=== PATIENT | female | born 1985 ===

== ENCOUNTER 2019-12-24 12:44 | Outpatient (REF) | payer OTHER, SELFPAY ==
--- NOTE | 2019-12-24 | US_ITS ---
EXAMINATION: ULTRASOUND PELVIS COMPLETE. CLINICAL INFORMATION: Complex ovarian cyst. COMPARISON: Pelvic pain. TECHNIQUE: Transabdominal and transvaginal ultrasound of the pelvis is performed. FINDINGS: The uterus is retroverted and retroflexed measuring 7.1 cm in length, 3.9 cm in AP and 4.8 cm in transverse dimension. The endometrial thickness is 0.7 cm. Uterus is homogeneous in echotexture. Right ovary measures 3.6 x 2 2.7 x 2.5 cm and volume 12.7 mL. Previously it measured 3.5 x 2.8 x 2.4 cm. There are multiple small follicular cysts seen. Left ovary measures 3.4 x 3.2 x 2.1 cm and volume 12 mL. Previously right ovary measured 3.8 x 3.3 x 3.0 cm. There are multiple small anechoic cyst. There is no free fluid in cul-de-sac. 2 US/US pelvic complete IMPRESSION: Suspect bilateral polycystic ovaries. The uterus is unremarkable. There is no free fluid in cul-de-sac.
--- NOTE | 2019-12-24 | US_ITS ---
EXAMINATION: ULTRASOUND PELVIS COMPLETE. CLINICAL INFORMATION: Complex ovarian cyst. COMPARISON: Pelvic pain. TECHNIQUE: Transabdominal and transvaginal ultrasound of the pelvis is performed. FINDINGS: The uterus is retroverted and retroflexed measuring 7.1 cm in length, 3.9 cm in AP and 4.8 cm in transverse dimension. The endometrial thickness is 0.7 cm. Uterus is homogeneous in echotexture. Right ovary measures 3.6 x 2 2.7 x 2.5 cm and volume 12.7 mL. Previously it measured 3.5 x 2.8 x 2.4 cm. There are multiple small follicular cysts seen. Left ovary measures 3.4 x 3.2 x 2.1 cm and volume 12 mL. Previously right ovary measured 3.8 x 3.3 x 3.0 cm. There are multiple small anechoic cyst. There is no free fluid in cul-de-sac. 2 US/US transvaginal IMPRESSION: Suspect bilateral polycystic ovaries. The uterus is unremarkable. There is no free fluid in cul-de-sac.
== END 2019-12-24 12:45 | disposition home or self-care (01) ==
LOC: HO.US 12:44
PROVIDERS: PCP Family Medicine; Visit Provider Obstetrics & Gynecology
DX: N83.299 Other ovarian cyst, unspecified side (principal)
CPT/HCPCS: 76830; 76856

== ENCOUNTER → 2020-01-07 11:36 | Outpatient (BNVA) | payer OTHER, SELFPAY | PROVIDERS: PCP Family Medicine; Referring Provider Family Medicine; Visit Provider Obstetrics & Gynecology | DX: Z76.89 Persons encountering health services in other specified circumstances (principal) ==

== ENCOUNTER → 2020-01-22 12:19 | Outpatient (BNVA) | payer OTHER, SELFPAY | PROVIDERS: Visit Provider Obstetrics & Gynecology | DX: Z76.89 Persons encountering health services in other specified circumstances (principal) ==

== ENCOUNTER 2020-01-23 13:18 | Outpatient (REF) | payer OTHER, SELFPAY ==
[2020-01-28 22:38] LABS: HPV 16 RNA NOT DETECTED (NOT DETECTED); HPV mRNA E6/E7 rflx Detected (Not Detected)
[2020-01-29 11:34] LABS: CT PCR NOT DETECTED (Not Detect.); NG PCR NOT DETECTED (Not Detect.)
== END 2020-01-23 13:19 | disposition home or self-care (01) ==
LOC: HO.LAB 13:18
PROVIDERS: Visit Provider Obstetrics & Gynecology
DX: Z01.419 Encounter for gynecological examination (general) (routine) without abnormal findings (principal); B37.3 Candidiasis of vulva and vagina; N92.1 Excessive and frequent menstruation with irregular cycle; L68.0 Hirsutism; Z79.899 Other long term (current) drug therapy
CPT/HCPCS: 87491; 87591; 87624; 87625; 88141; 88142; 88305

== ENCOUNTER 2020-01-23 14:23 | Outpatient (REF) | payer OTHER, SELFPAY ==
[2020-01-23 16:08] LABS: Thyroid Stimulating Hormone 1.35 uIU/mL (0.32-4.0)
[2020-01-24 19:23] LABS: Follicle Stimulating Hormone 5.9 mIU/mL; Lutenizing Hormone 8.8 mIU/mL; Prolactin 6.6 ng/mL
[2020-01-24 21:37] LABS: DHEA Sulfate 185 mcg/dL (23-266)
[2020-01-29 09:43] LABS: Testosterone, Free 13.2 pg/mL (0.1-6.4); Testosterone, Total 77 ng/dL (2-45)
== END 2020-01-23 14:24 | disposition home or self-care (01) ==
LOC: HO.LAB 14:23
PROVIDERS: PCP Family Medicine; Visit Provider Obstetrics & Gynecology
DX: Z01.419 Encounter for gynecological examination (general) (routine) without abnormal findings (principal); L68.0 Hirsutism; N92.1 Excessive and frequent menstruation with irregular cycle; B37.3 Candidiasis of vulva and vagina
CPT/HCPCS: 82627; 83001; 83002; 83498; 84146; 84402; 84403; 84443

== ENCOUNTER → 2020-02-07 10:41 | Outpatient (BNVA) | payer OTHER, SELFPAY | PROVIDERS: Visit Provider Obstetrics & Gynecology | DX: Z76.89 Persons encountering health services in other specified circumstances (principal) ==

== ENCOUNTER → 2020-02-27 11:40 | Outpatient (BNVA) | payer OTHER, SELFPAY | PROVIDERS: PCP Family Medicine; Visit Provider Obstetrics & Gynecology | DX: Z76.89 Persons encountering health services in other specified circumstances (principal) ==

== ENCOUNTER 2020-02-27 15:01 | Outpatient (REF) | payer OTHER, SELFPAY ==
--- NOTE | 2020-02-27 15:04 | US_ITS ---
EXAMINATION: US PELVIS COMPLETE CLINICAL INFORMATION: Pelvic and perineal pain. COMPARISON: Ultrasound pelvis complete 12/24/2019. TECHNIQUE: Transabdominal and transvaginal imaging of the pelvis is performed. FINDINGS: The uterus is retroverted and retroflexed measuring 6.8 x 3.7 x 5.0 cm. Endometrial thickness is 0.7 cm. No focal lesion seen. Right ovary measures 3.1 x 2.8 x 2.5 cm and volume 11.4 mL. Multiple small cyst seen at the periphery question polycystic appearance. No solid lesions seen. Previously right ovary measured 3.6 x 2.7 x 2.5 cm and 12.7 mL volume. Left ovary measures 3.6 x 2.2 x 2.9 cm and volume 12.0 cm. It has multiple follicles at the periphery again suspicious for polycystic kidney disease. No solid lesions seen. Previously left ovary measured 3.4 x 3.2 x 2.1 cm and volume 12 mL There is no free fluid in the cul-de-sac. US/US pelvic complete IMPRESSION: Suspect bilateral polycystic ovaries. Similar findings were seen on the previous study. The uterus and cervix is unremarkable. There is no free fluid in the cul-de-sac.
--- NOTE | 2020-02-27 15:04 | US_ITS ---
EXAMINATION: US PELVIS COMPLETE CLINICAL INFORMATION: Pelvic and perineal pain. COMPARISON: Ultrasound pelvis complete 12/24/2019. TECHNIQUE: Transabdominal and transvaginal imaging of the pelvis is performed. FINDINGS: The uterus is retroverted and retroflexed measuring 6.8 x 3.7 x 5.0 cm. Endometrial thickness is 0.7 cm. No focal lesion seen. Right ovary measures 3.1 x 2.8 x 2.5 cm and volume 11.4 mL. Multiple small cyst seen at the periphery question polycystic appearance. No solid lesions seen. Previously right ovary measured 3.6 x 2.7 x 2.5 cm and 12.7 mL volume. Left ovary measures 3.6 x 2.2 x 2.9 cm and volume 12.0 cm. It has multiple follicles at the periphery again suspicious for polycystic kidney disease. No solid lesions seen. Previously left ovary measured 3.4 x 3.2 x 2.1 cm and volume 12 mL There is no free fluid in the cul-de-sac. US/US transvaginal IMPRESSION: Suspect bilateral polycystic ovaries. Similar findings were seen on the previous study. The uterus and cervix is unremarkable. There is no free fluid in the cul-de-sac.
== END 2020-02-27 15:02 | disposition home or self-care (01) ==
LOC: HO.US 15:01
PROVIDERS: Visit Provider Obstetrics & Gynecology
DX: R10.2 Pelvic and perineal pain (principal)
CPT/HCPCS: 76830; 76856

== ENCOUNTER 2020-02-28 09:21 | Outpatient (REF) | payer OTHER, SELFPAY ==
[2020-02-29 12:53] LABS: C. trachomatis RNA TMA NOT DETECTED (NOT DETECTED); N. gonorrhoeae RNA TMA NOT DETECTED (NOT DETECTED)
[2020-02-29 13:15] LABS: BV Int Neg Control Negative (Negative); BV Int Pos Control Positive (Positive)
== END 2020-02-28 09:22 | disposition home or self-care (01) ==
LOC: HO.LAB 09:21
PROVIDERS: PCP Family Medicine; Visit Provider Obstetrics & Gynecology
DX: R10.2 Pelvic and perineal pain (principal); N88.9 Noninflammatory disorder of cervix uteri, unspecified
CPT/HCPCS: 81003; 81025; 87086; 87480; 87491; 87510; 87591; 87660; 99212

== ENCOUNTER 2020-03-01 15:09 | Emergency (ER) | payer OTHER, SELFPAY ==
[2020-03-01 15:22] VITALS: BP 138/88; PULSE 102; RESP 16; TEMP 37; O2SAT 99; BMI 28.3
[2020-03-01 16:09] LABS: MANUAL DIFF FLAG NO
[2020-03-01 16:12] LABS: Basophils Absolute Auto 0.1 X10*3/uL (0.0-0.2); Basophils Percent Auto 0.7 % (0-2); Eosinophils Absolute Auto 0.1 X10*3/uL (0.0-0.4); Hematocrit 41.5 % (37-47); Hemoglobin 13.1 g/dl (12.0-16.0); Imm Gran Abs Auto 0.05 X10*3/uL (0.00-0.03); Imm Gran Pct Auto 0.5 % (0.0-0.4); Lymphocytes Absolute Auto 2.4 X10*3/uL (1.2-4.9); Lymphocytes Percent Auto 25.1 % (20-40); Mean Corpuscular HGB Conc 31.6 g/dl (31.0-35.0); Mean Corpuscular Volume 85.6 fL (80-98); Mean Platelet Volume 9.7 fL (9.4-12.3); Monocytes Absolute Auto 0.7 X10*3/uL (0.1-1.2); Monocytes Percent Auto 6.9 % (2-11); Neutrophils Absolute Auto 6.3 X10*3/uL (2.0-8.3); Neutrophils Percent Auto 65.8 % (45-73); Platelet Count 444 X10*3/uL (160-400); Red Blood Count 4.85 X10*6/uL (4.20-5.50); White Blood Count 9.6 X10*3/uL (4.8-10.8)
[2020-03-01 16:34] LABS: Alanine Aminotransferase 42 U/L (0-31); Albumin Level 4.6 g/dL (3.5-5.0); Alkaline Phosphatase 122 U/L (39-117); Anion Gap 14 (12-20); Aspartate Amino Transferase 39 U/L (5-31); Bilirubin Total 0.2 mg/dL (0.0-1.0); Blood Urea Nitrogen 10 mg/dL (9-16); Calcium 10.2 mg/dL (8.4-10.2); Carbon Dioxide 27 mmol/L (22-29); Chloride 102 mmol/L (96-108); Creatinine Clr Calc Pharmacy 101.7; Estimated Glomerular Filt Rate > 60; Glucose Random 109 mg/dL (60-115); Potassium 4.7 mmol/l (3.3-5.1); Sodium 138 mmol/L (135-145); Total Protein 7.9 g/dL (6.5-8.0)
--- NOTE | 2020-03-01 20:49 | CT_ITS ---
EXAMINATION: CT ABDOMEN AND PELVIS WITHOUT CONTRAST CLINICAL INFORMATION: Diffuse abdominal pain COMPARISON: Prior CT September 2019 TECHNIQUE: Multidetector volumetric imaging was performed from the superior aspect of the liver through the pubic symphysis. Sagittal and coronal reformatted images were obtained on the technologist's workstation. This CT examination was performed using dose optimization techniques as appropriate, variously including the following: *Automated exposure control *Adjustment of mA and/or kV according to patient size (this includes techniques or standardized protocols for targeted exams where dose is matched to indication/reason for exam; i.e. extremities or head) *Use of iterative reconstruction technique DLP: 529 mGy-cm FINDINGS: LUNG BASES: The visualized lung bases are unremarkable. LIVER, GALLBLADDER, AND BILIARY TREE: Diffuse hepatic steatosis unchanged. No focal abnormality. Status post cholecystectomy. No intrahepatic or extrahepatic biliary dilatation. PANCREAS: Unremarkable. SPLEEN: Unremarkable. ADRENAL GLANDS: Unremarkable. KIDNEYS AND URETERS: The kidneys are normal in size, shape, and attenuation. No hydronephrosis, hydroureter, or calculi seen. No perinephric stranding. BLADDER: Unremarkable. GASTROINTESTINAL TRACT: The small and large bowel are unremarkable. The appendix is unremarkable. ABDOMINAL WALL: No significant hernia is appreciated. LYMPH NODES: Normal. VASCULAR: Unremarkable. PELVIC VISCERA: Cystic changes in the left ovary had resolved or near completely resolved OSSEOUS STRUCTURES: Unremarkable. CT/CT abdomen pelvis wo con IMPRESSION: No acute abnormality. Stable hepatic steatosis. Status post cholecystectomy. Resolution or near-complete resolution of previously noted cystic left ovarian mass. This likely reflects a resolving cyst
--- NOTE | 2020-03-01 20:56 | ED_ITS ---
HPI - Abdominal Pain General Chief Complaint: Abdominal Pain Stated Complaint: VOMITING,ABDOMINAL PAIN Time Seen by Provider: 03/01/20 17:02 Source: patient Mode of arrival: ambulatory Limitations: no limitations History of Present Illness HPI narrative: 35-year-old female presented with lower abdominal pain, patient stated that she has been having chronic abdominal pain due to polycystic ovarian disease and patient has been following with Dr. Wild from OBGYN service, pain is diffuse but more to the suprapubic area, pain is constant for the past few hours associated with vomiting, pain is worsening with movement and is improved when she stays still, no vaginal discharge or bleed. No fever or chills. Related Data Home Medications Medication Instructions Recorded Confirmed bupropion HCl 300 mg 24 hr tablet, 300 mg PO DAILY 12/27/19 02/27/20 extended release citalopram 40 mg tablet 40 mg PO DAILY 12/27/19 02/27/20 hydroxyzine HCl 25 mg tablet mg PO 12/27/19 02/27/20 lorazepam 1 mg tablet mg PO 12/27/19 02/27/20 Previous Rx's Medication Instructions Recorded desogestrel 0.15 mg-ethinyl 1 tab PO DAILY 28 Days #28 tab 02/07/20 estradiol 0.03 mg tablet levonorgestrel 0.15 mg-ethinyl 1 tab PO DAILY #28 ea 02/27/20 estradiol 30 mcg tablets,3 mos pack(91) levofloxacin 500 mg tablet 500 mg PO DAILY 7 Days #7 tab 02/28/20 metronidazole 500 mg tablet 500 mg PO BID 7 Days #14 tab 02/28/20 oxycodone 5 mg PO Q6H PRN #10 cap 03/01/20 Allergies Allergy/AdvReac Type Severity Reaction Status Date / Time No Known Allergies Allergy Verified 02/28/20 09:26 [No Known Allergies*] oxycodone AdvReac Unknown ineffective Uncoded 02/28/20 09:26 Review of Systems Review of Systems All other systems are reviewed and are negative Constitutional: Reports as per HPI and Reports no additional constitutional complaints Eyes: Reports as per HPI and Reports no additional eye complaints Reports system reviewed and no additional complaints, except as documented Cardiovascular: Reports as per HPI and Reports no additional cardiovascular complaints Respiratory: Reports as per HPI and Reports no additional respiratory complaints Gastrointestinal: Reports as per HPI and Reports no additional gastrointestinal complaints Genitourinary: Reports no additional female genitourinary complaints Musculoskeletal: Reports no additional musculoskeletal complaints Skin/Breast: Reports system reviewed and no additional complaints, except as docu Psychiatric: Reports no additional psychiatric complaints Endocrine: Reports no additional endocrine complaints Hematologic/Lymphatic: Reports no additional hematologic/lymphatic complaints Allergic/Immunologic: Reports no additional allergic/immunologic complaints Reports system reviewed and no additional complaints, except as documented and Reports Abnormal speech present Physical Exam Vital Signs: Vital Signs: Last Vital Signs Temp 98.6 F 03/01/20 15:22 Pulse 102 H 03/01/20 15:22 Resp 16 03/01/20 15:22 BP 138/88 03/01/20 15:22 Pulse Ox 99 03/01/20 15:22 Body Mass Index 28.3 Vital signs have been reviewed as normal and appeared to be correct. Blood pressure is elevated. Heart rate on the high side. Respiration rate normal. Temperature normal. Oxygen saturation normal. Appearance: Alert. Oriented X3. No acute distress. Head: Normal external exam. Normocephalic. Atraumatic. No Chaidez signs noted. No raccoon eyes noted Eyes: PERRLA. EOMI. Conjunctiva and sclera normal. Eyelids normal. ENT: EAC normal. TM's Normal. Pharynx normal. Uvula midline. Moist mucous membranes. No trismus noted. No drooling noted. No muffled voice noted. Neck: Normal inspection. Neck supple. FROM. No adenopathy. Thyroid Normal. No meningeal signs. No neck mass noted. CVS: Normal heart rate and rhythm. Heart sound normal. No murmurs noted. Pulses normal throughout. Respiratory: No respiratory distress. Painless inspiration. Breath sounds no rmal. No wheezes/rales/rhonchi noted. Chest nontender. No accessory muscle usage noted or decreased air movement noted. Abdomen: Soft, suprapubic tenderness with no rebound tenderness or guarding, B owel sounds normal in all 4 quadrants. No distention noted. No organomegaly noted. No visible injury noted. Back: No CVA tenderness. Full range of motion noted. Skin: Skin warm and dry. Normal skin color. Normal skin turgor. No rashes/lesions/lacerations noted. Extremities: No lower extremity edema. Extremities exhibit normal range of motion. Extremities nontender. Neuro: Oriented X 3. No motor deficit. No sensory deficit. Reflexes normal. Course Course Course Narrative: Assessment and plan. 35-year-old female with history of polycystic ovarian syndrome presented with lower abdominal pain, patient is known to have chronic history of abdominal pain patient follow-up with Dr. Wild from [facility], patient had CT of the abdomen and pelvis today which showed resolution of left ovarian cyst which may explain patient's symptoms today secondary to a ruptured ovarian cyst. As discussed with the patient to follow up with Dr. Wild, prescribed pain medication and antinausea medication. Elevation of LFTs likely secondary to fatty liver patient was advised to follow- up with PCP. MDM - Abdominal Pain Lab Data Result diagrams: 03/01/20 15:57 03/01/20 15:57 Labs: Lab Results 03/01/20 03/01/20 03/01/20 Range/Units 15:57 15:57 15:57 WBC 9.6 (4.8-10.8) X10*3/uL RBC 4.85 (4.20-5.50) X10*6/uL Hgb 13.1 (12.0-16.0) g/dl Hct 41.5 (37-47) % MCV 85.6 (80-98) fL MCH 27.0 (27.0-33.0) pg MCHC 31.6 (31.0-35.0) g/dl RDW 13.0 (11.0-16.0) % Plt Count 444 H (160-400) X10*3/uL MPV 9.7 (9.4-12.3) fL Immature Gran % (Auto) 0.5 H (0.0-0.4) % Neut % (Auto) 65.8 (45-73) % Lymph % (Auto) 25.1 (20-40) % [place] % (Auto) 6.9 (2-11) % Eos % (Auto) 1.0 (0-4) % Baso % (Auto) 0.7 (0-2) % Lymph # (Auto) 2.4 (1.2-4.9) X10*3/uL [place] # (Auto) 0.7 (0.1-1.2) X10*3/uL Eos # (Auto) 0.1 (0.0-0.4) X10*3/uL Baso # (Auto) 0.1 (0.0-0.2) X10*3/uL Abs Immat Gran (auto) 0.05 H (0.00-0.03) X10*3/uL Absolute Neuts (auto) 6.3 (2.0-8.3) X10*3/uL Absolute Nucleated RBC 0.000 (0.0-0.012) X10*3/uL Nucleated RBC % (auto) 0.0 (0.0-0.2) /100WBC Hold Blue Top SEE NOTE Sodium 138 (135-145) mmol/L Potassium 4.7 (3.3-5.1) mmol/l Chloride 102 (96-108) mmol/L Carbon Dioxide 27 (22-29) mmol/L Anion Gap 14 (12-20) BUN 10 (9-16) mg/dL Creatinine 0.80 (0.5-1.4) mg/dL Estim Creat Clear Calc 101.7 Estimated GFR > 60 Random Glucose 109 (60-115) mg/dL Calcium 10.2 (8.4-10.2) mg/dL Total Bilirubin 0.2 (0.0-1.0) mg/dL AST 39 H (5-31) U/L ALT 42 H (0-31) U/L Alkaline Phosphatase 122 H (39-117) U/L Total Protein 7.9 (6.5-8.0) g/dL Albumin 4.6 (3.5-5.0) g/dL Beta HCG, Quant < 2 mIU/mL Urine Color Urine Appearance Urine pH (5.0-8.0) Ur Specific [place] (1.005-1.025) Urine Protein (NEG-TRACE) MG/DL Urine Glucose (UA) (NEG) MG/DL Urine Ketones (NEG) MG/DL Urine Blood (NEG) Urine Nitrite (NEG) Ur Leukocyte Esterase (NEG) Urine RBC (0) /HPF Urine WBC (0-4) /HPF Ur Squamous Epith Cells /LPF Urine Bacteria /LPF Urine Test (NEGATIVE) 03/01/20 Range/Units 21:42 WBC (4.8-10.8) X10*3/uL RBC (4.20-5.50) X10*6/uL Hgb (12.0-16.0) g/dl Hct (37-47) % MCV (80-98) fL MCH (27.0-33.0) pg MCHC (31.0-35.0) g/dl RDW (11.0-16.0) % Plt Count (160-400) X10*3/uL MPV (9.4-12.3) fL Immature Gran % (Auto) (0.0-0.4) % Neut % (Auto) (45-73) % Lymph % (Auto) (20-40) % [place] % (Auto) (2-11) % Eos % (Auto) (0-4) % Baso % (Auto) (0-2) % Lymph # (Auto) (1.2-4.9) X10*3/uL [place] # (Auto) (0.1-1.2) X10*3/uL Eos # (Auto) (0.0-0.4) X10*3/uL Baso # (Auto) (0.0-0.2) X10*3/uL Abs Immat Gran (auto) (0.00-0.03) X10*3/uL Absolute Neuts (auto) (2.0-8.3) X10*3/uL Absolute Nucleated RBC (0.0-0.012) X10*3/uL Nucleated RBC % (auto) (0.0-0.2) /100WBC Hold Blue Top Sodium (135-145) mmol/L Potassium (3.3-5.1) mmol/l Chloride (96-108) mmol/L Carbon Dioxide (22-29) mmol/L Anion Gap (12-20) BUN (9-16) mg/dL Creatinine (0.5-1.4) mg/dL Estim Creat Clear Calc Estimated GFR Random Glucose (60-115) mg/dL Calcium (8.4-10.2) mg/dL Total Bilirubin (0.0-1.0) mg/dL AST (5-31) U/L ALT (0-31) U/L Alkaline Phosphatase (39-117) U/L Total Protein (6.5-8.0) g/dL Albumin (3.5-5.0) g/dL Beta HCG, Quant mIU/mL Urine Color YELLOW Urine Appearance HAZY Urine pH 6.0 (5.0-8.0) Ur Specific [place] >= 1.030 H (1.005-1.025) Urine Protein NEG (NEG-TRACE) MG/DL Urine Glucose (UA) NEG (NEG) MG/DL Urine Ketones NEG (NEG) MG/DL Urine Blood 1+ H (NEG) Urine Nitrite NEG (NEG) Ur Leukocyte Esterase TRACE H (NEG) Urine RBC 1-4 (0) /HPF Urine WBC 0-2 (0-4) /HPF Ur Squamous Epith Cells 3+ /LPF Urine Bacteria 2+ /LPF Urine Test NEGATIVE (NEGATIVE) Imaging Data CT scan - abdomen: Radiologist's impression: No acute abnormality. Stable hepatic steatosis. Status post cholecystectomy. Resolution or near-complete resolution of previously noted cystic left ovarian mass. This likely reflects a resolving cyst Discharge Plan Discharge Clinical Impression: PCOS (polycystic ovarian syndrome), Elevated liver function tests Ovarian cyst Qualifiers: Laterality: left Qualified Code(s): N83.202 - Unspecified ovarian cyst, left side Patient Disposition: Home, Self-Care Instructions: Ruptured Ovarian Cyst (ED) Prescriptions: New oxycodone 5 mg capsule 5 mg PO Q6H PRN (Reason: pain) Qty: 10 RF: 0 No Action lorazepam 1 mg tablet PO RF: 0 bupropion HCl 300 mg tablet extended release 24 hr 300 mg PO DAILY RF: 0 citalopram 40 mg tablet 40 mg PO DAILY RF: 0 hydroxyzine HCl 25 mg tablet PO RF: 0 desogestrel-ethinyl estradiol [Apri] 0.15-0.03 mg tablet 1 tab PO DAILY 28 Days Qty: 28 RF: 2 levonorgestrel-ethinyl estrad 0.15 mg-30 mcg (91) tablets,dose pack,3 month 1 tab PO DAILY Qty: 28 RF: 3 levofloxacin 500 mg tablet 500 mg PO DAILY 7 Days Qty: 7 RF: 0 metronidazole 500 mg tablet 500 mg PO BID 7 Days Qty: 14 RF: 0 Referrals: Carson Wild MD [Physician] - 2 days [facility] Past Medical History Medical History Anxiety ASCUS with positive high risk HPV Depression Surgical History History of History of cholecystectomy Family History Family History Maternal Grandmother Pacemaker CVD (cardiovascular disease) Father Diabetes HTN (hypertension) Mother Asthma Paternal Grandmother Cancer Social History Social History Alcohol intake: never Smoking Status: Never smoker Advance Directives: No Sexual orientation: Straight/Heterosexual Gender identity: female
[2020-03-01 21:15] LABS: HCG Quantitative < 2 mIU/mL
[2020-03-01] MEDS: Morphine Sulfate 2 MG/ML CARTRIDGE IVPUSH (21:33)
[2020-03-01] MEDS: Magnesium Hydrox/Alum Hydrox 30 ML ORAL.SUSP PO (21:34)
[2020-03-01] MEDS: 0.9 % Sodium Chloride 1,000 ML 999 ML IVCONT (21:34)
[2020-03-01] MEDS: Ketorolac Tromethamine 15 MG/ML VIAL IV (21:34)
[2020-03-01] MEDS: Famotidine/PF 20 MG/2 ML VIAL IVPUSH (21:34)
[2020-03-01] MEDS: ondansetron HCL 4 MG/2 ML VIAL IVPUSH (21:34)
[2020-03-01 21:49] LABS: Appearance Urine HAZY; Color Urine YELLOW; Glucose Urine UA NEG (NEG); Leukocyte Esterase Urine TRACE (NEG); Nitrite Urine NEG (NEG); Specific Gravity - Urine >= 1.030 (1.005-1.025); Urine Blood 1+ (NEG); Urine Ketones NEG (NEG); Urine Protein NEG (NEG-TRACE)
[2020-03-01 21:51] LABS: UPreg QC Valid YES; Urine Pregnancy NEGATIVE (NEGATIVE)
[2020-03-01 21:55] LABS: Bacteria Urine 2+ /LPF; Squamous Epithelial Cell Urine 3+ /LPF; WBC Urine 0-2 /HPF (0-4)
[2020-03-01 22:00] VITALS: BP 132/78; PULSE 86; RESP 18; TEMP 36.6; O2SAT 99
== END 2020-03-02 00:50 | disposition home or self-care (01) ==
PROVIDERS: Emergency Provider Emergency Medicine
DX: E28.2 Polycystic ovarian syndrome (principal); R79.89 Other specified abnormal findings of blood chemistry
CPT/HCPCS: 36415; 74176; 80053; 81001; 81025; 84702; 85025; 87086; 96361; 96374; 96375; 99284; J1885; J2270; J2405

== ENCOUNTER → 2020-03-06 15:04 | Outpatient (BNVA) | payer OTHER, SELFPAY | PROVIDERS: PCP Family Medicine; Visit Provider Obstetrics & Gynecology | DX: Z76.89 Persons encountering health services in other specified circumstances (principal) | CPT/HCPCS: 99212 ==

== ENCOUNTER 2020-03-06 16:11 | Emergency (ER) | payer OTHER, SELFPAY ==
[2020-03-06] VITALS (7 sets, daily range): BP systolic 109–129; BP diastolic 72–82; PULSE 76–97; RESP 18–20; TEMP 36.4–36.6; O2SAT 99–100; BMI 28.9
--- NOTE | 2020-03-06 17:32 | ECG_ITS ---
Test Reason : ABDOMINAL PAIN Blood Pressure : / mmHG Vent. Rate : 082 BPM Atrial Rate : 082 BPM P-R Int : 164 ms QRS Dur : 076 ms QT Int : 368 ms P-R-T Axes : 047 005 -03 degrees QTc Int : 429 ms Normal sinus rhythm Normal ECG When compared with ECG of 14-MAR-2019 16:01, Nonspecific T wave abnormality has replaced inverted T waves in Anterior leads Referred By: Katy Delacruz Electronically Signed By:GAUTAM NIX MD
--- NOTE | 2020-03-06 17:34 | CT_ITS ---
EXAMINATION: CT ABDOMEN AND PELVIS WITHOUT CONTRAST CLINICAL INFORMATION: 35-year-old female with left-sided flank pain COMPARISON: CT abdomen pelvis 03/01/2020 TECHNIQUE: Multidetector volumetric imaging was performed from the superior aspect of the liver through the pubic symphysis. Sagittal and coronal reformatted images were obtained on the technologist's workstation. This CT examination was performed using dose optimization techniques as appropriate, variously including the following: *Automated exposure control *Adjustment of mA and/or kV according to patient size (this includes techniques or standardized protocols for targeted exams where dose is matched to indication/reason for exam; i.e. extremities or head) *Use of iterative reconstruction technique DLP: 567 mGy-cm FINDINGS: Visualized lung bases demonstrate mild dependent atelectasis. The liver is normal in size but demonstrates diffusely decreased attenuation. The gallbladder is surgically absent. The pancreas, spleen and adrenal glands are unremarkable. Symmetrically sized kidneys. No renal calculi or hydronephrosis bilaterally. Normal caliber loops of small and large bowel. Normal appendix. The bladder is decompressed and therefore not accurately evaluated. No gross bladder abnormality identified. Unremarkable CT appearance of the uterus. Small bilateral adnexal cysts noted. No gross free pelvic fluid. No inguinal lymphadenopathy. No acute osseous abnormality. CT/CT abdomen pelvis wo con IMPRESSION: 1. No CT evidence for acute abnormality within the abdomen or pelvis. 2. Diffusely decreased liver attenuation suggesting hepatic steatosis. 3. Small bilateral adnexal cysts.
--- NOTE | 2020-03-06 17:38 | ED.ABDPAIN ---
HPI - Abdominal Pain General Chief Complaint: Abdominal Pain Stated Complaint: Flank pain Time Seen by Provider: 03/06/20 17:31 Source: patient Mode of arrival: ambulatory Limitations: no limitations History of Present Illness HPI narrative: 35-year-old female with past medical history of menorrhagia, hirsutism, PCOS presents from the office of Dr. Wild for 1 week of left flank pain, accompanied with nausea and vomiting. Patient states that she is unable to eat, drink, or do anything because of the pain. She presents from Dr Wild's office for further evaluation. MD elicited complaint: flank pain Pertinent past history: past UTI Onset (ago): week(s) (1) Pain Consistency: constant Related Data Home Medications Medication Instructions Recorded Confirmed bupropion HCl 300 mg 24 hr tablet, 300 mg PO DAILY 12/27/19 03/06/20 extended release citalopram 40 mg tablet 40 mg PO DAILY 12/27/19 03/06/20 hydroxyzine HCl 25 mg tablet mg PO 12/27/19 03/06/20 lorazepam 1 mg tablet mg PO 12/27/19 03/06/20 Previous Rx's Medication Instructions Recorded desogestrel 0.15 mg-ethinyl 1 tab PO DAILY 28 Days #28 tab 02/07/20 estradiol 0.03 mg tablet levonorgestrel 0.15 mg-ethinyl 1 tab PO DAILY #28 ea 02/27/20 estradiol 30 mcg tablets,3 mos pack(91) levofloxacin 500 mg tablet 500 mg PO DAILY 7 Days #7 tab 02/28/20 metronidazole 500 mg tablet 500 mg PO BID 7 Days #14 tab 02/28/20 oxycodone 5 mg PO Q6H PRN #10 cap 03/01/20 cephalexin [Keflex] 500 mg PO Q12H 7 Days #14 cap 03/06/20 ondansetron HCl [Zofran] 4 mg PO Q8H PRN #20 tab 03/06/20 phenazopyridine [Pyridium] 200 mg PO TID PRN #6 tab 03/06/20 tramadol 50 mg PO Q8H PRN #5 tab 03/06/20 Allergies Allergy/AdvReac Type Severity Reaction Status Date / Time No Known Allergies Allergy Verified 03/06/20 15:45 [No Known Allergies*] oxycodone AdvReac Unknown ineffective Uncoded 03/06/20 15:45 Review of Systems Review of Systems Constitutional: No Fever, No Chills ENT/Mouth: No sore throat Eyes: No Eye Pain, No Swelling, No Redness Cardiovascular: No Chest Pain, No SOB Respiratory: No Cough, No Sputum, No Wheezing Gastrointestinal: positive Nausea, positive Vomiting, No Diarrhea, positive abdominal pain Genitourinary: positive Dysuria, positive urinary frequency, positive Hematuria, positive left Flank Pain, positive hesitancy Musculoskeletal: No joint pain, No Myalgias Skin: No Skin Lesions, No rash Neuro: No Weakness, No Numbness, No Headache Psych: No Anxiety/Panic, No Depression Heme/Lymph: No Bruising, No Lymphadenopathy Endocrine: No Polyuria, No Polydipsia Yes all other systems are reviewed and are negative Physical Exam Vital Signs: Vital Signs: Last Vital Signs Temp 97.5 F 03/06/20 17:41 Pulse 84 03/06/20 20:00 Resp 20 03/06/20 20:00 BP 121/75 03/06/20 20:00 Pulse Ox 99 03/06/20 20:00 Body Mass Index 28.9 Appearance: Alert. Oriented X3. Moderate distress. Eyes: Pupils equal, round and reactive to light. ENT: Pharynx normal. Neck: Normal inspection. Neck supple. CVS: Normal heart rate and rhythm. Pulses normal. Respiratory: No respiratory distress. Breath sounds normal. Abdomen: Soft and nontender. Positive CVA tenderness. Skin: Skin warm and dry. Normal skin color. Normal skin turgor. Extremities: No lower extremity edema. Neuro: No motor deficit. No sensory deficit. Course Course Course Narrative: 35-year-old female presents with 10/10 flank pain. Presents from Dr. Wild's office for further evaluation. 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 Patient has had nausea vomiting for over a week, and 10/10 left flank pain. Will order CT scan of the abdomen and pelvis to rule out kidney stone, pyelonephritis, acute abdomen, urinalysis, CBC Chem 7, lactic acid and cultures. We will give pain management, antiemetics and 2 L of normal saline. Lab values are otherwise unremarkable, urinalysis indicates UTI. CT scan is negative for acute findings in the abdomen and pelvis. No findings that could explain patients left flank pain. Will give IV ceftriaxone at this time. Lactic acid is negative, no indication for sepsis at this time. Multiple discussions with patient regarding plan of care, patient states that she has unresolved pain and would like to be admitted. Multiple discussions regarding plan, patient does not fit admission criteria. We will have hospitalist come speak to her. Patient does not meet hospital level care, we will give p.o. antibiotics, pain management, and antiemetics for home. Consultations Consultation #1: Junito Time: 17:30 Consultation #2: Robert Time: 23:00 MDM - Abdominal Pain Differential Diagnosis Differential diagnosis: Likely abdominal pain, acute appendicitis, bowel perforation, calculus of kidney, diverticulitis, endometriosis, gastroenteritis, mesenteric ischemia, ovarian cyst and small bowel obstruction Medical Records Attestation: I reviewed the patient's medical records. Lab Data Attestation: I reviewed the patient's lab results. Result diagrams: 03/06/20 17:58 03/06/20 17:59 Labs: Lab Results 03/06/20 03/06/20 03/06/20 Range/Units 17:58 17:58 17:58 WBC 10.8 (4.8-10.8) X10*3/uL RBC 4.53 (4.20-5.50) X10*6/uL Hgb 12.4 (12.0-16.0) g/dl Hct 38.4 (37-47) % MCV 84.8 (80-98) fL MCH 27.4 (27.0-33.0) pg MCHC 32.3 (31.0-35.0) g/dl RDW 13.0 (11.0-16.0) % Plt Count 383 (160-400) X10*3/uL MPV 9.7 (9.4-12.3) fL Immature Gran % (Auto) 0.7 H (0.0-0.4) % Neut % (Auto) 63.0 (45-73) % Lymph % (Auto) 28.3 (20-40) % [place] % (Auto) 6.6 (2-11) % Eos % (Auto) 0.9 (0-4) % Baso % (Auto) 0.5 (0-2) % Lymph # (Auto) 3.1 (1.2-4.9) X10*3/uL [place] # (Auto) 0.7 (0.1-1.2) X10*3/uL Eos # (Auto) 0.1 (0.0-0.4) X10*3/uL Baso # (Auto) 0.1 (0.0-0.2) X10*3/uL Abs Immat Gran (auto) 0.08 H (0.00-0.03) X10*3/uL Absolute Neuts (auto) 6.8 (2.0-8.3) X10*3/uL Absolute Nucleated RBC 0.000 (0.0-0.012) X10*3/uL Nucleated RBC % (auto) 0.0 (0.0-0.2) /100WBC PT 13.9 H (10.8-13.0) SEC INR 1.2 H (0.9-1.1) APTT 37.1 (24.1-38.0) SEC Sodium (135-145) mmol/L Potassium (3.3-5.1) mmol/l Chloride (96-108) mmol/L Carbon Dioxide (22-29) mmol/L Anion Gap (12-20) BUN (9-16) mg/dL Creatinine (0.5-1.4) mg/dL Estim Creat Clear Calc Estimated GFR Random Glucose (60-115) mg/dL Lactic Acid 1.6 (0.5-2.0) mmol/L Calcium (8.4-10.2) mg/dL Magnesium (1.6-2.6) mg/dL Total Bilirubin (0.0-1.0) mg/dL Direct Bilirubin (0.0-0.5) mg/dL AST (5-31) U/L ALT (0-31) U/L Alkaline Phosphatase (39-117) U/L Troponin I High Sens (<3.5-17.0) ng/L Total Protein (6.5-8.0) g/dL Albumin (3.5-5.0) g/dL Lipase (8-78) U/L Urine Color Urine Appearance Urine pH (5.0-8.0) Ur Specific [place] (1.005-1.025) Urine Protein (NEG-TRACE) MG/DL Urine Glucose (UA) (NEG) MG/DL Urine Ketones (NEG) MG/DL Urine Blood (NEG) Urine Nitrite (NEG) Ur Leukocyte Esterase (NEG) Urine RBC (0) /HPF Urine WBC (0-4) /HPF Ur Squamous Epith Cells /LPF Urine Bacteria /LPF Urine Test (NEGATIVE) Coronavirus (PCR) (Negative) Influenza Type A (PCR) (Negative) Influenza Type B (PCR) (Negative) RSV RNA Qual (PCR) (Negative) 03/06/20 03/06/20 03/06/20 Range/Units 17:59 17:59 20:09 WBC (4.8-10.8) X10*3/uL RBC (4.20-5.50) X10*6/uL Hgb (12.0-16.0) g/dl Hct (37-47) % MCV (80-98) fL MCH (27.0-33.0) pg MCHC (31.0-35.0) g/dl RDW (11.0-16.0) % Plt Count (160-400) X10*3/uL MPV (9.4-12.3) fL Immature Gran % (Auto) (0.0-0.4) % Neut % (Auto) (45-73) % Lymph % (Auto) (20-40) % [place] % (Auto) (2-11) % Eos % (Auto) (0-4) % Baso % (Auto) (0-2) % Lymph # (Auto) (1.2-4.9) X10*3/uL [place] # (Auto) (0.1-1.2) X10*3/uL Eos # (Auto) (0.0-0.4) X10*3/uL Baso # (Auto) (0.0-0.2) X10*3/uL Abs Immat Gran (auto) (0.00-0.03) X10*3/uL Absolute Neuts (auto) (2.0-8.3) X10*3/uL Absolute Nucleated RBC (0.0-0.012) X10*3/uL Nucleated RBC % (auto) (0.0-0.2) /100WBC PT (10.8-13.0) SEC INR (0.9-1.1) APTT (24.1-38.0) SEC Sodium 137 (135-145) mmol/L Potassium 3.9 (3.3-5.1) mmol/l Chloride 103 (96-108) mmol/L Carbon Dioxide 22 (22-29) mmol/L Anion Gap 16 (12-20) BUN 12 (9-16) mg/dL Creatinine 0.79 (0.5-1.4) mg/dL Estim Creat Clear Calc 104.1 Estimated GFR > 60 Random Glucose 90 (60-115) mg/dL Lactic Acid (0.5-2.0) mmol/L Calcium 9.4 D (8.4-10.2) mg/dL Magnesium 1.8 (1.6-2.6) mg/dL Total Bilirubin 0.4 (0.0-1.0) mg/dL Direct Bilirubin 0.2 (0.0-0.5) mg/dL AST 48 H (5-31) U/L ALT 54 H (0-31) U/L Alkaline Phosphatase 104 (39-117) U/L Troponin I High Sens < 3.5 (<3.5-17.0) ng/L Total Protein 7.4 (6.5-8.0) g/dL Albumin 4.4 (3.5-5.0) g/dL Lipase 5 L (8-78) U/L Urine Color YELLOW Urine Appearance CLEAR Urine pH 6.0 (5.0-8.0) Ur Specific [place] 1.020 (1.005-1.025) Urine Protein NEG (NEG-TRACE) MG/DL Urine Glucose (UA) NEG (NEG) MG/DL Urine Ketones NEG (NEG) MG/DL Urine Blood 1+ H (NEG) Urine Nitrite NEG (NEG) Ur Leukocyte Esterase 1+ H (NEG) Urine RBC 1-4 (0) /HPF Urine WBC 10-14 H (0-4) /HPF Ur Squamous Epith Cells 1+ /LPF Urine Bacteria 3+ /LPF Urine Test (NEGATIVE) Coronavirus (PCR) (Negative) Influenza Type A (PCR) (Negative) Influenza Type B (PCR) (Negative) RSV RNA Qual (PCR) (Negative) 03/06/20 03/06/20 Range/Units 20:09 23:21 WBC (4.8-10.8) X10*3/uL RBC (4.20-5.50) X10*6/uL Hgb (12.0-16.0) g/dl Hct (37-47) % MCV (80-98) fL MCH (27.0-33.0) pg MCHC (31.0-35.0) g/dl RDW (11.0-16.0) % Plt Count (160-400) X10*3/uL MPV (9.4-12.3) fL Immature Gran % (Auto) (0.0-0.4) % Neut % (Auto) (45-73) % Lymph % (Auto) (20-40) % [place] % (Auto) (2-11) % Eos % (Auto) (0-4) % Baso % (Auto) (0-2) % Lymph # (Auto) (1.2-4.9) X10*3/uL [place] # (Auto) (0.1-1.2) X10*3/uL Eos # (Auto) (0.0-0.4) X10*3/uL Baso # (Auto) (0.0-0.2) X10*3/uL Abs Immat Gran (auto) (0.00-0.03) X10*3/uL Absolute Neuts (auto) (2.0-8.3) X10*3/uL Absolute Nucleated RBC (0.0-0.012) X10*3/uL Nucleated RBC % (auto) (0.0-0.2) /100WBC PT (10.8-13.0) SEC INR (0.9-1.1) APTT (24.1-38.0) SEC Sodium (135-145) mmol/L Potassium (3.3-5.1) mmol/l Chloride (96-108) mmol/L Carbon Dioxide (22-29) mmol/L Anion Gap (12-20) BUN (9-16) mg/dL Creatinine (0.5-1.4) mg/dL Estim Creat Clear Calc Estimated GFR Random Glucose (60-115) mg/dL Lactic Acid (0.5-2.0) mmol/L Calcium (8.4-10.2) mg/dL Magnesium (1.6-2.6) mg/dL Total Bilirubin (0.0-1.0) mg/dL Direct Bilirubin (0.0-0.5) mg/dL AST (5-31) U/L ALT (0-31) U/L Alkaline Phosphatase (39-117) U/L Troponin I High Sens (<3.5-17.0) ng/L Total Protein (6.5-8.0) g/dL Albumin (3.5-5.0) g/dL Lipase (8-78) U/L Urine Color Urine Appearance Urine pH (5.0-8.0) Ur Specific [place] (1.005-1.025) Urine Protein (NEG-TRACE) MG/DL Urine Glucose (UA) (NEG) MG/DL Urine Ketones (NEG) MG/DL Urine Blood (NEG) Urine Nitrite (NEG) Ur Leukocyte Esterase (NEG) Urine RBC (0) /HPF Urine WBC (0-4) /HPF Ur Squamous Epith Cells /LPF Urine Bacteria /LPF Urine Test NEGATIVE (NEGATIVE) Coronavirus (PCR) NEGATIVE (Negative) Influenza Type A (PCR) NEGATIVE (Negative) Influenza Type B (PCR) NEGATIVE (Negative) RSV RNA Qual (PCR) NEGATIVE (Negative) Imaging Data CT scan - abdomen: Attestation: I personally reviewed and interpreted this imaging study as follows: Radiologist's impression: EXAMINATION: CT ABDOMEN AND PELVIS WITHOUT CONTRAST CLINICAL INFORMATION: 35-year-old female with left-sided flank pain COMPARISON: CT abdomen pelvis 03/01/2020 TECHNIQUE: Multidetector volumetric imaging was performed from the superior aspect of the liver through the pubic symphysis. Sagittal and coronal reformatted images were obtained on the technologist's workstation. This CT examination was performed using dose optimization techniques as appropriate, variously including the following: *Automated exposure control *Adjustment of mA and/or kV according to patient size (this includes techniques or standardized protocols for targeted exams where dose is matched to indication/reason for exam; i.e. extremities or head) *Use of iterative reconstruction technique DLP: 567 mGy-cm FINDINGS: Visualized lung bases demonstrate mild dependent atelectasis. The liver is normal in size but demonstrates diffusely decreased attenuation. The gallbladder is surgically absent. The pancreas, spleen and adrenal glands are unremarkable. Symmetrically sized kidneys. No renal calculi or hydronephrosis bilaterally. Normal caliber loops of small and large bowel. Normal appendix. The bladder is decompressed and therefore not accurately evaluated. No gross bladder abnormality identified. Unremarkable CT appearance of the uterus. Small bilateral adnexal cysts noted. No gross free pelvic fluid. No inguinal lymphadenopathy. No acute osseous abnormality. CT/CT abdomen pelvis wo con IMPRESSION: 1. No CT evidence for acute abnormality within the abdomen or pelvis. 2. Diffusely decreased liver attenuation suggesting hepatic steatosis. 3. Small bilateral adnexal cysts. ECG Data Attestation: I personally reviewed and interpreted this ECG as follows: ECG interpretation date: 03/06/20 ECG interpretation time: 17:45 Prior ECG tracings: available for review Interpretation: Vent. Rate : 082 BPM Atrial Rate : 082 BPM P-R Int : 164 ms QRS Dur : 076 ms QT Int : 368 ms P-R-T Axes : 047 005 -03 degrees QTc Int : 429 ms Normal sinus rhythm Normal ECG When compared with ECG of 14-MAR-2019 16:01, Nonspecific T wave abnormality has replaced inverted T waves in Anterior leads Discharge Plan Discharge Clinical Impression: Pelvic pain, Acute viral syndrome, COVID-19 UTI (urinary tract infection) Qualifiers: Urinary tract infection type: acute cystitis Hematuria presence: with hematuria Qualified Code(s): N30.01 - Acute cystitis with hematuria Patient Disposition: Home, Self-Care Instructions: Urinary Tract Infection in Women (ED), Acute Nausea and Vomiting (ED), Pelvic Pain in Women (ED), COVID-19 (Coronavirus Disease 2019) (ED) Additional Instructions: You were evaluated for flank pain, nausea and vomiting. CT scan of the abdomen is negative for acute findings. Lab values are within normal limits. Urinalysis indicates UTI. We are treating you with Keflex, Pyridium, and pain management with tramadol. You were also evaluated by Dr Wild today for pelvic pain. He does not have any concerns regarding his examination today. We are giving you a prescription for Zofran for nausea and vomiting. Please take this medication as directed. Do not take more medication than what is prescribed as this can change the way that her heart beats. We tested you for COVID-19. You were evaluated for symptoms consistent with COVID-19 and or COVID-19 positive exposure. Please maintain social isolation per State and Federal guidelines. Is your responsibility to maintain these guidelines. Your test results are pending. We will call you with the results. You must treat yourself as if you are positive until your test results come back. Thank you for choosing this emergency department for evaluation. Please follow-up with primary care physician as needed. Return to the emergency department for any new, concerning, or worsening symptoms. Prescriptions: New cephalexin [Keflex] 500 mg capsule 500 mg PO Q12H 7 Days Qty: 14 RF: 0 phenazopyridine [Pyridium] 200 mg tablet 200 mg PO TID PRN (Reason: pain) Qty: 6 RF: 0 tramadol 50 mg tablet 50 mg PO Q8H PRN (Reason: pain) Qty: 5 RF: 0 ondansetron HCl [Zofran] 4 mg tablet 4 mg PO Q8H PRN (Reason: nausea and vomiting) Qty: 20 RF: 0 No Action oxycodone 5 mg capsule 5 mg PO Q6H PRN (Reason: pain) Qty: 10 RF: 0 lorazepam 1 mg tablet PO RF: 0 bupropion HCl 300 mg tablet extended release 24 hr 300 mg PO DAILY RF: 0 citalopram 40 mg tablet 40 mg PO DAILY RF: 0 hydroxyzine HCl 25 mg tablet PO RF: 0 desogestrel-ethinyl estradiol [Apri] 0.15-0.03 mg tablet 1 tab PO DAILY 28 Days Qty: 28 RF: 2 levonorgestrel-ethinyl estrad 0.15 mg-30 mcg (91) tablets,dose pack,3 month 1 tab PO DAILY Qty: 28 RF: 3 levofloxacin 500 mg tablet 500 mg PO DAILY 7 Days Qty: 7 RF: 0 metronidazole 500 mg tablet 500 mg PO BID 7 Days Qty: 14 RF: 0 PMFSH Past Medical History Attestation statement: The following information was validated with the patient. Medical History Anxiety ASCUS with positive high risk HPV Depression Surgical History History of History of cholecystectomy Family History Family History Maternal Grandmother Pacemaker CVD (cardiovascular disease) Father Diabetes HTN (hypertension) Mother Asthma Paternal Grandmother Cancer Social History Social History Alcohol intake: never Smoking Status: Never smoker Advance Directives: No Advance Directives Information Provided: Yes Sexual orientation: Straight/Heterosexual Gender identity: female
[2020-03-06 18:08] LABS: MANUAL DIFF FLAG NO
[2020-03-06 18:10] LABS: Basophils Absolute Auto 0.1 X10*3/uL (0.0-0.2); Basophils Percent Auto 0.5 % (0-2); Eosinophils Absolute Auto 0.1 X10*3/uL (0.0-0.4); Eosinophils Percent Auto 0.9 % (0-4); Hematocrit 38.4 % (37-47); Hemoglobin 12.4 g/dl (12.0-16.0); Imm Gran Abs Auto 0.08 X10*3/uL (0.00-0.03); Imm Gran Pct Auto 0.7 % (0.0-0.4); Lymphocytes Absolute Auto 3.1 X10*3/uL (1.2-4.9); Lymphocytes Percent Auto 28.3 % (20-40); Mean Corpuscular HGB Conc 32.3 g/dl (31.0-35.0); Mean Corpuscular Hemoglobin 27.4 pg (27.0-33.0); Mean Corpuscular Volume 84.8 fL (80-98); Mean Platelet Volume 9.7 fL (9.4-12.3); Monocytes Absolute Auto 0.7 X10*3/uL (0.1-1.2); Monocytes Percent Auto 6.6 % (2-11); Neutrophils Absolute Auto 6.8 X10*3/uL (2.0-8.3); Platelet Count 383 X10*3/uL (160-400); Red Blood Count 4.53 X10*6/uL (4.20-5.50); White Blood Count 10.8 X10*3/uL (4.8-10.8)
[2020-03-06 18:16] LABS: INTERNATIONAL NORM RATIO 1.2 (0.9-1.1); Prothrombin Time 13.9 SEC (10.8-13.0)
[2020-03-06 18:18] LABS: Partial Thromboplastin Time 37.1 SEC (24.1-38.0)
[2020-03-06 18:32] LABS: Lactic Acid 1.6 mmol/L (0.5-2.0)
[2020-03-06 18:38] LABS: Alanine Aminotransferase 54 U/L (0-31); Albumin Level 4.4 g/dL (3.5-5.0); Alkaline Phosphatase 104 U/L (39-117); Anion Gap 16 (12-20); Aspartate Amino Transferase 48 U/L (5-31); Bilirubin Direct 0.2 mg/dL (0.0-0.5); Bilirubin Total 0.4 mg/dL (0.0-1.0); Blood Urea Nitrogen 12 mg/dL (9-16); Calcium 9.4 mg/dL (8.4-10.2); Carbon Dioxide 22 mmol/L (22-29); Chloride 103 mmol/L (96-108); Creatinine Clr Calc Pharmacy 104.1; Estimated Glomerular Filt Rate > 60; Glucose Random 90 mg/dL (60-115); Lipase 5 U/L (8-78); Magnesium 1.8 mg/dL (1.6-2.6); Potassium 3.9 mmol/l (3.3-5.1); Sodium 137 mmol/L (135-145); Total Protein 7.4 g/dL (6.5-8.0)
[2020-03-06 18:44] LABS: Troponin-I High Sensitivity < 3.5 ng/L (<3.5-17.0)
[2020-03-06] MEDS: 0.9 % Sodium Chloride 1,000 ML 999 ML IVCONT ×2 (19:09→19:16)
--- NOTE | 2020-03-06 19:11 | PC.NURSE ---
20 g right ac pt maalika well no complications LLQ abd pain rad down her leg 10/10
[2020-03-06] MEDS: ondansetron HCL 4 MG/2 ML VIAL IVPUSH (19:14)
[2020-03-06] MEDS: Morphine Sulfate 4 MG/ML CARTRIDGE IVPUSH (19:14)
[2020-03-06 20:18] LABS: Glucose Urine UA NEG (NEG); Leukocyte Esterase Urine 1+ (NEG); Nitrite Urine NEG (NEG); Urine Blood 1+ (NEG); Urine Ketones NEG (NEG); Urine Protein NEG (NEG-TRACE)
[2020-03-06 20:20] LABS: Appearance Urine CLEAR; Color Urine YELLOW
[2020-03-06 20:21] LABS: Urine Pregnancy NEGATIVE (NEGATIVE)
[2020-03-06 20:22] LABS: UPreg QC Valid YES
[2020-03-06 20:45] LABS: Bacteria Urine 3+ /LPF; Squamous Epithelial Cell Urine 1+ /LPF
[2020-03-06] MEDS: Ketorolac Tromethamine 30 MG/ML VIAL IVPUSH (21:39)
[2020-03-06] MEDS: cefTRIAXone sodium 1 GM in 0.9 % Sodium Chloride 50 ML IV (21:40)
[2020-03-07] VITALS: PULSE 77; RESP 18; O2SAT 100
[2020-03-07 00:09] LABS: Influenza A PCR NEGATIVE (Negative); Influenza B PCR NEGATIVE (Negative); Resp Syncy Virus RNA Qual PCR NEGATIVE (Negative); SARS COV2 PCR INHOUSE NEGATIVE (Negative)
[2020-03-07 00:43] VITALS: BP 135/78
== END 2020-03-07 00:48 | disposition home or self-care (01) ==
PROVIDERS: Nurse Practitioner Family; Emergency Provider Student in an Organized Health Care Education/Training Program; PCP Family Medicine
DX: N30.01 Acute cystitis with hematuria (principal); U07.1 COVID-19; R10.2 Pelvic and perineal pain; B34.9 Viral infection, unspecified
CPT/HCPCS: 0241U; 36415; 74176; 80048; 80076; 81001; 81025; 83605; 83690; 83735; 84484; 85025; 85610; 85730; 87040; 87086; 93005; 96361; 96365; 96375; 99212; 99284; J0696; J1885; J2270; J2405

== ENCOUNTER 2020-03-07 10:26 | Outpatient (REF) | payer OTHER, SELFPAY ==
[2020-03-07 14:54] LABS: Glucose Urine UA NEG (NEG); Leukocyte Esterase Urine 2+ (NEG); Nitrite Urine NEG (NEG); Specific Gravity - Urine 1.025 (1.005-1.025); Urine Blood 1+ (NEG); Urine Ketones NEG (NEG); Urine Protein NEG (NEG-TRACE)
[2020-03-07 14:57] LABS: Appearance Urine CLOUDY; Color Urine YELLOW
[2020-03-07 15:39] LABS: Bacteria Urine 2+ /LPF; Squamous Epithelial Cell Urine 2+ /LPF
== END 2020-03-07 10:27 | disposition home or self-care (01) ==
LOC: HO.LAB 10:26
PROVIDERS: Visit Provider Hospitalist
DX: N30.01 Acute cystitis with hematuria (principal)
CPT/HCPCS: 81001

== ENCOUNTER 2020-03-20 10:04 | Outpatient (REF) | payer OTHER, SELFPAY | END 2020-03-20 10:05 | disposition home or self-care (01) | LOC: HO.LAB 10:04 | PROVIDERS: PCP Family Medicine; Visit Provider Obstetrics & Gynecology | DX: R87.610 Atypical squamous cells of undetermined significance on cytologic smear of cervix (ASC-US) (principal); R87.810 Cervical high risk human papillomavirus (HPV) DNA test positive; R10.2 Pelvic and perineal pain; Z90.49 Acquired absence of other specified parts of digestive tract | CPT/HCPCS: 57454; 81025; 88305 ==

== ENCOUNTER → 2020-03-26 11:29 | Outpatient (BNVA) | payer OTHER, SELFPAY | PROVIDERS: PCP Family Medicine; Visit Provider Obstetrics & Gynecology ==

== ENCOUNTER → 2020-05-15 14:26 | Outpatient (BNVA) | payer OTHER, SELFPAY | PROVIDERS: PCP Family Medicine; Visit Provider Obstetrics & Gynecology | DX: N83.299 Other ovarian cyst, unspecified side (principal); N91.2 Amenorrhea, unspecified | CPT/HCPCS: 99212 ==

== ENCOUNTER → 2020-05-29 12:43 | Outpatient (BNVA) | payer OTHER, SELFPAY | PROVIDERS: PCP Family Medicine; Visit Provider Obstetrics & Gynecology | CPT/HCPCS: 99212 ==

== ENCOUNTER 2020-06-09 18:30 | Outpatient (REF) | payer OTHER, SELFPAY | END 2020-06-09 18:31 | disposition home or self-care (01) | LOC: HO.LNP 18:30 | PROVIDERS: Visit Provider Family Medicine | DX: Z20.822 Contact with and (suspected) exposure to COVID-19 (principal); B34.9 Viral infection, unspecified | CPT/HCPCS: U0003; U0005 ==

== ENCOUNTER → 2020-06-11 13:27 | Outpatient (BNVA) | payer OTHER, SELFPAY | PROVIDERS: PCP Family Medicine; Visit Provider Obstetrics & Gynecology ==

== ENCOUNTER 2020-08-01 11:27 | Outpatient (REF) | payer OTHER, SELFPAY ==
[2020-08-01 13:08] LABS: HCG Quantitative < 2 mIU/mL; Thyroid Stimulating Hormone 1.87 uIU/mL (0.32-4.0)
[2020-08-01 14:19] LABS: Glucose Urine UA NEG (NEG); Leukocyte Esterase Urine 2+ (NEG); Nitrite Urine NEG (NEG); Specific Gravity - Urine 1.025 (1.005-1.025); Urine Blood 1+ (NEG); Urine Ketones NEG (NEG); Urine Protein NEG (NEG-TRACE)
[2020-08-01 14:20] LABS: Appearance Urine CLOUDY; Color Urine YELLOW
[2020-08-01 14:43] LABS: Bacteria Urine 2+ /LPF; Squamous Epithelial Cell Urine 2+ /LPF
== END 2020-08-01 11:28 | disposition home or self-care (01) ==
LOC: HO.LAB 11:27
PROVIDERS: Hospitalist; PCP Family Medicine; Visit Provider Obstetrics & Gynecology
DX: N91.2 Amenorrhea, unspecified (principal); N39.0 Urinary tract infection, site not specified
CPT/HCPCS: 36415; 81001; 81003; 84146; 84443; 84702

== ENCOUNTER 2020-08-04 16:01 | Outpatient (REF) | payer OTHER, SELFPAY | END 2020-08-04 16:02 | disposition home or self-care (01) | LOC: HO.LAB 16:01 | PROVIDERS: PCP Family Medicine; Visit Provider Obstetrics & Gynecology | DX: R31.29 Other microscopic hematuria (principal); N91.2 Amenorrhea, unspecified | CPT/HCPCS: 87086 ==

== ENCOUNTER → 2020-08-28 10:17 | Outpatient (BNVA) | payer OTHER, SELFPAY | PROVIDERS: Visit Provider Obstetrics & Gynecology | DX: R31.29 Other microscopic hematuria (principal) | CPT/HCPCS: 99212 ==

== ENCOUNTER 2020-09-11 08:23 | Outpatient (REF) | payer OTHER, SELFPAY ==
--- NOTE | ~2020-09-11 | CT_ITS ---
EXAMINATION: CT ABDOMEN AND PELVIS WITHOUT AND WITH CONTRAST CLINICAL INFORMATION: Microscopic hematuria COMPARISON: March 06, 2020 TECHNIQUE: Multidetector volumetric imaging was performed of the abdomen and pelvis before and after the IV administration of 85 mL of Omnipaque 350 intravenous contrast. Sagittal and coronal reformatted images were obtained on the technologist's workstation. This CT examination was performed using dose optimization techniques as appropriate, variously including the following: *Automated exposure control *Adjustment of mA and/or kV according to patient size (this includes techniques or standardized protocols for targeted exams where dose is matched to indication/reason for exam; i.e. extremities or head) *Use of iterative reconstruction technique DLP: 613 mGy-cm FINDINGS: LUNG BASES: The visualized lung bases are unremarkable. No pleural or pericardial effusion. LIVER, GALLBLADDER, AND BILIARY TREE: There is diffuse fatty infiltration of the liver present. No focal mass or intrahepatic bile duct dilatation is seen. Status post cholecystectomy. PANCREAS: Unremarkable SPLEEN: Unremarkable ADRENAL GLANDS: Unremarkable KIDNEYS AND URETERS: The kidneys are normal in size, shape, and attenuation. No hydronephrosis, hydroureter, or calculi seen. No perinephric stranding. BLADDER: Unremarkable GASTROINTESTINAL TRACT: No dilated loops of large or small bowel are evident. No free air or free fluid is seen. No pericolonic inflammatory change. The appendix appears unremarkable. ABDOMINAL WALL: No significant hernia is appreciated. LYMPH NODES: No lymphadenopathy appreciated. VASCULAR: Unremarkable PELVIC VISCERA: Unremarkable. A few phleboliths are present with similar appearance to September 25, 2019 and are external to the ureters. OSSEOUS STRUCTURES: No suspicious bony lesions identified. CT/CT abdomen pelvis wo/w con IMPRESSION: No abnormal renal masses or evidence of obstructive uropathy. Fatty infiltration of the liver.
[2020-09-11] MEDS: iohexoL 350 MG/ML 100 ML INFUS..BTL IV (09:13)
== END 2020-09-11 08:24 | disposition home or self-care (01) ==
LOC: HO.CT 08:23
PROVIDERS: PCP Family Medicine; Visit Provider Obstetrics & Gynecology
DX: R31.29 Other microscopic hematuria (principal)
CPT/HCPCS: 74178; Q9967

== ENCOUNTER 2020-11-03 09:39 | Outpatient (REF) | payer OTHER, SELFPAY ==
[2020-11-03 18:08] LABS: Appearance Urine HAZY; Color Urine YELLOW; Glucose Urine UA NEG (NEG); Leukocyte Esterase Urine 3+ (NEG); Nitrite Urine NEG (NEG); Specific Gravity - Urine 1.025 (1.005-1.025); Urine Blood 2+ (NEG); Urine Ketones NEG (NEG); Urine Protein NEG (NEG-TRACE)
[2020-11-03 18:19] LABS: Bacteria Urine 3+ /LPF; Calcium Oxalate Crystals Urine 2+ /LPF; Squamous Epithelial Cell Urine 4+ /LPF
== END 2020-11-03 09:40 | disposition home or self-care (01) ==
LOC: HO.LNP 09:39
PROVIDERS: Hospitalist; PCP Family Medicine
DX: R31.29 Other microscopic hematuria (principal)
CPT/HCPCS: 81001; 99202

== ENCOUNTER 2020-12-25 10:39 | Outpatient (REF) | payer OTHER, SELFPAY ==
--- NOTE | ~2020-12-25 | US_ITS ---
EXAMINATION: US RETROPERITONEAL LIMITED (RENAL ONLY) CLINICAL INFORMATION: Microscopic hematuria. COMPARISON: CT abdomen and pelvis 09/11/2020 TECHNIQUE: Real-time imaging of the kidneys. FINDINGS: RIGHT KIDNEY: 10.0 x 4.9 x 5.5 cm (SAG x AP x TRV). The kidney is normal in size, contour, and echogenicity. Renal cortical thickness is normal. No focal parenchymal lesions or hydronephrosis. There are 2 calculi visualized. The largest is at the lower pole measuring 0.4 cm LEFT KIDNEY: 10.9 x 5.3 x 5.1 cm (SAG x AP x TRV). The kidney is normal in size, contour, and echogenicity. Renal cortical thickness is normal. No calculi or focal parenchymal lesions. No hydronephrosis. US/US renal BI IMPRESSION: Nonobstructing right renal calculi noted. No hydronephrosis..
== END 2020-12-25 10:40 | disposition home or self-care (01) ==
LOC: HO.US 10:39
PROVIDERS: PCP Family Medicine
DX: R31.29 Other microscopic hematuria (principal)
CPT/HCPCS: 76775

== ENCOUNTER 2021-01-06 09:28 | Emergency (ER) | payer OTHER, SELFPAY ==
--- NOTE | ~2021-01-06 | CT_ITS ---
EXAMINATION: CT ABDOMEN AND PELVIS WITHOUT CONTRAST CLINICAL INFORMATION: Flank pain with hematuria and dysuria. COMPARISON: None TECHNIQUE: Multidetector volumetric imaging was performed from the superior aspect of the liver through the pubic symphysis. Sagittal and coronal reformatted images were obtained on the technologist's workstation. This CT examination was performed using dose optimization techniques as appropriate, variously including the following: *Automated exposure control *Adjustment of mA and/or kV according to patient size (this includes techniques or standardized protocols for targeted exams where dose is matched to indication/reason for exam; i.e. extremities or head) *Use of iterative reconstruction technique DLP: 526 mGy-cm FINDINGS: LUNG BASES: The lung bases are clear. The heart size is normal. LIVER, GALLBLADDER, AND BILIARY TREE: The liver is normal in size, shape, and attenuation. No focal hepatic lesion or biliary ductal dilatation is present. The gallbladder has been surgically removed. PANCREAS: Unremarkable. SPLEEN: Unremarkable. ADRENAL GLANDS: Unremarkable. KIDNEYS AND URETERS: The kidneys are normal in size, shape, and attenuation. No hydronephrosis, hydroureter, or calculi seen. No perinephric stranding. BLADDER: Unremarkable. GASTROINTESTINAL TRACT: There is scattered stool and gas seen throughout the colon without distention. The small bowel loops are normal caliber. Appendix is normal caliber. ABDOMINAL WALL: No significant hernia is appreciated. LYMPH NODES: Normal. VASCULAR: Unremarkable. PELVIC VISCERA: The uterus is midline. There is no adnexal mass or free fluid. OSSEOUS STRUCTURES: Unremarkable. CT/CT abdomen pelvis wo con IMPRESSION: No acute intra-abdominal process seen. No radiopaque urolith or hydroureteronephrosis. The gallbladder has been surgically removed.
[2021-01-06 10:59] VITALS: BP 123/83; PULSE 87; RESP 18; TEMP 36.7; O2SAT 100; BMI 27.9
[2021-01-06 11:20] LABS: Appearance Urine HAZY; Color Urine YELLOW; Glucose Urine UA NEG (NEG); Leukocyte Esterase Urine 1+ (NEG); Nitrite Urine NEG (NEG); PH 6.5 (5.0-8.0); UACC Culture Trigger YES; Urine Blood 1+ (NEG); Urine Ketones NEG (NEG); Urine Protein NEG (NEG-TRACE)
[2021-01-06 11:32] LABS: RBC Urine 0-2 /HPF (0); Squamous Epithelial Cell Urine 2+ /LPF
[2021-01-06 11:33] LABS: Bacteria Urine 2+ /LPF
[2021-01-06 13:26] LABS: UPreg QC Valid YES; Urine Pregnancy NEGATIVE (NEGATIVE)
--- NOTE | 2021-01-06 13:29 | ED_ITS ---
HPI - Female Genitourinary General Chief complaint: Urogenital-Female Stated complaint: pain when urinating, blood in urine Time Seen by Provider: 01/06/21 13:05 Source: patient Mode of arrival: ambulatory Limitations: no limitations History of Present Illness HPI Narrative: Patient presents to the ED for dysuria, mild hematuria, of left- sided back pain for least 3 days. Patient states history of kidney stones years ago. 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 Patient denies any nausea, vomiting, diarrhea, chest pain, vaginal lesions, vaginal discharge, or shortness of breath. Related Data Home Medications Medication Instructions Recorded Confirmed bupropion HCl 300 mg 24 hr tablet, 300 mg PO DAILY 12/27/19 08/04/20 extended release citalopram 40 mg tablet 40 mg PO DAILY 12/27/19 08/04/20 hydroxyzine HCl 25 mg tablet mg PO 12/27/19 08/04/20 lorazepam 1 mg tablet mg PO 12/27/19 08/04/20 acetaminophen 500 mg tablet 500 mg PO Q6H PRN 06/11/20 08/04/20 (Tylenol Extra Strength) bupropion HCl 150 mg 24 hr tablet, 150 mg PO DAILY 11/03/20 extended release buspirone 10 mg tablet 10 mg PO TID 11/03/20 Previous Rx's Medication Instructions Recorded desogestrel 0.15 mg-ethinyl 1 tab PO DAILY 28 Days #28 tab 02/07/20 estradiol 0.03 mg tablet (Apri) levonorgestrel 0.15 mg-ethinyl 1 tab PO DAILY #28 ea 02/27/20 estradiol 30 mcg tablets,3 mos pack(91) metronidazole 500 mg tablet 500 mg PO BID 7 Days #14 tab 02/28/20 oxycodone 5 mg capsule 5 mg PO Q6H PRN #10 cap 03/01/20 cephalexin 500 mg capsule (Keflex) 500 mg PO Q12H 7 Days #14 cap 03/06/20 tramadol 50 mg tablet 50 mg PO Q8H PRN #5 tab 03/06/20 medroxyprogesterone 10 mg tablet 10 mg PO daily 5 Days #5 tab 05/15/20 (Provera) ondansetron HCl 4 mg tablet 4 mg PO Q8H PRN #20 tab 06/09/20 (Zofran) desogestrel 0.15 mg-ethinyl 1 tab PO DAILY 28 Days #28 tab 08/04/20 estradiol 0.03 mg tablet (Apri) sulfamethoxazole 800 1 tab PO BID 5 Days #10 tab 11/03/20 mg-trimethoprim 160 mg tablet (Bactrim DS) cefpodoxime 200 mg tablet 200 mg PO Q12H 10 Days #20 tab 01/06/21 ketorolac 10 mg tablet 10 mg PO QID PRN 5 Days #20 tab 01/06/21 Allergies Allergy/AdvReac Type Severity Reaction Status Date / Time No Known Allergies Allergy Verified 11/03/20 09:48 [No Known Allergies*] oxycodone AdvReac Mild ineffective Uncoded 08/04/20 16:02 Review of Systems Review of Systems: Yes all other systems are reviewed and are negative Constitutional: Constitutional: Reports as per HPI and Reports no additional constitutional complaints Eyes: Eyes: Reports as per HPI and Reports no additional eye complaints ENT: Reports system reviewed and no additional complaints, except as documented and Reports as per HPI Cardiovascular: Cardiovascular: Reports as per HPI and Reports no additional cardiovascular complaints Respiratory: Respiratory: Reports as per HPI and Reports no additional respiratory complaints Gastrointestinal: Gastrointestinal: Reports as per HPI, Reports no additional gastrointestinal complaints and Reports abdominal pain Genitourinary: Genitourinary: Reports no additional female genitourinary complaints, Reports hematuria and Reports dysuria Musculoskeletal: Musculoskeletal: Reports no additional musculoskeletal complaints, Reports as per HPI and Reports back pain (Left-sided) Integumentary/Breasts: Skin/Breast: Reports system reviewed and no additional complaints, except as docu and Reports as per HPI Neurologic: Reports system reviewed and no additional complaints, except as documented and Reports as per HPI Psychiatric: Psychiatric: Reports no additional psychiatric complaints and Re ports as per HPI [facility] Past Medical History Medical History Anxiety ASCUS with positive high risk HPV Depression Surgical History History of History of cholecystectomy History of hernia repair Family History Family History Maternal Grandmother Pacemaker CVD (cardiovascular disease) Father Diabetes HTN (hypertension) Mother Asthma Paternal Grandmother Cancer Brother No problems noted. Family/Other Substance abuse Chronic mental illness Social History Social History Alcohol intake: never Advance Directives: No Sexual orientation: Straight/Heterosexual Gender identity: Female Physical Exam Vital Signs: Vital Signs: Last Vital Signs Temp 98.1 F 01/06/21 10:59 Pulse 87 01/06/21 10:59 Resp 18 01/06/21 10:59 BP 123/83 01/06/21 10:59 Pulse Ox 100 01/06/21 10:59 Body Mass Index 27.9 Const: General: cooperative, healthy appearing, comfortable, no acute distress, well developed, alert, awake and Physically active Orientation/consciousness: patient oriented x3 HENMT: Head: Yes normal to inspection, Yes No palpable skull fracture present, Yes normocephalic and Yes atraumatic Eyes: General: appearance normal, both eyes and all related structures Neck: Neck: Yes normal visual inspection, Yes full ROM, Yes no lymphadenopathy, Yes no meningeal signs, Yes trachea midline, Yes supple and No tender Chest: Chest palpation & inspection: normal inspection of the chest and normal palpation of entire chest wall Resp: Effort & Inspection: normal respiratory effort and able to speak in complete sentences Auscultation: clear to auscultation bilaterally Cardio: Jugular venous distension: no JVD Heart sounds: S1 normal heart sound present and S2 normal heart sound present GI: Inspection: Yes normal to inspection and No abdominal wall ecchymosis Palpation (GI): Soft to palpation, not firm, Tenderness to palpation present (GI) in the LLQ, no guarding and not rigid : General: Yes CVA tenderness (left) and Yes no CVA tenderness Back/Spine/Pelvis: Back: no CVA tenderness and CVA tenderness (left) Skin: General skin exam: no rashes or lesions noted and elasticity normal Neuro: General: patient oriented x3, gait normal, no meningeal signs and CN's II-XI intact bilaterally Cranial nerves: Yes CN's II-XII intact bilaterally Extrem: General: Yes normal to inspection and Yes full ROM Psych: Appearance: grossly normal, well kempt and not disheveled Course Course Course Narrative: Urine shows blood negative workup as kidney stones. Was sent for CT scan and give pain medication. Reevaluation(s) Reevaluation #1: CT scan negative for Kidney stones. For kidney function normal. Negative for any white blood cell count elevation. Patient is safe for discharge. Patient will be discharged with pain medication and antibiotics. Patient denies any vaginal bleeding, vaginal discharge, vaginal itching. Richard fernando denies any vaginal lesions. Time: 15:49 MDM - Female Genitourinary MDM Narrative Medical decision making narrative: UTI. Pyelonephritis Lab Data Result diagrams: 01/06/21 13:45 01/06/21 13:45 Labs: Lab Results 01/06/21 01/06/21 01/06/21 Range/Units 11:09 11:15 13:45 WBC 9.5 (4.8-10.8) X10*3/uL RBC 4.85 (4.20-5.50) X10*6/uL Hgb 13.2 (12.0-16.0) g/dl Hct 42.0 (37.0-47.0) % MCV 86.6 (80.0-98.0) fL MCH 27.2 (27.0-33.0) pg MCHC 31.4 (31.0-35.0) g/dl RDW 13.5 (11.0-16.0) % Plt Count 379 (160-400) X10*3/uL MPV 9.8 (9.4-12.3) fL Immature Gran % (Auto) 0.5 H (0.0-0.4) % Neut % (Auto) 64.2 (45-73) % Lymph % (Auto) 27.7 (20-40) % Hood % (Auto) 6.3 (2-11) % Eos % (Auto) 0.8 (0-4) % Baso % (Auto) 0.5 (0-2) % Lymph # (Auto) 2.6 (1.2-4.9) X10*3/uL Hood # (Auto) 0.6 (0.1-1.2) X10*3/uL Eos # (Auto) 0.1 (0.0-0.4) X10*3/uL Baso # (Auto) 0.1 (0.0-0.2) X10*3/uL Abs Immat Gran (auto) 0.05 H (0.00-0.03) X10*3/uL Absolute Neuts (auto) 6.1 (2.0-8.3) x10*3/uL Absolute Nucleated RBC 0.000 (0.0-0.012) X10*3/uL Nucleated RBC % (auto) 0.0 (0.0-0.2) /100WBC Sodium (135-145) mmol/L Potassium (3.3-5.1) mmol/L Chloride (96-108) mmol/L Carbon Dioxide (22-29) mmol/L Anion Gap (12-20) BUN (9-16) mg/dL Creatinine (0.5-1.4) mg/dL Estim Creat Clear Calc Estimated GFR Random Glucose (60-115) mg/dL Calcium (8.4-10.2) mg/dL Total Bilirubin (0.0-1.0) mg/dL Direct Bilirubin (0.0-0.5) mg/dL AST (5-31) U/L ALT (0-31) U/L Alkaline Phosphatase (39-117) U/L Total Protein (6.5-8.0) g/dL Albumin (3.5-5.0) g/dL Lipase (8-78) U/L Beta HCG, Quant mIU/mL Urine Color YELLOW Urine Appearance HAZY Urine pH 6.5 (5.0-8.0) Ur Specific [place] 1.020 (1.005-1.025) Urine Protein NEG (NEG-TRACE) MG/DL Urine Glucose (UA) NEG (NEG) MG/DL Urine Ketones NEG (NEG) MG/DL Urine Blood 1+ H (NEG) Urine Nitrite NEG (NEG) Ur Leukocyte Esterase 1+ H (NEG) Urine RBC 0-2 (0) /HPF Urine WBC 5-9 H (0-4) /HPF Ur Squamous Epith Cells 2+ /LPF Urine Bacteria 2+ /LPF Urine Test NEGATIVE (NEGATIVE) 01/06/21 Range/Units 13:45 WBC (4.8-10.8) X10*3/uL RBC (4.20-5.50) X10*6/uL Hgb (12.0-16.0) g/dl Hct (37.0-47.0) % MCV (80.0-98.0) fL MCH (27.0-33.0) pg MCHC (31.0-35.0) g/dl RDW (11.0-16.0) % Plt Count (160-400) X10*3/uL MPV (9.4-12.3) fL Immature Gran % (Auto) (0.0-0.4) % Neut % (Auto) (45-73) % Lymph % (Auto) (20-40) % Hood % (Auto) (2-11) % Eos % (Auto) (0-4) % Baso % (Auto) (0-2) % Lymph # (Auto) (1.2-4.9) X10*3/uL [place] # (Auto) (0.1-1.2) X10*3/uL Eos # (Auto) (0.0-0.4) X10*3/uL Baso # (Auto) (0.0-0.2) X10*3/uL Abs Immat Gran (auto) (0.00-0.03) X10*3/uL Absolute Neuts (auto) (2.0-8.3) x10*3/uL Absolute Nucleated RBC (0.0-0.012) X10*3/uL Nucleated RBC % (auto) (0.0-0.2) /100WBC Sodium 138 (135-145) mmol/L Potassium 4.1 (3.3-5.1) mmol/L Chloride 101 (96-108) mmol/L Carbon Dioxide 28 (22-29) mmol/L Anion Gap 13 (12-20) BUN 15 (9-16) mg/dL Creatinine 0.79 (0.5-1.4) mg/dL Estim Creat Clear Calc 102.4 Estimated GFR > 60 Random Glucose 103 (60-115) mg/dL Calcium 9.7 (8.4-10.2) mg/dL Total Bilirubin 0.3 (0.0-1.0) mg/dL Direct Bilirubin < 0.2 (0.0-0.5) mg/dL AST 18 D (5-31) U/L ALT 20 (0-31) U/L Alkaline Phosphatase 99 (39-117) U/L Total Protein 7.7 (6.5-8.0) g/dL Albumin 4.3 (3.5-5.0) g/dL Lipase 10 (8-78) U/L Beta HCG, Quant < 2 mIU/mL Urine Color Urine Appearance Urine pH (5.0-8.0) Ur Specific [place] (1.005-1.025) Urine Protein (NEG-TRACE) MG/DL Urine Glucose (UA) (NEG) MG/DL Urine Ketones (NEG) MG/DL Urine Blood (NEG) Urine Nitrite (NEG) Ur Leukocyte Esterase (NEG) Urine RBC (0) /HPF Urine WBC (0-4) /HPF Ur Squamous Epith Cells /LPF Urine Bacteria /LPF Urine Test (NEGATIVE) Discharge Plan Discharge Clinical Impression: UTI (urinary tract infection), Pyelonephritis Instructions: Urinary Tract Infection in Women (ED), Kidney Infection (ED) Additional Instructions: Your blood work, kidney function, in CT scan came back normal. Urine shows UTI. You will be treated as urinary tract infection. He will be discharged with antibiotics and pain medication. Return to the ED for any fever, nausea, vomiting, severe flank pain, vaginal discharge, vaginal lesions, gross hematuria, or any other concerning symptoms. Please follow-up with primary care provider Prescriptions: New cefpodoxime 200 mg tablet 200 mg PO Q12H 10 Days Qty: 20 RF: 0 ketorolac 10 mg tablet 10 mg PO QID PRN (Reason: pain) 5 Days Qty: 20 RF: 0 No Action cephalexin [Keflex] 500 mg capsule 500 mg PO Q12H 7 Days Qty: 14 RF: 0 tramadol 50 mg tablet 50 mg PO Q8H PRN (Reason: pain) Qty: 5 RF: 0 oxycodone 5 mg capsule 5 mg PO Q6H PRN (Reason: pain) Qty: 10 RF: 0 ondansetron HCl [Zofran] 4 mg tablet 4 mg PO Q8H PRN (Reason: nausea and vomiting) Qty: 20 RF: 0 lorazepam 1 mg tablet PO RF: 0 bupropion HCl 300 mg tablet extended release 24 hr 300 mg PO DAILY RF: 0 citalopram 40 mg tablet 40 mg PO DAILY RF: 0 hydroxyzine HCl 25 mg tablet PO RF: 0 desogestrel-ethinyl estradiol [Apri] 0.15-0.03 mg tablet 1 tab PO DAILY 28 Days Qty: 28 RF: 2 medroxyprogesterone [Provera] 10 mg tablet 10 mg PO daily 5 Days Qty: 5 RF: 0 acetaminophen [Tylenol Extra Strength] 500 mg tablet 500 mg PO Q6H PRNRF: 0 sulfamethoxazole-trimethoprim [Bactrim DS] 800-160 mg tablet 1 tab PO BID 5 Days Qty: 10 RF: 0 levonorgestrel-ethinyl estrad 0.15 mg-30 mcg (91) tablets,dose pack,3 month 1 tab PO DAILY Qty: 28 RF: 3 metronidazole 500 mg tablet 500 mg PO BID 7 Days Qty: 14 RF: 0 desogestrel-ethinyl estradiol [Apri] 0.15-0.03 mg tablet 1 tab PO DAILY 28 Days Qty: 28 RF: 3 Stand Alone Forms: Work/School Release Print Language: Thai
[2021-01-06] MEDS: Ketorolac Tromethamine 15 MG/ML VIAL 30 MG IVPUSH (13:49)
[2021-01-06] MEDS: 0.9 % Sodium Chloride 1,000 ML 999 ML IV (13:49)
--- NOTE | 2021-01-06 13:49 | PC.NURSE ---
medicated for abd and back pain, skin wpd
[2021-01-06 13:53] LABS: MANUAL DIFF FLAG NO
[2021-01-06 13:56] LABS: Basophils Absolute Auto 0.1 X10*3/uL (0.0-0.2); Basophils Percent Auto 0.5 % (0-2); Eosinophils Absolute Auto 0.1 X10*3/uL (0.0-0.4); Eosinophils Percent Auto 0.8 % (0-4); Hemoglobin 13.2 g/dl (12.0-16.0); Imm Gran Abs Auto 0.05 X10*3/uL (0.00-0.03); Imm Gran Pct Auto 0.5 % (0.0-0.4); Lymphocytes Absolute Auto 2.6 X10*3/uL (1.2-4.9); Lymphocytes Percent Auto 27.7 % (20-40); Mean Corpuscular HGB Conc 31.4 g/dl (31.0-35.0); Mean Corpuscular Hemoglobin 27.2 pg (27.0-33.0); Mean Corpuscular Volume 86.6 fL (80.0-98.0); Mean Platelet Volume 9.8 fL (9.4-12.3); Monocytes Absolute Auto 0.6 X10*3/uL (0.1-1.2); Monocytes Percent Auto 6.3 % (2-11); Neutrophils Absolute Auto 6.1 x10*3/uL (2.0-8.3); Neutrophils Percent Auto 64.2 % (45-73); Platelet Count 379 X10*3/uL (160-400); Red Blood Count 4.85 X10*6/uL (4.20-5.50); Red Cell Distribution Width 13.5 % (11.0-16.0); White Blood Count 9.5 X10*3/uL (4.8-10.8)
[2021-01-06 14:09] LABS: Alanine Aminotransferase 20 U/L (0-31); Albumin Level 4.3 g/dL (3.5-5.0); Alkaline Phosphatase 99 U/L (39-117); Anion Gap 13 (12-20); Aspartate Amino Transferase 18 U/L (5-31); Bilirubin Direct < 0.2 mg/dL (0.0-0.5); Bilirubin Total 0.3 mg/dL (0.0-1.0); Blood Urea Nitrogen 15 mg/dL (9-16); Calcium 9.7 mg/dL (8.4-10.2); Carbon Dioxide 28 mmol/L (22-29); Chloride 101 mmol/L (96-108); Creatinine Clr Calc Pharmacy 102.4; Estimated Glomerular Filt Rate > 60; Glucose Random 103 mg/dL (60-115); Lipase 10 U/L (8-78); Potassium 4.1 mmol/L (3.3-5.1); Sodium 138 mmol/L (135-145); Total Protein 7.7 g/dL (6.5-8.0)
[2021-01-06 14:14] LABS: HCG Quantitative < 2 mIU/mL
[2021-01-06 16:17] VITALS: BP 113/64; PULSE 77; O2SAT 98
== END 2021-01-06 18:09 | disposition home or self-care (01) ==
PROVIDERS: Physician Assistant; Emergency Provider Emergency Medicine Emergency Medical Services; PCP Family Medicine
DX: N12 Tubulo-interstitial nephritis, not specified as acute or chronic (principal); R30.0 Dysuria; M54.50 Low back pain, unspecified; Z79.899 Other long term (current) drug therapy
CPT/HCPCS: 36415; 74176; 80053; 81001; 81025; 82248; 83690; 84702; 85025; 87086; 87088; 87186; 96361; 96374; 99284; J1885

== ENCOUNTER 2021-02-05 13:11 | Outpatient (REF) | payer OTHER, SELFPAY ==
[2021-02-05 14:44] LABS: Appearance Urine HAZY; Color Urine YELLOW; Glucose Urine UA NEG (NEG); Leukocyte Esterase Urine NEG (NEG); Nitrite Urine NEG (NEG); Specific Gravity - Urine >= 1.030 (1.005-1.025); Urine Blood 1+ (NEG); Urine Ketones NEG (NEG); Urine Protein NEG (NEG-TRACE)
[2021-02-05 14:59] LABS: Bacteria Urine 2+ /LPF; Mucus Urine 1+ /LPF; Squamous Epithelial Cell Urine 2+ /LPF
== END 2021-02-05 13:12 | disposition home or self-care (01) ==
LOC: HO.LAB 13:11
PROVIDERS: PCP Family Medicine; Visit Provider Hospitalist
DX: N39.0 Urinary tract infection, site not specified (principal)
CPT/HCPCS: 81001

== ENCOUNTER → 2021-04-20 15:29 | Outpatient (BNVA) | payer OTHER, SELFPAY | PROVIDERS: PCP Family Medicine; Visit Provider Advanced Practice Midwife ==

== ENCOUNTER 2021-04-28 09:22 | Outpatient (REF) | payer OTHER, SELFPAY ==
[2021-05-03 06:21] LABS: HPV 16 RNA NOT DETECTED (NOT DETECTED); HPV mRNA E6/E7 rflx Detected (Not Detected)
== END 2021-04-28 09:23 | disposition home or self-care (01) ==
LOC: HO.LAB 09:22
PROVIDERS: Visit Provider Obstetrics & Gynecology
DX: Z01.419 Encounter for gynecological examination (general) (routine) without abnormal findings (principal); Z11.51 Encounter for screening for human papillomavirus (HPV); N91.2 Amenorrhea, unspecified
CPT/HCPCS: 81025; 87624; 87625; 88142

== ENCOUNTER 2021-05-30 23:14 | Emergency (ER) | payer OTHER, SELFPAY ==
--- NOTE | ~2021-05-30 | XR_ITS ---
EXAMINATION: XR CHEST CLINICAL INFORMATION: Chest pain COMPARISON: 03/14/2019 TECHNIQUE: Frontal view of the chest was obtained. FINDINGS: The lungs are clear with no focal consolidation. No evidence of pneumothorax, pulmonary edema, or pleural effusions. The cardiomediastinal silhouette is unremarkable. No acute osseous findings. XR/XR chest 1V IMPRESSION: No acute cardiopulmonary findings.
--- NOTE | 2021-05-30 23:19 | ECG_ITS ---
Test Reason : CP Blood Pressure : / mmHG Vent. Rate : 088 BPM Atrial Rate : 088 BPM P-R Int : 164 ms QRS Dur : 076 ms QT Int : 350 ms P-R-T Axes : 054 -05 000 degrees QTc Int : 423 ms Normal sinus rhythm with sinus arrhythmia Normal ECG When compared with ECG of 06-MAR-2020 17:45, Inverted T waves have replaced nonspecific T wave abnormality in Anterior leads Referred By: Generic ED Physician Electronically Signed By:GAUTAM NIX MD
[2021-05-30 23:44] LABS: Basophils Absolute Auto 0.1 X10*3/uL (0.0-0.2); Basophils Percent Auto 0.5 % (0-2); Eosinophils Absolute Auto 0.1 X10*3/uL (0.0-0.4); Eosinophils Percent Auto 0.9 % (0-4); Hematocrit 41.4 % (37.0-47.0); Hemoglobin 13.1 g/dl (12.0-16.0); Imm Gran Abs Auto 0.07 X10*3/uL (0.00-0.03); Imm Gran Pct Auto 0.6 % (0.0-0.4); Lymphocytes Absolute Auto 2.6 X10*3/uL (1.2-4.9); Lymphocytes Percent Auto 21.3 % (20-40); MANUAL DIFF FLAG NO; Mean Corpuscular HGB Conc 31.6 g/dl (31.0-35.0); Mean Corpuscular Hemoglobin 27.2 pg (27.0-33.0); Mean Corpuscular Volume 86.1 fL (80.0-98.0); Mean Platelet Volume 9.6 fL (9.4-12.3); Monocytes Absolute Auto 0.7 X10*3/uL (0.1-1.2); Monocytes Percent Auto 5.5 % (2-11); Neutrophils Absolute Auto 8.6 x10*3/uL (2.0-8.3); Neutrophils Percent Auto 71.2 % (45-73); Platelet Count 436 X10*3/uL (160-400); Red Blood Count 4.81 X10*6/uL (4.20-5.50); Red Cell Distribution Width 12.9 % (11.0-16.0); White Blood Count 12.1 X10*3/uL (4.8-10.8)
[2021-05-30 23:58] LABS: Anion Gap 13 (12-20); Blood Urea Nitrogen 12 mg/dL (9-16); Calcium 9.6 mg/dL (8.4-10.2); Carbon Dioxide 25 mmol/L (22-29); Chloride 101 mmol/L (96-108); Estimated Glomerular Filt Rate > 60; Glucose Random 121 mg/dL (60-115); Sodium 135 mmol/L (135-145)
[2021-05-31 00:05] LABS: Troponin-I High Sensitivity < 3.5 ng/L (<3.5-17.0)
[2021-05-31 00:13] VITALS: BP 127/89; PULSE 97; RESP 18; TEMP 37; O2SAT 97; BMI 27.8
--- NOTE | 2021-05-31 00:27 | ED_ITS ---
HPI - Chest Pain General Chief Complaint: Chest Pain Stated Complaint: chest pain, lower back pain Time Seen by Provider: 05/31/21 00:26 Source: patient Mode of arrival: ambulatory Limitations: no limitations History of Present Illness HPI narrative: 36-year-old female came in for evaluation of chest pain. Patient been having history of chest pain but for the past 2 days the pain is been worsening, pain is localized to the mid chest, described as severe 10/10, increased with movement or taking a deep breath, no relieving factor, with this patient feels some difficulty breathing, chills and fever, but no coughing. Patient had similar pain in the past (had study done at [place] showed something in her chest). Patient been having also lower abdominal pain and back pain. Patient declined any recent travel or prolonged immobilization, no lower extremity swelling or tenderness. Related Data Home Medications Medication Instructions Recorded Confirmed citalopram 40 mg tablet 40 mg PO DAILY 12/27/19 08/04/20 hydroxyzine HCl 25 mg tablet mg PO 12/27/19 08/04/20 lorazepam 1 mg tablet mg PO 12/27/19 08/04/20 bupropion HCl 150 mg 24 hr tablet, 150 mg PO DAILY 11/03/20 extended release buspirone 10 mg tablet 10 mg PO TID 11/03/20 Previous Rx's Medication Instructions Recorded ketorolac 10 mg tablet 10 mg PO QID PRN 5 Days #20 tab 01/06/21 cyclobenzaprine 10 mg tablet 10 mg PO BID PRN 10 Days #20 tab 01/14/21 medroxyprogesterone 150 mg/mL 150 mg IM [id number] #1 ml 04/20/21 intramuscular suspension (Depo-Provera) Allergies Allergy/AdvReac Type Severity Reaction Status Date / Time No Known Allergies Allergy Verified 04/20/21 15:29 [No Known Allergies*] oxycodone AdvReac Mild ineffective Uncoded 05/31/21 00:21 Review of Systems Review of Systems: All other systems are reviewed and are negative Constitutional: Reports as per HPI and Reports no additional constitutional complaints Eyes: Reports as per HPI and Reports no additional eye complaints Reports system reviewed and no additional complaints, except as documented Cardiovascular: Reports as per HPI and Reports no additional cardiovascular complaints Respiratory: Reports as per HPI and Reports no additional respiratory complaints Gastrointestinal: Reports as per HPI and Reports no additional gastrointestinal complaints Genitourinary: Reports no additional female genitourinary complaints Musculoskeletal: Reports no additional musculoskeletal complaints Skin/Breast: Reports system reviewed and no additional complaints, except as docu Psychiatric: Reports no additional psychiatric complaints Endocrine: Reports no additional endocrine complaints Hematologic/Lymphatic: Reports no additional hematologic/lymphatic complaints Allergic/Immunologic: Reports no additional allergic/immunologic complaints Reports system reviewed and no additional complaints, except as documented and Reports Abnormal speech present [facility] Past Medical History Medical History Anxiety ASCUS with positive high risk HPV Depression Surgical History History of History of cholecystectomy History of hernia repair Family History Family History Maternal Grandmother Pacemaker CVD (cardiovascular disease) Father Diabetes HTN (hypertension) Mother Asthma Paternal Grandmother Cancer Brother No problems noted. Family/Other Substance abuse Chronic mental illness Social History Social History Alcohol intake: never Advance Directives: No Advance Directives Information Provided: Yes Patient : No Sexual orientation: Straight/Heterosexual Gender identity: Female Physical Exam Vital Signs: Vital Signs: Last Vital Signs Temp 98.6 F 05/31/21 00:13 Pulse 74 05/31/21 01:28 Resp 20 05/31/21 01:28 BP 126/87 05/31/21 01:28 Pulse Ox 97 05/31/21 01:28 BMI result Body Mass Index 27.8 Vital signs have been reviewed as appeared to be correct. Blood pressure normal. Heart rate normal. Respiration rate normal. Temperature normal. Oxygen saturation normal. Appearance: Alert. Oriented X3. No acute distress. Head: Normal external exam. Normocephalic. Atraumatic. No Chaidez signs noted. No raccoon eyes noted Eyes: PERRLA. EOMI. Conjunctiva and sclera normal. Eyelids normal. ENT: TM's Normal. Pharynx normal. Uvula midline. Moist mucous membranes. No trismus noted. No drooling noted. No muffled voice noted. Neck: Normal inspection. Neck supple. FROM. No adenopathy. Thyroid Normal. No meningeal signs. No neck mass noted. CVS: Normal heart rate and rhythm. Heart sound normal. No murmurs noted. Pulses normal throughout. Respiratory: No respiratory distress. Painless inspiration. Breath sounds normal. No wheezes/rales/rhonchi noted. Reproducible tenderness over the sternum, increase pain with taking a deep breath and movement. No accessory muscle usage noted or decreased air movement noted. Abdomen: Soft and nontender. Bowel sounds normal in all 4 quadrants. No distenti on noted. No organomegaly noted. No visible injury noted. Back: No CVA tenderness. Full range of motion noted. Skin: Skin warm and dry. Normal skin color. Normal skin turgor. No rashes/lesions/lacerations noted. Extremities: No lower extremity edema. Extremities exhibit normal range of motion. Extremities nontender. Neuro: Oriented X 3. Cranial nerve exam: II-XII are grossly intact No motor deficit. No sensory deficit. Reflexes normal. Course Course Course Narrative: Assessment and plan. 36-year-old female came in with chest pain for 2 days, pain is reproducible to chest, patient has unremarkable EKG/troponin/D-dimer, HEART score of 0, low risk for PE or DVT physical exam is more consistent with costochondritis will discharge home on NSAIDs. Patient has no dysuria, no urinary frequency, no fever, no chills, no flank pain. UA showing trace of leuko Estrace and few WBCs will not treat encouraged to drink plenty of fluids. MDM - Chest Pain Lab Data Attestation: I reviewed the patient's lab results. Result diagrams: 05/30/21 23:36 05/30/21 23:36 Labs: Lab Results 05/30/21 05/30/21 05/30/21 Range/Units 23:36 23:36 23:36 WBC 12.1 H (4.8-10.8) X10*3/uL RBC 4.81 (4.20-5.50) X10*6/uL Hgb 13.1 (12.0-16.0) g/dl Hct 41.4 (37.0-47.0) % MCV 86.1 (80.0-98.0) fL MCH 27.2 (27.0-33.0) pg MCHC 31.6 (31.0-35.0) g/dl RDW 12.9 (11.0-16.0) % Plt Count 436 H (160-400) X10*3/uL MPV 9.6 (9.4-12.3) fL Immature Gran % (Auto) 0.6 H (0.0-0.4) % Neut % (Auto) 71.2 (45-73) % Lymph % (Auto) 21.3 (20-40) % [place] % (Auto) 5.5 (2-11) % Eos % (Auto) 0.9 (0-4) % Baso % (Auto) 0.5 (0-2) % Lymph # (Auto) 2.6 (1.2-4.9) X10*3/uL [place] # (Auto) 0.7 (0.1-1.2) X10*3/uL Eos # (Auto) 0.1 (0.0-0.4) X10*3/uL Baso # (Auto) 0.1 (0.0-0.2) X10*3/uL Abs Immat Gran (auto) 0.07 H (0.00-0.03) X10*3/uL Absolute Neuts (auto) 8.6 H (2.0-8.3) x10*3/uL Absolute Nucleated RBC 0.000 (0.0-0.012) X10*3/uL Nucleated RBC % (auto) 0.0 (0.0-0.2) /100WBC D-Dimer High Sensitivty NG/ML Sodium 135 (135-145) mmol/L Potassium 4.0 (3.3-5.1) mmol/L Chloride 101 (96-108) mmol/L Carbon Dioxide 25 (22-29) mmol/L Anion Gap 13 (12-20) BUN 12 (9-16) mg/dL Creatinine 0.78 (0.5-1.4) mg/dL Estim Creat Clear Calc TNP Estimated GFR > 60 Random Glucose 121 H (60-115) mg/dL Calcium 9.6 (8.4-10.2) mg/dL Troponin I High Sens < 3.5 (<3.5-17.0) ng/L Urine Color Urine Appearance Urine pH (5.0-8.0) Ur Specific [place] (1.005-1.025) Urine Protein (NEG-TRACE) MG/DL Urine Glucose (UA) (NEG) MG/DL Urine Ketones (NEG) MG/DL Urine Blood (NEG) Urine Nitrite (NEG) Ur Leukocyte Esterase (NEG) Urine RBC (0) /HPF Urine WBC (0-4) /HPF Ur Squamous Epith Cells /LPF Urine Bacteria /LPF Urine Mucus /LPF Urine Test (NEGATIVE) 05/31/21 05/31/21 05/31/21 Range/Units 01:48 01:48 02:05 WBC (4.8-10.8) X10*3/uL RBC (4.20-5.50) X10*6/uL Hgb (12.0-16.0) g/dl Hct (37.0-47.0) % MCV (80.0-98.0) fL MCH (27.0-33.0) pg MCHC (31.0-35.0) g/dl RDW (11.0-16.0) % Plt Count (160-400) X10*3/uL MPV (9.4-12.3) fL Immature Gran % (Auto) (0.0-0.4) % Neut % (Auto) (45-73) % Lymph % (Auto) (20-40) % [place] % (Auto) (2-11) % Eos % (Auto) (0-4) % Baso % (Auto) (0-2) % Lymph # (Auto) (1.2-4.9) X10*3/uL [place] # (Auto) (0.1-1.2) X10*3/uL Eos # (Auto) (0.0-0.4) X10*3/uL Baso # (Auto) (0.0-0.2) X10*3/uL Abs Immat Gran (auto) (0.00-0.03) X10*3/uL Absolute Neuts (auto) (2.0-8.3) x10*3/uL Absolute Nucleated RBC (0.0-0.012) X10*3/uL Nucleated RBC % (auto) (0.0-0.2) /100WBC D-Dimer High Sensitivty < 150 NG/ML Sodium (135-145) mmol/L Potassium (3.3-5.1) mmol/L Chloride (96-108) mmol/L Carbon Dioxide (22-29) mmol/L Anion Gap (12-20) BUN (9-16) mg/dL Creatinine (0.5-1.4) mg/dL Estim Creat Clear Calc Estimated GFR Random Glucose (60-115) mg/dL Calcium (8.4-10.2) mg/dL Troponin I High Sens (<3.5-17.0) ng/L Urine Color YELLOW Urine Appearance CLEAR Urine pH 7.0 (5.0-8.0) Ur Specific [place] 1.010 (1.005-1.025) Urine Protein NEG (NEG-TRACE) MG/DL Urine Glucose (UA) NEG (NEG) MG/DL Urine Ketones NEG (NEG) MG/DL Urine Blood 2+ H (NEG) Urine Nitrite NEG (NEG) Ur Leukocyte Esterase 2+ H (NEG) Urine RBC 1-4 (0) /HPF Urine WBC 5-9 H (0-4) /HPF Ur Squamous Epith Cells 1+ /LPF Urine Bacteria 2+ /LPF Urine Mucus 1+ /LPF Urine Test NEGATIVE (NEGATIVE) Imaging Data Chest x-ray: Attestation: I personally reviewed and interpreted this imaging study as follows: Radiologist's impression: Unremarkable chest exam. ECG Data ECG #1: Attestation: I personally reviewed and interpreted this ECG as follows: Interpretation: Normal sinus rhythm with sinus arrhythmia at 88 beats per minute, left axis dev iation, normal intervals. Discharge Plan Discharge Clinical Impression: Acute costochondritis Patient Disposition: Home, Self-Care Instructions: Costochondritis (ED) Prescriptions: No Action ketorolac 10 mg tablet 10 mg PO QID PRN (Reason: pain) 5 Days Qty: 20 0RF Rx Instructions: patient received IV toradold 30mg in the ED lorazepam 1 mg tablet PO 0RF citalopram 40 mg tablet 40 mg PO DAILY 0RF hydroxyzine HCl 25 mg tablet PO 0RF cyclobenzaprine 10 mg tablet 10 mg PO BID PRN (Reason: muscle spasm) 10 Days Qty: 20 0RF bupropion HCl 150 mg tablet extended release 24 hr 150 mg PO DAILY 0RF buspirone 10 mg tablet 10 mg PO TID 0RF medroxyprogesterone [Depo-Provera] 150 mg/mL suspension 150 mg IM [id number] Qty: 1 3RF Referrals: Physician,Unknown J [Primary Care Provider] -
[2021-05-31] MEDS: Ibuprofen 600 MG TABLET PO (00:51)
[2021-05-31 01:28] VITALS: BP 126/87; PULSE 74; RESP 20; O2SAT 97
[2021-05-31 01:54] LABS: Appearance Urine CLEAR; Color Urine YELLOW; Glucose Urine UA NEG (NEG); Leukocyte Esterase Urine 2+ (NEG); Nitrite Urine NEG (NEG); UACC Culture Trigger YES; Urine Blood 2+ (NEG); Urine Ketones NEG (NEG); Urine Protein NEG (NEG-TRACE)
[2021-05-31 01:56] LABS: UPreg QC Valid YES; Urine Pregnancy NEGATIVE (NEGATIVE)
[2021-05-31 02:04] LABS: Bacteria Urine 2+ /LPF; Mucus Urine 1+ /LPF; Squamous Epithelial Cell Urine 1+ /LPF
[2021-05-31 02:33] LABS: D Dimer High Sensitivity < 150 NG/ML
== END 2021-05-31 05:22 | disposition home or self-care (01) ==
PROVIDERS: Emergency Provider Emergency Medicine
DX: M94.0 Chondrocostal junction syndrome [Tietze] (principal); R07.89 Other chest pain; M54.50 Low back pain, unspecified; Z79.899 Other long term (current) drug therapy
CPT/HCPCS: 36415; 71045; 80048; 81001; 81025; 84484; 85025; 85379; 87086; 87088; 93005; 99283; 99284

== ENCOUNTER 2021-10-06 08:19 | Outpatient (REF) | payer OTHER, SELFPAY | END 2021-10-06 08:20 | disposition home or self-care (01) | LOC: HO.LAB 08:19 | PROVIDERS: Visit Provider Obstetrics & Gynecology | DX: Z32.02 Encounter for pregnancy test, result negative (principal); R87.610 Atypical squamous cells of undetermined significance on cytologic smear of cervix (ASC-US); A63.0 Anogenital (venereal) warts | CPT/HCPCS: 57454; 81025; 88305 ==

== ENCOUNTER 2021-10-14 16:11 | Outpatient (REF) | payer OTHER, SELFPAY ==
[2021-10-14 17:39] LABS: Hematocrit 39.9 % (37.0-47.0); Hemoglobin 12.8 g/dl (12.0-16.0); Mean Corpuscular HGB Conc 32.1 g/dl (31.0-35.0); Mean Corpuscular Hemoglobin 27.2 pg (27.0-33.0); Mean Corpuscular Volume 84.9 fL (80.0-98.0); Mean Platelet Volume 9.7 fL (9.4-12.3); Platelet Count 385 X10*3/uL (160-400); Red Cell Distribution Width 13.2 % (11.0-16.0); White Blood Count 10.2 X10*3/uL (4.8-10.8)
[2021-10-14 18:14] LABS: HCG Quantitative < 2 mIU/mL; TSH reflex Free T4 1.75 uIU/mL (0.32-4.0)
[2021-10-15 04:39] LABS: CT PCR NOT DETECTED (Not Detect.); NG PCR NOT DETECTED (Not Detect.)
== END 2021-10-14 16:12 | disposition home or self-care (01) ==
LOC: HO.LAB 16:11
PROVIDERS: PCP Family Medicine; Visit Provider Obstetrics & Gynecology
DX: Z32.02 Encounter for pregnancy test, result negative (principal); N93.9 Abnormal uterine and vaginal bleeding, unspecified; N71.9 Inflammatory disease of uterus, unspecified
CPT/HCPCS: 36415; 81025; 84443; 84702; 85027; 87491; 87591; 96372; 99212; J0696

== ENCOUNTER 2022-01-20 13:40 | Outpatient (REF) | payer OTHER, SELFPAY ==
--- NOTE | ~2022-01-20 | US_ITS ---
EXAMINATION: US PELVIS CLINICAL INFORMATION: Abnormal uterine and vaginal bleeding. COMPARISON: Ultrasound pelvis 02/27/2020. TECHNIQUE: Ultrasound of the pelvis is performed using both transabdominal and transvaginal transducers along with Doppler. Transvaginal imaging is performed due to inadequate visualization transabdominally. FINDINGS: UTERUS: The uterus is retroverted, retroflexed and measures 6.7 cm in length, 4.3 mL in AP and 5.1 cm in transverse dimension. The double wall endometrial thickness is 0.7 cm. The uterus is smooth in contour and has normal myometrial echogenicity. No visible fibroid. There are several small anechoic nabothian cysts seen in the cervix. The cervix is slightly bulky and vascular. ADNEXA: Both ovaries are visualized. There is normal color flow to the adnexa. There is no ovarian torsion. There is no pelvic ascites or fluid collection. Right ovary measures 3.4 x 2.5 x 2.9 cm and volume 13.1 mL. Small anechoic cysts are seen in a string of pearls fashion. Previously right ovary measured 3.1 x 2.8 x 2.5 cm. Left ovary measures 3.4 x 2.1 x 3.4 cm and volume 12.6 mL. There are small anechoic cysts seen in a string of pearls fashion. Previously left ovary measured 3.6 x 2.2 x 2.9 cm. There is small amount of free fluid in cul-de-sac. US/US pelvic and transvaginal IMPRESSION: 1. Unremarkable uterus. 2. Small nabothian cysts in cervix. 3. Small bilateral ovarian cysts.
== END 2022-01-20 13:41 | disposition home or self-care (01) ==
LOC: HO.US 13:40
PROVIDERS: Visit Provider Obstetrics & Gynecology
DX: N93.9 Abnormal uterine and vaginal bleeding, unspecified (principal)
CPT/HCPCS: 76830; 76856

== ENCOUNTER 2022-06-10 12:53 | Outpatient (REF) | payer OTHER, SELFPAY ==
[2022-06-18 03:53] LABS: HPV 16 RNA NOT DETECTED (NOT DETECTED); HPV mRNA E6/E7 rflx Detected (Not Detected)
== END 2022-06-10 12:54 | disposition home or self-care (01) ==
LOC: HO.LNP 12:53
PROVIDERS: PCP Family Medicine; Visit Provider Obstetrics & Gynecology
DX: Z01.419 Encounter for gynecological examination (general) (routine) without abnormal findings (principal); Z11.51 Encounter for screening for human papillomavirus (HPV); N93.9 Abnormal uterine and vaginal bleeding, unspecified; N76.0 Acute vaginitis; B96.89 Other specified bacterial agents as the cause of diseases classified elsewhere
CPT/HCPCS: 81025; 87624; 87625; 88142

== ENCOUNTER 2022-06-10 13:32 | Outpatient (REF) | payer OTHER, SELFPAY ==
[2022-06-10 17:53] LABS: CT PCR NOT DETECTED (Not Detect.); NG PCR NOT DETECTED (Not Detect.)
[2022-06-11 04:08] LABS: Syphilis Screen Nonreactive (Nonreactive)
[2022-06-11 04:41] LABS: HBsAGNum1 0.33 S/CO (0.00-0.99); HIV Num 1 4.93 S/CO (0.00-0.99); Hepatitis B Surface Antigen Negative (Negative); ~HepC Num1 0.12 S/CO (0.00-0.79); ~Hepatitis C Antibody Nonreactive (Nonreactive)
[2022-06-11 05:47] LABS: HIV AB/AG Reactive (Nonreactive); HIV Num 2 4.95 S/CO; HIV Num 3 5.13 S/CO
[2022-06-11 08:58] LABS: BV Int Neg Control Negative (Negative); BV Int Pos Control Positive (Positive)
== END 2022-06-10 13:33 | disposition home or self-care (01) ==
LOC: HO.LAB 13:32
PROVIDERS: PCP Family Medicine; Visit Provider Obstetrics & Gynecology
DX: Z01.419 Encounter for gynecological examination (general) (routine) without abnormal findings (principal); Z11.4 Encounter for screening for human immunodeficiency virus [HIV]; B96.89 Other specified bacterial agents as the cause of diseases classified elsewhere; N76.0 Acute vaginitis
CPT/HCPCS: 0353U; 86701; 86702; 86780; 86803; 87340; 87389; 87480; 87510; 87660

== ENCOUNTER 2022-07-14 15:15 | Emergency (ER) | payer OTHER, SELFPAY ==
--- NOTE | 2022-07-14 15:33 | ED.SKABFB ---
HPI - Skin/Abscess/Foreign Bdy General Chief complaint: General Medical Stated complaint: L arm/ abdominal rash, pain in abdomen Time Seen by Provider: 07/14/22 16:00 History of Present Illness HPI narrative: patient with 2 complaints 1st complaint on the left shoulder she has developed a painful burning itching rash that began about 3 days ago no other rash Second complaint is vaginal discharge and some vaginal discomfort with some burning when she urinates She denies fever or chills, no headache no stiff neck no neck pain no chest pain no shortness of breath no abdominal pain no pelvic pain no abnormal bleeding no nausea vomiting Related Data Home Medications Medication Instructions Recorded Confirmed citalopram 40 mg tablet 40 mg PO DAILY 12/27/19 08/04/20 hydroxyzine HCl 25 mg tablet mg PO 12/27/19 08/04/20 lorazepam 1 mg tablet mg PO 12/27/19 08/04/20 bupropion HCl 150 mg 24 hr tablet, 150 mg PO DAILY 11/03/20 extended release buspirone 10 mg tablet 10 mg PO TID 11/03/20 Previous Rx's Medication Instructions Recorded ketorolac 10 mg tablet 10 mg PO QID PRN pain 5 days #20 01/06/21 tabs cyclobenzaprine 10 mg tablet 10 mg PO BID PRN muscle spasm 10 01/14/21 days #20 tabs doxycycline hyclate 100 mg capsule 100 mg PO BID 14 days #28 caps 10/14/21 metronidazole 500 mg tablet 500 mg PO BID 7 days #14 tabs 06/10/22 metronidazole 500 mg tablet 500 mg PO BID 7 days #14 tabs 07/14/22 nitrofurantoin 100 mg PO Q12H 5 days #10 caps 07/14/22 monohydrate/macrocrystals 100 mg capsule (Macrobid) valacyclovir 1 gram tablet 1,000 mg PO TID 7 days #21 tabs 07/14/22 (Valtrex) Allergies Allergy/AdvReac Type Severity Reaction Status Date / Time No Known Allergies Allergy Verified 07/14/22 15:33 [No Known Allergies*] oxycodone AdvReac Mild ineffective Uncoded 06/10/22 13:00 PMFSH Past Medical History Source: nursing notes reviewed Medical History Anxiety ASCUS with positive high risk HPV Depression Surgical History History of History of cholecystectomy History of hernia repair Family History Family History Maternal Grandmother Pacemaker CVD (cardiovascular disease) Father Diabetes HTN (hypertension) Mother Asthma Paternal Grandmother Cancer Brother No problems noted. Family/Other Substance abuse Chronic mental illness Social History Social History Alcohol intake: never Sexual orientation: Straight/Heterosexual Gender identity: Female Physical Exam Vital Signs: Vital Signs: Last Vital Signs Temp 97.8 F 07/14/22 15:34 Pulse 105 H 07/14/22 15:34 Resp 18 07/14/22 15:34 BP 136/89 07/14/22 15:34 Pulse Ox 100 07/14/22 15:34 O2 Del Method Room Air 07/14/22 15:34 BMI result Body Mass Index 26.6 general appearance is no acute distress Neck is supple Respiratory no distress Abdomen soft nontender no rebound no guarding no low abdominal tenderness Pelvic exam there is copious white discharge, thin, there were no lesions or ulcerations visible, no cervical motion tenderness, no mass palpated Skin exam in the left shoulder and left trapezius area there is unilateral vesicular rash in C5/C6 distribution Extremities range of motion x4 Neuro no focal deficits Course Course Course Narrative: RME: 37yo F w/PMHx PCOS, HPV, c/o painful rash to L shoulder/arm x 3 days. Also reports red bumps to genital area. Was seen at OBGYN office (Dr. Wild) on 07/10 and tested positive for BV and HIV however states has not been contacted yet w/results + erythematous vesicular rash noted to L shoulder/upper arm c/w shingles HIV antibody and antigen positive Full HPI, ROS and PE to be performed by primary ED provider. Patient is treated for shingles for the vesicular rash on her left shoulder The copious white discharge is treated with Flagyl for possible bacterial vaginosis Well-appearing patient with no sinifican abdominal tenderness or pelvic tenderness, no cervical motion tenderness is discharged, she does have an appointment with her [facility] tomorrow so she will follow-up tomorrow Medications Administered Discontinued Medications Generic Name Dose Route Start Last Admin Trade Name Petar PRN Reason Stop Dose Admin Metronidazole 500 mg 07/14/22 19:00 07/14/22 19:12 Metronidazole 500 Mg Tablet PO 07/14/22 19:01 500 mg ONCE ONE Administration Valacyclovir HCl 1,000 mg 07/14/22 19:00 07/14/22 19:12 Valacyclovir Hcl 1,000 Mg Tablet PO 07/14/22 19:01 1,000 mg ONCE ONE Administration Medical Decision Making Lab Data Labs: Lab Results 07/14/22 07/14/22 07/14/22 Range/Units 18:01 18:01 18:01 Urine Color Yellow Urine Appearance Clear Urine pH 6.0 (5.0-9.0) Ur Specific [place] 1.015 (1.005-1.025) Urine Protein Negative (Neg-Trace) mg/dL Urine Glucose (UA) Negative (Negative) mg/dL Urine Ketones Negative (Negative) mg/dL Urine Blood Trace H (Negative) Urine Nitrite Negative (Negative) Ur Leukocyte Esterase Small (1+) H (Negative) Urine RBC 3-5 H (0-2) /HPF Urine WBC 6-10 H (0-5) /HPF Ur Squamous Epith Cells 3-5 (0-2) /HPF Urine Bacteria Trace (None Seen) Hyaline Casts 0-2 (0-2) /LPF Urine Test NEGATIVE (NEGATIVE) Christina species DNA (Negative) Chlam trachomat DNA PCR NOT DETECTED (Not Detect.) Gardnerella DNA Probe (Negative) N.gonorrhoeae DNA (PCR) NOT DETECTED (Not Detect.) Trichomonas DNA Probe (Negative) 07/14/22 Range/Units 18:02 Urine Color Urine Appearance Urine pH (5.0-9.0) Ur Specific [place] (1.005-1.025) Urine Protein (Neg-Trace) mg/dL Urine Glucose (UA) (Negative) mg/dL Urine Ketones (Negative) mg/dL Urine Blood (Negative) Urine Nitrite (Negative) Ur Leukocyte Esterase (Negative) Urine RBC (0-2) /HPF Urine WBC (0-5) /HPF Ur Squamous Epith Cells (0-2) /HPF Urine Bacteria (None Seen) Hyaline Casts (0-2) /LPF Urine Test (NEGATIVE) Christina species DNA Negative (Negative) Chlam trachomat DNA PCR (Not Detect.) Gardnerella DNA Probe Negative (Negative) N.gonorrhoeae DNA (PCR) (Not Detect.) Trichomonas DNA Probe Negative (Negative) Discharge Plan Discharge Clinical Impression: Vaginal discharge, UTI (urinary tract infection), Shingles Patient Disposition: Home, Self-Care Additional Instructions: we are treating for a shingles infection, viral infection of the left shoulder with Valtrex We are treating vaginal discharge with Flagyl for possible bacterial vaginosis Culture results will be back in several days and we will call if any positives As you are having burning with urination we are treating for possible urinary tract infection with Macrobid Follow with [facility] as scheduled Follow with primary doctor if the shingles do not resolve Return any time any worse condition or any concerns It is a very good idea to confirm with Dr. Junito Novoa that the confirmatory test to rule out HIV were negative so asked him when you visit If he does not have the results asked the name and phone number of the doctor's office who did the confirming tests and then you can be sure it is all negative Prescriptions: New metronidazole 500 mg tablet 500 mg PO BID 7 Days Qty: 14 0RF nitrofurantoin monohyd/m-cryst [Macrobid] 100 mg capsule 100 mg PO Q12H 5 Days Qty: 10 0RF Rx Instructions: must administer with a meal/food valacyclovir [Valtrex] 1 gram tablet 1,000 mg PO TID 7 Days Qty: 21 0RF No Action ketorolac 10 mg tablet 10 mg PO QID PRN (Reason: pain) 5 Days Qty: 20 0RF Rx Instructions: patient received IV toradold 30mg in the ED lorazepam 1 mg tablet PO citalopram 40 mg tablet 40 mg PO DAILY hydroxyzine HCl 25 mg tablet PO cyclobenzaprine 10 mg tablet 10 mg PO BID PRN (Reason: muscle spasm) 10 Days Qty: 20 0RF bupropion HCl 150 mg tablet extended release 24 hr 150 mg PO DAILY buspirone 10 mg tablet 10 mg PO TID doxycycline hyclate 100 mg capsule 100 mg PO BID 14 Days Qty: 28 0RF metronidazole 500 mg tablet 500 mg PO BID 7 Days Qty: 14 0RF Interventions: ED Discharge Assessment Last Done: 07/14/22 19:20 Discharge Date/Time: 07/14/22 19:21
[2022-07-14 15:34] VITALS: BP 136/89; PULSE 105; RESP 18; TEMP 36.6; O2SAT 100; BMI 26.6
[2022-07-14 18:32] LABS: UPreg QC Valid YES; Urine Pregnancy NEGATIVE (NEGATIVE)
[2022-07-14 18:33] LABS: Appearance Urine Clear; Color Urine Yellow; Glucose Urine UA Negative (Negative); Leukocyte Esterase Urine Small (1+) (Negative); Nitrite Urine Negative (Negative); Specific Gravity - Urine 1.015 (1.005-1.025); UMIC TRIGGER UACC YES; Urine Blood Trace (Negative); Urine Ketones Negative (Negative); Urine Protein Negative (Neg-Trace)
[2022-07-14 18:36] LABS: Bacteria Urine Trace (None Seen); Hyaline Casts Urine 0-2 /LPF (0-2); UACC Culture Trigger YES
[2022-07-14] MEDS: metroNIDAZOLE 500 MG TABLET PO (19:12)
[2022-07-14] MEDS: valACYclovir HCL 1,000 MG TABLET 1000 MG PO (19:12)
[2022-07-15 05:48] LABS: CT PCR NOT DETECTED (Not Detect.); NG PCR NOT DETECTED (Not Detect.)
[2022-07-15 09:02] LABS: BV Int Neg Control Negative (Negative); BV Int Pos Control Positive (Positive)
== END 2022-07-14 19:21 | disposition home or self-care (01) ==
PROVIDERS: Physician Assistant Medical; Emergency Provider Emergency Medicine; PCP Family Medicine
DX: N89.8 Other specified noninflammatory disorders of vagina (principal); N39.0 Urinary tract infection, site not specified; B02.9 Zoster without complications; Z79.899 Other long term (current) drug therapy
CPT/HCPCS: 0353U; 81001; 81025; 87086; 87480; 87510; 87660; 99283

== ENCOUNTER 2022-07-15 11:55 | Outpatient (REF) | payer OTHER, SELFPAY | END 2022-07-15 11:56 | disposition home or self-care (01) | LOC: HO.LNP 11:55 | PROVIDERS: PCP Family Medicine; Visit Provider Obstetrics & Gynecology | DX: R87.810 Cervical high risk human papillomavirus (HPV) DNA test positive (principal); R87.610 Atypical squamous cells of undetermined significance on cytologic smear of cervix (ASC-US) | CPT/HCPCS: 57454; 81025; 88300; 88305 ==

== ENCOUNTER 2022-08-10 11:12 | Outpatient (REF) | payer OTHER, SELFPAY ==
[2022-08-11 05:23] LABS: CT PCR NOT DETECTED (Not Detect.); NG PCR NOT DETECTED (Not Detect.)
== END 2022-08-10 11:13 | disposition home or self-care (01) ==
LOC: HO.LNP 11:12
PROVIDERS: PCP Family Medicine; Visit Provider Obstetrics & Gynecology
DX: Z30.430 Encounter for insertion of intrauterine contraceptive device (principal); N87.0 Mild cervical dysplasia; N93.9 Abnormal uterine and vaginal bleeding, unspecified
CPT/HCPCS: 0353U; 58100; 58300; 81025; 88305; 99212; J7298

== ENCOUNTER 2022-08-10 12:36 | Outpatient (REF) | payer OTHER, SELFPAY ==
[2022-08-10 14:33] LABS: Hematocrit 37.5 % (37.0-47.0); Hemoglobin 12.1 g/dl (12.0-16.0); Mean Corpuscular HGB Conc 32.3 g/dl (31.0-35.0); Mean Corpuscular Hemoglobin 28.1 pg (27.0-33.0); Mean Corpuscular Volume 87.2 fL (80.0-98.0); Mean Platelet Volume 10.4 fL (9.4-12.3); Platelet Count 402 X10*3/uL (160-400); Red Cell Distribution Width 13.3 % (11.0-16.0); White Blood Count 8.6 X10*3/uL (4.8-10.8)
[2022-08-10 15:50] LABS: TSH reflex Free T4 5.87 uIU/mL (0.32-4.0)
[2022-08-10 15:55] LABS: HCG Quantitative < 2 mIU/mL
[2022-08-10 17:28] LABS: Free T4 (Free Thyroxine) 0.94 ng/dL (0.71-1.85)
[2022-08-12 09:03] LABS: Prolactin 10.5 ng/mL
== END 2022-08-10 12:37 | disposition home or self-care (01) ==
LOC: HO.LAB 12:36
PROVIDERS: PCP Family Medicine; Visit Provider Obstetrics & Gynecology
DX: N93.9 Abnormal uterine and vaginal bleeding, unspecified (principal)
CPT/HCPCS: 36415; 84146; 84439; 84443; 84702; 85027

== ENCOUNTER 2022-08-20 12:02 | Outpatient (REF) | payer OTHER, SELFPAY ==
--- NOTE | ~2022-08-20 | US_ITS ---
EXAMINATION: US PELVIS CLINICAL INFORMATION: Abnormal uterine bleeding, vaginal bleeding. IUD 10 days ago. COMPARISON: 01/20/2022 TECHNIQUE: Ultrasound of the pelvis is performed using both transabdominal and transvaginal transducers along with Doppler. Transvaginal imaging is performed due to inadequate visualization transabdominally. FINDINGS: Uterus: The uterus is anteverted, heterogeneous and measures 7.7 x 3.9 x 4.9 cm. 77.05 mL. The double wall endometrial thickness is [address] within the endometrial cavity. No discrete fibroids. Adnexa: Right ovary measures 3.6 x 3.1 x 2.6 cm, volume 14.0 mL and demonstrates multiple follicles. Left ovary measures 3.2 x 2.7 x 2.2 cm, volume 10.0 mL and demonstrates multiple follicles. Bilateral ovaries demonstrate color flow. No free fluid in the pelvis. US/US pelvic and transvaginal IMPRESSION: 1. IUD in place within the endometrial cavity. Endometrial thickness is 9 mm. 2. Unremarkable bilateral ovaries. 3. No discrete fibroids.
== END 2022-08-20 12:03 | disposition home or self-care (01) ==
LOC: HO.US 12:02
PROVIDERS: PCP Family Medicine; Visit Provider Obstetrics & Gynecology
DX: N93.9 Abnormal uterine and vaginal bleeding, unspecified (principal)
CPT/HCPCS: 76830; 76856

== ENCOUNTER 2022-09-14 15:07 | Outpatient (AMB) | payer OTHER, SELFPAY ==
--- NOTE | 2022-09-14 15:23 | A.OFFVIS_ITS ---
Intake Vital Signs 09/14/22 15:24 Height 5 ft 5 in Weight 163 lb BMI 27.1 BP 122/80 Intake Visit Reasons: IUD Check/US follow up Systems Project Manager Required: No Information Interpreted: non-clinical & clinical Hydraulic Riveter: Hydraulic Riveter Present (Aidyn) Allergies No Known Allergies [No Known Allergies*] Allergy (Verified 09/14/22 15:24) oxycodone Adverse Reaction (Mild, Uncoded 09/14/22 15:24) ineffective Post menopausal: No HPI HPI Comments History of Present Illness Details The patient is presenting for follow-up to discuss the results of her abnormal uterine bleeding workup and options of treatment. The following workup was done.: H&H= 12.1/37.5 hCG, GC and chlamydia were negative. Endometrial biopsy pathology showed no evidence of hyperplasia and/or malignancy. Co testing was done ascus/HPV positive, followed by colpo biopsy which showed CORRINA 1. Patient has CORRINA 1 since 05/12 Pelvic ultrasound unremarkable TSH elevated, free T4 within normal The patient had Mirena IUD inserted the patient is here for IUD check with no complaints PFSH Medical History Anxiety ASCUS with positive high risk HPV Depression Surgical History History of History of cholecystectomy History of hernia repair Family History Maternal Grandmother Pacemaker CVD (cardiovascular disease) Father Diabetes HTN (hypertension) Mother Asthma Paternal Grandmother Cancer Brother No problems noted. Family/Other Substance abuse Chronic mental illness Social History Alcohol intake: never Sexual orientation: Straight/Heterosexual Gender identity: Female Female Reproductive History Menstrual Age of Menarche: 12 control method: progestin IUCD Review of Systems Const All systems reviewed & are unremarkable except as noted in HPI and below Physical Exam Vital Signs: Last Vital Signs BP 122/80 09/14/22 15:24 BMI result Body Mass Index 27.1 General: Yes no CVA tenderness External Female Exam: normal external appearance and normal appearance of the urethra Speculum Exam - Vagina: normal appearance of the vagina, normal palpation, no lesions and no masses Speculum Exam - Cervix: normal appearance of the cervix, normal palpation, no lesions, no masses, nontender and Other cervical findings present Bimanual exam- vagina & uterus: normal bimanual exam, normal palpation, uterine size normal, normal palpation, uterine shape normal, No Cervical tenderness present and non-tender Bimanual Exam- Adnexa, other: normal adnexae Back/Spine/Pelvis Back: no CVA tenderness Results AMB Test Urine AMB Test Urine Negative Last Edit by KYLE Blanco on 09/14/22 15:27 Assessment & Plan Assessment & Plan (1) Dysplasia of cervix, low grade (CORRINA 1): Comment: Since 05/12 Code(s): N87.0 - Mild cervical dysplasia Plan: Discussed with the patient the pathology results of the colposcopy biopsies & endocervical curettage ( mild dysplasia-CORRINA 1). Discussed with the patient the sensitivity specificity, positive and negative predictive value in detecting cervical cancer in addition discussed the regression, persistence and progression rates. Recommended co-testing in 12 months, if cytology and or HPV are abnormal will proceed was colposcopy biopsy and endocervical curettage, if lesions gets worse or stays persistent for 2 years (since 05/12) will proceed with loop electric excision procedure. Instructions given to the patient to schedule a co test appointment in 1 year. All questions answered the patient verbalized understanding. (2) IUD check up: Code(s): Z30.431 - Encounter for routine checking of intrauterine contraceptive device Plan: UPT done in the office was negative. Discussed with the patient the finding on physical exam, IUD string in place, the patient was reassured. Instructions given to patient to call in case of temperature above 100.4, severe cramping/pelvic pain, abnormal discharge or abnormal uterine bleeding or if she misses her. Otherwise follow-up at her annual exam appointment. All questions answered, the patient verbalized understanding. (3) Abnormal uterine bleeding (AUB): Code(s): N93.9 - Abnormal uterine and vaginal bleeding, unspecified Plan: Since the patient has Mirena IUD instructions given the patient to call in case AUB is persistent will treat accordingly. All questions answered, the patient verbalized understanding (4) Elevated TSH: Code(s): R79.89 - Other specified abnormal findings of blood chemistry Plan: Discussed with the patient the results of elevated TSH with normal free T4, recommended for the patient to contact her PCP for further management Orders: Orders AMB HCG Urine Test Today Z32.02 - Encounter for test, result negative Coding Level of Care Code Est Pt Level 3 (44612) Diagnoses Dysplasia of cervix, low grade (CORRINA 1) N87.0 IUD check up Z30.431 Abnormal uterine bleeding (AUB) N93.9 Elevated TSH R79.89
[2022-09-14 15:24] VITALS: BP 122/80; BMI 27.1
== END 2022-09-14 15:42 | disposition home or self-care (01) ==
LOC: HO.HWS 15:07
PROVIDERS: PCP Family Medicine; Visit Provider Obstetrics & Gynecology
DX: N87.0 Mild cervical dysplasia (principal); Z30.431 Encounter for routine checking of intrauterine contraceptive device; N93.9 Abnormal uterine and vaginal bleeding, unspecified; R79.89 Other specified abnormal findings of blood chemistry; Z32.02 Encounter for pregnancy test, result negative
CPT/HCPCS: 99213

== ENCOUNTER → 2022-09-14 15:07 | Outpatient (BNVA) | payer OTHER, SELFPAY | PROVIDERS: PCP Family Medicine; Visit Provider Obstetrics & Gynecology | DX: N93.9 Abnormal uterine and vaginal bleeding, unspecified (principal); N87.0 Mild cervical dysplasia; Z30.431 Encounter for routine checking of intrauterine contraceptive device | CPT/HCPCS: 81025; 99212 ==

== ENCOUNTER 2022-11-11 08:52 | Outpatient (REF) | payer OTHER, SELFPAY ==
[2022-11-11 11:19] LABS: Free T4 (Free Thyroxine) 0.82 ng/dL (0.71-1.85); Thyroid Stimulating Hormone 3.22 uIU/mL (0.32-4.0)
[2022-11-13 04:54] LABS: Triiodothyronine T3 Total 113 ng/dL (76-181)
== END 2022-11-11 08:53 | disposition home or self-care (01) ==
LOC: HO.LAB 08:52
PROVIDERS: PCP Family Medicine; Visit Provider Family Medicine
DX: E03.9 Hypothyroidism, unspecified (principal)
CPT/HCPCS: 36415; 84439; 84443; 84480

== ENCOUNTER 2022-11-24 11:22 | Outpatient (AMB) | payer OTHER, SELFPAY ==
--- NOTE | 2022-11-24 11:25 | MHC.OFFVIS ---
Intake Vital Signs 11/24/22 11:32 Height 5 ft 5 in Weight 160 lb 14.999 oz BMI 26.8 BP 118/74 Intake Visit Reasons: vaginal odor Grainer Machine Required: No Information Interpreted: non-clinical & clinical Test Center Administrator: Test Center Administrator Present (Vane WRIGHT) Accompanied by: Self / Same As Patient Allergies No Known Allergies [No Known Allergies*] Allergy (Verified 11/24/22 11:32) oxycodone Adverse Reaction (Mild, Uncoded 11/24/22 11:32) ineffective HPI HPI Comments History of Present Illness Details The patient is presenting complaining of vaginal discharge associated with foul odor, no other associated symptoms, vaginal itching or any other complaint PFSH Medical History Depression Anxiety ASCUS with positive high risk HPV Surgical History History of hernia repair History of cholecystectomy History of Family History Maternal Grandmother Pacemaker CVD (cardiovascular disease) Father Diabetes HTN (hypertension) Mother Asthma Paternal Grandmother Cancer Brother No problems noted. Family/Other Substance abuse Chronic mental illness Social History Alcohol intake: never Sexual orientation: Straight/Heterosexual Gender identity: Female Female Reproductive History Menstrual Age of Menarche: 12 control method: progestin IUCD Review of Systems Const All systems reviewed & are unremarkable except as noted in HPI and below Physical Exam General: Yes no CVA tenderness External Female Exam: normal external appearance and normal appearance of the urethra Speculum Exam - Vagina: normal appearance of the vagina, normal palpation, no lesions and no masses Speculum Exam - Cervix: normal appearance of the cervix, normal palpation, no lesions, no masses and nontender Bimanual exam- vagina & uterus: normal bimanual exam, normal palpation, uterine size normal, normal palpation, uterine shape normal, No Cervical tenderness present and non-tender Bimanual Exam- Adnexa, other: normal adnexae Back/Spine/Pelvis Back: no CVA tenderness Assessment & Plan Assessment & Plan (1) Bacterial vaginosis: Code(s): N76.0 - Acute vaginitis; B96.89 - Other specified bacterial agents as the cause of diseases classified elsewhere Plan: GC and chlamydia cultures with BV panel taken. Per CDC recommendation, will screen for STI, HepBs Ag, HIV, RPR, Hep C Ab ordered. Will treat with Flagyl 500 mg p.o. b.i.d. x 7 days, Instructions given to the patient to refrain from sexual activity or to use condoms consistently and correctly during the BV treatment regimen, not to douch, it might increase the risk for relapse, and to call if symptoms persist or recur. Medications: New metronidazole 500 mg PO BID 14 tabs 0RF 7 days Coding Level of Care Code Est Pt Level 3 (91293) Diagnoses Bacterial vaginosis N76.0; B96.89
[2022-11-24 11:32] VITALS: BP 118/74; BMI 26.8
== END 2022-11-24 11:40 | disposition home or self-care (01) ==
LOC: HO.HWS 11:23
PROVIDERS: PCP Family Medicine; Visit Provider Obstetrics & Gynecology
DX: N76.0 Acute vaginitis (principal); B96.89 Other specified bacterial agents as the cause of diseases classified elsewhere
CPT/HCPCS: 99213

== ENCOUNTER 2022-11-24 11:22 | Outpatient (REF) | payer OTHER, SELFPAY ==
[2022-11-24 16:36] LABS: CT PCR NOT DETECTED (Not Detect.); NG PCR NOT DETECTED (Not Detect.)
[2022-11-25 12:34] LABS: BV Int Neg Control Negative (Negative); BV Int Pos Control Positive (Positive)
== END 2022-11-24 11:23 | disposition home or self-care (01) ==
LOC: HO.LNP 11:22
PROVIDERS: PCP Family Medicine; Visit Provider Obstetrics & Gynecology
DX: N76.0 Acute vaginitis (principal); B96.89 Other specified bacterial agents as the cause of diseases classified elsewhere
CPT/HCPCS: 0353U; 87480; 87510; 87660; 99212

== ENCOUNTER 2022-12-07 15:07 | Emergency (ER) | payer OTHER, SELFPAY ==
--- NOTE | ~2022-12-07 | US_ITS ---
EXAMINATION: US PELVIS CLINICAL INFORMATION: Abnormal vaginal bleeding LMP: Yesterday COMPARISON: Pelvic ultrasound 08/20/2022 TECHNIQUE: Ultrasound of the pelvis is performed using both transabdominal and transvaginal transducers along with Doppler. Transvaginal imaging is performed due to inadequate visualization transabdominally. FINDINGS: Uterus: The uterus is anteverted and measures 8.7 x 3.4 x 4.4 cm. The endometrium measures 0.5 cm. An IUD appears in proper position. The uterus is smooth in contour and has normal myometrial echogenicity. No visible fibroid. Adnexa: Both ovaries are visualized. There is normal color flow to the adnexa. There is no ovarian torsion. There is no pelvic ascites or fluid collection. Right ovary measures 2.7 x 2.0 x 2.1 cm. Volume 5.9 mL. The right ovary is normal in appearance Left ovary measures 6.7 x 4.3 x 7.6 cm. Volume 115 mL. The left ovary contains a 5.9 x 4.2 x 6.4 cm simple cyst. This is probably a benign cyst. Follow-up pelvic ultrasound in 3-6 months is recommended. US/US pelvic and transvaginal IMPRESSION: 1. Normal uterus and right ovary. 2. IUD appears in proper position. 3. 6.4 cm simple left ovarian cyst. This is probably a benign cyst. Follow-up pelvic ultrasound in 3-6 months is recommended.
--- NOTE | 2022-12-07 15:36 | ED_ITS ---
HPI - General Adult General Chief complaint: Vaginal Bleeding Stated complaint: Blood Clots Sent By Dr Wild Time Seen by Provider: 12/07/22 21:30 Source: patient and RN notes reviewed Mode of arrival: ambulatory Limitations: no limitations History of Present Illness HPI narrative: This is a 37-year-old female, with a hx of anxiety, ASCUS, and depression, presenting to the emergency department with complaints of ongoing vaginal bleeding, worsening yesterday. Patient states that she has had abnormal uterine bleeding for several months, states that she will have vaginal spotting for several days and then it will resolve for several days. She has been seen numerous times by Dr. Wild who decided to place a Mirena IUD. She reports that she continues to have vaginal bleeding. She states that this worsened yesterday and states that she was passing a lot of blood clots. She also endorses some lower abdominal cramping. She states that she has been working closely with Dr. Wild. She was last seen by him on November 24 where she test positive for Gardnerella. She was treated with Flagyl which she completed. She is feeling tired. No chest pain, shortness of breath. No other complaints or concerns at this time. MD complaint: Vaginal bleeding Onset (ago): week(s) Relieving factors: none Exacerbating factors: none Associated symptoms: denies other symptoms Treatments prior to arrival: none Related Data Home Medications Medication Instructions Recorded Confirmed citalopram 40 mg tablet 40 mg PO DAILY 12/27/19 08/04/20 hydroxyzine HCl 25 mg tablet mg PO 12/27/19 08/04/20 lorazepam 1 mg tablet mg PO 12/27/19 08/04/20 bupropion HCl 150 mg 24 hr tablet, 150 mg PO DAILY 11/03/20 extended release buspirone 10 mg tablet 10 mg PO TID 11/03/20 levonorgestrel 21 mcg/24 hours (8 intrauterine 09/14/22 yrs) 52 mg intrauterine device (Mirena) Previous Rx's Medication Instructions Recorded ketorolac 10 mg tablet 10 mg PO QID PRN pain 5 days #20 01/06/21 tabs cyclobenzaprine 10 mg tablet 10 mg PO BID PRN muscle spasm 10 01/14/21 days #20 tabs doxycycline hyclate 100 mg capsule 100 mg PO BID 14 days #28 caps 10/14/21 valacyclovir 1 gram tablet 1,000 mg PO TID 7 days #21 tabs 07/14/22 (Valtrex) metronidazole 500 mg tablet 500 mg PO BID 7 days #14 tabs 11/24/22 Allergies Allergy/AdvReac Type Severity Reaction Status Date / Time No Known Allergies Allergy Verified 11/24/22 11:32 [No Known Allergies*] oxycodone AdvReac Mild ineffective Uncoded 11/24/22 11:32 Review of Systems 2 Review of Systems: Yes all other systems are reviewed and are negative Constitutional: Constitutional: Reports as per HPI [facility] Past Medical History Medical History Depression Anxiety ASCUS with positive high risk HPV Surgical History History of hernia repair History of cholecystectomy History of Family History Family History Maternal Grandmother Pacemaker CVD (cardiovascular disease) Father Diabetes HTN (hypertension) Mother Asthma Paternal Grandmother Cancer Brother No problems noted. Family/Other Substance abuse Chronic mental illness Social History Social History Alcohol intake: never Smoked in Last 30 Days: No Use of substances other than those prescribed or required for medical reasons: No Advance Directives: No Advance Directives Information Provided: Yes Patient : No Sexual orientation: Straight/Heterosexual Gender identity: Female Physical Exam ED Vital Signs: Vital Signs - 24 hr 12/07/22 15:38 12/07/22 20:55 12/07/22 22:50 Temperature 98.0 F 97.7 F 98 F Pulse Rate 84 68 72 Respiratory Rate 18 16 16 Blood Pressure 120/85 100/81 123/86 Pulse Oximetry 97 99 100 Oxygen Delivery Method Room Air Room Air Room Air BMI result Body Mass Index 26.5 Const General: cooperative, comfortable and no acute distress Orientation/consciousness: patient oriented x3 Limitations: no limitations HENMT Head: Yes normal to inspection, Yes normocephalic and Yes atraumatic Ears: hearing grossly normal bilaterally General nose exam: Normal external nose present Face and sinus: Yes normal facial exam Mouth: Normal oral and palatal mucosa present, oropharynx normal and moist mucous membranes Throat: Yes posterior oropharynx normal Eyes General: appearance normal, both eyes and all related structures Eyelids: Yes eyelids normal Conjunctivae: conjunctivae normal Sclerae: sclerae normal Pupils: Equal, round and reactive pupils present EOM: EOMs intact bilaterally Neck Neck: Yes normal visual inspection, Yes full ROM and Yes no lymphadenopathy Lymphatic: no lymphadenopathy noted Chest Chest palpation & inspection: normal inspection of the chest Resp Effort & Inspection: normal respiratory effort and able to speak in complete sentences Auscultation: clear to auscultation bilaterally, no crackles, no rales, no rhonchi and no wheezes Cardio Rate: regular rate Rhythm: regular rhythm Heart sounds: S1 normal heart sound present and S2 normal heart sound present GI Other: mild suprapubic tenderness to palpation. No rebound or guarding. Inspection: Yes normal to inspection Other: Speculum examination with moderate bright red blood noted in the vault. No cervical motion tenderness. Cervical OS is closed. Speculum Exam - Vagina: normal appearance of the vagina, normal palpation, not erythematous and no swelling Speculum Exam - Cervix: normal appearance of the cervix (IUD strings present) Bimanual exam- vagina & uterus: normal palpation Skin General skin exam: no rashes or lesions noted Trauma: no lacerations or abrasions Wounds: no wounds Neuro General: patient oriented x3 and moves all extremities Cranial nerves: Yes Equal, round and reactive pupils present Extrem General: Yes normal to inspection Right upper extremity: normal to inspection Left upper extremity: normal to inspection Right lower extremity: normal to inspection Left lower extremity: normal to inspection Course Course Course Narrative: This is an RME: Additional HPI, ROS, PE not included below will be deferred to primary provider. 37 year old female with a PMH of hyperthyroidism presenting [place] her [place] with 1 day of heavy vaginal bleeding and clots after getting Mirena placed several months ago. She is going through 2-3 pads/hour. Plan - labs, urine, hcg, us Medications Administered Discontinued Medications Generic Name Dose Route Start Last Admin Trade Name Freq PRN Reason Stop Dose Admin Acetaminophen 975 mg 12/07/22 22:11 12/07/22 22:41 Acetaminophen 325 Mg Tablet PO 12/07/22 22:12 975 mg ONCE ONE Administration Ondansetron HCl 4 mg 12/07/22 22:11 12/07/22 22:42 Ondansetron Odt 4 Mg Tab.Amber GAINESINGU 12/07/22 22:12 4 mg ONCE ONE Administration Medical Decision Making Medical Decision Making [facility] Narrative: 37 y/o F presenting to the ER with complaints of abnormal uterine bleeding x months, worsening since yesterday. She is followed by Dr. Wild who placed Mirena IUD in July. She is reporting ongoing vaginal spotting, and alot of vaginal bleeding which started yesterday. On examination, moderate amount of blood seen in speculum exam. No cervical motion tenderness. H&H stable, no leukocytosis, urine does not appear to be infected has it appears contaminated. Chemistry within normal limits, TSH within normal limits. Case discussed with Dr. Wild, who suggests that given patient's H&H is within normal limits, negative hCG, and IUD is seen in the right place on ultrasound, can be discharged with outpatient follow-up. I discussed this with patient who understands and agrees with this plan. Patient stable for discharge. Differential Diagnosis Differential Diagnoses: The differential diagnosis associated with the presentation includes Dysfunctional uterine bleeding, ovarian cyst, ovarian torsion, Admission/Observation Consideration of admission/observation: Escalation of care including admission/observation considered Escalation of care including admission was considered however H&H within normal limits. Consult Healthcare Provider Management of the patient was discussed with: General Contractor Dr. Wild Lab Data [facility] Lab Attestation statement: I reviewed the patient's lab results. 12/07/22 15:51 12/07/22 15:51 Labs: Lab Results 12/07/22 12/07/22 Range/Units 15:51 21:01 WBC 9.4 (4.8-10.8) X10*3/uL RBC 4.56 (4.20-5.50) X10*6/uL Hgb 12.6 (12.0-16.0) g/dl Hct 39.2 (37.0-47.0) % MCV 86.0 (80.0-98.0) fL MCH 27.6 (27.0-33.0) pg MCHC 32.1 (31.0-35.0) g/dl RDW 14.0 (11.0-16.0) % Plt Count 424 H (160-400) X10*3/uL MPV 9.4 (9.4-12.3) fL Immature Gran % (Auto) 0.2 (0.0-0.4) % Neut % (Auto) 64.9 (45-73) % Lymph % (Auto) 27.1 (20-40) % Evans % (Auto) 5.4 (2-11) % Eos % (Auto) 1.8 (0-4) % Baso % (Auto) 0.6 (0-2) % Lymph # (Auto) 2.6 (1.2-4.9) X10*3/uL Evans # (Auto) 0.5 (0.1-1.2) X10*3/uL Eos # (Auto) 0.2 (0.0-0.4) X10*3/uL Baso # (Auto) 0.1 (0.0-0.2) X10*3/uL Abs Immat Gran (auto) 0.02 (0.00-0.03) X10*3/uL Absolute Neuts (auto) 6.1 (2.0-8.3) x10*3/uL Absolute Nucleated RBC 0.000 (0.0-0.012) X10*3/uL Nucleated RBC % (auto) 0.0 (0.0-0.2) /100WBC Sodium 138 (135-145) mmol/L Potassium 3.8 (3.3-5.1) mmol/L Chloride 104 (96-108) mmol/L Carbon Dioxide 25 (22-29) mmol/L Anion Gap 13 (12-20) BUN 10 (9-16) mg/dL Creatinine 0.77 (0.5-1.4) mg/dL Estim Creat Clear Calc 100.6 Estimated GFR > 60 Random Glucose 93 (60-115) mg/dL Calcium 9.5 (8.4-10.2) mg/dL Total Bilirubin 0.3 (0.0-1.0) mg/dL AST 20 (5-31) U/L ALT 17 (0-31) U/L Alkaline Phosphatase 83 (39-117) U/L Total Protein 7.6 (6.5-8.0) g/dL Albumin 4.2 (3.5-5.0) g/dL Beta HCG, Quant < 2 mIU/mL Urine Color [place] A Urine Appearance Cloudy Urine pH 6.0 (5.0-9.0) Ur Specific [place] 1.020 (1.005-1.025) Urine Protein 30 (1+) H (Neg-Trace) mg/dL Urine Glucose (UA) Negative (Negative) mg/dL Urine Ketones Negative (Negative) mg/dL Urine Blood Large (3+) H (Negative) Urine Nitrite Negative (Negative) Ur Leukocyte Esterase Small (1+) H (Negative) Urine RBC >20 H (0-2) /HPF Urine WBC 11-20 H (0-5) /HPF Ur Squamous Epith Cells 3-5 (0-2) /HPF Urine Bacteria Trace (None Seen) Hyaline Casts 0-2 (0-2) /LPF Urine Test NEGATIVE (NEGATIVE) Radiology Impression Discussion of test interpretation with radiology: I have reviewed the radiologist's reading. External Record Review External record reviewed: Inpatient record, Office record, Outpatient record, Prior outpatient labs, Prior outpatient radiology, Primary care record and Outside ED record Discharge Plan Discharge Clinical Impression: Abnormal uterine bleeding (AUB) Patient Disposition: Home, Self-Care Instructions: Dysfunctional Uterine Bleeding (ED) Additional Instructions: Your blood work was reassuring. Your ultrasound showed a cyst on the left. This can cause some intermittent pain. Your urine does not appear to be infected. You are not . You can take ibuprofen and Tylenol as needed for pain and cramping. Drink plenty of fluids and get plenty of rest. Please follow-up with Dr. Wild if your bleeding continues. If any new or worsening symptoms occur including but not limited to worsening vaginal bleeding, lightheadedness, dizziness, please return for re-evaluation. Prescriptions: No Action ketorolac 10 mg tablet 10 mg PO QID PRN (Reason: pain) 5 Days Qty: 20 0RF Rx Instructions: patient received IV toradold 30mg in the ED valacyclovir [Valtrex] 1 gram tablet 1,000 mg PO TID 7 Days Qty: 21 0RF lorazepam 1 mg tablet PO citalopram 40 mg tablet 40 mg PO DAILY hydroxyzine HCl 25 mg tablet PO cyclobenzaprine 10 mg tablet 10 mg PO BID PRN (Reason: muscle spasm) 10 Days Qty: 20 0RF bupropion HCl 150 mg tablet extended release 24 hr 150 mg PO DAILY buspirone 10 mg tablet 10 mg PO TID doxycycline hyclate 100 mg capsule 100 mg PO BID 14 Days Qty: 28 0RF metronidazole 500 mg tablet 500 mg PO BID 7 Days Qty: 14 0RF Mirena 21 mcg/24 hours (8 yrs) 52 mg intrauterine device intrauterine Referrals: Carson Wild MD [Physician] -
[2022-12-07 15:38] VITALS: BP 120/85; PULSE 84; RESP 18; TEMP 36.7; O2SAT 97; BMI 26.5
[2022-12-07 15:54] LABS: MANUAL DIFF FLAG NO
[2022-12-07 15:57] LABS: Basophils Absolute Auto 0.1 X10*3/uL (0.0-0.2); Basophils Percent Auto 0.6 % (0-2); Eosinophils Absolute Auto 0.2 X10*3/uL (0.0-0.4); Eosinophils Percent Auto 1.8 % (0-4); Hematocrit 39.2 % (37.0-47.0); Hemoglobin 12.6 g/dl (12.0-16.0); Imm Gran Abs Auto 0.02 X10*3/uL (0.00-0.03); Imm Gran Pct Auto 0.2 % (0.0-0.4); Lymphocytes Absolute Auto 2.6 X10*3/uL (1.2-4.9); Lymphocytes Percent Auto 27.1 % (20-40); Mean Corpuscular HGB Conc 32.1 g/dl (31.0-35.0); Mean Corpuscular Hemoglobin 27.6 pg (27.0-33.0); Mean Platelet Volume 9.4 fL (9.4-12.3); Monocytes Absolute Auto 0.5 X10*3/uL (0.1-1.2); Monocytes Percent Auto 5.4 % (2-11); Neutrophils Absolute Auto 6.1 x10*3/uL (2.0-8.3); Neutrophils Percent Auto 64.9 % (45-73); Platelet Count 424 X10*3/uL (160-400); Red Blood Count 4.56 X10*6/uL (4.20-5.50); White Blood Count 9.4 X10*3/uL (4.8-10.8)
[2022-12-07 16:30] LABS: Alanine Aminotransferase 17 U/L (0-31); Albumin Level 4.2 g/dL (3.5-5.0); Alkaline Phosphatase 83 U/L (39-117); Anion Gap 13 (12-20); Aspartate Amino Transferase 20 U/L (5-31); Bilirubin Total 0.3 mg/dL (0.0-1.0); Blood Urea Nitrogen 10 mg/dL (9-16); Calcium 9.5 mg/dL (8.4-10.2); Carbon Dioxide 25 mmol/L (22-29); Chloride 104 mmol/L (96-108); Creatinine Clr Calc Pharmacy 100.6; Estimated Glomerular Filt Rate > 60; Glucose Random 93 mg/dL (60-115); Potassium 3.8 mmol/L (3.3-5.1); Sodium 138 mmol/L (135-145); Total Protein 7.6 g/dL (6.5-8.0)
[2022-12-07 16:37] LABS: HCG Quantitative < 2 mIU/mL
[2022-12-07 20:55] VITALS: BP 100/81; PULSE 68; RESP 16; TEMP 36.5; O2SAT 99
[2022-12-07 21:14] LABS: UPreg QC Valid YES; Urine Pregnancy NEGATIVE (NEGATIVE)
[2022-12-07 21:56] LABS: Appearance Urine Cloudy; Color Urine Orange; Glucose Urine UA Negative (Negative); Leukocyte Esterase Urine Small (1+) (Negative); Nitrite Urine Negative (Negative); UMIC TRIGGER UACC YES; Urine Blood Large (3+) (Negative); Urine Ketones Negative (Negative); Urine Protein 30 (1+) mg/dL (Neg-Trace)
[2022-12-07 22:17] LABS: Bacteria Urine Trace (None Seen); Hyaline Casts Urine 0-2 /LPF (0-2); RBC Urine >20 /HPF (0-2); UACC Culture Trigger YES
[2022-12-07] MEDS: Acetaminophen 325 MG TABLET 975 MG PO (22:41)
[2022-12-07] MEDS: Ondansetron ODT 4 MG TAB.RAPDIS TRANSLINGU (22:42)
[2022-12-07 22:50] VITALS: BP 123/86; PULSE 72; RESP 16; TEMP 36.6; O2SAT 100
[2022-12-07 22:59] LABS: TSH reflex Free T4 1.72 uIU/mL (0.32-4.0)
--- NOTE | 2022-12-07 23:19 | PM.GYNCN ---
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 The patient recently had a workup for abnormal uterine bleeding and had Mirena IUD inserted few months ago. The patient was doing well till yesterday when she started having vaginal bleeding. No other associated significant pelvic pain or any other symptoms. In the emergency room hCG was negative, H&H stable. Pelvic ultrasound showed IUD in place with a 6.4 cm simple ovarian cyst cc:: CC: OB [facility] Past Medical History Medical History Depression Anxiety ASCUS with positive high risk HPV Family History Family History Maternal Grandmother Pacemaker CVD (cardiovascular disease) Father Diabetes HTN (hypertension) Mother Asthma Paternal Grandmother Cancer Brother No problems noted. Family/Other Substance abuse Chronic mental illness Surgical History Surgical History History of hernia repair History of cholecystectomy History of Social History Social History Alcohol intake: never Smoked in Last 30 Days: No Use of substances other than those prescribed or required for medical reasons: No Advance Directives: No Advance Directives Information Provided: Yes Patient : No Sexual orientation: Straight/Heterosexual Gender identity: Female Meds Allergies Allergy/AdvReac Type Severity Reaction Status Date / Time No Known Allergies Allergy Verified 11/24/22 11:32 [No Known Allergies*] oxycodone AdvReac Mild ineffective Uncoded 11/24/22 11:32 Home Medications Medication Instructions Recorded Confirmed Last Taken Type citalopram 40 mg tablet 40 mg PO DAILY 12/27/19 08/04/20 Unknown History hydroxyzine HCl 25 mg tablet mg PO 12/27/19 08/04/20 Unknown History lorazepam 1 mg tablet mg PO 12/27/19 08/04/20 Unknown History bupropion HCl 150 mg 24 hr tablet, 150 mg PO DAILY 11/03/20 Unknown History extended release buspirone 10 mg tablet 10 mg PO TID 11/03/20 Unknown History levonorgestrel 21 mcg/24 hours (8 intrauterine 09/14/22 Unknown History yrs) 52 mg intrauterine device (Mirena) 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 Physical Exam Vitals Vital signs: Temp Pulse Resp BP Pulse Ox O2 Del Method 98 F 72 16 123/86 100 Room Air 12/07/22 22:50 12/07/22 22:50 12/07/22 22:50 12/07/22 22:50 12/07/22 22:50 12/07/22 22:50 BMI result Body Mass Index 26.5 Additional Comments: Reported by YEN Roman in the emergency room as following: Abdominal exam soft nontender Pelvic exam: No cervical motion tenderness IUD string in place, no active vaginal bleeding 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 - Results Labs 12/07/22 15:51 12/07/22 15:51 Labs: Short CBC 12/07/22 Range/Units 15:51 WBC 9.4 (4.8-10.8) X10*3/uL Hgb 12.6 (12.0-16.0) g/dl Hct 39.2 (37.0-47.0) % Plt Count 424 H (160-400) X10*3/uL BMP 12/07/22 15:51 Sodium 138 Potassium 3.8 Chloride 104 Carbon Dioxide 25 BUN 10 Creatinine 0.77 Calcium 9.5 Liver Function 12/07/22 Range/Units 15:51 Total Bilirubin 0.3 (0.0-1.0) mg/dL AST 20 (5-31) U/L ALT 17 (0-31) U/L Alkaline Phosphatase 83 (39-117) U/L Albumin 4.2 (3.5-5.0) g/dL Urine 12/07/22 Range/Units 21:01 Urine Color House A Urine Appearance Cloudy Urine pH 6.0 (5.0-9.0) Ur Specific [place] 1.020 (1.005-1.025) Urine Protein 30 (1+) H (Neg-Trace) mg/dL Urine Glucose (UA) Negative (Negative) mg/dL Urine Test NEGATIVE (NEGATIVE) Imaging US - abdomen: Radiologist's impression: ITS Impressions Pelvic/Transvag US 12/07/22 16:44 IMPRESSION: 1. Normal uterus and right ovary. 2. IUD appears in proper position. 3. 6.4 cm simple left ovarian cyst. This is probably a benign cyst. Follow-up pelvic ultrasound in 3-6 months is recommended. Assessment and Plan (1) Abnormal uterine bleeding (AUB): Status: Acute Recommended the following to YEN Roman in the emergency room: Since test is negative, H&H is stable, vital signs are stable and no evidence of active bleeding on pelvic exam, if the patient is stable to be discharged, she is to follow-up in the office within 48 hours, instructions to be given to the patient to come back to the emergency room case of heavy vaginal bleeding, pelvic pain, fever above 100.4, nausea or vomiting. (2) Ovarian cyst: Qualifiers: Laterality: left Qualified Code(s): N83.202 - Unspecified ovarian cyst, left side Status: Inactive Signs and symptoms of ovarian rupture and /or torsion to be discussed with the patient; Instructions to be given the patient to come back to the emergency room in case of pelvic pain and or nausea or vomiting, schedule a close follow-up in the office. I spent a total of 20 minutes reviewing the chart, communicating with the emergency room provider and documenting in the medical record Time Spent With Patient Time: Total time managing care of this patient today ____ minutes.
== END 2022-12-07 23:42 | disposition home or self-care (01) ==
PROVIDERS: Physician Assistant; Physician Assistant Medical; Emergency Provider Emergency Medicine; PCP Family Medicine
DX: N93.9 Abnormal uterine and vaginal bleeding, unspecified (principal); N83.292 Other ovarian cyst, left side; Z79.899 Other long term (current) drug therapy
CPT/HCPCS: 36415; 76830; 76856; 80053; 81001; 81003; 81025; 84443; 84702; 85025; 87086; 99284

== ENCOUNTER → 2022-12-07 15:52 | Outpatient (BNV) | payer OTHER, SELFPAY | PROVIDERS: Emergency Provider Emergency Medicine; PCP Family Medicine; Visit Provider Obstetrics & Gynecology | DX: N93.9 Abnormal uterine and vaginal bleeding, unspecified (principal); N83.202 Unspecified ovarian cyst, left side | CPT/HCPCS: 99283 ==

== ENCOUNTER 2022-12-09 09:18 | Outpatient (AMB) | payer OTHER, SELFPAY ==
--- NOTE | 2022-12-09 09:20 | MHC.OFFVIS ---
Intake Vital Signs 12/09/22 09:25 Height 5 ft 5 in Weight 158 lb BMI 26.3 BP 100/60 Intake Visit Reasons: ER follow up Home Organizer Required: No Information Interpreted: non-clinical & clinical Project Management Analyst: Project Management Analyst Present (Vane) Allergies No Known Allergies [No Known Allergies*] Allergy (Verified 12/09/22 09:28) oxycodone Adverse Reaction (Mild, Uncoded 12/09/22 09:28) ineffective Is last menstrual period known: Yes Last menstrual period: 12/01/22 Post menopausal: No HPI HPI Comments History of Present Illness Details The patient is presenting for follow-up from emergency room visit. The patient was having abnormal uterine bleeding was seen few months ago on the following workup was done: H&H= 12.1/37.5 hCG, GC and chlamydia were negative. Endometrial biopsy pathology showed no evidence of hyperplasia and/or malignancy. Co testing was done ascus/HPV positive, followed by colpo biopsy which showed CORRINA 1. Patient has CORRINA 1 since 05/12 Pelvic ultrasound unremarkable TSH elevated, free T4 within normal The patient had Mirena IUD inserted in 08/13 The patient went to the ER to days ago for heavy vaginal bleeding the following workup was done: H&H= 12.6/39.2, hCG negative. Pelvic ultrasound showed the following: Uterus: The uterus is anteverted and measures 8.7 x 3.4 x 4.4 cm. The endometrium measures 0.5 cm. An IUD appears in proper position. The uterus is smooth in contour and has normal myometrial echogenicity. No visible fibroid. Adnexa: Both ovaries are visualized. There is normal color flow to the adnexa. There is no ovarian torsion. There is no pelvic ascites or fluid collection. Right ovary measures 2.7 x 2.0 x 2.1 cm. Volume 5.9 mL. The right ovary is normal in appearance Left ovary measures 6.7 x 4.3 x 7.6 cm. Volume 115 mL. The left ovary contains a 5.9 x 4.2 x 6.4 cm simple cyst. This is probably a benign cyst. Follow-up pelvic ultrasound in 3-6 months is recommended. Since then the patient's bleeding has slowed down markedly PFSH Medical History Depression Anxiety ASCUS with positive high risk HPV Surgical History History of hernia repair History of cholecystectomy History of Family History Maternal Grandmother Pacemaker CVD (cardiovascular disease) Father Diabetes HTN (hypertension) Mother Asthma Paternal Grandmother Cancer Brother No problems noted. Family/Other Substance abuse Chronic mental illness Social History Alcohol intake: never Sexual orientation: Straight/Heterosexual Gender identity: Female Female Reproductive History Menstrual Age of Menarche: 12 Date of last menstrual period: 12/01/22 control method: progestin IUCD Date of last pap smear: 06/14/22 (ASCUS +HPV) History of abnormal pap smear: Yes Review of Systems Const All systems reviewed & are unremarkable except as noted in HPI and below Physical Exam Vital Signs: Last Vital Signs BP 100/60 12/09/22 09:25 BMI result Body Mass Index 26.3 General: Yes no CVA tenderness External Female Exam: normal external appearance and normal appearance of the urethra Speculum Exam - Vagina: normal appearance of the vagina, normal palpation, no lesions, no masses and other (No evidence of active vaginal bleeding) Speculum Exam - Cervix: normal appearance of the cervix, normal palpation, no lesions, no masses, nontender and Other cervical findings present (IUD thread in place) Bimanual exam- vagina & uterus: normal bimanual exam, normal palpation, uterine size normal, normal palpation, uterine shape normal, No Cervical tenderness present and non-tender Bimanual Exam- Adnexa, other: Other (Left adnexal enlargement, right within normal) Back/Spine/Pelvis Back: no CVA tenderness Assessment & Plan Assessment & Plan (1) Abnormal uterine bleeding (AUB): Code(s): N93.9 - Abnormal uterine and vaginal bleeding, unspecified Plan: Urine test done in the office was negative. Discussed with the patient the results of the work up done and options of treatment including Lysteda, BCP's, Mirena IUD, ( ablation and hysterectomy are not indicated at this point since the patient is interested in future fertility). All pros, cons, risks and benefits if each option was discussed with the patient and the patient decided to go ahead with Lysteda , so a more detailed discussion re: Lysteda including mechanism of action, benefits, risks including but not limited to thrombosis and strokes, Instructions were given to the patient to schedule Mirena IUD is removal within 1-2 weeks after which Lysteda prescription be sent to the patient's pharmacy. The patient verbalized understanding and agreed with the plan. (2) Ovarian cyst: Comment: 6.4 cm simple ovarian cyst Code(s): N83.209 - Unspecified ovarian cyst, unspecified side Qualifiers: Laterality: left Qualified Code(s): N83.202 - Unspecified ovarian cyst, left side Plan: Discussed with the patient the results of the ultrasound. Signs and symptoms of ovarian rupture and/or torsion were discussed with the patient, she is to go to emergency room or call in case of pelvic pain, nausea or vomiting. Will repeat ultrasound in 3 months and treat accordingly. Instructions given the patient to schedule a 3 month ultrasound follow-up appoint Orders: Orders US pelvic and transvaginal 3 Months N83.209 - Unspecified ovarian cyst, unspecified side Coding Level of Care Code Est Pt Level 3 (92951) Diagnoses Abnormal uterine bleeding (AUB) N93.9 Ovarian cyst N83.202 Laterality: left
[2022-12-09 09:25] VITALS: BP 100/60; BMI 26.3
== END 2022-12-09 10:17 | disposition home or self-care (01) ==
LOC: HO.HWS 09:18
PROVIDERS: PCP Family Medicine; Visit Provider Obstetrics & Gynecology
DX: N93.9 Abnormal uterine and vaginal bleeding, unspecified (principal); N83.202 Unspecified ovarian cyst, left side
CPT/HCPCS: 99213

== ENCOUNTER → 2022-12-09 09:18 | Outpatient (BNVA) | payer OTHER, SELFPAY | PROVIDERS: PCP Family Medicine; Visit Provider Obstetrics & Gynecology | DX: N93.9 Abnormal uterine and vaginal bleeding, unspecified (principal); N83.202 Unspecified ovarian cyst, left side | CPT/HCPCS: 99212 ==

== ENCOUNTER 2022-12-15 13:13 | Outpatient (AMB) | payer OTHER, SELFPAY ==
--- NOTE | 2022-12-15 13:57 | MHC.OFFVIS ---
Intake Vital Signs 12/15/22 13:59 Height 5 ft 5 in BP 100/62 Intake Visit Reasons: 2 week iud removal Intake Note: The patient agreed to use of a medical doctor during this encounter. Scribed for AGUSTINA Meier by Karol Briscoe medical doctor, on 12/15/2022 at 2:08 pm, EST. Public Health Program Manager: Public Health Program Manager Present (Donna) Allergies No Known Allergies [No Known Allergies*] Allergy (Verified 12/15/22 13:58) oxycodone Adverse Reaction (Mild, Uncoded 12/15/22 13:58) ineffective HPI HPI Comments History of Present Illness Details She presents for IUD removal due to persistent bleeding. History of left ovarian cyst 6.4cm. Concerns; ovarian pain on the left side. States the pain is severe and makes it to where she is unable to walk. Reports Tuesday (12/05/2022) she was in severe pain. Tuesday (12/16/2022) she reports intense bleeding. She called the hospital and was told to present to the ED. Additionally she confirms external irritation due to wearing Kotex daily. She states she has no help in the area due to being from [place] and this has made it hard for her to get treatment. States she has no transportation or childcare for her 13 year old daughter. She was counseled and consented for procedure. She is aware of risks for bleeding, pain, infection, and injury to bowel or bladder. [facility] Medical History Depression Anxiety ASCUS with positive high risk HPV Surgical History History of hernia repair History of cholecystectomy History of Family History Maternal Grandmother Pacemaker CVD (cardiovascular disease) Father Diabetes HTN (hypertension) Mother Asthma Paternal Grandmother Cancer Brother No problems noted. Family/Other Substance abuse Chronic mental illness Social History Unable to assess alcohol history related to: Unknown Alcohol intake: never Smoked in Last 30 Days: No Use of substances other than those prescribed or required for medical reasons: Unknown Advance Directives: No Sexual orientation: Straight/Heterosexual Gender identity: Female Female Reproductive History Menstrual Age of Menarche: 12 Review of Systems Const All systems reviewed & are unremarkable except as noted in HPI and below Reports abnormal vaginal bleeding and Reports pelvic pain (left side ovarian pain) Physical Exam Vital Signs: Last Vital Signs BP 100/62 12/15/22 13:59 General: Yes bladder normal to palpation External Female Exam: normal appearance of the urethra Speculum Exam - Vagina: normal palpation and vaginal bleeding Speculum Exam - Cervix: normal appearance of the cervix (deeply creviced), normal palpation and Other cervical findings present (IUD strings present) Bimanual exam- vagina & uterus: normal palpation, bladder normal to palpation and normal palpation Bimanual Exam- Adnexa, other: tender (left side) OB/external & speculum: vaginal bleeding Office Procedures IUD Insert/Removal Details Details: The patient was placed in the dorsal lithotomy position. A speculum was inserted vaginally, and the cervix and strings were visualized at the os. A ring forcep was utilized, the strings were grasped and the tip appeared in the os, and with very little tension the IUD device fell out intact. Most likely it was in process of expulsion at this time. Minimal bleeding was observed. All of the equipment was removed. [id number] Removal Additional procedure code (CPT) needed Results Reviewed Results Reviewed: EXAMINATION: US PELVIS obtained on 12/07/2022. CLINICAL INFORMATION: Abnormal vaginal bleeding LMP: Yesterday COMPARISON: Pelvic ultrasound 08/20/2022 TECHNIQUE: Ultrasound of the pelvis is performed using both transabdominal and transvaginal transducers along with Doppler. Transvaginal imaging is performed due to inadequate visualization transabdominally. FINDINGS: Uterus: The uterus is anteverted and measures 8.7 x 3.4 x 4.4 cm. The endometrium measures 0.5 cm. An IUD appears in proper position. The uterus is smooth in contour and has normal myometrial echogenicity. No visible fibroid. Adnexa: Both ovaries are visualized. There is normal color flow to the adnexa. There is no ovarian torsion. There is no pelvic ascites or fluid collection. Right ovary measures 2.7 x 2.0 x 2.1 cm. Volume 5.9 mL. The right ovary is normal in appearance Left ovary measures 6.7 x 4.3 x 7.6 cm. Volume 115 mL. The left ovary contains a 5.9 x 4.2 x 6.4 cm simple cyst. This is probably a benign cyst. Follow-up pelvic ultrasound in 3-6 months is recommended. US/US pelvic and transvaginal IMPRESSION: 1. Normal uterus and right ovary. 2. IUD appears in proper position. 3. 6.4 cm simple left ovarian cyst. This is probably a benign cyst. Follow-up pelvic ultrasound in 3-6 months is recommended. Assessment & Plan Assessment & Plan (1) Encounter for IUD removal: Code(s): Z30.432 - Encounter for removal of intrauterine contraceptive device Plan: IUD successfully removed today. See procedure note. Monitor periods. Follow up planned with Dr. Wild for medical management of AUB. Warnings reviewed with patient. Instructions given to call if temp >100.4, flu like sx, SOB, fatigue, lightheadedness/dizziness, abd pain, bloating or abd distention, bowel changes including rectal bleeding, bladder changes, foul odor or heavy vaginal bleeding. She will call office with any questions or concerns. NSAID?s protocol including ibuprofen 600mg TID with food for 10 days. She was instructed to only use ibuprofen. (2) Left ovarian cyst: Code(s): N83.202 - Unspecified ovarian cyst, left side Plan: I discussed with the patient the possibility of an ovarian torsion. I educated the patient on the emergent need for further evaluation. Due to the severity of pain I recommend for the patient to go to [facility] ED for further evaluation and treatment of the ovarian cyst with possible ovarian torsion. The hospital attempted to set up a Lyft ride for her to go to [facility] (no [employer] coverage for the ED today). Due to this being emergent a Lyft is unable to be obtained. Therefore, the office recommended transportation via ambulance for the patient to [facility]. Due to the timing of the ambulance arrival (they told staff they did not have transportation possibly for several hours) the patient was sent directly to our ED for immediate evaluation via wheelchair accompanied by staff. All of her questions and concerns were addressed to the best of my ability and shared decision making. She is agreeable to the plan of care. The patient agreed to be be seen in the ED now and arrangements were made for her neighbor to care for her daughter. (3) Pelvic pain: Comment: Possible ovarian torsion Code(s): R10.2 - Pelvic and perineal pain (4) Abnormal uterine bleeding (AUB): Code(s): N93.9 - Abnormal uterine and vaginal bleeding, unspecified Coding Level of Care Code Est Pt Level 4 (89926) Diagnoses Encounter for IUD removal Z30.432 Left ovarian cyst N83.202 Pelvic pain R10.2 Abnormal uterine bleeding (AUB) N93.9 CPT Codes Details - CPT: 31520-HYJ Removal ([id number]) Comment additional coding possible ovar. torsion, pelvic pain
[2022-12-15 13:59] VITALS: BP 100/62
== END 2022-12-15 16:04 | disposition home or self-care (01) ==
LOC: HO.HWS 13:13
PROVIDERS: PCP Family Medicine; Visit Provider Advanced Practice Midwife
DX: Z30.432 Encounter for removal of intrauterine contraceptive device (principal)
CPT/HCPCS: 58301

== ENCOUNTER → 2022-12-15 13:13 | Outpatient (BNVA) | payer OTHER, SELFPAY | PROVIDERS: PCP Family Medicine; Visit Provider Advanced Practice Midwife ==

== ENCOUNTER 2022-12-15 15:41 | Emergency (ER) | payer OTHER, SELFPAY ==
--- NOTE | ~2022-12-15 | CT_ITS ---
EXAMINATION: CT ABDOMEN AND PELVIS WITH CONTRAST CLINICAL INFORMATION: Left lower quadrant abdominal pain COMPARISON: CT of 01/06/2021 and 09/11/2020 and pelvic ultrasound of 12/15/2022 TECHNIQUE: Multidetector volumetric images were obtained from the superior aspect of the liver through the pubic symphysis following administration 85 mL of Omnipaque 350 intravenous contrast. Sagittal and coronal reformatted images were obtained on the technologist's workstation. Oral contrast: No This CT examination was performed using dose optimization techniques as appropriate, variously including the following: *Automated exposure control *Adjustment of mA and/or kV according to patient size (this includes techniques or standardized protocols for targeted exams where dose is matched to indication/reason for exam; i.e. extremities or head) *Use of iterative reconstruction technique DLP: 475 mGy-cm FINDINGS: LUNG BASES: The visualized lung bases are unremarkable. LIVER, GALLBLADDER, AND BILIARY TREE: The liver is normal in size, shape, and attenuation. No focal hepatic lesion is evident. Mild intrahepatic and extrahepatic biliary ductal dilatation is presumably related to prior cholecystectomy. PANCREAS: Unremarkable. SPLEEN: Unremarkable. ADRENAL GLANDS: Unremarkable. KIDNEYS AND URETERS: The kidneys are normal in size, shape, and attenuation. No hydronephrosis, hydroureter, or calculi seen. No perinephric stranding. BLADDER: Unremarkable. GASTROINTESTINAL TRACT: The small and large bowel are unremarkable. The appendix is unremarkable. ABDOMINAL WALL: No significant hernia is appreciated. LYMPH NODES: Normal. VASCULAR: Unremarkable. PELVIC VISCERA: Posterolateral to the left side of the uterus, there is a 6.1 x 3.1 cm cystic lesion inseparable from the left adnexa. The right ovary images normally. Endocervical nabothian cysts are present. There is a trace amount of free fluid in the cul-de-sac. OSSEOUS STRUCTURES: Mild thoracolumbar scoliosis is present. CT/CT abdomen pelvis w IV con IMPRESSION: 1. Left adnexal 6.1 cm cyst, characterized by ultrasound as a simple appearing cyst. Best practice guidelines advocate for a follow-up ultrasound in 6-12 months unless symptoms warrant more prominent evaluation. Note that the cyst is stable since ultrasound of 12/07/2022 but new since ultrasound of 08/20/2022. 2. Incidental findings include: surgically absent gallbladder with mild associated biliary ductal dilatation; endocervical nabothian cyst formation; and mild thoracolumbar scoliosis. Fleischner guidelines were followed.
--- NOTE | ~2022-12-15 | US_ITS ---
EXAMINATION: US PELVIS CLINICAL INFORMATION: Severe left lower quadrant pain and vaginal bleeding. COMPARISON: 12/07/2022. TECHNIQUE: Ultrasound of the pelvis is performed using both transabdominal and transvaginal transducers along with Doppler. Transvaginal imaging is performed due to inadequate visualization transabdominally. The transvaginal imaging was slightly limited due to patient experiencing pain during the exam and discontinuing it. FINDINGS: Uterus: The uterus is anteverted, anteflexed and measures 7.5 cm in length, 3.8 cm AP and 4.1 cm in transverse dimension. The double wall endometrial thickness is 0.8 cm. The uterus is smooth in contour and has normal myometrial echogenicity. No visible fibroid. Small nabothian cysts are seen in cervix. Adnexa: Both ovaries are visualized. There is normal color flow to the adnexa. There is no ovarian torsion. There is no pelvic ascites or fluid collection. Right ovary measures 3.6 x 2.1 x 2.4 cm and volume 9.5 mL. There are multiple anechoic cysts along the periphery of right ovary question polycystic ovarian cyst previously the right ovary measured 2.7 x 2.0 x 2.1 cm.. Left ovary measures 5.9 x 3.3 x 4.6 cm and volume 47.0 mL. There is a simple anechoic large cyst measuring 4.9 x 2.9 x 4.6 cm. Previously left ovary measured 6.7 x 4.3 x 7.6 cm. There is no free fluid in the cul-de-sac. US/US pelvic and transvaginal IMPRESSION: Large left ovarian cyst measuring 4.9 cm. String of good appearance of right ovarian cyst question polycystic ovarian appearance. Multiple small nabothian cysts in the cervix. Unremarkable uterus.
--- NOTE | 2022-12-15 15:58 | ED.ABDPAIN ---
HPI - Abdominal Pain General Chief Complaint: Abdominal Pain Stated Complaint: lower abd ,left leg pain sent from office Time Seen by Provider: 12/15/22 15:56 Source: patient Mode of arrival: wheelchair Limitations: no limitations History of Present Illness HPI narrative: Patient comes to the emergency room complaining of right lower quadrant pain. Patient is coming by wheelchair from the OBGYN office. Patient had an appointment today for an IUD removal. Patient's IUD was removed successfully. According to the patient, she has been complaining of chronic vaginal bleeding. Patient states that in February of this year an IUD was inserted to help with the heavy menstrual bleed. However, this did not work. Also, patient started complaining of left lower quadrant pain for about a week. Patient states it is gradually getting worse. Today, after the IUD was removal, patient complained of cramping, worsening pain, patient was sent down to the emergency room to rule out ovarian torsion. Patient is known to have a 6.4 simple left ovarian cyst. Related Data Home Medications Medication Instructions Recorded Confirmed citalopram 40 mg tablet 40 mg PO DAILY 12/27/19 08/04/20 hydroxyzine HCl 25 mg tablet mg PO 12/27/19 08/04/20 lorazepam 1 mg tablet mg PO 12/27/19 08/04/20 bupropion HCl 150 mg 24 hr tablet, 150 mg PO DAILY 11/03/20 extended release buspirone 10 mg tablet 10 mg PO TID 11/03/20 levonorgestrel 21 mcg/24 hours (8 intrauterine 09/14/22 yrs) 52 mg intrauterine device (Mirena) Previous Rx's Medication Instructions Recorded ketorolac 10 mg tablet 10 mg PO QID PRN pain 5 days #20 01/06/21 tabs cyclobenzaprine 10 mg tablet 10 mg PO BID PRN muscle spasm 10 01/14/21 days #20 tabs doxycycline hyclate 100 mg capsule 100 mg PO BID 14 days #28 caps 10/14/21 valacyclovir 1 gram tablet 1,000 mg PO TID 7 days #21 tabs 07/14/22 (Valtrex) Allergies Allergy/AdvReac Type Severity Reaction Status Date / Time No Known Allergies Allergy Verified 12/15/22 13:58 [No Known Allergies*] oxycodone AdvReac Mild ineffective Uncoded 12/15/22 13:58 Review of Systems Review of Systems Constitutional : No Weight loss, No Fever, No Chills, No Night Sweats, No Fatigue, No Malaise ENT/Mouth : No Hearing loss, No Ear Pain, No Nasal Congestion, No Sinus Pain, No Hoarseness, No sore throat, No Rhinorrhea, No Swallowing Difficulty Eyes: No Eye Pain, No Swelling, No Redness, No Foreign Body, No Discharge, No Vision Changes Cardiovascular : No Chest Pain, No SOB, No Dyspnea on Exertion, No Orthopnea, No Edema, No Palpitations Respiratory : No Cough, No Sputum, No Wheezing, No Smoke Exposure, No Dyspnea Gastrointestinal : No Nausea, No Vomiting, No Diarrhea, No Constipation, left lower quadrant pain, present for more than a week Genitourinary : Complaining of chronic heavy vaginal bleeding, left lower quadrant pain No Dysuria, No Urinary Frequency, No Hematuria, No Urinary Incontinence, No Urgency, No Flank Pain, No Urinary Flow Changes, No Hesitancy Musculoskeletal : No joint pain, No Myalgias, No Joint Swelling Skin : No Skin Lesions, No rash Neuro : No Weakness, No Numbness, No Paresthesias, No Loss of Consciousness, No Dizziness, No Headache Psych : No Anxiety/Panic, No Depression, No SI/HI/AH/VH, No Social Issues, Heme/Lymph: No Bruising, No Bleeding,No Lymphadenopathy Endocrine : No Polyuria, No Polydipsia, No Temperature Intolerance PMFSH Past Medical History Medical History Depression Anxiety ASCUS with positive high risk HPV Surgical History History of hernia repair History of cholecystectomy History of Family History Family History Maternal Grandmother Pacemaker CVD (cardiovascular disease) Father Diabetes HTN (hypertension) Mother Asthma Paternal Grandmother Cancer Brother No problems noted. Family/Other Substance abuse Chronic mental illness Social History Social History Unable to assess alcohol history related to: Unknown Alcohol intake: never Smoked in Last 30 Days: No Use of substances other than those prescribed or required for medical reasons: Unknown Advance Directives: No Sexual orientation: Straight/Heterosexual Gender identity: Female Physical Exam ED Vital Signs: Vital Signs - 24 hr 12/15/22 16:48 12/15/22 18:49 12/15/22 19:00 Temperature 98.0 F 98.1 F 98.5 F Pulse Rate 80 84 80 Respiratory Rate 16 16 17 Blood Pressure 129/45 L 111/66 112/75 Pulse Oximetry 99 98 Oxygen Delivery Method Room Air Room Air BMI result Body Mass Index 26.6 Const Other: Appearance: Alert. Oriented X3. No acute distress. Eyes: Pupils equal, round and reactive to light. ENT: Pharynx normal. Neck: Normal inspection. Neck supple. No lymph nodes noted. No crepitus CVS: Normal heart rate and rhythm. Pulses normal. Normal S1 and S2 Respiratory: No respiratory distress. Breath sounds normal. No Wheezing. No rales Abdomen: Soft, nondistended, nontender, patient does not seem to have significant pain in the left lower quadrant with palpation, no rebound, no guarding : There is a small amount of blood in the vaginal vault Skin: Skin warm and dry. Normal skin color. Normal skin turgor. Extremities: No lower extremity edema. No Lacerations. No Rash Neuro: Oriented X 3. No motor deficit. No sensory deficit. Moving all extremities. No slurred speech. CN 2 through 12 grossly intact Psych: calm, extremely anxious Course Course Course Narrative: -all of patient's labs and imaging pending. Medical Decision Making Medical Decision Making MDM Narrative: -patient's hematology and chemistry labs at baseline -my interpretation of ultrasound: There is a large adnexal mass on the left -radiology report: Large left ovarian mass measuring 4.9 cm -my interpretation of CT scan: Large adnexal mass on the left ovary -patient has had multiple doses of morphine and Dilaudid, patient still complaining of severe 10/10 pain -I discussed the patient with Dr. Mae from the medicine team, requesting admission for pain control, however, we do not have OBGYN backup -I spoke with Dr. Solano from [facility] who kindly accepted the patient, patient will be transferred for [facility] at [facility]. I discussed with the patient that she will be evaluated by the obgyn team, but this does not mean that she will be admitted or taken to surgery. Patient agrees to be transferred and understands the above-mentioned Differential Diagnosis Differential Diagnoses: The differential diagnosis associated with the presentation includes (Ovarian cysts) Admission/Observation Consideration of admission/observation: Escalation of care including admission/observation considered Consult Healthcare Provider Management of the patient was discussed with: Band Builder Lab Data MDM Lab Attestation statement: I reviewed the patient's lab results. 12/15/22 16:19 12/15/22 16:19 Labs: Lab Results 12/15/22 12/15/22 Range/Units 16:19 19:14 WBC 8.3 (4.8-10.8) X10*3/uL RBC 4.61 (4.20-5.50) X10*6/uL Hgb 12.6 (12.0-16.0) g/dl Hct 39.3 (37.0-47.0) % MCV 85.2 (80.0-98.0) fL MCH 27.3 (27.0-33.0) pg MCHC 32.1 (31.0-35.0) g/dl RDW 13.9 (11.0-16.0) % Plt Count 363 (160-400) X10*3/uL MPV 9.7 (9.4-12.3) fL Immature Gran % (Auto) 0.2 (0.0-0.4) % Neut % (Auto) 69.6 (45-73) % Lymph % (Auto) 19.3 L (20-40) % [place] % (Auto) 8.5 (2-11) % Eos % (Auto) 1.8 (0-4) % Baso % (Auto) 0.6 (0-2) % Lymph # (Auto) 1.6 (1.2-4.9) X10*3/uL [place] # (Auto) 0.7 (0.1-1.2) X10*3/uL Eos # (Auto) 0.2 (0.0-0.4) X10*3/uL Baso # (Auto) 0.1 (0.0-0.2) X10*3/uL Abs Immat Gran (auto) 0.02 (0.00-0.03) X10*3/uL Absolute Neuts (auto) 5.8 (2.0-8.3) x10*3/uL Absolute Nucleated RBC 0.000 (0.0-0.012) X10*3/uL Nucleated RBC % (auto) 0.0 (0.0-0.2) /100WBC PT 13.0 (11.1-13.3) SEC INR 1.1 (0.9-1.1) Sodium 138 (135-145) mmol/L Potassium 4.1 (3.3-5.1) mmol/L Chloride 104 (96-108) mmol/L Carbon Dioxide 23 (22-29) mmol/L Anion Gap 15 (12-20) BUN 10 (9-16) mg/dL Creatinine 0.76 (0.5-1.4) mg/dL Estim Creat Clear Calc 98.4 Estimated GFR > 60 Random Glucose 85 (60-115) mg/dL Calcium 9.8 (8.4-10.2) mg/dL Total Bilirubin 0.4 (0.0-1.0) mg/dL Direct Bilirubin 0.2 (0.0-0.5) mg/dL AST 20 (5-31) U/L ALT 16 (0-31) U/L Alkaline Phosphatase 84 (39-117) U/L Total Protein 7.6 (6.5-8.0) g/dL Albumin 4.2 (3.5-5.0) g/dL Beta HCG, Quant < 2 mIU/mL Urine Color [place] A Urine Appearance Cloudy Urine pH 7.5 (5.0-9.0) Ur Specific [place] >= 1.030 H (1.005-1.025) Urine Protein Trace (Neg-Trace) mg/dL Urine Glucose (UA) Negative (Negative) mg/dL Urine Ketones Negative (Negative) mg/dL Urine Blood Large (3+) H (Negative) Urine Nitrite Negative (Negative) Ur Leukocyte Esterase Small (1+) H (Negative) Urine RBC 3-5 H (0-2) /HPF Urine WBC 0-5 (0-5) /HPF Ur Squamous Epith Cells 11-20 (0-2) /HPF Urine Bacteria Trace (None Seen) Hyaline Casts 11-20 (0-2) /LPF Independent Interpretation I performed an independent interpretation of an: CT Scan Interpretation: FINDINGS: LUNG BASES: The visualized lung bases are unremarkable. LIVER, GALLBLADDER, AND BILIARY TREE: The liver is normal in size, shape, and attenuation. No focal hepatic lesion is evident. Mild intrahepatic and extrahepatic biliary ductal dilatation is presumably related to prior cholecystectomy. PANCREAS: Unremarkable. SPLEEN: Unremarkable. ADRENAL GLANDS: Unremarkable. KIDNEYS AND URETERS: The kidneys are normal in size, shape, and attenuation. No hydronephrosis, hydroureter, or calculi seen. No perinephric stranding. BLADDER: Unremarkable. GASTROINTESTINAL TRACT: The small and large bowel are unremarkable. The appendix is unremarkable. ABDOMINAL WALL: No significant hernia is appreciated. LYMPH NODES: Normal. VASCULAR: Unremarkable. PELVIC VISCERA: Posterolateral to the left side of the uterus, there is a 6.1 x 3.1 cm cystic lesion inseparable from the left adnexa. The right ovary images normally. Endocervical nabothian cysts are present. There is a trace amount of free fluid in the cul-de-sac. OSSEOUS STRUCTURES: Mild thoracolumbar scoliosis is present. CT/CT abdomen pelvis w IV con IMPRESSION: 1. Left adnexal 6.1 cm cyst, characterized by ultrasound as a simple appearing cyst. Best practice guidelines advocate for a follow-up ultrasound in 6-12 months unless symptoms warrant more prominent evaluation. Note that the cyst is stable since ultrasound of 12/07/2022 but new since ultrasound of 08/20/2022. 2. Incidental findings include: surgically absent gallbladder with mild associated biliary ductal dilatation; endocervical nabothian cyst formation; and mild thoracolumbar scoliosis. Fleischner guidelines were followed. FINDINGS: Uterus: The uterus is anteverted, anteflexed and measures 7.5 cm in length, 3.8 cm AP and 4.1 cm in transverse dimension. The double wall endometrial thickness is 0.8 cm. The uterus is smooth in contour and has normal myometrial echogenicity. No visible fibroid. Small nabothian cysts are seen in cervix. Adnexa: Both ovaries are visualized. There is normal color flow to the adnexa. There is no ovarian torsion. There is no pelvic ascites or fluid collection. Right ovary measures 3.6 x 2.1 x 2.4 cm and volume 9.5 mL. There are multiple anechoic cysts along the periphery of right ovary question polycystic ovarian cyst previously the right ovary measured 2.7 x 2.0 x 2.1 cm.. Left ovary measures 5.9 x 3.3 x 4.6 cm and volume 47.0 mL. There is a simple anechoic large cyst measuring 4.9 x 2.9 x 4.6 cm. Previously left ovary measured 6.7 x 4.3 x 7.6 cm. There is no free fluid in the cul-de-sac. US/US pelvic and transvaginal IMPRESSION: Large left ovarian cyst measuring 4.9 cm. String of good appearance of right ovarian cyst question polycystic ovarian appearance. Multiple small nabothian cysts in the cervix. Unremarkable uterus. Medications Administered Discontinued Medications Generic Name Dose Route Start Last Admin Trade Name Freq PRN Reason Stop Dose Admin Iohexol 100 ml 12/15/22 18:09 12/15/22 18:09 Iohexol 350 Mg/Ml 100 Ml Infus..Btl IV 12/15/22 18:10 85 ml ONCE ONE Administration Morphine Sulfate 4 mg 12/15/22 16:03 12/15/22 16:23 Morphine Sulfate 4 Mg/Ml Cartridge IVPUSH 12/15/22 16:04 4 mg ONCE ONE Administration Protocol Morphine Sulfate 4 mg 12/15/22 17:50 12/15/22 17:57 Morphine Sulfate 4 Mg/Ml Cartridge IVPUSH 12/15/22 17:51 4 mg ONCE ONE Administration Protocol Critical Care Time Critical Care Time Critical Care Time: Yes Total Critical Care Time: 60 Attestation: I have personally provided critical care time. Time includes review of lab data, radiology results, discussion with consultants, and monitoring for potential decompensation. Intervention performed as documented. Discharge Plan Discharge Clinical Impression: Ovarian cyst Patient Disposition: [facility] Transfer Details: [facility] Prescriptions: No Action ketorolac 10 mg tablet 10 mg PO QID PRN (Reason: pain) 5 Days Qty: 20 0RF Rx Instructions: patient received IV toradold 30mg in the ED valacyclovir [Valtrex] 1 gram tablet 1,000 mg PO TID 7 Days Qty: 21 0RF lorazepam 1 mg tablet PO citalopram 40 mg tablet 40 mg PO DAILY hydroxyzine HCl 25 mg tablet PO cyclobenzaprine 10 mg tablet 10 mg PO BID PRN (Reason: muscle spasm) 10 Days Qty: 20 0RF bupropion HCl 150 mg tablet extended release 24 hr 150 mg PO DAILY buspirone 10 mg tablet 10 mg PO TID doxycycline hyclate 100 mg capsule 100 mg PO BID 14 Days Qty: 28 0RF Mirena 21 mcg/24 hours (8 yrs) 52 mg intrauterine device intrauterine
[2022-12-15] MEDS: Morphine Sulfate 4 MG/ML CARTRIDGE IVPUSH ×2 (16:23→17:57)
[2022-12-15 16:26] LABS: MANUAL DIFF FLAG NO
[2022-12-15 16:30] VITALS: BMI 26.6
[2022-12-15 16:33] LABS: Basophils Absolute Auto 0.1 X10*3/uL (0.0-0.2); Basophils Percent Auto 0.6 % (0-2); Eosinophils Absolute Auto 0.2 X10*3/uL (0.0-0.4); Eosinophils Percent Auto 1.8 % (0-4); Hematocrit 39.3 % (37.0-47.0); Hemoglobin 12.6 g/dl (12.0-16.0); Imm Gran Abs Auto 0.02 X10*3/uL (0.00-0.03); Imm Gran Pct Auto 0.2 % (0.0-0.4); Lymphocytes Absolute Auto 1.6 X10*3/uL (1.2-4.9); Lymphocytes Percent Auto 19.3 % (20-40); Mean Corpuscular HGB Conc 32.1 g/dl (31.0-35.0); Mean Corpuscular Hemoglobin 27.3 pg (27.0-33.0); Mean Corpuscular Volume 85.2 fL (80.0-98.0); Mean Platelet Volume 9.7 fL (9.4-12.3); Monocytes Absolute Auto 0.7 X10*3/uL (0.1-1.2); Monocytes Percent Auto 8.5 % (2-11); Neutrophils Absolute Auto 5.8 x10*3/uL (2.0-8.3); Neutrophils Percent Auto 69.6 % (45-73); Platelet Count 363 X10*3/uL (160-400); Red Blood Count 4.61 X10*6/uL (4.20-5.50); Red Cell Distribution Width 13.9 % (11.0-16.0); White Blood Count 8.3 X10*3/uL (4.8-10.8)
[2022-12-15 16:35] LABS: INTERNATIONAL NORM RATIO 1.1 (0.9-1.1)
[2022-12-15 16:48] VITALS: BP 129/45; PULSE 80; RESP 16; TEMP 36.7; O2SAT 99
[2022-12-15 16:54] LABS: Alanine Aminotransferase 16 U/L (0-31); Albumin Level 4.2 g/dL (3.5-5.0); Alkaline Phosphatase 84 U/L (39-117); Anion Gap 15 (12-20); Aspartate Amino Transferase 20 U/L (5-31); Bilirubin Direct 0.2 mg/dL (0.0-0.5); Bilirubin Total 0.4 mg/dL (0.0-1.0); Calcium 9.8 mg/dL (8.4-10.2); Carbon Dioxide 23 mmol/L (22-29); Chloride 104 mmol/L (96-108); Creatinine Clr Calc Pharmacy 98.4; Estimated Glomerular Filt Rate > 60; Glucose Random 85 mg/dL (60-115); HCG Quantitative < 2 mIU/mL; Potassium 4.1 mmol/L (3.3-5.1); Sodium 138 mmol/L (135-145); Total Protein 7.6 g/dL (6.5-8.0)
[2022-12-15 17:54] LABS: Blood Urea Nitrogen 10 mg/dL (9-16)
[2022-12-15] MEDS: iohexoL 350 MG/ML 100 ML INFUS..BTL IV (18:09)
[2022-12-15 18:49] VITALS: BP 111/66; PULSE 84; RESP 16; TEMP 36.7; O2SAT 98
--- NOTE | 2022-12-15 18:55 | PC.NURSE ---
assumed care of pt
[2022-12-15 19:00] VITALS: BP 112/75; PULSE 80; RESP 17; TEMP 36.9
--- NOTE | 2022-12-15 19:17 | MHC.EDTECH ---
This PCT setup and superintendent maintenance with pt pelvic exam, urine collected and sent to lab
[2022-12-15 19:46] LABS: Appearance Urine Cloudy; Color Urine Orange; PH 7.5 (5.0-9.0)
[2022-12-15 19:47] LABS: Glucose Urine UA Negative (Negative); Specific Gravity - Urine >= 1.030 (1.005-1.025); Urine Blood Large (3+) (Negative); Urine Ketones Negative (Negative); Urine Protein Trace mg/dL (Neg-Trace)
[2022-12-15 19:48] LABS: Bacteria Urine Trace (None Seen); Leukocyte Esterase Urine Small (1+) (Negative); Nitrite Urine Negative (Negative); UACC Culture Trigger YES; UMIC TRIGGER UACC YES; WBC Urine 0-5 /HPF (0-5)
[2022-12-15] MEDS: HYDROmorphone HCl 0.5 MG/0.5 ML SYRINGE IVPUSH (19:52)
--- NOTE | 2022-12-15 20:18 | PC.NURSE ---
called and gave nurse to nurse report to MEGAN Martinez at [facility]
[2022-12-15 21:22] VITALS: BP 107/69; PULSE 83; RESP 15; TEMP 36.6; O2SAT 97
== END 2022-12-15 23:49 | disposition short-term general hospital (02) ==
PROVIDERS: Emergency Provider Emergency Medicine; PCP Family Medicine
DX: N83.292 Other ovarian cyst, left side (principal); N83.201 Unspecified ovarian cyst, right side; N88.8 Other specified noninflammatory disorders of cervix uteri; R10.31 Right lower quadrant pain; Z79.899 Other long term (current) drug therapy
CPT/HCPCS: 36415; 58301; 74177; 76830; 76856; 80048; 80076; 81001; 84702; 85025; 85610; 87086; 96374; 96375; 96376; 99285; J1170; J2270; Q9967

== ENCOUNTER 2022-12-30 12:28 | Outpatient (AMB) | payer OTHER, SELFPAY ==
[2022-12-30 13:14] VITALS: BP 106/60; BMI 26.6
--- NOTE | 2022-12-30 13:14 | A.OFFVIS_ITS ---
Intake Vital Signs 12/30/22 13:14 Height 5 ft 5 in Weight 160 lb BMI 26.6 BP 106/60 Intake Visit Reasons: control consult Control Systems Technician Required: No Information Interpreted: non-clinical & clinical Compliance Aide: Compliance Aide Present (Vane) Allergies No Known Allergies [No Known Allergies*] Allergy (Verified 12/30/22 13:15) oxycodone Adverse Reaction (Mild, Uncoded 12/30/22 13:15) ineffective Post menopausal: No HPI HPI Comments History of Present Illness Details Presenting for follow-up complaining of left pelvic pain. The patient had Mirena IUD taken out and her vaginal spotting stopped. The patient Is requesting STD screen , she had an episode of unprotected 5 days ago, Plan B was prescribed the patient did not take it. [facility] Medical History Depression Anxiety ASCUS with positive high risk HPV Surgical History History of hernia repair History of cholecystectomy History of Family History Maternal Grandmother Pacemaker CVD (cardiovascular disease) Father Diabetes HTN (hypertension) Mother Asthma Paternal Grandmother Cancer Brother No problems noted. Family/Other Substance abuse Chronic mental illness Social History Unable to assess alcohol history related to: Unknown Alcohol intake: never Sexual orientation: Straight/Heterosexual Gender identity: Female Female Reproductive History Menstrual Age of Menarche: 12 control method: none Date of last pap smear: 06/14/22 (ASCUS +HPV) Review of Systems Const All systems reviewed & are unremarkable except as noted in HPI and below Physical Exam Vital Signs: Last Vital Signs BP 106/60 12/30/22 13:14 BMI result Body Mass Index 26.6 General: Yes no CVA tenderness External Female Exam: normal external appearance and normal appearance of the urethra Speculum Exam - Vagina: normal appearance of the vagina, normal palpation, no lesions and no masses Speculum Exam - Cervix: normal appearance of the cervix, normal palpation, no lesions, no masses and nontender Bimanual exam- vagina & uterus: normal bimanual exam, normal palpation, uterine size normal, normal palpation, uterine shape normal, No Cervical tenderness present and non-tender Bimanual Exam- Adnexa, other: normal adnexae Back/Spine/Pelvis Back: no CVA tenderness Results AMB Test Urine AMB Test Urine Negative Last Edit by Júnior Ashleykhloe JAJAAdam on 12/30/22 13:33 AMB Urinalysis, Automated UA Leukoctes 0.5 Bettye/uL Last Edit by Júnior Jarvis, Adam on 12/30/22 13:33 UA Nitrite Negative Last Edit by Júnior Conley [facility] on 12/30/22 13:33 UA Urobilinogen 0 mg/dL Last Edit by Deanncapo Jarvis, [facility] on 12/30/22 13:33 UA Protein 0 mg/dL Last Edit by Júnior Jarvis, [facility] on 12/30/22 13:33 UA pH 6 Last Edit by Júnior Hernandezandreas [facility] on 12/30/22 13:33 UA Blood 1 Yann/uL Last Edit by Júnior Conley [facility] on 12/30/22 13:33 UA Specific [place] 1.025 Last Edit by Júnior Hernandezandreas [facility] on 12/30/22 13: 33 UA Ketone Negative Last Edit by Júnior Hernandezandreas [facility] on 12/30/22 13:33 UA Bilirubin 0 mg/dL Last Edit by Júnior Ashleykhloe [facility] on 12/30/22 13:33 UA Glucose 0 mg/dL Last Edit by Júnior Hernandezandreas [facility] on 12/30/22 13:33 Assessment & Plan Assessment & Plan (1) Abnormal uterine bleeding (AUB): Code(s): N93.9 - Abnormal uterine and vaginal bleeding, unspecified Plan: Discussed with the patient the results of the work up done and options of tr eatment including Lysteda, BCP's, Mirena IUD, endometrial ablation and hysterectomy. All pros, cons, risks and benefits if each option was discussed with the patient and the patient decided to go ahead with Lysteda , so a more detailed discussion re: Lysteda including mechanism of action, benefits, risks including but not limited to thrombosis and strokes, Instructions were given on how to use, 2 tablets p.o. 3 times a day day 1 up to 3-5 days of menses and to schedule a 3 months follow-up appointment. The patient verbalized understanding and agreed with the plan. (2) Screen for STD (sexually transmitted disease): Code(s): Z11.3 - Encounter for screening for infections with a predominantly sexual mode of transmission Plan: STD screening tests done includes: BV panel for trichomonas, GC/CT will send patient for serology std screening for HIV, RPR, Hep b s Ag, HepC Ab. Instruc tions given the patient to schedule a follow-up appointment for repeat serology screen in 6 months for possible false negatives. (3) Left ovarian cyst: Code(s): N83.202 - Unspecified ovarian cyst, left side Plan: Pelvic ultrasound with Doppler studies ordered stat to rule out ovarian rupture and/or torsion. Will check the results and treat accordingly. (4) Pelvic pain: Code(s): R10.2 - Pelvic and perineal pain Plan: Urine regnancy test done in the office was negative. GC and chlamydia taken and pelvic ultrasound ordered with Doppler studies to rule out ovarian torsion an d/or rupture. Discussed with the patient the differential diagnosis of pelvic pain including but not limited to adnexal cyst rupture or torsion, uterine masses, pelvic infections (PID), GI the (Irritable bowel syndrome, diverticulitis, others), musculoskeletal, myofascial pain abdominal wall , adhesions, endometriosis, psychological and others causes. Will check results and treat accordingly. All questions answered, the patient verbalized understanding. Instructed the patient to schedule follow-up appointment in 2 weeks (5) Microscopic hematuria: Code(s): R31.29 - Other microscopic hematuria Plan: Urine dip showed microscopic hematuria, urine culture sent will repeat urine dip in 2 weeks. Instructions given to patient to schedule a 2 week follow-up appointment Orders: Orders Urine Culture Today R10.2 - Pelvic and perineal pain Bacterial Vaginosis Panel Today R31.9 - Hematuria, unspecified US pelvic and transvaginal Today N83.202 - Unspecified ovarian cyst, left side, R10.2 - Pelvic and perineal pain US pelvic ovarian doppler Today N83.202 - Unspecified ovarian cyst, left side, R10.2 - Pelvic and perineal pain Hepatitis C Antibody Today Z20.2 - Contact with and (suspected) exposure to infections with a predominantly sexual mode of transmission Hepatitis B Surface Antigen Today Z20.2 - Contact with and (suspected) exposure to infections with a predominantly sexual mode of transmission HIV Ab/Ag Today Z20.2 - Contact with and (suspected) exposure to infections with a predominantly sexual mode of transmission AMB HCG Urine Test Today Z32.02 - Encounter for test, result negative AMB Urinalysis Automated Today R10.2 - Pelvic and perineal pain CT NG by PCR Today R31.9 - Hematuria, unspecified Syphilis Screen Today Z20.2 - Contact with and (suspected) exposure to infections with a predominantly sexual mode of transmission Medications: New tranexamic acid Start 1st day of menses and take it up to 3-5 days of menses. 1,300 mg (2 x 650 mg) PO TID 5 days 30 tabs 2RF Coding Level of Care Code Est Pt Level 3 (30276) Diagnoses Abnormal uterine bleeding (AUB) N93.9 Screen for STD (sexually transmitted disease) Z11.3 Left ovarian cyst N83.202 Pelvic pain R10.2 Microscopic hematuria R31.29
== END 2022-12-30 15:01 | disposition home or self-care (01) ==
LOC: HO.HWS 12:28
PROVIDERS: PCP Family Medicine; Visit Provider Obstetrics & Gynecology
DX: N93.9 Abnormal uterine and vaginal bleeding, unspecified (principal); Z11.3 Encounter for screening for infections with a predominantly sexual mode of transmission; N83.202 Unspecified ovarian cyst, left side; R10.2 Pelvic and perineal pain; R31.29 Other microscopic hematuria; Z32.02 Encounter for pregnancy test, result negative
CPT/HCPCS: 99213

== ENCOUNTER 2022-12-30 12:28 | Outpatient (REF) | payer OTHER, SELFPAY ==
[2022-12-31 10:57] LABS: CT PCR NOT DETECTED (Not Detect.); NG PCR NOT DETECTED (Not Detect.)
[2022-12-31 13:13] LABS: BV Int Neg Control Negative (Negative); BV Int Pos Control Positive (Positive)
== END 2022-12-30 12:29 | disposition home or self-care (01) ==
LOC: HO.LNP 12:28
PROVIDERS: PCP Family Medicine; Visit Provider Obstetrics & Gynecology
DX: R10.2 Pelvic and perineal pain (principal); R31.9 Hematuria, unspecified; N93.9 Abnormal uterine and vaginal bleeding, unspecified; N83.202 Unspecified ovarian cyst, left side; R31.29 Other microscopic hematuria
CPT/HCPCS: 0353U; 81003; 81025; 87086; 87480; 87510; 87660; 99212

== ENCOUNTER 2022-12-30 14:06 | Outpatient (REF) | payer OTHER, SELFPAY ==
--- NOTE | ~2022-12-30 | US_ITS ---
EXAMINATION: ULTRASOUND PELVIC, COMPLETE CLINICAL INFORMATION: Left ovarian cyst. Concern for ovarian torsion. COMPARISON: CT scan abdomen pelvis December 15, 2022. Ultrasound of pelvis December 15, 2022, December 07, 2022, August 20, 2022, January 20, 2022 TECHNIQUE: Transvaginal: Used to better visualize pelvic structures Transabdominal: Not adequate for visualization. Spectral Doppler and color Doppler exam was utilized. LMP: Uncertain FINDINGS: UTERUS: Uterus is unremarkable. Uterus measures 7.3 x 4.9 x 4.8 cm. Endometrial thickness 1.7 cm ADNEXA: Ovarian vascularity:Doppler demonstrates both arterial and venous vascular flow in the right and left ovary. No evidence of ovarian torsion. Right Ovary: Anechoic cyst/follicle measuring 1.9 x 1.8 x 1.8 cm. The ovary measures 3.9 x 2.7 x 3 cm. Volume 16.5 mL Left Ovary: Anechoic cyst/follicle measuring 2.3 x 1.7 x 2.1 cm. This previously measured 9.9 x 2.9 x 4.6 cm. The left ovary overall measures 3.9 x 2.2 x 3.4 cm. Volume 15.3 mL. Cul-de-sac: No Fluid US/US pelvic ovarian doppler IMPRESSION: 1. No acute abnormality. No evidence of ovarian torsion. 2. Bilateral anechoic ovarian cysts/follicles. The left ovarian cyst has decreased in size since prior ultrasound exam of December 20. No follow-up imaging recommended for the ovarian cysts/follicles.
--- NOTE | ~2022-12-30 | US_ITS ---
EXAMINATION: ULTRASOUND PELVIC, COMPLETE CLINICAL INFORMATION: Left ovarian cyst. Concern for ovarian torsion. COMPARISON: CT scan abdomen pelvis December 15, 2022. Ultrasound of pelvis December 15, 2022, December 07, 2022, August 20, 2022, January 20, 2022 TECHNIQUE: Transvaginal: Used to better visualize pelvic structures Transabdominal: Not adequate for visualization. Spectral Doppler and color Doppler exam was utilized. LMP: Uncertain FINDINGS: UTERUS: Uterus is unremarkable. Uterus measures 7.3 x 4.9 x 4.8 cm. Endometrial thickness 1.7 cm ADNEXA: Ovarian vascularity:Doppler demonstrates both arterial and venous vascular flow in the right and left ovary. No evidence of ovarian torsion. Right Ovary: Anechoic cyst/follicle measuring 1.9 x 1.8 x 1.8 cm. The ovary measures 3.9 x 2.7 x 3 cm. Volume 16.5 mL Left Ovary: Anechoic cyst/follicle measuring 2.3 x 1.7 x 2.1 cm. This previously measured 9.9 x 2.9 x 4.6 cm. The left ovary overall measures 3.9 x 2.2 x 3.4 cm. Volume 15.3 mL. Cul-de-sac: No Fluid US/US pelvic and transvaginal IMPRESSION: 1. No acute abnormality. No evidence of ovarian torsion. 2. Bilateral anechoic ovarian cysts/follicles. The left ovarian cyst has decreased in size since prior ultrasound exam of December 20. No follow-up imaging recommended for the ovarian cysts/follicles.
== END 2022-12-30 14:07 | disposition home or self-care (01) ==
LOC: HO.US 14:06
PROVIDERS: Visit Provider Obstetrics & Gynecology
DX: R10.2 Pelvic and perineal pain (principal); N83.202 Unspecified ovarian cyst, left side
CPT/HCPCS: 76830; 76856; 93975

== ENCOUNTER 2023-01-11 13:39 | Outpatient (REF) | payer OTHER, SELFPAY ==
[2023-01-11 14:41] LABS: Syphilis Screen Nonreactive (Nonreactive)
[2023-01-11 18:00] LABS: CT PCR NOT DETECTED (Not Detect.); NG PCR NOT DETECTED (Not Detect.)
[2023-01-12 04:26] LABS: HIV Num 1 2.28 S/CO (0.00-0.99); Hepatitis B Surface Antigen Negative (Negative); ~HepC Num1 0.17 S/CO (0.00-0.79); ~Hepatitis C Antibody Nonreactive (Nonreactive)
[2023-01-12 05:24] LABS: HIV Num 2 2.31 S/CO
[2023-01-12 05:25] LABS: HIV AB/AG Reactive (Nonreactive); HIV Num 3 2.31 S/CO
[2023-01-12 13:20] LABS: BV Int Neg Control Negative (Negative); BV Int Pos Control Positive (Positive)
[2023-01-21 10:57] LABS: HIV-1 RNA TMA Qualitative NOT DETECTED
[2023-01-21 10:58] LABS: HIV 1 Antibody NEGATIVE
[2023-01-21 10:59] LABS: HIV 2 Antibody NEGATIVE
== END 2023-01-11 13:40 | disposition home or self-care (01) ==
LOC: HO.LAB 13:39
PROVIDERS: Visit Provider Obstetrics & Gynecology
DX: Z11.4 Encounter for screening for human immunodeficiency virus [HIV] (principal); Z20.2 Contact with and (suspected) exposure to infections with a predominantly sexual mode of transmission; N83.202 Unspecified ovarian cyst, left side; N76.0 Acute vaginitis; R31.29 Other microscopic hematuria
CPT/HCPCS: 0353U; 36415; 81003; 81025; 86701; 86702; 86780; 86803; 87340; 87389; 87480; 87510; 87660; 99212

== ENCOUNTER 2023-01-11 13:52 | Outpatient (AMB) | payer OTHER, SELFPAY ==
[2023-01-11 14:00] VITALS: BP 110/66; BMI 26.4
--- NOTE | 2023-01-11 14:00 | A.OFFVIS_ITS ---
Intake Vital Signs 01/11/23 14:00 Height 5 ft 5 in Weight 158 lb 11.725 oz BMI 26.4 BP 110/66 Intake Visit Reasons: Urine Dip/US follow up per Bonded Strand Operator Required: No Information Interpreted: non-clinical & clinical Cte Teacher: Cte Teacher Present (Vane Reacathy WRIGHT) Accompanied by: Self / Same As Patient Allergies No Known Allergies [No Known Allergies*] Allergy (Verified 01/11/23 14:05) oxycodone Adverse Reaction (Mild, Uncoded 01/11/23 14:05) ineffective Post menopausal: No HPI HPI Comments History of Present Illness Details Presenting for follow-up. Pelvic pain has improved markedly, the patient is complaining of vulvovaginal discharge associated with vulvar irritation. Pelvic ultrasound showed the following: UTERUS: Uterus is unremarkable. Uterus measures 7.3 x 4.9 x 4.8 cm. Endometrial thickness 1.7 cm ADNEXA: Ovarian vascularity:Doppler demonstrates both arterial and venous vascular flow in the right and left ovary. No evidence of ovarian torsion. Right Ovary: Anechoic cyst/follicle measuring 1.9 x 1.8 x 1.8 cm. The ovary measures 3.9 x 2.7 x 3 cm. Volume 16.5 mL Left Ovary: Anechoic cyst/follicle measuring 2.3 x 1.7 x 2.1 cm. This previously measured 9.9 x 2.9 x 4.6 cm. The left ovary overall measures 3.9 x 2.2 x 3.4 cm. Volume 15.3 mL. Cul-de-sac: No Fluid In addition the patient is presenting for follow-up microscopic hematuria, urine culture was negative, no urinary symptoms PFSH Medical History Depression Anxiety ASCUS with positive high risk HPV Surgical History History of hernia repair History of cholecystectomy History of Family History Maternal Grandmother Pacemaker CVD (cardiovascular disease) Father Diabetes HTN (hypertension) Mother Asthma Paternal Grandmother Cancer Brother No problems noted. Family/Other Substance abuse Chronic mental illness Unable to assess alcohol history related to: Unknown Alcohol intake: never Sexual orientation: Straight/Heterosexual Gender identity: Female Female Reproductive History Menstrual Age of Menarche: 12 control method: none Date of last pap smear: 06/14/22 (ASCUS +HPV) History of abnormal pap smear: Yes Review of Systems Const All systems reviewed & are unremarkable except as noted in HPI and below Physical Exam Vital Signs: Last Vital Signs BP 110/66 01/11/23 14:00 BMI result Body Mass Index 26.4 General: Yes no CVA tenderness External Female Exam: normal external appearance and normal appearance of the urethra Speculum Exam - Vagina: normal appearance of the vagina, normal palpation, no lesions and no masses Speculum Exam - Cervix: normal appearance of the cervix, normal palpation, no lesions, no masses and nontender Bimanual exam- vagina & uterus: normal bimanual exam, normal palpation, uterine size normal, normal palpation, uterine shape normal, No Cervical tenderness present and non-tender Bimanual Exam- Adnexa, other: normal adnexae Back/Spine/Pelvis Back: no CVA tenderness Results AMB Urinalysis, Automated UA Leukoctes 3 Bettye/uL Last Edit by KYLE Blanco on 01/11/23 14:27 UA Nitrite Negative Last Edit by KYLE Blanco on 01/11/23 14:27 UA Urobilinogen 0 mg/dL Last Edit by Júnior Conley Adam on 01/11/23 14:27 UA Protein 0.5 mg/dL Last Edit by Júnior Conley Adam on 01/11/23 14:27 UA pH 6 Last Edit by Júnior Conley Adam on 01/11/23 14:27 UA Blood 1 Yann/uL Last Edit by Júnior Conley Adam on 01/11/23 14:27 UA Specific [place] 1.025 Last Edit by Júnior Conley Adam on 01/11/23 14: 27 UA Ketone Negative Last Edit by KYLE Blanco on 01/11/23 14:27 UA Bilirubin 0 mg/dL Last Edit by Júnior Conley Adam on 01/11/23 14:27 UA Glucose 0 mg/dL Last Edit by KYLE Blanco on 01/11/23 14:27 AMB Test Urine AMB Test Urine Negative Last Edit by KYLE Blanco on 01/11/23 15:02 Results Reviewed Results Reviewed: Laboratory Last Values Urine pH (Auto) 6 01/11/23 14:26 Specific [place] (Auto) 1.025 01/11/23 14:26 Urine Protein (Auto) 0.5 mg/dL 01/11/23 14:26 Glucose (UA)(Auto) 0 mg/dL 01/11/23 14:26 Urine Ketones (Auto) Negative 01/11/23 14:26 Urine Blood (Auto) 1 Yann/uL 01/11/23 14:26 Urine Nitrite (Auto) Negative 01/11/23 14:26 Urine Bilirubin (Auto) 0 mg/dL 01/11/23 14:26 Urine Urobilinogen (Auto) 0 mg/dL 01/11/23 14:26 Leukocyte Esterase (Auto) 3 Bettye/uL 01/11/23 14:26 Assessment & Plan Assessment & Plan (1) Left ovarian cyst: Code(s): N83.202 - Unspecified ovarian cyst, left side Plan: Discussed with the patient the results the ultrasound showing a decrease in the size of the ultrasound, repeat ultrasound scheduled. Signs and symptoms of ovarian rupture or torsion were discussed with the patient. Instructions given the patient to call or go to emergency room in case of pelvic pain, heavy vaginal bleeding or any other concerns. All questions answered, the patient verbalized understand (2) Vulvovaginitis: Code(s): N76.0 - Acute vaginitis Plan: GC/CT, Bacterial Vaginosis panel taken, Terazol 0.8% q.h.s. for 3 days was sent to the patient's pharmacy. The patient was instructed to call if symptoms don't improve in 48 hours. (3) Microscopic hematuria: Code(s): R31.29 - Other microscopic hematuria Plan: Repeat urine dip showed +1 microscopic hematuria. Since urine culture was negative and microscopic hematuria is persistent, refer to urology for further management Orders: Orders AMB Urinalysis Automated Today R31.9 - Hematuria, unspecified Bacterial Vaginosis Panel Today N76.0 - Acute vaginitis AMB HCG Urine Test Today N76.0 - Acute vaginitis CT NG by PCR Today N76.0 - Acute vaginitis Referrals Urology Referral R31.29 - Other microscopic hematuria Medications: New terconazole 0.8% 1 appful vaginal BEDTIME 20 grams 0RF 3 days Coding Level of Care Code Est Pt Level 3 (61380) Diagnoses Left ovarian cyst N83.202 Vulvovaginitis N76.0 Microscopic hematuria R31.29
== END 2023-01-11 15:03 | disposition home or self-care (01) ==
PROVIDERS: PCP Family Medicine; Visit Provider Obstetrics & Gynecology
DX: N83.202 Unspecified ovarian cyst, left side (principal); N76.0 Acute vaginitis; R31.29 Other microscopic hematuria; R31.9 Hematuria, unspecified
CPT/HCPCS: 99213

== ENCOUNTER 2023-01-11 15:00 | Outpatient (REF) | payer OTHER, SELFPAY | END 2023-01-11 15:01 | disposition home or self-care (01) | LOC: HO.LNP 15:00 | PROVIDERS: Visit Provider Obstetrics & Gynecology | DX: Z13.89 Encounter for screening for other disorder (principal) ==

== ENCOUNTER 2023-01-25 15:28 | Outpatient (AMB) | payer OTHER, SELFPAY ==
[2023-01-25 15:41] VITALS: BP 108/70; PULSE 74; O2SAT 98; BMI 26.5
--- NOTE | 2023-01-25 15:41 | MHC.PC.OV ---
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: No Accompanied by: Self / Same As Patient Allergies No Known Allergies [No Known Allergies*] Allergy (Verified 01/25/23 16:55) oxycodone Adverse Reaction (Mild, Uncoded 01/25/23 16:55) ineffective Medication List - Last Reconciled 01/25/23 by Shayne Bangura MD bupropion HCl 150 mg PO DAILY buspirone 10 mg PO TID citalopram 40 mg PO DAILY clobetasol 0.05% 1 appl topical BID 5 days hydroxyzine HCl 25 mg PO TID PRN lorazepam 1 mg PO BID PRN tranexamic acid 1,300 mg (2 x 650 mg) PO TID 5 days Tobacco use date assessed: 01/25/23 Dental Screening Dental Screen Date: 01/25/23 Did you have a dental visit in the last 12 months?: Yes Did you have a dental problem in the last 6 months where you did not have access to dental care?: No Was dental information given to patient?: Patient has dentist 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 Fowler HPI Details Patient comes in today for her annual physical examination - is transferring over from Dr. Fowler She used to see Dr. Fowler but has not seen him in a couple of years and states that the main reason she is switching over is because [place] is too far for her to go to when she needs to see her doctor She has been following up with Dr. Wild regularly lately for some issues, including ovarian cyst, vaginal bleeding and also recently had her Mirena removed States that Dr. Wild prescribed her some Clobetasol cream a few days ago to use for some perineal irritation and swelling but feels that the Rx is not helping Relates that she has been experiencing increased fatigue often lately and is requesting to have some labs ordered, including tests to check her thyroid Adds that she has been coughing a lot over the past couple of weeks and notes that her cough is worse at night; states that she coughs up thick whitish phlegm at times Relates that her chest feels congested and tight often lately She denies any fever, headaches or dizziness; denies any sore throat Denies any chest pains No nausea/ vomiting, no abdominal pain No change in bowel habits noted Denies any acute urinary symptoms She is currently also on several medications for anxiety and mood disorder - she is seeing her psychiatrist regularly and her medications are being prescribed and managed by her psychiatrist [facility] Medical History (Updated 01/26/23 @ 05:58 by Shayne Bangura MD) Pure hypercholesterolemia Overweight (BMI 25.0-29.9) Depression Anxiety ASCUS with positive high risk HPV Surgical History History of hernia repair History of cholecystectomy History of Family History Maternal Grandmother Pacemaker CVD (cardiovascular disease) Father Diabetes HTN (hypertension) Mother Asthma Paternal Grandmother Cancer Brother No problems noted. Family/Other Substance abuse Chronic mental illness Social History Housing: Apartment Unable to assess alcohol history related to: Unknown Alcohol intake: never Patient Tobacco Use Status: Never used Tobacco e-Cigarette/Vaping Use: Never Used service: No Current occupational status: unemployed Sexual orientation: Straight/Heterosexual Gender identity: Female Cognitive needs: No Hearing needs: No Vision needs: No Female Reproductive History Menstrual Age of Menarche: 12 Questionnaire PHQ-9 Over the last 2 weeks, how often have you been bothered by any of the following problems? 1. Little interest or pleasure in doing things: not at all 2. Feeling down, depressed, or hopeless: not at all 3. Trouble falling or staying asleep, or sleeping too much: not at all 4. Feeling tired or having little energy: not at all 5. Poor appetite or overeating: not at all 6. Feeling bad about yourself - or that you are a failure or have let yourself or your family down: not at all 7. Trouble concentrating on things, such as reading the newspaper or watching television: not at all 8. Moving or speaking so slowly that other people could have noticed. Or the opposite - being so fidgety or restless that you have been moving around a lot more than usual: not at all 9. Thoughts that you would be better off or of hurting yourself in some way: not at all Total score: 0 Depression Screening Interpretation: Negative (is on Rx) Depression Screening Done: Yes 04241 - PHQ-9 Billing: Yes Source: Developed by Drs. Marshall Keane, Yas Isaac, Francisco Lynch and colleagues, with an educational rosy from [employer] Thrive Questionnaire Date Thrive assessed: 01/25/23 I am a: Patient What is your living situation today?: I have a steady place to live Within the past 12 months, did the food you bought not last and you didn't have the money to get more?: Never true Within the past 12 months, did you worry whether your food would run out before you got money to buy more?: Never true Do you have trouble paying for medicines?: No Do you have trouble getting transportation to medical appointments?: No Do you have trouble paying your heating and electricity bill?: No Do you have trouble taking care of your child, family member or friend?: No Do you have trouble with day-to-day activities such as bathing, preparing meals, shopping, managing finances, etc.?: No Are you currently unemployed and looking for a job?: No Are you interested in more education?: No Please select the resources that you would like help with: None Currently or been in a relationship where the following occur: no concerns reported AUDIT C Alcohol Use Questionnaire (AUDIT-C) 1. How often do you have a drink containing alcohol?: Never 3. How often do you have six or more drinks on one occasion?: Never Total Score: 0 Score Reviewed/Action Taken: Yes CATY-7 AMB Questionnaire CATY-7 Date CATY - 7 assessed: 01/25/23 Feeling nervous, anxious, or on edge: 0 = Not at all Not being able to stop or control worryin = Not at all Worrying too much about different things: 0 = Not at all Trouble relaxin = Not at all Being so restless that it is hard to sit still: 0 = Not at all Becoming easily annoyed or irritable: 0 = Not at all Feeling afraid as if something awful might happen: 0 = Not at all Total CATY-7 score (0-4 normal; 5-9 mild; 10-14 moderate; 15-21 severe): 0 Source: Developed by Drs. Marshall Keane, Yas Isaac, Francisco Lynch and colleagues, with an educational rosy from [employer] Review of Systems Const Denies chills, Reports fatigue, Denies fever(s), Denies headache(s) and Denies malaise Eyes Denies blurry vision, Denies change in vision, Denies irritation and Denies itchy eyes ENT Denies dysphagia, Denies dizziness, Denies otalgia, Denies headache(s), Denies nasal congestion, Denies neck pain, Denies odynophagia, Denies sinus pain and Denies sore throat Card Denies chest pain, Denies rapid heart rate, Denies irregular heart rhythm, Denies palpitations and Reports dyspnea on exertion (at times recently, mild) Resp Reports chest congestion (chest feels tight often lately), Reports cough (recurrent; worse at night; coughs up thick whitish phlegm at times), Reports dyspnea on exertion (at times recently, mild) and Denies wheezing GI Denies abdominal pain, Denies bloating, Denies constipation, Denies dysphagia, Denies heartburn, Denies diarrhea, Denies nausea, Denies odynophagia and Denies vomiting Details: (+) perineal irritation recently - see HPI Denies hematuria, Denies urinary frequency, Denies dysuria, Denies urinary incontinence and Denies urinary urgency Musc Denies back pain, Denies arthralgias, Denies joint swelling, Denies muscle weakness and Denies neck pain Skin/Breast Denies breast pain, Denies breast mass, Denies change in pigmentation, Denies lesions, Denies rash and Denies unusual bruising Neuro Denies dizziness, Denies headache(s) and Denies paresthesias Psych Reports anxiety (current Rx helping) and Denies depression Endo Reports fatigue and Denies palpitations Ravi/Lymph Denies easy bruising Aller/Immun Denies itchy eyes and Denies wheezing Physical exam (Primary Care) Vital Signs: Last Vital Signs Pulse 74 01/25/23 15:41 BP 108/70 01/25/23 15:41 Pulse Ox 98 01/25/23 15:41 Oxygen Delivery Method Room Air 01/25/23 15:41 BMI result Body Mass Index 26.5 Tobacco/Smoking Status: Tobacco use Status Tobacco use date assessed 01/25/23 01/25/23 15:43 Patient Tobacco Use Status Never used Tobacco 01/25/23 15:43 e-Cigarette/Vaping Use Never Used 01/25/23 15:43 PHQ-9: PHQ-9 Score PHQ-9: Total score 0 01/25/23 17:07 Depression Screening Interpretation: Negative (is on Rx) Thrive Assessment: Date of Thrive Assessment Date Thrive assessed 01/25/23 01/25/23 15:43 Currently or been in a relationship where the following occur: no concerns reported Const General: no acute distress, alert and awake Orientation/consciousness: patient oriented x3 HENMT Head: Yes normocephalic and Yes atraumatic Ears: external ears normal, TM's normal bilaterally and EAC's normal General nose exam: No nasal discharge present Face and sinus: Yes normal facial exam and Yes sinuses nontender Teeth and gingiva: dentition normal Throat: Yes posterior oropharynx normal and Yes tonsils normal (no TP congestion) Eyes Eyelids: Yes eyelids normal Conjunctivae: conjunctivae normal Pupils: Equal, round and reactive pupils present EOM: EOMs intact bilaterally Neck Neck: Yes no lymphadenopathy and Yes supple Thyroid: Thyroid normal Resp Auscultation: no crackles, no rales, rhonchi (scattered) throughout, no wheezes and bronchial breath sounds bilateral Cardio Rate: regular rate Rhythm: regular rhythm Heart sounds: no murmurs GI Palpation (GI): Soft to palpation, nontender and No hepatosplenomegaly present Auscultation: normal bowel sounds General: Yes no CVA tenderness Back/Spine/Pelvis Back: no CVA tenderness Thoracic/Lumbar Spine: thoracic and lumbar spine normal to inspection Skin Lesions: no lesions Rashes: no rashes Neuro General: patient oriented x3, moves all extremities, no focal motor deficits and CN's II-XI intact bilaterally Cranial nerves: Yes Equal, round and reactive pupils present Cognition (Neuro): normal cognition Gait exam (Neuro): Normal gait present Extrem General: Yes no clubbing, cyanosis or edema Assessment and Plan Assessment & Plan (1) Annual physical exam: Code(s): Z00.00 - Encounter for general adult medical examination without abnormal findings Plan: Check labs Per request, will also order a repeat HIV test to help confirm her most recent negative test - states that prior to this, she had a positive HIV test that caused her a lot of anxiety and fortunately, this turned out to be a false positive test result She is up-to-date with her annual gynecology exam and pap smear - sees Dr. Wild She is not yet due for routine mammography (to start at 41 y/o) (2) Acute bronchitis: Code(s): J20.9 - Acute bronchitis, unspecified Qualifiers: Bronchitis organism: unspecified organism Qualified Code(s): J20.9 - Acute bronchitis, unspecified Plan: Will start patient empirically on Augmentin 875 mg BID x 10 days; will also start her on Albuterol HFA 1 to 2 inhalations Q 6 hours PRN for the next couple of weeks to help with her recent symptoms of chest tightness and congestion (3) Pure hypercholesterolemia: Code(s): E78.00 - Pure hypercholesterolemia, unspecified Plan: Reinforced low cholesterol diet Cautioned that her cholesterol level, particularly her LDL cholesterol, was elevated when they were last checked in 2018 Will recheck her fasting lipids for follow up (4) Elevated TSH: Code(s): R79.89 - Other specified abnormal findings of blood chemistry Plan: Her serum TSH was elevated back in July 2022 although this has trended back to normal on subsequent labs Will recheck her serum TSH for follow up (5) Vulvovaginitis: Code(s): N76.0 - Acute vaginitis Plan: Was reportedly started on Clobetasol 0.05% cream by Dr. Wild a few days ago with no significant relief Patient is advised to check back with Dr. Wild's office about this and find out what he wants her to do next (6) Anxiety: Code(s): F41.9 - Anxiety disorder, unspecified Plan: Continue Buspirone 10 mg TID, Bupropion 150 mg QD, Citalopram 40 mg QD, Hydroxyzine 25 mg TID PRN and Lorazepam 1 mg BID PRN Follow up with psychiatry as scheduled (7) Depression: Code(s): F32.9 - Major depressive disorder, single episode, unspecified Qualifiers: Depression Type: major depressive disorder Major depression recurrence: recurrent Active/Remission status: currently active Major depression episode severity: unspecified Qualified Code(s): F33.9 - Major depressive disorder, recurrent, unspecified Plan: Continue Citalopram 40 mg QD and Bupropion 150 mg QD Follow up with psychiatry as scheduled (8) Overweight (BMI 25.0-29.9): Code(s): E66.3 - Overweight Plan: Reinforced diet/exercise as tolerated/lose weight Plan Follow up in 3 months Orders: Orders Complete Blood Count Auto Diff 01/25/23 N83.202 - Unspecified ovarian cyst, left side, Z00.00 - Encounter for general adult medical examination without abnormal findings Comprehensive [place]. Panel Fast 01/25/23 E78.00 - Pure hypercholesterolemia, unspecified, Z00.00 - Encounter for general adult medical examination without abnormal findings Lipid Panel 01/25/23 E78.00 - Pure hypercholesterolemia, unspecified, Z00.00 - Encounter for general adult medical examination without abnormal findings TSH reflex Free T4 01/25/23 E78.00 - Pure hypercholesterolemia, unspecified, Z00.00 - Encounter for general adult medical examination without abnormal findings HIV Ab/Ag 01/25/23 Z20.2 - Contact with and (suspected) exposure to infections with a predominantly sexual mode of transmission UA CC w/rflx Micro + Cult 01/25/23 R30.0 - Dysuria, Z00.00 - Encounter for general adult medical examination without abnormal findings Vitamin D 25-OH Total 01/25/23 E55.9 - Vitamin D deficiency, unspecified, Z00.00 - Encounter for general adult medical examination without abnormal findings Medications: New amoxicillin-pot clavulanate 875-125 mg 1 tab PO BID 10 days 20 tabs 0RF albuterol sulfate 90 mcg/actuation (Ventolin HFA) 2 puffs inhalation Q6H 30 days PRN 8.5 grams 0RF shortness of breath or wheezing Coding Level of Care Code Est Pt Prev Care 18-39y(34474) Diagnoses Annual physical exam Z00.00 Acute bronchitis, unspecified organism J20.9 Bronchitis organism: unspecified organism Pure hypercholesterolemia E78.00 Elevated TSH R79.89 Vulvovaginitis N76.0 Anxiety F41.9 Episode of recurrent major depressive disorder, unspecified depression episode severity F33.9 Depression Type: major depressive disorder Major depression recurrence: recurrent Active/Remission status: currently active Major depression episode severity: unspecified Overweight (BMI 25.0-29.9) E66.3
== END 2023-01-25 17:16 | disposition home or self-care (01) ==
PROVIDERS: PCP Family Medicine; Visit Provider Internal Medicine
DX: Z00.00 Encounter for general adult medical examination without abnormal findings (principal); F33.9 Major depressive disorder, recurrent, unspecified; J20.9 Acute bronchitis, unspecified; E78.00 Pure hypercholesterolemia, unspecified; R79.89 Other specified abnormal findings of blood chemistry; N76.0 Acute vaginitis; F41.9 Anxiety disorder, unspecified; E66.3 Overweight; Z98.891 History of uterine scar from previous surgery
CPT/HCPCS: 99395

== ENCOUNTER 2023-01-25 17:25 | Outpatient (REF) | payer OTHER, SELFPAY ==
[2023-01-25 17:36] LABS: MANUAL DIFF FLAG NO
[2023-01-25 17:58] LABS: Basophils Absolute Auto 0.1 X10*3/uL (0.0-0.2); Basophils Percent Auto 0.6 % (0-2); Eosinophils Absolute Auto 0.1 X10*3/uL (0.0-0.4); Eosinophils Percent Auto 1.1 % (0-4); Hematocrit 40.6 % (37.0-47.0); Hemoglobin 12.9 g/dl (12.0-16.0); Imm Gran Abs Auto 0.05 X10*3/uL (0.00-0.03); Imm Gran Pct Auto 0.4 % (0.0-0.4); Lymphocytes Absolute Auto 3.6 X10*3/uL (1.2-4.9); Mean Corpuscular HGB Conc 31.8 g/dl (31.0-35.0); Mean Corpuscular Hemoglobin 27.4 pg (27.0-33.0); Mean Corpuscular Volume 86.4 fL (80.0-98.0); Mean Platelet Volume 9.7 fL (9.4-12.3); Monocytes Absolute Auto 0.7 X10*3/uL (0.1-1.2); Monocytes Percent Auto 5.9 % (2-11); Platelet Count 496 X10*3/uL (160-400); Red Cell Distribution Width 13.2 % (11.0-16.0); White Blood Count 11.5 X10*3/uL (4.8-10.8)
[2023-01-25 18:06] LABS: Appearance Urine Cloudy; Color Urine Dark Yellow; Glucose Urine UA Negative (Negative); Leukocyte Esterase Urine Trace (Negative); Nitrite Urine Negative (Negative); Specific Gravity - Urine >= 1.030 (1.005-1.025); UMIC TRIGGER UACC YES; Urine Blood Small (1+) (Negative); Urine Ketones Trace mg/dL (Negative); Urine Protein Trace mg/dL (Neg-Trace)
[2023-01-25 18:17] LABS: Bacteria Urine 3+ (None Seen); Calcium Oxalate Crystals Urine Present; UACC Culture Trigger YES
[2023-01-25 18:18] LABS: Alanine Aminotransferase 13 U/L (0-31); Albumin Level 4.3 g/dL (3.5-5.0); Alkaline Phosphatase 91 U/L (39-117); Anion Gap 12 (12-20); Aspartate Amino Transferase 17 U/L (5-31); Bilirubin Total 0.4 mg/dL (0.0-1.0); Blood Urea Nitrogen 12 mg/dL (9-16); Calcium 9.6 mg/dL (8.4-10.2); Carbon Dioxide 24 mmol/L (22-29); Chloride 107 mmol/L (96-108); Cholesterol 227 mg/dL (<200); Estimated Glomerular Filt Rate > 60; Glucose Fasting 95 mg/dL (60-99); HDL Cholesterol 56 mg/dL (>40); LDL Cholesterol Calculated 150 mg/dL (<100); Potassium 3.9 mmol/L (3.3-5.1); Sodium 139 mmol/L (135-145); Triglycerides 109 mg/dL (<150)
[2023-01-25 18:32] LABS: TSH reflex Free T4 1.95 uIU/mL (0.32-4.0); Vitamin D 25-OH Total 38.1 ng/mL (>30)
[2023-01-26 08:16] LABS: HIV Num 1 1.67 S/CO (0.00-0.99)
[2023-01-26 10:29] LABS: HIV AB/AG Reactive (Nonreactive); HIV Num 2 1.63 S/CO; HIV Num 3 1.68 S/CO
[2023-02-01 08:48] LABS: HIV 1 Antibody NEGATIVE
[2023-02-01 08:49] LABS: HIV-1 RNA TMA Qualitative NOT DETECTED
[2023-02-01 08:50] LABS: HIV 2 Antibody NEGATIVE
== END 2023-01-25 17:26 | disposition home or self-care (01) ==
LOC: HO.LAB 17:25
PROVIDERS: PCP Internal Medicine; Visit Provider Internal Medicine
DX: Z00.00 Encounter for general adult medical examination without abnormal findings (principal); Z11.4 Encounter for screening for human immunodeficiency virus [HIV]; N83.202 Unspecified ovarian cyst, left side; E78.00 Pure hypercholesterolemia, unspecified; E55.9 Vitamin D deficiency, unspecified; Z20.2 Contact with and (suspected) exposure to infections with a predominantly sexual mode of transmission
CPT/HCPCS: 36415; 80053; 80061; 81001; 82306; 84443; 85025; 86701; 86702; 87086; 87389

== ENCOUNTER 2023-01-28 10:54 | Emergency (ER) | payer OTHER, SELFPAY ==
--- NOTE | ~2023-01-28 | XR_ITS ---
EXAMINATION: XR CHEST CLINICAL INFORMATION: Shortness of breath COMPARISON: 05/30/2021 TECHNIQUE: 2 views of the chest were obtained. FINDINGS: No significant abnormality is noted involving the heart, lungs, mediastinum, bony thorax or soft tissues. Nipple jewelry again identified. XR/XR chest 2V IMPRESSION: No acute cardiopulmonary disease.
[2023-01-28 11:17] VITALS: BP 132/78; PULSE 71; RESP 18; TEMP 37; O2SAT 97; BMI 29.1
--- NOTE | 2023-01-28 11:25 | ED.GENADULT ---
HPI - General Adult General Chief complaint: Upper Respiratory Symptoms Stated complaint: sob Time Seen by Provider: 01/28/23 12:39 Source: patient Mode of arrival: ambulatory Limitations: no limitations History of Present Illness HPI narrative: patient is a 38-year-old female who presents emergency department for evaluation of upper respiratory symptoms. She states that she was seen by her primary care doctor recently for the symptoms. States the past 1.5 weeks she has been experiencing productive cough with white phlegm, with excessive coughing she does endorse vomiting described as large amounts of phlegm coming out, shortness of breath with exertion/coughing episodes, and chest tightness during cough. Also endorses sore throat for the past 7 days. She was evaluated at her doctor's office and was given antibiotics for a throat infection . They also provided her with albuterol inhaler, she denies any history of asthma, but was advised to take inhaler as needed for shortness of breath. Related Data Home Medications Medication Instructions Recorded Confirmed citalopram 40 mg tablet 40 mg PO DAILY 12/27/19 01/25/23 bupropion HCl 150 mg 24 hr tablet, 150 mg PO DAILY 11/03/20 01/25/23 extended release buspirone 10 mg tablet 10 mg PO TID 11/03/20 01/25/23 hydroxyzine HCl 25 mg tablet 25 mg PO TID PRN anxiety 01/25/23 01/25/23 lorazepam 1 mg tablet 1 mg PO BID PRN anxiety 01/25/23 01/25/23 Previous Rx's Medication Instructions Recorded tranexamic acid 650 mg tablet 1,300 mg (2 x 650 mg) PO TID 5 12/30/22 days #30 tabs clobetasol 0.05 % topical cream 1 appl topical BID 5 days #45 grams 01/21/23 albuterol sulfate 90 mcg/actuation 2 puff inhalation Q6H PRN 01/25/23 aerosol inhaler (Ventolin HFA) shortness of breath or wheezing 30 days #8.5 grams amoxicillin 875 mg-potassium 1 tab PO BID 10 days #20 tabs 01/25/23 clavulanate 125 mg tablet Allergies Allergy/AdvReac Type Severity Reaction Status Date / Time No Known Allergies Allergy Verified 01/28/23 11:17 [No Known Allergies*] oxycodone AdvReac Mild ineffective Uncoded 01/25/23 16:55 Review of Systems Review of Systems: Yes all other systems are reviewed and are negative [facility] Past Medical History Attestation statement: The following information was validated with the patient. Source: old records reviewed Medical History Pure hypercholesterolemia Overweight (BMI 25.0-29.9) Depression Anxiety ASCUS with positive high risk HPV Surgical History History of hernia repair History of cholecystectomy History of Family History Family History Maternal Grandmother Pacemaker CVD (cardiovascular disease) Father Diabetes HTN (hypertension) Mother Asthma Paternal Grandmother Cancer Brother No problems noted. Family/Other Substance abuse Chronic mental illness Social History Social History Housing: Apartment Unable to assess alcohol history related to: Unknown Alcohol intake: never Patient Tobacco Use Status: Never used Tobacco e-Cigarette/Vaping Use: Never Used Advance Directives: No Advance Directives Information Provided: No service: No Current occupational status: unemployed Sexual orientation: Straight/Heterosexual Gender identity: Female Cognitive needs: No Hearing needs: No Vision needs: No Physical Exam ED Vital Signs: Vital Signs - 24 hr 01/28/23 11:17 Temperature 98.6 F Pulse Rate 71 Respiratory Rate 18 Blood Pressure 132/78 Pulse Oximetry 97 Oxygen Delivery Method Room Air BMI result Body Mass Index 29.1 Appearance: Alert.?Oriented to person, place and time. No acute distress.?Normal affect. Eyes: Pupils equal, round and reactive to light.? ENT: Pharynx normal.?? TM normal bilaterally. Neck: Normal inspection.? Neck supple.?? No cervical lymphadenopathy. CVS: Heart sounds normal. Normal heart rate and rhythm.? Pulses normal.?? Respiratory: No respiratory distress.? Lung sounds clear to auscultation bilaterally?? Abdomen: Soft and non-tender. Normoactive bowel sounds. ? Skin: Skin warm and dry.? Normal skin color.? Extremities: No lower extremity edema.? No calf ttp? Neuro: Moves all extremities spontaneously. Sensation intact bilaterally. Ambulates with normal steady gait. Course Course Course Narrative: KARMEN- 38-year-old female presents for evaluation of shortness of breath and cough for the last few days. Vitals are stable, lungs clear to auscultation. Patient has finished 2 courses of amoxicillin and had labs done yesterday PCP Medical Decision Making Medical Decision Making MDM Narrative: Patient is a 38-year-old femalepresenting for evaluation of upper respiratory symptoms. Of note on 01/25/2023 she was evaluated by her primary care provider during annual examination' she was provided with a 10 day prescription for Augmentin which she reports that she started that day in addition to an albuterol inhaler. She has been using the inhaler and reports only minimal improvement, the cough is particularly worse at night. At this time history and physical exam not consistent with ACS/PE/pneumonia. PERC negative. No risk factors for ACS. chest x-ray reveals no acute cardiopulmonary abnormality. She is Well-appearing, nontoxic, afebrile, no tachycardia or tachypnea/hypoxia. Speaking clear full sentences, ambulatory with steady gait. Discussed continue treatment with Augmentin and inhaler as prescribed by her primary care provider in addition to conservative treatment including rest, hydration, Tylenol/ibuprofen as needed for fever and body aches, saline nasal spray, humidifier, [id number] cold medication. we discussed diagnosis of bronchitis, advised that symptoms may last for up to 6 weeks which is not uncommon, reviewed that many of these cases are in relation to viral infection, if she does not have improvement in her symptoms after the course of antibiotics she was advised to follow-up with her primary care provider as needed. discussed reasons to return back to the emergency department. All questions were answered. Patient discharged home in stable condition. Differential Diagnosis Differential Diagnoses: The differential diagnosis associated with the presentation includes ( As noted above) Admission/Observation Consideration of admission/observation: Escalation of care including admission/observation considered ( see narrative above) Lab Data MDM Lab Attestation statement: I reviewed the patient's lab results. Independent Interpretation I performed an independent interpretation of an: Plain X-Ray ( I personally interpreted x-ray and agree with radiologist impression.) Radiology Impression Discussion of test interpretation with radiology: I have reviewed the radiologist's reading. Radiologist Impression: XR/XR chest 2V IMPRESSION: No acute cardiopulmonary disease. External Record Review External record reviewed: Outpatient record Prescription Management I considered prescription management with: Antibiotic ( Already prescribed Augmentin) Discharge Plan Discharge Clinical Impression: Bronchitis Patient Disposition: Home, Self-Care Instructions: Acute Bronchitis (ED) Additional Instructions: as discussed, continue taking the Augmentin which is your antibiotic and the albuterol inhaler as needed. Bronchitis for some people may last up to 6 weeks, often times they are in relation to a viral infection in the antibiotics may not provide improvement because of this. If you develop any new or worsening symptoms or concerns you are welcome to return back to the emergency department. Otherwise I recommend that you follow-up with your primary care provider for any persistent symptoms. Prescriptions: No Action clobetasol 0.05 % cream 1 appl topical BID 5 Days Qty: 45 1RF citalopram 40 mg tablet 40 mg PO DAILY hydroxyzine HCl 25 mg tablet 25 mg PO TID PRN (Reason: anxiety) lorazepam 1 mg tablet 1 mg PO BID PRN (Reason: anxiety) amoxicillin-pot clavulanate 875-125 mg tablet 1 tab PO BID 10 Days Qty: 20 0RF albuterol sulfate [Ventolin HFA] 90 mcg/actuation HFA aerosol inhaler 2 puff inhalation Q6H PRN (Reason: shortness of breath or wheezing) 30 Days Qty: 8.5 0RF bupropion HCl 150 mg tablet extended release 24 hr 150 mg PO DAILY buspirone 10 mg tablet 10 mg PO TID tranexamic acid 650 mg tablet 1,300 mg PO TID 5 Days Qty: 30 2RF Rx Instructions: Start 1st day of menses and take it up to 3-5 days of menses. Referrals: Shayne Bangura MD [Primary Care Provider] -
[2023-01-28 13:46] LABS: Influenza A PCR NEGATIVE (Negative); Influenza B PCR NEGATIVE (Negative); Resp Syncy Virus RNA Qual PCR NEGATIVE (Negative); SARS COV2 PCR INHOUSE NEGATIVE (Negative)
== END 2023-01-28 13:30 | disposition home or self-care (01) ==
PROVIDERS: Physician Assistant; Emergency Provider Emergency Medicine; PCP Internal Medicine
DX: J40 Bronchitis, not specified as acute or chronic (principal); R06.02 Shortness of breath; Z20.822 Contact with and (suspected) exposure to COVID-19; Z20.828 Contact with and (suspected) exposure to other viral communicable diseases; Z79.899 Other long term (current) drug therapy
CPT/HCPCS: 0241U; 71046; 99283

== ENCOUNTER 2023-02-04 09:31 | Outpatient (AMB) | payer OTHER, SELFPAY ==
[2023-02-04 09:32] VITALS: BP 118/76; BMI 29.1
--- NOTE | 2023-02-04 09:32 | MHC.OFFVIS ---
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 The patient was diagnosed with vulvovaginitis candidiasis was treated with Terazol 0.8% q.h.s., then called back with severe irritation was treated with clobetasol b.i.d. for 5 days, her symptoms have improved markedly but still having some residual external irritation. In addition the patient is complaining of irregular menstrual cycles that started 2 months ago. Last co testing was in 06/13 was ascus/HPV positive, colpo biopsy was [facility] Medical History Pure hypercholesterolemia Overweight (BMI 25.0-29.9) Depression Anxiety ASCUS with positive high risk HPV Surgical History History of hernia repair History of cholecystectomy History of Family History Maternal Grandmother Pacemaker CVD (cardiovascular disease) Father Diabetes HTN (hypertension) Mother Asthma Paternal Grandmother Cancer Brother No problems noted. Family/Other Substance abuse Chronic mental illness Social History Housing: Apartment Unable to assess alcohol history related to: Unknown Alcohol intake: never Patient Tobacco Use Status: Never used Tobacco e-Cigarette/Vaping Use: Never Used service: No Current occupational status: unemployed Sexual orientation: Straight/Heterosexual Gender identity: Female Cognitive needs: No Hearing needs: No Vision needs: No Female Reproductive History Menstrual Age of Menarche: 12 Duration of menses: 6-7 days Date of last menstrual period: 01/28/23 control method: none Review of Systems Const All systems reviewed & are unremarkable except as noted in HPI and below Physical Exam Vital Signs: Last Vital Signs BP 118/76 02/04/23 09:32 BMI result Body Mass Index 29.1 General: Yes no CVA tenderness External Female Exam: normal external appearance and normal appearance of the urethra Speculum Exam - Vagina: normal appearance of the vagina, normal palpation, no lesions and no masses Speculum Exam - Cervix: normal appearance of the cervix, normal palpation, no lesions, no masses and nontender Bimanual exam- vagina & uterus: normal bimanual exam, normal palpation, uterine size normal, normal palpation, uterine shape normal, No Cervical tenderness present and non-tender Bimanual Exam- Adnexa, other: normal adnexae Back/Spine/Pelvis Back: no CVA tenderness Assessment & Plan Assessment & Plan (1) Vulvovaginitis michael albicans: Code(s): B37.31 - Acute candidiasis of vulva and vagina Plan: GC/CT, Bacterial Vaginosis panel taken, the cord was all 0.8% q.h.s. for 3 days with Lotrisone b.i.d. for 5 days was sent to the patient's pharmacy. The patient was instructed to call if symptoms don't improve in 48 hours. (2) Abnormal uterine bleeding (AUB): Code(s): N93.9 - Abnormal uterine and vaginal bleeding, unspecified Plan: GC and chlamydia taken CBC, TSH, HCG, and pelvic ultrasound ordered. Discussed with the patient the different causes of abnormal bleeding including thyroid disorders, uterine and ovarian pathology, endometrial hyperplasia, carcinoma and other potential causes. Discussed with the patient the work up including CBC (to r/o anemia), TSH, pelvic Ultrasound, endometrial biopsy to r/o endometrial pathology. All questions answered and the patient verbalized understanding. Instructed the patient to schedule an appointment for an endometrial biopsy in 2 weeks. Orders: Orders TSH reflex Free T4 Today N93.9 - Abnormal uterine and vaginal bleeding, unspecified Complete Blood Count no Diff Today N93.9 - Abnormal uterine and vaginal bleeding, unspecified US pelvic and transvaginal Today N93.9 - Abnormal uterine and vaginal bleeding, unspecified HCG Quantitative Today N93.9 - Abnormal uterine and vaginal bleeding, unspecified Prolactin Today N93.9 - Abnormal uterine and vaginal bleeding, unspecified Medications: New terconazole 0.8% 1 appful vaginal BEDTIME 20 grams 0RF 3 days clotrimazole-betamethasone 1-0.05 % 1 appl topical BID 45 grams 0RF 5 days Coding Level of Care Code Est Pt Level 3 (92646) Diagnoses Vulvovaginitis michael albicans B37.31 Abnormal uterine bleeding (AUB) N93.9
== END 2023-02-04 09:49 | disposition home or self-care (01) ==
PROVIDERS: PCP Internal Medicine; Visit Provider Obstetrics & Gynecology
DX: B37.31 Acute candidiasis of vulva and vagina (principal); N93.9 Abnormal uterine and vaginal bleeding, unspecified; Z32.02 Encounter for pregnancy test, result negative
CPT/HCPCS: 99213

== ENCOUNTER 2023-02-04 09:31 | Outpatient (REF) | payer OTHER, SELFPAY ==
[2023-02-05 10:21] LABS: CT PCR NOT DETECTED (Not Detect.); NG PCR NOT DETECTED (Not Detect.)
[2023-02-06 11:45] LABS: BV Int Neg Control Negative (Negative); BV Int Pos Control Positive (Positive)
== END 2023-02-04 09:32 | disposition home or self-care (01) ==
LOC: HO.LNP 09:31
PROVIDERS: PCP Internal Medicine; Visit Provider Obstetrics & Gynecology
DX: B37.31 Acute candidiasis of vulva and vagina (principal); N93.9 Abnormal uterine and vaginal bleeding, unspecified; Z32.00 Encounter for pregnancy test, result unknown
CPT/HCPCS: 0353U; 81025; 87480; 87510; 87660; 99212

== ENCOUNTER 2023-02-24 10:26 | Outpatient (REF) | payer OTHER, SELFPAY ==
[2023-02-24 13:05] LABS: Appearance Urine Cloudy; Color Urine Yellow; Glucose Urine UA Negative (Negative); Leukocyte Esterase Urine Small (1+) (Negative); Nitrite Urine Negative (Negative); Specific Gravity - Urine >= 1.030 (1.005-1.025); UMIC TRIGGER UACC YES; Urine Blood Trace (Negative); Urine Ketones Trace mg/dL (Negative); Urine Protein Negative (Neg-Trace)
[2023-02-24 13:08] LABS: Bacteria Urine 2+ (None Seen); Hyaline Casts Urine 0-2 /LPF (0-2); UACC Culture Trigger YES; WBC Urine 21-50 /HPF (0-5)
== END 2023-02-24 10:27 | disposition home or self-care (01) ==
LOC: HO.LAB 10:26
PROVIDERS: PCP Internal Medicine; Visit Provider Internal Medicine
DX: Z00.00 Encounter for general adult medical examination without abnormal findings (principal); R39.9 Unspecified symptoms and signs involving the genitourinary system
CPT/HCPCS: 81001; 81003; 87086

== ENCOUNTER 2023-03-07 | Outpatient (REF) | payer OTHER, SELFPAY | END 2023-03-07 00:01 | LOC: CF | PROVIDERS: PCP Internal Medicine; Visit Provider Nurse Practitioner Family | DX: R31.29 Other microscopic hematuria (principal); N83.202 Unspecified ovarian cyst, left side | CPT/HCPCS: 81003; 99202 ==

== ENCOUNTER 2023-03-07 13:54 | Outpatient (AMB) | payer OTHER, SELFPAY ==
--- NOTE | 2023-03-07 14:10 | MHC.OFFVIS ---
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 She states that she had Mirena IUD and once it was removed she states My body went crazy, PH levels are imbalanced She also states while on period she bleeds a lot and feels very weak She states she is not a smoker Allergies No Known Allergies [No Known Allergies*] Allergy (Verified 03/07/23 15:04) oxycodone Adverse Reaction (Mild, Uncoded 03/07/23 15:04) ineffective Medication List - Last Reconciled 03/07/23 by TISH Adrian-KRAIG albuterol sulfate 90 mcg/actuation (Ventolin HFA) 2 puffs inhalation Q6H PRN 30 days bupropion HCl 150 mg PO DAILY buspirone 30 mg PO BID citalopram mg PO clobetasol 0.05% 1 appl topical BID 5 days clotrimazole-betamethasone 1-0.05 % 1 appl topical BID 5 days hydroxyzine HCl 25 mg PO TID PRN hydroxyzine pamoate 25 mg PO BID lorazepam 1 mg PO BID PRN nitrofurantoin monohyd/m-cryst 100 mg (Macrobid) 100 mg PO Q12H 7 days terconazole 0.8% 1 appful vaginal BEDTIME 3 days tranexamic acid 1,300 mg (2 x 650 mg) PO TID 5 days HPI HPI Comments History of Present Illness Details Angelique is a very pleasant 38-year-old female patient of Dr. Fowler. 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 She presents to the office today as a new patient for microscopic hematuria. In discussion with the patient today she reports a longstanding history of microscopic hematuria. She denies any previous workup. When asked she does endorse to smoking cigarettes and recreational marijuana however states she does not consider herself a smoker as she does not smoke often. She discusses at length her laser technician issues with abnormal uterine bleeding and PCOS. She otherwise denies any urinary issues. When asked she denies urinary urgency, urinary frequency, incontinence, nocturia, visible hematuria, dysuria, foul smelling urine, changes to urinary stream, flank pain, fever, and or chills. She is happy with her current voiding parameters. Discussed at length potential causes for microscopic hematuria. Discussed further workup with urine cytology and in office cystoscopy. This was discussed at length. In review of patient's chart it appears CT urogram was ordered and performed. These results were reviewed with the patient today. The kidneys are normal in size shape and attenuation. No hydronephrosis, hydroureter, or calculi seen. The bladder is unremarkable. She also reports following up with laser technician for her ovarian cyst. She reports having had a scheduled appointment for a pelvic ultrasound today. In office urinalysis results reviewed with the patient today. 3+ microscopic hematuria otherwise within normal limits. She otherwise offers no other issues or concerns at this time. [facility] Medical History Pure hypercholesterolemia Overweight (BMI 25.0-29.9) Depression Anxiety ASCUS with positive high risk HPV Surgical History History of hernia repair History of cholecystectomy History of Family History Maternal Grandmother Pacemaker CVD (cardiovascular disease) Father Diabetes HTN (hypertension) Mother Asthma Paternal Grandmother Cancer Brother No problems noted. Family/Other Substance abuse Chronic mental illness Social History Housing: Apartment Unable to assess alcohol history related to: Unknown Alcohol intake: never Patient Tobacco Use Status: Never used Tobacco e-Cigarette/Vaping Use: Never Used service: No Current occupational status: unemployed Sexual orientation: Straight/Heterosexual Gender identity: Female Cognitive needs: No Hearing needs: No Vision needs: No Female Reproductive History Menstrual Age of Menarche: 12 Review of Systems Const Reports as per HPI Eyes Reports no additional complaints ENT Reports no additional complaints Card Reports as per HPI Resp Reports no additional complaints GI Reports no additional complaints Reports as per HPI Musc Reports no additional complaints Neuro Reports no additional complaints Psych Reports as per HPI Endo Reports no additional complaints Ravi/Lymph Reports no additional complaints Aller/Immun Reports no additional complaints Physical Exam Const General: cooperative, healthy appearing, comfortable, no acute distress, well developed, alert and awake Orientation/consciousness: patient oriented x3 Limitations: no limitations HEENT Head: Yes normal to inspection, Yes normocephalic and Yes atraumatic Ears: hearing grossly normal bilaterally Eyes General: appearance normal, both eyes and all related structures Neck Neck: Yes normal visual inspection and Yes trachea midline Chest Chest palpation & inspection: normal inspection of the chest Resp Effort & Inspection: normal respiratory effort and able to speak in complete sentences Cardio Rate: regular rate GI Inspection: Yes normal to inspection General: Yes no CVA tenderness Back/Spine/Pelvis Back: no CVA tenderness Skin General skin exam: no rashes or lesions noted Neuro General: patient oriented x3 Extrem General: Yes normal to inspection Psych Appearance: grossly normal and well kempt Mental Status: mental status grossly normal Speech and movement: Normal speech and movement present and Clear speech present Affect: normal affect Attitude: cooperative Thought process: Normal thought process present Thought content: Normal thought content present Insight: Fair insight present (Psych) Judgement: Fair judgement present (Psych) Results AMB Urinalysis, Automated UA Leukoctes 0 Bettye/uL Last Edit by Shikha Goyal [facility] on 03/07/23 14:25 UA Nitrite Negative Last Edit by Shikha Goyal [facility] on 03/07/23 14:25 UA Urobilinogen 0.2 mg/dL Last Edit by Shikha Goyal [facility] on 03/07/23 14:25 UA Protein 15 mg/dL Last Edit by Shikha Goyal [facility] on 03/07/23 14:25 UA pH 6.0 Last Edit by Shikha Goyal [facility] on 03/07/23 14:25 UA Blood 200 Yann/uL Last Edit by Shikha Goyal [facility] on 03/07/23 14:25 UA Specific [place] 1.030 Last Edit by Shikha Goyal [facility] on 03/07/23 14:25 UA Ketone Negative Last Edit by Shikha Goyal [facility] on 03/07/23 14:25 UA Bilirubin 0 mg/dL Last Edit by Shikha Goyal [facility] on 03/07/23 14:25 UA Glucose 0 mg/dL Last Edit by Shikha Goyal [facility] on 03/07/23 14:25 Results Reviewed Results Reviewed: Laboratory Last Values Urine pH (Auto) 6.0 03/07/23 14:16 Specific [place] (Auto) 1.030 03/07/23 14:16 Urine Protein (Auto) 15 mg/dL 03/07/23 14:16 Glucose (UA)(Auto) 0 mg/dL 03/07/23 14:16 Urine Ketones (Auto) Negative 03/07/23 14:16 Urine Blood (Auto) 200 Yann/uL 03/07/23 14:16 Urine Nitrite (Auto) Negative 03/07/23 14:16 Urine Bilirubin (Auto) 0 mg/dL 03/07/23 14:16 Urine Urobilinogen (Auto) 0.2 mg/dL 03/07/23 14:16 Leukocyte Esterase (Auto) 0 Bettye/uL 03/07/23 14:16 Date of Service: 12/15/22 EXAMINATION: CT ABDOMEN AND PELVIS WITH CONTRAST FINDINGS: LUNG BASES: The visualized lung bases are unremarkable. LIVER, GALLBLADDER, AND BILIARY TREE: The liver is normal in size, shape, and attenuation. No focal hepatic lesion is evident. Mild intrahepatic and extrahepatic biliary ductal dilatation is presumably related to prior cholecystectomy. PANCREAS: Unremarkable. SPLEEN: Unremarkable. ADRENAL GLANDS: Unremarkable. KIDNEYS AND URETERS: The kidneys are normal in size, shape, and attenuation. No hydronephrosis, hydroureter, or calculi seen. No perinephric stranding. BLADDER: Unremarkable. GASTROINTESTINAL TRACT: The small and large bowel are unremarkable. The appendix is unremarkable. ABDOMINAL WALL: No significant hernia is appreciated. LYMPH NODES: Normal. VASCULAR: Unremarkable. PELVIC VISCERA: Posterolateral to the left side of the uterus, there is a 6.1 x 3.1 cm cystic lesion inseparable from the left adnexa. The right ovary images normally. Endocervical nabothian cysts are present. There is a trace amount of free fluid in the cul-de-sac. OSSEOUS STRUCTURES: Mild thoracolumbar scoliosis is present. IMPRESSION: 1. Left adnexal 6.1 cm cyst, characterized by ultrasound as a simple appearing cyst. Best practice guidelines advocate for a follow-up ultrasound in 6-12 months unless symptoms warrant more prominent evaluation. Note that the cyst is stable since ultrasound of 12/07/2022 but new since ultrasound of 08/20/2022. 2. Incidental findings include: surgically absent gallbladder with mild associated biliary ductal dilatation; endocervical nabothian cyst formation; and mild thoracolumbar scoliosis. Assessment & Plan Assessment & Plan (1) Microscopic hematuria: Code(s): R31.29 - Other microscopic hematuria Plan In office urinalysis results reviewed with the patient today; as noted above; will send for urine cytology. Discussed at length potential causes for microscopic hematuria Discussed further microscopic hematuria with in office cystoscopy for further assessment evaluation. Recent CT urogram results reviewed with the patient today; as noted above. Continue to follow with laser technician as recommended She currently denies any bothersome urinary issues. She reports be happy with current voiding parameters. Discussed, educated, and stressed the importance of drinking plenty of water daily. Follow-up in 6 months; or sooner with any issues, concerns, and or questions. Orders: Orders Urine Cytology Today R31.29 - Other microscopic hematuria AMB Urinalysis Automated Today R31.29 - Other microscopic hematuria, Z13.9 - Encounter for screening, unspecified Patient Instructions: The patient had an opportunity to ask questions regarding the treatment plan. All questions were answered. Physical exam, labs, and imaging were discussed and reviewed in detail. As well as risks, benefits, and discussion of treatment choices. No major barriers to understanding were identified. The patient expressed understanding and agreement with the above treatment plan. The patient was made aware they should contact our office by phone for worsening of their current condition, the appearance of new symptoms, or with any questions or concerns. Compliance is encouraged with any medications and follow up testing that is ordered. It is a privilege to be allowed the opportunity to participate in? your urological care.? Again, if you have any questions or concerns If you have any questions or concerns please do not hesitate to contact me. The office is [phone]. This note is constructed using voice recognition software. While every effort has been made to ensure accuracy senior caregiver errors may have been included. Yours sincerely, QUYNH Adrian Coding Level of Care Code New Pt Level 3 (10519) Diagnoses Microscopic hematuria R31.29
== END 2023-03-07 15:05 | disposition home or self-care (01) ==
PROVIDERS: PCP Family Medicine; Visit Provider Nurse Practitioner Family
DX: Z13.9 Encounter for screening, unspecified (principal); R31.29 Other microscopic hematuria
CPT/HCPCS: 99203

== ENCOUNTER 2023-03-07 14:28 | Outpatient (REF) | payer OTHER, SELFPAY ==
[2023-03-07 16:31] LABS: Urine Cytology See Pathology rpt
== END 2023-03-07 14:29 | disposition home or self-care (01) ==
LOC: HO.LAB 14:28
PROVIDERS: Visit Provider Nurse Practitioner Family
DX: R31.29 Other microscopic hematuria (principal)
CPT/HCPCS: 88112

== ENCOUNTER 2023-04-08 10:24 | Outpatient (REF) | payer OTHER, SELFPAY ==
--- NOTE | ~2023-04-08 | US_ITS ---
EXAMINATION: US PELVIS WITH TRANSVAGINAL CLINICAL INFORMATION: Ovarian cyst, last menstrual period mid February 2023. COMPARISON: None available. TECHNIQUE: Ultrasound of the pelvis is performed using both transabdominal and transvaginal transducers along with Doppler. Transvaginal imaging is performed due to inadequate visualization transabdominally. FINDINGS: The uterus measures 7.6 x 5.2 x 6.0 cm. No discrete fibroids appreciated. Endometrial thickness is 18 mm. Small amount of free fluid. Right ovary measures 3.3 x 2.1 x 3.3 cm, volume 11.9 mL. Right ovarian 1.8 x 1.3 x 1.5 cm cyst with thick pearce, characteristic of a corpus luteum. Previous study demonstrated a 1.9 x 1.8 x 1.8 cm follicle. Left ovary measures 3.0 x 1.7 x 2.7 cm, volume 7.2 mL. The left ovary is unremarkable in echogenicity. US/US pelvic and transvaginal IMPRESSION: 1. Endometrial thickness is 18 mm. 2. Right ovarian 1.8 cm cyst with thick pearce, characteristic of a corpus luteum was not previously identified, likely physiologic. There is no specific evidence for follow-up imaging and management should be based on the clinical assessment. 3. Small amount of free fluid.
[2023-04-08 10:39] LABS: MANUAL DIFF FLAG NO
[2023-04-08 11:46] LABS: Appearance Urine Clear; Color Urine Yellow; Glucose Urine UA Negative (Negative); Leukocyte Esterase Urine Trace (Negative); Nitrite Urine Negative (Negative); PH 5.5 (5.0-9.0); Specific Gravity - Urine >= 1.030 (1.005-1.025); UMIC TRIGGER UACC YES; Urine Blood Trace (Negative); Urine Ketones Trace mg/dL (Negative); Urine Protein Negative (Neg-Trace)
[2023-04-08 11:56] LABS: Bacteria Urine Trace (None Seen); Calcium Oxalate Crystals Urine Present; Hyaline Casts Urine 0-2 /LPF (0-2); RBC Urine 0-2 /HPF (0-2); WBC Urine 0-5 /HPF (0-5)
[2023-04-08 12:23] LABS: Basophils Absolute Auto 0.1 X10*3/uL (0.0-0.2); Basophils Percent Auto 0.9 % (0-2); Eosinophils Absolute Auto 0.1 X10*3/uL (0.0-0.4); Eosinophils Percent Auto 1.4 % (0-4); Hematocrit 41.1 % (37.0-47.0); Hemoglobin 13.2 g/dl (12.0-16.0); Imm Gran Abs Auto 0.05 X10*3/uL (0.00-0.03); Imm Gran Pct Auto 0.5 % (0.0-0.4); Lymphocytes Absolute Auto 2.1 X10*3/uL (1.2-4.9); Lymphocytes Percent Auto 22.1 % (20-40); Mean Corpuscular HGB Conc 32.1 g/dl (31.0-35.0); Mean Corpuscular Hemoglobin 27.5 pg (27.0-33.0); Mean Corpuscular Volume 85.6 fL (80.0-98.0); Mean Platelet Volume 10.1 fL (9.4-12.3); Monocytes Absolute Auto 0.9 X10*3/uL (0.1-1.2); Monocytes Percent Auto 9.6 % (2-11); Neutrophils Absolute Auto 6.2 x10*3/uL (2.0-8.3); Neutrophils Percent Auto 65.5 % (45-73); Platelet Count 470 X10*3/uL (160-400); Red Cell Distribution Width 13.7 % (11.0-16.0); White Blood Count 9.4 X10*3/uL (4.8-10.8)
[2023-04-08 12:42] LABS: HCG Quantitative < 2 mIU/mL; TSH reflex Free T4 2.51 uIU/mL (0.32-4.0)
[2023-04-09 08:53] LABS: Prolactin 12.5 ng/mL
== END 2023-04-08 10:25 | disposition home or self-care (01) ==
LOC: HO.US 10:24
PROVIDERS: Absent Provider Internal Medicine; PCP Internal Medicine; Visit Provider Obstetrics & Gynecology
DX: D64.9 Anemia, unspecified (principal); N93.9 Abnormal uterine and vaginal bleeding, unspecified; N83.202 Unspecified ovarian cyst, left side
CPT/HCPCS: 36415; 76830; 76856; 81001; 84146; 84443; 84702; 85025

== ENCOUNTER 2023-04-12 13:27 | Outpatient (AMB) | payer OTHER, SELFPAY ==
--- NOTE | 2023-04-12 13:38 | A.OFFVIS_ITS ---
Intake Vital Signs 04/12/23 13:43 BP 112/70 Intake Visit Reasons: Vaginal irritation Intake Note: pt c/o vaginal discharge Armored Transport Service Manager: Armored Transport Service Manager Present (Donna) Allergies No Known Allergies [No Known Allergies*] Allergy (Verified 04/12/23 13:38) oxycodone Adverse Reaction (Mild, Uncoded 03/07/23 15:04) ineffective Is last menstrual period known: Yes Last menstrual period: 04/10/23 HPI HPI Comments History of Present Illness Details Patient is here today with complaints of increased vaginal discharge occasionally green in color productive most of the month. She feels frustrated that she gets a reoccurrence of bacteria in the last infection was a yeast she admits most likely due to her trying to remedy self care at home by douching. She has currently not sexually active. She denies any pelvic pain or urinary symptoms. She denies any odors or external itching or burning. Currently she has her menstrual cycle today. She feels ever since she took off her Mirena IUD she has had the symptoms of vaginal discharge. [facility] Medical History Pure hypercholesterolemia Overweight (BMI 25.0-29.9) Depression Anxiety ASCUS with positive high risk HPV Surgical History History of hernia repair History of cholecystectomy History of Family History Maternal Grandmother Pacemaker CVD (cardiovascular disease) Father Diabetes HTN (hypertension) Mother Asthma Paternal Grandmother Cancer Brother No problems noted. Family/Other Substance abuse Chronic mental illness Social History Housing: Apartment Unable to assess alcohol history related to: Unknown Alcohol intake: never Patient Tobacco Use Status: Never used Tobacco e-Cigarette/Vaping Use: Never Used service: No Current occupational status: unemployed Sexual orientation: Straight/Heterosexual Gender identity: Female Cognitive needs: No Hearing needs: No Vision needs: No Female Reproductive History Menstrual Age of Menarche: 12 Date of last menstrual period: 04/10/23 Review of Systems Const All systems reviewed & are unremarkable except as noted in HPI and below Physical Exam Vital Signs: Last Vital Signs BP 112/70 04/12/23 13:43 Const General: cooperative, healthy appearing and no acute distress Orientation/consciousness: patient oriented x3 GI Inspection: Yes normal to inspection Palpation (GI): Soft to palpation and Other GI palpation findings present (Nontender) Rectal Exam - Female: visual inspection normal General: Yes bladder normal to palpation External Female Exam: normal appearance of the urethra Speculum Exam - Vagina: normal appearance of the vagina, normal palpation, normal vaginal discharge and vaginal bleeding Speculum Exam - Cervix: normal appearance of the cervix and normal palpation Bimanual exam- vagina & uterus: normal bimanual exam, normal palpation, uterine size normal, bladder normal to palpation, normal palpation, uterine shape normal and non-tender Bimanual Exam- Adnexa, other: normal adnexae OB/external & speculum: vaginal bleeding Neuro General: patient oriented x3 Assessment & Plan Assessment & Plan (1) Vaginal discharge: Code(s): N89.8 - Other specified noninflammatory disorders of vagina Plan BV and GC chlamydia obtained today. Await results for plan of care. Discussed chronic BV, pH balance, [id number] self-help measures including products like refresh or use of boric acid capsules. Handout on boric acid g iven today. Patient is going to research products available by going to rapid audible web sites and comparison reviews of products. All of her questions and concerns were addressed to the best of my ability and shared decision making. She is agreeable to the plan of care. This note is constructed using voice recognition software. While every effort has been made to ensure accuracy, mattress inspector errors may have been included. Orders: Orders Bacterial Vaginosis Panel Today N89.8 - Other specified noninflammatory disorders of vagina CT NG by PCR Today N89.8 - Other specified noninflammatory disorders of vagina Coding Level of Care Code Est Pt Level 3 (66345) Diagnoses Vaginal discharge N89.8
[2023-04-12 13:43] VITALS: BP 112/70
== END 2023-04-12 14:24 | disposition home or self-care (01) ==
LOC: HO.HWS 13:27
PROVIDERS: PCP Internal Medicine; Visit Provider Advanced Practice Midwife
DX: N89.8 Other specified noninflammatory disorders of vagina (principal)
CPT/HCPCS: 99213

== ENCOUNTER 2023-04-12 13:27 | Outpatient (REF) | payer OTHER, SELFPAY ==
[2023-04-13 12:59] LABS: CT PCR NOT DETECTED (Not Detect.); NG PCR NOT DETECTED (Not Detect.)
[2023-04-14 11:34] LABS: BV Int Neg Control Negative (Negative); BV Int Pos Control Positive (Positive)
== END 2023-04-12 13:28 | disposition home or self-care (01) ==
LOC: HO.LAB 13:27
PROVIDERS: PCP Internal Medicine; Visit Provider Advanced Practice Midwife
DX: N89.8 Other specified noninflammatory disorders of vagina (principal)
CPT/HCPCS: 0353U; 87480; 87510; 87660; 99212

== ENCOUNTER 2023-04-12 14:04 | Outpatient (REF) | payer OTHER, SELFPAY | END 2023-04-12 14:05 | disposition home or self-care (01) | LOC: HO.LNP 14:04 | PROVIDERS: Visit Provider Advanced Practice Midwife | DX: Z13.89 Encounter for screening for other disorder (principal) ==

== ENCOUNTER 2023-04-26 10:50 | Outpatient (REF) | payer OTHER, SELFPAY | END 2023-04-26 10:51 | disposition home or self-care (01) | LOC: HO.LNP 10:50 | PROVIDERS: PCP Internal Medicine; Visit Provider Obstetrics & Gynecology | DX: N93.9 Abnormal uterine and vaginal bleeding, unspecified (principal); R30.0 Dysuria; N39.0 Urinary tract infection, site not specified; Z32.02 Encounter for pregnancy test, result negative | CPT/HCPCS: 58100; 81002; 81025; 87086; 87147; 88305; 99212 ==

== ENCOUNTER 2023-04-26 12:54 | Outpatient (AMB) | payer OTHER, SELFPAY ==
[2023-04-26 13:29] VITALS: BP 111/68; BMI 29.1
--- NOTE | 2023-04-26 13:29 | MHC.OFFVIS ---
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 Accompanied by: Self / Same As Patient Allergies No Known Allergies [No Known Allergies*] Allergy (Verified 04/26/23 13:30) oxycodone Adverse Reaction (Mild, Uncoded 03/07/23 15:04) ineffective Is last menstrual period known: Yes Last menstrual period: 04/15/23 Post menopausal: No Patient : No HPI HPI Comments History of Present Illness Details Presenting for EMB complaining of burning urination and urinary frequency PFSH Medical History Pure hypercholesterolemia Overweight (BMI 25.0-29.9) Depression Anxiety ASCUS with positive high risk HPV Surgical History History of hernia repair History of cholecystectomy History of Family History Maternal Grandmother Pacemaker CVD (cardiovascular disease) Father Diabetes HTN (hypertension) Mother Asthma Paternal Grandmother Cancer Brother No problems noted. Family/Other Substance abuse Chronic mental illness Social History Housing: Apartment Unable to assess alcohol history related to: Unknown Alcohol intake: never Patient Tobacco Use Status: Never used Tobacco e-Cigarette/Vaping Use: Never Used Patient : No service: No Current occupational status: unemployed Sexual orientation: Straight/Heterosexual Gender identity: Female Cognitive needs: No Hearing needs: No Vision needs: No Female Reproductive History Menstrual Age of Menarche: 12 Date of last menstrual period: 04/15/23 Physical Exam Vital Signs: Last Vital Signs BP 111/68 04/26/23 13:29 BMI result Body Mass Index 29.1 Office Procedures Endometrial Biopsy Details: The patient was counseled regarding the indication and benefits of endometrial sampling to rule out endometrial pathology including not limited to endometrial hyperplasia or endometrial cancer and others; The alternatives (Either do nothing vs. hysteroscopy D&C) & the risks were discussed with the patient including but not limited: pain, uterine perforation, bleeding, infection, possible injury to bladder, bowel, ureter, possible need for blood transfusion with all its possible risks. The patient verbalized understanding all questions answered and signed consent. Urine test done in the office was negative The patient was placed into the dorsal lithotomy position; a speculum was inserted in the vagina. Using aseptic technique for the procedure, the cervix was cleansed with Betadine. The anterior lip of the cervix was grasped with a single tooth tenaculum. The uterus was sounded to 7 cm with a 4 mm Pipelle was used. Tissues samples were obtained and placed in formalin, in a patient labeled container and sent to the pathology department. At the end of the procedure, there was minimal bleeding noted The patient tolerated the procedure well and was discharged in good condition with the following instructions: Nothing in the vagina until the bleeding stops. No sex until the bleeding stops, to call if any of the following occurs: fever (>100.4), flu-like symptoms, abdominal pain, heavy bleeding, four smelling vaginal discharge. The patient was instructed to schedule a Follow up appointment in 2 weeks to discuss pathology results of the biopsy and treatment options. This note was generated with a voice recognition program. Some errors may have been overlooked during the review of this note. Sometimes these errors may affect the content or meaning of a given sentence. [id number] Biopsy Results AMB Urinalysis Dipstick UR Leukocytes Last Edit by Enid Groves MA on 04/26/23 13:57 125 Enid Groves 04/26/23 13:57 UR Nitrite Negative Last Edit by Enid Groves MA on 04/26/23 13:57 UR Urobilinogen 4 Last Edit by Enid Groves MA on 04/26/23 13:57 UR Protein Negative Last Edit by Enid Groves MA on 04/26/23 13:57 UR Ph 6.0 Last Edit by Enid Groves MA on 04/26/23 13:57 UR Blood Last Edit by Enid Groves MA on 04/26/23 13:57 + 10 VIET/ul Enid Groves 04/26/23 13:57 UR Specific [place] 1.020 Last Edit by Enid Groves MA on 04/26/23 13:57 UR Ketone Negative Last Edit by Enid Groves MA on 04/26/23 13:57 UR Bilirubin Negative Last Edit by Enid Groves MA on 04/26/23 13:57 UR Glucose Negative Last Edit by Enid Groves MA on 04/26/23 13:57 AMB Test Urine AMB Test Urine Negative Last Edit by Enid Groves MA on 04/26/23 13:58 Assessment & Plan Assessment & Plan (1) UTI (urinary tract infection): Code(s): N39.0 - Urinary tract infection, site not specified Plan: Urine dip showed microscopic hematuria, will send urine for culture and treat with Macrobid 100 mg p.o. b.i.d. for 5 days. Instructions given the patient to call if symptoms not improved, fever above 100.4, flank pain. All questions answered, the patient verbalized understanding. (2) Abnormal uterine bleeding (AUB): Code(s): N93.9 - Abnormal uterine and vaginal bleeding, unspecified Plan: EMB done, see procedure note Orders: Orders AMB Urinalysis Dipstick Today R30.0 - Dysuria AMB HCG Urine Test Today Z32.02 - Encounter for test, result negative AMB Endometrial Biopsy Today N93.9 - Abnormal uterine and vaginal bleeding, unspecified Urine Culture Today R30.0 - Dysuria Medications: New nitrofurantoin monohyd/m-cryst 100 mg (Macrobid) 100 mg PO BID 10 caps 0RF 5 days Coding Level of Care Code Est Pt Level 3 (64069) Procedure Only Diagnoses UTI (urinary tract infection) N39.0 Abnormal uterine bleeding (AUB) N93.9 CPT Codes Endometrial Biopsy - CPT: 30654-[id number] Biopsy ([id number])
== END 2023-04-26 14:55 | disposition home or self-care (01) ==
PROVIDERS: PCP Internal Medicine; Visit Provider Obstetrics & Gynecology
DX: N39.0 Urinary tract infection, site not specified (principal); R30.0 Dysuria; N93.9 Abnormal uterine and vaginal bleeding, unspecified; Z32.02 Encounter for pregnancy test, result negative
CPT/HCPCS: 58100; 99213

== ENCOUNTER 2023-05-04 13:32 | Outpatient (AMB) | payer OTHER, SELFPAY ==
[2023-05-04 13:35] VITALS: BP 116/78; PULSE 92; O2SAT 98; BMI 25.8
--- NOTE | 2023-05-04 13:35 | A.OFFPC_ITS ---
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: No Accompanied by: Self / Same As Patient Allergies No Known Allergies [No Known Allergies*] Allergy (Verified 05/04/23 14:10) oxycodone Adverse Reaction (Mild, Uncoded 05/04/23 14:10) ineffective Medication List - Last Reconciled 05/04/23 by Shayne Bangura MD albuterol sulfate 90 mcg/actuation (Ventolin HFA) 2 puffs inhalation Q6H PRN 30 days bupropion HCl 150 mg PO DAILY buspirone 30 mg PO BID citalopram 20 mg PO DAILY clobetasol 0.05% 1 appl topical BID 5 days clotrimazole-betamethasone 1-0.05 % 1 appl topical BID 5 days hydroxyzine HCl 25 mg PO TID PRN hydroxyzine pamoate 25 mg PO BID lorazepam 1 mg PO BID PRN terconazole 0.8% 1 appful vaginal BEDTIME 3 days tranexamic acid 1,300 mg (2 x 650 mg) PO TID 5 days Tobacco use date assessed: 05/04/23 Dental Screening Dental Screen Date: 05/04/23 Did you have a dental visit in the last 12 months?: Yes Did you have a dental problem in the last 6 months where you did not have access to dental care?: No Was dental information given to patient?: Patient has dentist HPI hyperlipidemia HPI Details Patient comes in today for her follow up visit States that she feels okay but is still experiencing some burning sensation on urination and some urinary frequency Was seen by Dr. Wild last week and treated with Macrobid, which she just finished a couple of days ago She denies any headaches or dizziness Denies any chest pains, no SOB No nausea/vomiting, no abdominal pain No change in bowel habits noted Would like to know how she did on her labs done back in January 2023, including her cholesterol levels and her HIV test [facility] Medical History Pure hypercholesterolemia Overweight (BMI 25.0-29.9) Depression Anxiety ASCUS with positive high risk HPV Surgical History History of hernia repair History of cholecystectomy History of Family History Maternal Grandmother Pacemaker CVD (cardiovascular disease) Father Diabetes HTN (hypertension) Mother Asthma Paternal Grandmother Cancer Brother No problems noted. Family/Other Substance abuse Chronic mental illness Social History Housing: Apartment Unable to assess alcohol history related to: Unknown Alcohol intake: never Patient Tobacco Use Status: Never used Tobacco e-Cigarette/Vaping Use: Never Used service: No Current occupational status: unemployed Sexual orientation: Straight/Heterosexual Gender identity: Female Cognitive needs: No Hearing needs: No Vision needs: No Female Reproductive History Menstrual Age of Menarche: 12 Questionnaire PHQ-9 Over the last 2 weeks, how often have you been bothered by any of the following problems? 1. Little interest or pleasure in doing things: not at all 2. Feeling down, depressed, or hopeless: not at all 3. Trouble falling or staying asleep, or sleeping too much: not at all 4. Feeling tired or having little energy: not at all 5. Poor appetite or overeating: not at all 6. Feeling bad about yourself - or that you are a failure or have let yourself o r your family down: not at all 7. Trouble concentrating on things, such as reading the newspaper or watching television: not at all 8. Moving or speaking so slowly that other people could have noticed. Or the opposite - being so fidgety or restless that you have been moving around a lot more than usual: not at all 9. Thoughts that you would be better off or of hurting yourself in some way: not at all Total score: 0 Depression Screening Interpretation: Negative (is on Rx) Depression Screening Done: Yes 72769 - PHQ-9 Billing: Yes Source: Developed by Drs. Marshall Keane, Yas Isaac, Francisco Lynch and colleagues, with an educational rosy from [employer]. Thrive Questionnaire Date Thrive assessed: 05/04/23 I am a: Patient What is your living situation today?: I have a steady place to live Within the past 12 months, did the food you bought not last and you didn't have the money to get more?: Never true Within the past 12 months, did you worry whether your food would run out before you got money to buy more?: Never true Do you have trouble paying for medicines?: No Do you have trouble getting transportation to medical appointments?: No Do you have trouble paying your heating and electricity bill?: No Do you have trouble taking care of your child, family member or friend?: No Do you have trouble with day-to-day activities such as bathing, preparing meals, shopping, managing finances, etc.?: No Are you currently unemployed and looking for a job?: No Are you interested in more education?: No Please select the resources that you would like help with: None Currently or been in a relationship where the following occur: no concerns reported THRIVE Score: 0 AUDIT C Alcohol Use Questionnaire (AUDIT-C) 1. How often do you have a drink containing alcohol?: Never 3. How often do you have six or more drinks on one occasion?: Never Total Score: 0 Score Reviewed/Action Taken: Yes CATY-7 AMB Questionnaire CATY-7 Date CATY - 7 assessed: 05/04/23 Feeling nervous, anxious, or on edge: 0 = Not at all Not being able to stop or control worryin = Not at all Worrying too much about different things: 0 = Not at all Trouble relaxin = Not at all Being so restless that it is hard to sit still: 0 = Not at all Becoming easily annoyed or irritable: 0 = Not at all Feeling afraid as if something awful might happen: 0 = Not at all Total CATY-7 score (0-4 normal; 5-9 mild; 10-14 moderate; 15-21 severe): 0 Source: Developed by Drs. Marshall Keane, Yas Isaac, Francisco Lynch and colleagues, with an educational rosy from [employer]. Review of Systems Const Denies fatigue, Denies fever(s) and Denies headache(s) ENT Denies dysphagia, Denies dizziness, Denies otalgia, Denies headache(s), Denies neck pain, Denies odynophagia and Denies sore throat Card Denies chest pain, Denies rapid heart rate, Denies irregular heart rhythm, Denies palpitations and Denies dyspnea Resp Denies cough, Denies dyspnea and Denies wheezing GI Denies abdominal pain, Denies constipation, Denies dysphagia, Denies heartburn, Denies diarrhea, Denies nausea, Denies odynophagia and Denies vomiting Denies hematuria, Denies urinary frequency, Reports dysuria (mild, at times) and Denies urinary incontinence Musc Denies back pain, Denies arthralgias and Denies neck pain Skin/Breast Denies rash Neuro Denies dizziness, Denies headache(s) and Denies paresthesias Psych Reports anxiety (current Rx helping) and Denies depression Endo Denies fatigue and Denies palpitations Aller/Immun Denies wheezing Physical exam (Primary Care) Vital Signs: Last Vital Signs Pulse 92 05/04/23 13:35 BP 116/78 05/04/23 13:35 Pulse Ox 98 05/04/23 13:35 Oxygen Delivery Method Room Air 05/04/23 13:35 BMI result Body Mass Index 25.8 Tobacco/Smoking Status: Tobacco use Status Tobacco use date assessed 05/04/23 05/04/23 13:41 Patient Tobacco Use Status Never used Tobacco 05/04/23 13:41 e-Cigarette/Vaping Use Never Used 05/04/23 13:41 PHQ-9: PHQ-9 Score PHQ-9: Total score 0 05/04/23 14:13 Depression Screening Interpretation: Negative (is on Rx) Thrive Assessment: Date of Thrive Assessment Date Thrive assessed 05/04/23 05/04/23 13:41 Currently or been in a relationship where the following occur: no concerns reported Const General: no acute distress and alert HENMT Ears: TM's normal bilaterally and EAC's normal Throat: Yes posterior oropharynx normal and Yes tonsils normal (no TP congestion) Neck Neck: Yes no lymphadenopathy and Yes supple Thyroid: Thyroid normal Resp Auscultation: clear to auscultation bilaterally, no rales and no wheezes Cardio Rate: regular rate Rhythm: regular rhythm Heart sounds: no murmurs GI Palpation (GI): Soft to palpation and nontender Auscultation: normal bowel sounds General: Yes no CVA tenderness Back/Spine/Pelvis Back: no CVA tenderness Thoracic/Lumbar Spine: thoracic and lumbar spine normal to inspection Skin Rashes: no rashes Extrem General: Yes no clubbing, cyanosis or edema Results AMB Urinalysis, Automated UA Leukoctes 0 Bettye/uL Last Edit by Radha Springer on 05/04/23 14:15 UA Nitrite Negative Last Edit by Radha Springer on 05/04/23 14:15 UA Urobilinogen 0 mg/dL Last Edit by Radha Springer on 05/04/23 14:15 UA Protein 0 mg/dL Last Edit by Radha Springer on 05/04/23 14:15 UA pH 6.0 Last Edit by Radha Springer on 05/04/23 14:15 UA Blood 1 Yann/uL Last Edit by Radha Springer on 05/04/23 14:15 UA Specific [place] 1.030 Last Edit by Radha Springer on 05/04/23 14:15 UA Ketone Negative Last Edit by Radha Springer on 05/04/23 14:15 UA Bilirubin 0 mg/dL Last Edit by Radha Springer on 05/04/23 14:15 UA Glucose 0 mg/dL Last Edit by Radha Springer on 05/04/23 14:15 Results Reviewed Results Reviewed: Laboratory Tests 01/25/23 01/25/23 04/08/23 17:34 17:34 10:39 WBC 9.4 Hgb Hct Plt Count Sodium 139 Potassium 3.9 Creatinine 0.72 Estimated GFR > 60 Fasting Glucose 95 Calcium 9.6 AST 17 ALT 13 Triglycerides 109 Cholesterol 227 H LDL Cholesterol, Calc 150 H HDL Cholesterol 56 25-OH Vitamin D Total 38.1 TSH 1.95 04/08/23 10:39 WBC Hgb 13.2 Hct 41.1 Plt Count 470 H Sodium Potassium Creatinine Estimated GFR Fasting Glucose Calcium AST ALT Triglycerides Cholesterol LDL Cholesterol, Calc HDL Cholesterol 25-OH Vitamin D Total TSH Assessment and Plan Assessment & Plan (1) Pure hypercholesterolemia: Code(s): E78.00 - Pure hypercholesterolemia, unspecified Plan: Results of her labs done back in January 2023 reviewed and discussed with patient - advised that her cholesterol numbers are still elevated and have not really improved much from her numbers in 2019 Reinforced low cholesterol diet - low cholesterol diet info provided to patient Will recheck her fasting lipids and labs in 6 months for follow up (2) Elevated TSH: Code(s): R79.89 - Other specified abnormal findings of blood chemistry Plan: Her serum TSH was elevated back in July 2022 although this has trended back to normal on subsequent labs Repeat TSH in January 2023 remained normal and patient appears clinically euthyroid (3) Dysuria: Code(s): R30.0 - Dysuria Plan: She is reassured that her in-office urinalysis done today is normal She just finished the 7 days' course of Macrobid that was prescribed for her by gynecology She is encouraged to increase her oral fluid intake often and consistently (4) Anxiety: Code(s): F41.9 - Anxiety disorder, unspecified Plan: Continue Buspirone 10 mg TID, Bupropion 150 mg QD, Citalopram 20 mg QD, Hydroxyzine 25 mg TID PRN and Lorazepam 1 mg BID PRN Patient states that she often just takes all of her current meds on an as-needed basis as she tends to get very sleepy or drowsy when she takes these Rx Follow up with psychiatry as scheduled - states that her psychiatrist is aware that she just takes her meds PRN (5) Depression: Code(s): F32.9 - Major depressive disorder, single episode, unspecified Qualifiers: Depression Type: major depressive disorder Major depression recurrence: recurrent Active/Remission status: currently active Major depression episode severity: unspecified Qualified Code(s): F33.9 - Major depressive disorder, recurrent, unspecified Plan: Continue Citalopram 20 mg QD PRN and Bupropion 150 mg QD PRN Follow up with psychiatry as scheduled Plan She is also reassured that her HIV test done a few months ago came out negative Follow up in 6 months Orders: Orders Comprehensive [place]. Panel Fast 6 Months E78.00 - Pure hypercholesterolemia, unspecified Lipid Panel 6 Months E78.00 - Pure hypercholesterolemia, unspecified Complete Blood Count Auto Diff 6 Months D64.9 - Anemia, unspecified TSH reflex Free T4 6 Months E78.00 - Pure hypercholesterolemia, unspecified UA CC w/rflx Micro + Cult 6 Months R30.0 - Dysuria Vitamin D 25-OH Total 6 Months E55.9 - Vitamin D deficiency, unspecified AMB Urinalysis Automated Today Z13.9 - Encounter for screening, unspecified Coding Level of Care Code Est Pt Level 4 (27691) Diagnoses Pure hypercholesterolemia E78.00 Elevated TSH R79.89 Dysuria R30.0 Anxiety F41.9 Episode of recurrent major depressive disorder, unspecified depression episode severity F33.9 Depression Type: major depressive disorder Major depression recurrence: recurrent Active/Remission status: currently active Major depression episode severity: unspecified
== END 2023-05-04 14:24 | disposition home or self-care (01) ==
PROVIDERS: PCP Family Medicine; Visit Provider Internal Medicine
DX: E78.00 Pure hypercholesterolemia, unspecified (principal); F33.9 Major depressive disorder, recurrent, unspecified; R79.89 Other specified abnormal findings of blood chemistry; R30.0 Dysuria; F41.9 Anxiety disorder, unspecified
CPT/HCPCS: 81003; 99214

== ENCOUNTER 2023-07-05 15:19 | Outpatient (AMB) | payer OTHER, SELFPAY ==
--- NOTE | 2023-07-05 15:21 | MHC.OFFVIS ---
Vital Signs 07/05/23 15:24 Height 5 ft 5 in Weight 154 lb 5.177 oz BMI 25.7 BP 118/74 Intake Visit Reasons: emb results Asp Net Developer Required: No Information Interpreted: non-clinical & clinical Accompanied by: Self / Same As Patient Allergies No Known Allergies [No Known Allergies*] Allergy (Verified 07/05/23 15:26) oxycodone Adverse Reaction (Mild, Uncoded 07/05/23 15:26) ineffective Is last menstrual period known: Yes HPI Comments Details: The patient is presenting for follow-up to discuss the results of her abnormal uterine bleeding workup and options of treatment. The patient had dysuria urine dip showed microscopic hematuria urine culture showed group B strep was treated with nitrofurantoin The following workup was done.: H&H= 13.2/41.1 TSH, prolactin, hCG, GC and chlamydia were negative. Endometrial biopsy pathology showed proliferative endometrium with no evidence of hyperplasia and/or malignancy. Co testing was done in 06/13 ascus/HPV positive, colpo/biopsy/ECC showed CORRINA 1 Pelvic ultrasound showed the following: IMPRESSION: 1. Endometrial thickness is 18 mm. 2. Right ovarian 1.8 cm cyst with thick pearce, characteristic of a corpus luteum was not previously identified, likely physiologic. There is no specific evidence for follow-up imaging and management should be based on the clinical assessment. 3. Small amount of free fluid. [facility], [facility] Medical History Pure hypercholesterolemia Overweight (BMI 25.0-29.9) Depression Anxiety ASCUS with positive high risk HPV Surgical History History of hernia repair History of cholecystectomy History of Family History Maternal Grandmother Pacemaker CVD (cardiovascular disease) Father Diabetes HTN (hypertension) Mother Asthma Paternal Grandmother Cancer Brother No problems noted. Family/Other Substance abuse Chronic mental illness Social History Housing: Apartment Unable to assess alcohol history related to: Unknown Alcohol intake: never Patient Tobacco Use Status: Never used Tobacco e-Cigarette/Vaping Use: Never Used service: No Current occupational status: unemployed Sexual orientation: Straight/Heterosexual Gender identity: Female Cognitive needs: No Hearing needs: No Vision needs: No Female Reproductive History Menstrual Age of Menarche: 12 Review of Systems Const All systems reviewed & are unremarkable except as noted in HPI and below Reports as per HPI and Reports no additional complaints GI Reports no additional complaints Reports no additional complaints Physical Exam Vital Signs: Last Vital Signs BP 118/74 07/05/23 15:24 BMI result Body Mass Index 25.7 Results AMB Test Urine AMB Test Urine Negative Last Edit by Vane Monterroso CMA on 07/05/23 15:40 Results Reviewed Results Reviewed: Laboratory Last Values Tst Clinic Negative 07/05/23 15:39 Assessment & Plan Assessment & Plan (1) Abnormal uterine bleeding (AUB): Code(s): N93.9 - Abnormal uterine and vaginal bleeding, unspecified Category: Medical Plan: UPT done in the office was negative Discussed with the patient the results of the work up done and options of treatment including control pills , Mirena IUD, cyclic Provera. All pros, cons, risks and benefits if each option was discussed with the patient and the patient decided to go ahead with [facility] so a more detailed discussion re: control pills including mechanism of action, benefits (regular menses, less dysmenorrhea, less risk of ovarian cancer, ...), risks ( DVT, PE, Strokes, [place], ? increased breast ca, others). Instructions were given to use a back- up method for contraception x 1st 2 weeks, and to schedule a 3 months appointment for blood pressure check (2) Microscopic hematuria: Code(s): R31.29 - Other microscopic hematuria Category: Medical Plan: Repeat urine dip in the office showed microscopic hematuria with leukocyte , will send urine for culture check the results and treat accordingly, if negative urine culture and positive persistent hematuria will refer to Urology if positive urine culture will treat with antibiotics and repeat urine culture to make sure her UTI clears. All questions answered, the patient verbalized understanding Orders: Orders AMB HCG Urine Test Today Z32.02 - Encounter for test, result negative Medications: New L norgest/e.estradiol-e.estrad 0.15 mg-30 mcg (84)/10 mcg (7) (Seasonique) 1 tab PO DAILY 84 ea 0RF 84 days Discontinued tranexamic acid Start 1st day of menses and take it up to 3-5 days of menses. Discontinued Reason: Doctor's Order 1,300 mg (2 x 650 mg) PO TID 5 days 30 tabs 2RF Coding Level of Care Code Est Pt Level 3 (60571) Diagnoses Abnormal uterine bleeding (AUB) N93.9 Microscopic hematuria R31.29
[2023-07-05 15:24] VITALS: BP 118/74; BMI 25.7
== END 2023-07-05 16:16 | disposition home or self-care (01) ==
LOC: HO.HWS 15:19
PROVIDERS: PCP Internal Medicine; Visit Provider Obstetrics & Gynecology
DX: N93.9 Abnormal uterine and vaginal bleeding, unspecified (principal); R31.29 Other microscopic hematuria; Z32.02 Encounter for pregnancy test, result negative
CPT/HCPCS: 99213

== ENCOUNTER 2023-07-05 15:19 | Outpatient (REF) | payer OTHER, SELFPAY | END 2023-07-05 15:20 | disposition home or self-care (01) | LOC: HO.LNP 15:19 | PROVIDERS: PCP Internal Medicine; Visit Provider Obstetrics & Gynecology | DX: R31.29 Other microscopic hematuria (principal); N93.9 Abnormal uterine and vaginal bleeding, unspecified | CPT/HCPCS: 81025; 87086; 87088; 87186; 99212 ==

== ENCOUNTER 2023-08-02 08:30 | Outpatient (AMB) | payer OTHER, SELFPAY ==
--- NOTE | 2023-08-02 08:42 | A.OFFPC_ITS ---
Vital Signs 08/02/23 08:43 Height 5 ft 5 in Weight 153 lb 2 oz BMI 25.5 BP 130/70 Blood Pressure Location Lt brachial Position Sitting Pulse 72 Pulse Source Pulse Oximeter Pulse Oximetry (%) 100 Oxygen Delivery Method Room Air Intake Visit Reasons: chest congestion Intake Note: Patient is here to follow up on Chest congestion, difficulty breath, coughing, OTC is not helping. Scleroscope Tester Required: No Corporate Staff Accountant: Not Required per policy Accompanied by: Self / Same As Patient Allergies oxycodone Adverse Reaction (Mild, Uncoded 08/02/23 09:34) ineffective Medication List - Last Reconciled 08/02/23 by Jey Vivar MD albuterol sulfate 90 mcg/actuation (Ventolin HFA) 2 puffs inhalation Q6H PRN 30 days bupropion HCl XL 150 mg PO DAILY buspirone 30 mg PO BID citalopram 20 mg PO DAILY clobetasol 0.05% 1 appl topical BID 5 days clotrimazole-betamethasone 1-0.05 % 1 appl topical BID 5 days hydroxyzine HCl 25 mg PO TID PRN L norgest/e.estradiol-e.estrad 0.15 mg-30 mcg (84)/10 mcg (7) (Seasonique) 1 tab PO DAILY 84 days lorazepam 1 mg PO BID PRN terconazole 0.8% 1 appful vaginal BEDTIME 3 days Tobacco use date assessed: 08/02/23 Dental Screening Dental Screen Date: 05/04/23 HPI chest congestion HPI Details 38-year-old female presents to the [facility] for a sick visit. Reporting symptoms of sinus congestion, sore throat and difficulty swallowing. Low-grade fever. No family member is sick. No recent travel. Patient reports symptoms of malaise and fatigue. [facility] Medical History Pure hypercholesterolemia Overweight (BMI 25.0-29.9) Depression Anxiety ASCUS with positive high risk HPV Surgical History History of hernia repair History of cholecystectomy History of Family History Maternal Grandmother Pacemaker CVD (cardiovascular disease) Father Diabetes HTN (hypertension) Mother Asthma Paternal Grandmother Cancer Brother No problems noted. Family/Other Substance abuse Chronic mental illness Social History Housing: Apartment Unable to assess alcohol history related to: Unknown Alcohol intake: never Patient Tobacco Use Status: Never used Tobacco e-Cigarette/Vaping Use: Never Used Second Hand Smoke Exposure: No service: No Current occupational status: unemployed Sexual orientation: Straight/Heterosexual Gender identity: Female Cognitive needs: No Hearing needs: No Vision needs: No Female Reproductive History Menstrual Age of Menarche: 12 Questionnaire Thrive Questionnaire Date Thrive assessed: 05/04/23 CATY-7 AMB Questionnaire CATY-7 Date CATY - 7 assessed: 05/04/23 Source: Developed by Drs. Marshall Keane, Yas Isaac, Francisco Lynch and colleagues, with an educational rosy from [employer]. Physical exam (Primary Care) Vital Signs: Last Vital Signs Pulse 72 08/02/23 08:43 BP 130/70 08/02/23 08:43 Pulse Ox 100 08/02/23 08:43 Oxygen Delivery Method Room Air 08/02/23 08:43 BMI result Body Mass Index 25.5 Tobacco/Smoking Status: Tobacco use Status Tobacco use date assessed 08/02/23 08/02/23 08:49 Patient Tobacco Use Status Never used Tobacco 08/02/23 08:49 e-Cigarette/Vaping Use Never Used 08/02/23 08:49 Thrive Assessment: Date of Thrive Assessment Date Thrive assessed 05/04/23 08/02/23 08:49 Const General: cooperative and healthy appearing Nutritional Appearance: well nourished Orientation/consciousness: patient oriented x3 Limitations: no limitations HENMT Head: Yes normal to inspection Eyes General: appearance normal, both eyes and all related structures Neck Neck: Yes normal visual inspection Chest Chest palpation & inspection: normal palpation of entire chest wall Resp Effort & Inspection: normal respiratory effort Neuro General: patient oriented x3 Assessment and Plan Assessment & Plan (1) Upper respiratory tract infection: Code(s): J06.9 - Acute upper respiratory infection, unspecified Plan: Antibiotics ordered. Increase fluid intake. Tylenol for aches and pains. If symptoms worsen, follow-up here for a recheck. Coding Level of Care Code Est Pt Level 3 (94015) Diagnoses Upper respiratory tract infection J06.9
[2023-08-02 08:43] VITALS: BP 130/70; PULSE 72; O2SAT 100; BMI 25.5
== END 2023-08-02 09:29 | disposition home or self-care (01) ==
PROVIDERS: PCP Internal Medicine; Visit Provider Internal Medicine
DX: J06.9 Acute upper respiratory infection, unspecified (principal)
CPT/HCPCS: 99213

== ENCOUNTER 2023-08-15 15:27 | Outpatient (AMB) | payer OTHER, SELFPAY ==
--- NOTE | 2023-08-15 15:31 | A.OFFVIS_ITS ---
Vital Signs 08/15/23 15:32 Height 5 ft 5 in Weight 152 lb 1.903 oz BMI 25.3 Intake Visit Reasons: co-test Storage Battery Inspector Required: No Director Of Publications: Director Of Publications Present (Vane Monterroso KYLE) Accompanied by: Self / Same As Patient Allergies oxycodone Adverse Reaction (Mild, Uncoded 08/15/23 15:33) ineffective HPI Comments Details: Presenting for annual exam. No complaints. Last Pap/HPV was in 06/13 ascus/HPV positive, followed by colpo biopsy showed CORRINA 1, preceded by CORRINA 1 in 05/12 [facility] Medical History Pure hypercholesterolemia Overweight (BMI 25.0-29.9) Depression Anxiety ASCUS with positive high risk HPV Surgical History History of hernia repair History of cholecystectomy History of Family History Maternal Grandmother Pacemaker CVD (cardiovascular disease) Father Diabetes HTN (hypertension) Mother Asthma Paternal Grandmother Cancer Brother No problems noted. Family/Other Substance abuse Chronic mental illness Social History Housing: Apartment Unable to assess alcohol history related to: Unknown Alcohol intake: never Patient Tobacco Use Status: Never used Tobacco e-Cigarette/Vaping Use: Never Used Second Hand Smoke Exposure: No service: No Current occupational status: unemployed Sexual orientation: Straight/Heterosexual Gender identity: Female Cognitive needs: No Hearing needs: No Vision needs: No Female Reproductive History Menstrual Age of Menarche: 12 Review of Systems Const All systems reviewed & are unremarkable except as noted in HPI and below Card Reports as per HPI Resp Reports as per HPI GI Reports as per HPI and Reports no additional complaints Reports as per HPI Physical Exam Vital Signs: BMI result Body Mass Index 25.3 Const General: cooperative, healthy appearing and comfortable Chest Chest palpation & inspection: normal inspection of the chest and normal palpation of entire chest wall Breast/axilla inspection: normal inspection of the breasts and normal inspection of the axillae Breast/axilla palpation: normal palpation of the breasts, normal palpation of the axillae and no axillary lymphadenopathy Resp Effort & Inspection: normal respiratory effort Auscultation: clear to auscultation bilaterally Percussion: percussion normal Cardio Palpation: normal PMI Rate: regular rate Rhythm: regular rhythm Heart sounds: no murmurs and no rubs Peripheral pulses: Peripheral pulses 2+ throughout GI Inspection: Yes normal to inspection Palpation (GI): Soft to palpation, nontender, no guarding, not rigid and No hepatosplenomegaly present Percussion: Yes normal to percussion Auscultation: normal bowel sounds Rectal Exam - Female: deferred General: Yes bladder normal to palpation External Female Exam: No lesion Speculum Exam - Vagina: normal appearance of the vagina, normal palpation, normal vaginal discharge and not erythematous Speculum Exam - Cervix: normal appearance of the cervix and normal palpation Bimanual exam- vagina & uterus: normal bimanual exam, normal palpation, uterine size normal, bladder normal to palpation, consistency normal and normal palpation Bimanual Exam- Adnexa, other: normal adnexae, no masses and no tenderness Assessment & Plan Assessment & Plan (1) Dysplasia of cervix, low grade (CORRINA 1): Comment: Since 05/12 Code(s): N87.0 - Mild cervical dysplasia Category: Medical Plan: Co testing done if abnormal will proceed with colposcopy. (2) Well woman exam: Comment: CORRINA 1 in 10/12 Code(s): Z01.419 - Encounter for gynecological examination (general) (routine) without abnormal findings Category: Medical Plan: Cotesting done. Counseled the patient about the recommended dietary allowance of 1000 mg of Calcium & 600 IU of vitamin D. The patient was instructed to perform monthly self-breast exams and to schedule an annual exam in a year; All questions answered and the patient verbalized understanding. Instructed the patient to schedule annual exam in a year Coding Level of Care Code Est Pt Prev Care 18-39y(01934) Diagnoses Dysplasia of cervix, low grade (CORRINA 1) N87.0 Well woman exam Z01.419
[2023-08-15 15:32] VITALS: BMI 25.3
== END 2023-08-15 15:48 | disposition home or self-care (01) ==
LOC: HO.HWS 15:27
PROVIDERS: PCP Internal Medicine; Visit Provider Obstetrics & Gynecology
DX: Z01.419 Encounter for gynecological examination (general) (routine) without abnormal findings (principal); N87.0 Mild cervical dysplasia
CPT/HCPCS: 99395

== ENCOUNTER 2023-08-15 15:27 | Outpatient (REF) | payer OTHER, SELFPAY ==
[2023-08-19 09:53] LABS: HPV mRNA E6/E7 Detected (Not Detected)
== END 2023-08-15 15:28 | disposition home or self-care (01) ==
LOC: HO.LNP 15:27
PROVIDERS: PCP Internal Medicine; Visit Provider Obstetrics & Gynecology
DX: Z01.419 Encounter for gynecological examination (general) (routine) without abnormal findings (principal); R87.610 Atypical squamous cells of undetermined significance on cytologic smear of cervix (ASC-US); R87.810 Cervical high risk human papillomavirus (HPV) DNA test positive
CPT/HCPCS: 87624; 88175; 99395

== ENCOUNTER 2023-09-05 15:26 | Outpatient (AMB) | payer OTHER, SELFPAY ==
[2023-09-05 15:37] VITALS: BMI 25.3
--- NOTE | 2023-09-05 15:37 | MHC.OFFVIS ---
Vital Signs 09/05/23 15:37 Height 5 ft 5 in Weight 152 lb 1.903 oz BMI 25.3 Intake Visit Reasons: consult Atg Architect Required: No Information Interpreted: non-clinical & clinical Accompanied by: Self / Same As Patient Allergies oxycodone Adverse Reaction (Mild, Uncoded 09/05/23 16:01) ineffective HPI Comments Details: Presenting for preconception counseling, the patient is interested in getting has been attempting for the last 4 months. No concerns PFSH Medical History Pure hypercholesterolemia Overweight (BMI 25.0-29.9) Depression Anxiety ASCUS with positive high risk HPV Surgical History History of hernia repair History of cholecystectomy History of Family History Maternal Grandmother Pacemaker CVD (cardiovascular disease) Father Diabetes HTN (hypertension) Mother Asthma Paternal Grandmother Cancer Brother No problems noted. Family/Other Substance abuse Chronic mental illness Social History Housing: Apartment Unable to assess alcohol history related to: Unknown Alcohol intake: never Patient Tobacco Use Status: Never used Tobacco e-Cigarette/Vaping Use: Never Used Second Hand Smoke Exposure: No service: No Current occupational status: unemployed Sexual orientation: Straight/Heterosexual Gender identity: Female Cognitive needs: No Hearing needs: No Vision needs: No Female Reproductive History Menstrual Age of Menarche: 12 Date of last menstrual period: 08/18/23 Review of Systems Const All systems reviewed & are unremarkable except as noted in HPI and below Reports as per HPI and Reports no additional complaints GI Reports no additional complaints Reports no additional complaints Physical Exam Vital Signs: BMI result Body Mass Index 25.3 Results AMB Test Urine AMB Test Urine Negative Last Edit by Vane Monterroso CMA on 09/05/23 16:01 Results Reviewed Results Reviewed: Laboratory Last Values [facility]st Clinic Negative 09/05/23 16:00 Assessment & Plan Assessment & Plan (1) Pre-conception counseling: Code(s): Z31.69 - Encounter for other general counseling and advice on procreation Category: Medical Plan: Instructed the patient to eat a balanced diet exercise routinely, avoid raw fish, do not remove any cat's litter box to avoid toxoplasmosis, do not use alcohol and smoking or drugs start vitamin 1 tablet p.o. q.d. avoid nonsteroidal anti-inflammatory drugs or any medication use this. Other than Tylenol, will order hepatitis B surface antigen, HIV, fasting blood sugar, hepatitis-C antibody, RPR, rubella it, varicella immunoglobulins, cystic fibrosis screen. Also discussed the patient the chance of 50% within 6 months, 75% within is 9 months, 90% at 1 year risk of infertility being 10% and a signs and symptoms of miscarriage and ectopic recommended to the patient to call early after a positive test to document an intrauterine . Also discussed the patient around 25% of and the with a spontaneous for hyper Centers of genetic abnormalities. Orders: Orders Varicella IgG Antibody Today Z31.69 - Encounter for other general counseling and advice on procreation, Z32.01 - Encounter for test, result positive CF Carrier Screen Today Z31.69 - Encounter for other general counseling and advice on procreation, Z32.01 - Encounter for test, result positive Hepatitis B Surface Antigen Today Z31.69 - Encounter for other general counseling and advice on procreation, Z32.01 - Encounter for test, result positive Hepatitis C Antibody Today Z31.69 - Encounter for other general counseling and advice on procreation, Z32.01 - Encounter for test, result positive Rubella IgG Antibody Today Z31.69 - Encounter for other general counseling and advice on procreation, Z32.01 - Encounter for test, result positive Screen Today Z31.69 - Encounter for other general counseling and advice on procreation, Z32.01 - Encounter for test, result positive Glucose Fasting Today Z31.69 - Encounter for other general counseling and advice on procreation AMB HCG Urine Test Today Z32.02 - Encounter for test, result negative Syphilis Screen Today Z31.69 - Encounter for other general counseling and advice on procreation, Z32.01 - Encounter for test, result positive Complete Blood Count no Diff Today Z31.69 - Encounter for other general counseling and advice on procreation, Z32.01 - Encounter for test, result positive HIV Ab/Ag Today Z31.69 - Encounter for other general counseling and advice on procreation, Z32.01 - Encounter for test, result positive Coding Level of Care Code Est Pt Level 3 (08895) Diagnoses Pre-conception counseling Z31.69
== END 2023-09-05 16:12 | disposition home or self-care (01) ==
LOC: HO.HWS 15:26
PROVIDERS: PCP Internal Medicine; Visit Provider Obstetrics & Gynecology
DX: Z31.69 Encounter for other general counseling and advice on procreation (principal); Z32.02 Encounter for pregnancy test, result negative
CPT/HCPCS: 99213

== ENCOUNTER 2023-09-05 15:26 | Outpatient (REF) | payer OTHER, SELFPAY ==
[2023-09-05 17:22] LABS: Hematocrit 42.9 % (37.0-47.0); Hemoglobin 14.1 g/dl (12.0-16.0); Mean Corpuscular HGB Conc 32.9 g/dl (31.0-35.0); Mean Corpuscular Hemoglobin 28.2 pg (27.0-33.0); Mean Corpuscular Volume 85.8 fL (80.0-98.0); Mean Platelet Volume 10.1 fL (9.4-12.3); Platelet Count 411 X10*3/uL (160-400); Red Cell Distribution Width 13.4 % (11.0-16.0); White Blood Count 9.4 X10*3/uL (4.8-10.8)
[2023-09-05 17:34] LABS: Glucose Fasting 91 mg/dL (60-99)
[2023-09-06 04:23] LABS: Syphilis Screen Nonreactive (Nonreactive)
[2023-09-06 04:38] LABS: HBsAGNum1 0.27 S/CO (0.00-0.99); HIV Num 1 1.43 S/CO (0.00-0.99); Hepatitis B Surface Antigen Negative (Negative); ~HepC Num1 0.13 S/CO (0.00-0.79); ~Hepatitis C Antibody Nonreactive (Nonreactive)
[2023-09-06 05:33] LABS: HIV AB/AG Reactive (Nonreactive); HIV Num 2 1.34 S/CO; HIV Num 3 1.35 S/CO
[2023-09-06 11:34] LABS: Rubella IgG Antibody <0.90 Index
[2023-09-07 18:09] LABS: HIV 1 Antibody NEGATIVE (NEGATIVE); HIV 2 Antibody NEGATIVE (NEGATIVE)
[2023-09-14 15:06] LABS: HIV-1 RNA TMA Qualitative Detected (Abnormal)
[2023-09-19 18:04] LABS: CF Ethnicity NG; Cystic Fibrosis NEGATIVE (NEGATIVE)
== END 2023-09-05 15:27 | disposition home or self-care (01) ==
LOC: HO.LAB 15:26
PROVIDERS: PCP Internal Medicine; Visit Provider Obstetrics & Gynecology
DX: Z31.69 Encounter for other general counseling and advice on procreation (principal); Z32.01 Encounter for pregnancy test, result positive
CPT/HCPCS: 36415; 81025; 81220; 82947; 85027; 86701; 86702; 86762; 86780; 86787; 86803; 86850; 86900; 87340; 87389; 99212

== ENCOUNTER 2023-09-06 14:27 | Outpatient (REF) | payer OTHER, SELFPAY | END 2023-09-06 14:28 | disposition home or self-care (01) | LOC: HO.LNP 14:27 | PROVIDERS: PCP Internal Medicine; Visit Provider Nurse Practitioner Family | DX: R10.2 Pelvic and perineal pain (principal); R31.29 Other microscopic hematuria; F19.90 Other psychoactive substance use, unspecified, uncomplicated | CPT/HCPCS: 81003; 87086; 99212 ==

== ENCOUNTER 2023-09-06 14:27 | Outpatient (AMB) | payer OTHER, SELFPAY ==
--- NOTE | 2023-09-06 14:28 | A.OFFVIS_ITS ---
Intake Visit Reasons: 6m follow up Intake Note: Patient is Present for Microscopic Hematuria ( Previously Seen TISSUE INSERTER in 2020) Urology Medication: None Antibiotic Allergies: None Blood Thinners: None Wall Steamer Required: No Allergies oxycodone Adverse Reaction (Mild, Uncoded 09/06/23 16:29) ineffective Medication List - Last Reconciled 09/06/23 by PROMISE AdrianP-BC albuterol sulfate 90 mcg/actuation (Ventolin HFA) 2 puffs inhalation Q6H PRN 30 days bupropion HCl XL 150 mg PO DAILY buspirone 30 mg PO BID citalopram 20 mg PO DAILY clobetasol 0.05% 1 appl topical BID 5 days clotrimazole-betamethasone 1-0.05 % 1 appl topical BID 5 days hydroxyzine HCl 25 mg PO TID PRN lorazepam 1 mg PO BID PRN prednisone 60 mg (3 x 20 mg) PO DAILY terconazole 0.8% 1 appful vaginal BEDTIME 3 days HPI Comments Details: Angelique is a very pleasant 38-year-old female patient of Dr. Fowler. 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 She presents to the office today for follow-up. Of note, patient was seen approximately 6 months ago as a new patient for microscopic hematuria at which time her urine was sent for urine cytology and patient had already completed CT urogram prior to new patient appointment. Urine cytology results reviewed with the patient today 03/16 Negative for high-grade urothelial carcinoma. During last office visit discussed further microscopic hematuria workup in the setting of history of nicotine dependence at times as well as recreational marijuana. However, patient declined at that time. In office urinalysis results reviewed with the patient today 3+ leukocytes negative nitrates 3+ microscopic hematuria. When asked she currently denies any UTI like symptoms. She denies urinary urgency, urinary frequency, incontinence, nocturia, hematuria, dysuria, foul smelling urine, changes to urinary stream, flank pain, fever, and or chills. She is happy with her current voiding parameters. She reports having followed up with pilot and has been positive for HPV and ovarian cysts. Previous workup has included a CT urogram that noted the kidneys are normal in size shape and attenuation. No hydronephrosis, hydroureter, or calculi seen. The bladder is unremarkable. She otherwise offers no other issues or concerns at this time. [facility] Medical History Pure hypercholesterolemia Overweight (BMI 25.0-29.9) Depression Anxiety ASCUS with positive high risk HPV Surgical History History of hernia repair History of cholecystectomy History of Family History Maternal Grandmother Pacemaker CVD (cardiovascular disease) Father Diabetes HTN (hypertension) Mother Asthma Paternal Grandmother Cancer Brother No problems noted. Family/Other Substance abuse Chronic mental illness Social History Housing: Apartment Unable to assess alcohol history related to: Unknown Alcohol intake: never Patient Tobacco Use Status: Never used Tobacco e-Cigarette/Vaping Use: Never Used Second Hand Smoke Exposure: No service: No Current occupational status: unemployed Sexual orientation: Straight/Heterosexual Gender identity: Female Cognitive needs: No Hearing needs: No Vision needs: No Female Reproductive History Menstrual Age of Menarche: 12 Review of Systems Const Reports as per HPI Eyes Reports no additional complaints ENT Reports no additional complaints Card Reports as per HPI Resp Reports no additional complaints GI Reports no additional complaints Reports as per HPI Musc Reports no additional complaints Neuro Reports no additional complaints Psych Reports as per HPI Endo Reports no additional complaints Ravi/Lymph Reports no additional complaints Aller/Immun Reports no additional complaints Physical Exam Const General: cooperative, healthy appearing, comfortable, no acute distress, well developed, alert and awake Orientation/consciousness: patient oriented x3 Limitations: no limitations HEENT Head: Yes normal to inspection, Yes normocephalic and Yes atraumatic Ears: hearing grossly normal bilaterally Eyes General: appearance normal, both eyes and all related structures Neck Neck: Yes normal visual inspection and Yes trachea midline Chest Chest palpation & inspection: normal inspection of the chest Resp Effort & Inspection: normal respiratory effort and able to speak in complete sentences Cardio Rate: regular rate GI Inspection: Yes normal to inspection General: Yes no CVA tenderness Back/Spine/Pelvis Back: no CVA tenderness Skin General skin exam: no rashes or lesions noted Neuro General: patient oriented x3 Extrem General: Yes normal to inspection Psych Appearance: grossly normal and well kempt Mental Status: mental status grossly normal Speech and movement: Normal speech and movement present and Clear speech present Affect: normal affect Attitude: cooperative Thought process: Normal thought process present Thought content: Normal thought content present Insight: Fair insight present (Psych) Judgement: Fair judgement present (Psych) Results AMB Urinalysis, Automated UA Leukoctes 500 Bettye/uL Last Edit by RAYMOND Polo on 09/06/23 14:36 UA Nitrite Negative Last Edit by Jinny Chiu [facility] on 09/06/23 14:36 UA Urobilinogen 0.2 mg/dL Last Edit by Jinny Chiu CCM on 09/06/23 14:3 6 UA Protein 30 mg/dL Last Edit [facility] on 09/06/23 14:36 UA pH 6.0 Last Edit by Jinny Chiu [facility] on 09/06/23 14:36 UA Blood 200 Yann/uL Last Edit by Jinny Chiu [facility] on 09/06/23 14:36 UA Specific [place] 1.025 Last Edit by Jinny Chiu [facility] on 09/06/23 14: 36 UA Ketone Positive Last Edit by RAYMOND Polo on 09/06/23 14:36 UA Bilirubin 0 mg/dL Last Edit by Jinny Chiu [facility] on 09/06/23 14:36 UA Glucose 0 mg/dL Last Edit by Jinny Chiu [facility] on 09/06/23 14:36 Results Reviewed Results Reviewed: Laboratory Last Values Urine pH (Auto) 6.0 09/06/23 14:34 Specific [place] (Auto) 1.025 09/06/23 14:34 Urine Protein (Auto) 30 mg/dL 09/06/23 14:34 Glucose (UA)(Auto) 0 mg/dL 09/06/23 14:34 Urine Ketones (Auto) Positive 09/06/23 14:34 Urine Blood (Auto) 200 Yann/uL 09/06/23 14:34 Urine Nitrite (Auto) Negative 09/06/23 14:34 Urine Bilirubin (Auto) 0 mg/dL 09/06/23 14:34 Urine Urobilinogen (Auto) 0.2 mg/dL 09/06/23 14:34 Leukocyte Esterase (Auto) 500 Bettye/uL 09/06/23 14:34 Assessment & Plan Assessment & Plan (1) Microscopic hematuria: Code(s): R31.29 - Other microscopic hematuria Category: Medical (2) Recreational drug use, episodic: Code(s): F19.90 - Other psychoactive substance use, unspecified, uncomplicated Category: Social Hx Plan In office urinalysis results reviewed with the patient today; when as noted above urine culture; will await results for potential/possible treatment. Discussed at length potential causes for microscopic hematuria Discussed further workup to include in office cystoscopy. Patient currently denies any UTI like symptoms. Discussed and stressed the importance of limiting occasional recreational marijuana as well as nicotine dependence. Discussed, educated, and stressed the importance of adequate hydration. Previous urine cytology results reviewed with the patient today. Follow-up in office cystoscopy; or sooner with any issues, concerns, and or questions. Orders: Orders AMB Urinalysis Automated Today Z13.9 - Encounter for screening, unspecified Urine Culture Today R10.2 - Pelvic and perineal pain Patient Instructions: The patient had an opportunity to ask questions regarding the treatment plan. All questions were answered. Physical exam, labs, and imaging were discussed and reviewed in detail. As well as risks, benefits, and discussion of treatment choices. No major barriers to understanding were identified. The patient expressed understanding and agreement with the above treatment plan. The patient was made aware they should contact our office by phone for worsening of their current condition, the appearance of new symptoms, or with any questions or concerns. Compliance is encouraged with any medications and follow up testing that is ordered. It is a privilege to be allowed the opportunity to participate in? your urological care.? Again, if you have any questions or concerns If you have any questions or concerns please do not hesitate to contact me. The office is [phone]. This note is constructed using voice recognition software. While every effort has been made to ensure accuracy director of capital giving errors may have been included. Yours sincerely, QUYNH Adrian Coding Level of Care Code Est Pt Level 4 (03284) Diagnoses Microscopic hematuria R31.29 Recreational drug use, episodic F19.90 Time Spent (min) 30
== END 2023-09-06 15:19 | disposition home or self-care (01) ==
PROVIDERS: PCP Internal Medicine; Visit Provider Nurse Practitioner Family
DX: R31.29 Other microscopic hematuria (principal); F19.90 Other psychoactive substance use, unspecified, uncomplicated; Z13.9 Encounter for screening, unspecified
CPT/HCPCS: 99214

== ENCOUNTER 2023-09-14 13:29 | Outpatient (AMB) | payer OTHER, SELFPAY ==
[2023-09-14 14:09] VITALS: BP 112/68; BMI 25.3
--- NOTE | 2023-09-14 14:09 | MHC.OFFVIS ---
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 Required: No Information Interpreted: non-clinical & clinical Environmental Health Technician: Environmental Health Technician Present (Vane WRIGHT) Accompanied by: Self / Same As Patient Allergies oxycodone Adverse Reaction (Mild, Uncoded 09/14/23 14:11) ineffective Is last menstrual period known: Yes Last menstrual period: 09/08/23 HPI Comments Details: Presenting for colposcopy for Pap smear showing LSIL HPV E6 E7 positive [facility] Medical History Pure hypercholesterolemia Overweight (BMI 25.0-29.9) Depression Anxiety ASCUS with positive high risk HPV Surgical History History of hernia repair History of cholecystectomy History of Family History Maternal Grandmother Pacemaker CVD (cardiovascular disease) Father Diabetes HTN (hypertension) Mother Asthma Paternal Grandmother Cancer Brother No problems noted. Family/Other Substance abuse Chronic mental illness Social History Housing: Apartment Unable to assess alcohol history related to: Unknown Alcohol intake: never Patient Tobacco Use Status: Never used Tobacco e-Cigarette/Vaping Use: Never Used Second Hand Smoke Exposure: No service: No Current occupational status: unemployed Sexual orientation: Straight/Heterosexual Gender identity: Female Cognitive needs: No Hearing needs: No Vision needs: No Female Reproductive History Menstrual Age of Menarche: 12 Date of last menstrual period: 09/08/23 Office Procedures Colposcopy Colposcopy: Pre-Procedure Counseling: Before beginning the procedure, I conducted comprehensive counseling with the patient. We thoroughly discussed the procedure itself, including its details, alternatives, and all associated risks. This included but not limited to the following complications such as bleeding, infection, and injury to the vagina, bladder, and vessels, as well as the potential need for transfusion with all its associated risks. Subsequently, the patient sign the consent. Pap smear result: LSIL/HPV E6/E7 positive Urine test in office = Negative Procedure: During the procedure, the following steps were performed: A speculum was inserted, and acetic acid was applied. Colposcopy was conducted, allowing visualization of the transformation zone. Acetowhite lesions were identified at the 5+6+7+12+3 o'clock position. Cervical biopsies were obtained from the 5+6+7+12 o'clock position, followed by an endocervical curettage (ECC). Vaginoscopy of the upper vagina revealed no evidence of aceto-white lesions. Hemostasis was achieved using Monsel solution, and the patient tolerated the procedure well. Post-Procedure Instructions: The patient was advised to promptly contact the office or the after hours answering service or go to the emergency room if experiencing a temperature exceeding 100.4?F, abdominal pain, nausea/vomiting, or bleeding. Additionally, the patient was instructed to abstain from vaginal intercourse and bathtub use. The patient confirmed understanding of these instructions. Discharge Instructions: The patient was instructed to schedule a follow-up appointment in 2 weeks for further evaluation and management. Please note that this note was generated using a voice recognition program, and errors may have occurred during manager club. [id number] of cervix including upper vagina with biopsy and ECC Procedure code (CPT) selection complete Assessment & Plan Assessment & Plan (1) LGSIL on Pap smear of cervix: Comment: HPV E6/E7 positive Code(s): R87.612 - Low grade squamous intraepithelial lesion on cytologic smear of cervix (LGSIL) Category: Medical Plan: Colposcopy done, see procedure note Orders: Orders AMB Colposcopy Today R87.612 - Low grade squamous intraepithelial lesion on cytologic smear of cervix (LGSIL) Coding Level of Care Code Procedure Only Diagnoses LGSIL on Pap smear of cervix R87.612 CPT Codes Colposcopy - CPT: 41257-Jagxaahgx of cervix including upper vagina with biopsy and ECC ([id number])
== END 2023-09-14 14:37 | disposition home or self-care (01) ==
LOC: HO.HWS 13:29
PROVIDERS: PCP Internal Medicine; Visit Provider Obstetrics & Gynecology
DX: R87.612 Low grade squamous intraepithelial lesion on cytologic smear of cervix (LGSIL) (principal); Z32.02 Encounter for pregnancy test, result negative
CPT/HCPCS: 57454

== ENCOUNTER 2023-09-14 13:29 | Outpatient (REF) | payer OTHER, SELFPAY | END 2023-09-14 13:30 | disposition home or self-care (01) | LOC: HO.LNP 13:29 | PROVIDERS: PCP Internal Medicine; Visit Provider Obstetrics & Gynecology | DX: R87.612 Low grade squamous intraepithelial lesion on cytologic smear of cervix (LGSIL) (principal) | CPT/HCPCS: 57454; 81025; 88305; 88342; 88360 ==

== ENCOUNTER 2023-09-19 13:35 | Outpatient (REF) | payer OTHER, SELFPAY ==
[2023-09-19 17:27] LABS: Appearance Urine Clear; Color Urine Yellow; Glucose Urine UA Negative (Negative); Leukocyte Esterase Urine Trace (Negative); Nitrite Urine Negative (Negative); Specific Gravity - Urine 1.025 (1.005-1.025); UMIC TRIGGER UACC YES; Urine Blood Large (3+) (Negative); Urine Ketones Negative (Negative); Urine Protein Negative (Neg-Trace)
[2023-09-19 17:31] LABS: Bacteria Urine 1+ (None Seen); Hyaline Casts Urine 0-2 /LPF (0-2); RBC Urine >20 /HPF (0-2); UACC Culture Trigger YES
[2023-09-22 14:28] LABS: HIV RNA PCR Qn Copies NOT DETECTED copies/mL (NOT DETECTED); HIV RNA PCR Qn Log Copies NOT DETECTED (NOT DETECTED)
== END 2023-09-19 13:36 | disposition home or self-care (01) ==
LOC: HO.LAB 13:35
PROVIDERS: PCP Internal Medicine; Visit Provider Internal Medicine
DX: Z11.4 Encounter for screening for human immunodeficiency virus [HIV] (principal); R87.612 Low grade squamous intraepithelial lesion on cytologic smear of cervix (LGSIL); R89.9 Unspecified abnormal finding in specimens from other organs, systems and tissues; N39.0 Urinary tract infection, site not specified
CPT/HCPCS: 36415; 81001; 87086; 87536; 99202

== ENCOUNTER 2023-09-19 13:35 | Outpatient (AMB) | payer OTHER, SELFPAY ==
--- NOTE | 2023-09-19 13:46 | A.OFFVIS_ITS ---
Vital Signs 09/19/23 13:52 Height 5 ft 5 in Weight 155 lb BMI 25.8 Pulse 80 Pulse Source Pulse Oximeter Temp 98.7 F Temp Source Oral Pulse Oximetry (%) 99 Oxygen Delivery Method Room Air Intake Visit Reasons: Reff /Princess evans HIV Allergies oxycodone Adverse Reaction (Mild, Uncoded 09/22/23 15:37) ineffective HPI HPI Reff /Princess evans HIV: Details: She has positive HIV screening test. She also had this 05/2022. HIV 1 and 2 antibodies confirmatory negative. She has HPV. She has one child. She has no known partners with HIV. [facility] Medical History (Updated 09/26/23 @ 00:15 by Janae Gayle MD) Abnormal laboratory test result Pure hypercholesterolemia Overweight (BMI 25.0-29.9) Depression Anxiety ASCUS with positive high risk HPV Surgical History History of hernia repair History of cholecystectomy History of Family History Maternal Grandmother Pacemaker CVD (cardiovascular disease) Father Diabetes HTN (hypertension) Mother Asthma Paternal Grandmother Cancer Brother No problems noted. Family/Other Substance abuse Chronic mental illness Social History Housing: Apartment Unable to assess alcohol history related to: Unknown Alcohol intake: never Patient Tobacco Use Status: Never used Tobacco e-Cigarette/Vaping Use: Never Used Second Hand Smoke Exposure: No service: No Current occupational status: unemployed Sexual orientation: Straight/Heterosexual Gender identity: Female Cognitive needs: No Hearing needs: No Vision needs: No Female Reproductive History Menstrual Age of Menarche: 12 Review of Systems Const All systems reviewed & are unremarkable except as noted in HPI and below Physical Exam Vital Signs: Last Vital Signs Temp 98.7 F 09/19/23 13:52 Pulse 80 09/19/23 13:52 Pulse Ox 99 09/19/23 13:52 Oxygen Delivery Method Room Air 09/19/23 13:52 BMI result Body Mass Index 25.8 Const General: cooperative Orientation/consciousness: patient oriented x3 HEENT Head: Yes normal to inspection Mouth: Normal oral and palatal mucosa present Eyes General: appearance normal, both eyes and all related structures Pupils: Equal, round and reactive pupils present Resp Effort & Inspection: normal respiratory effort Cardio Rate: regular rate Rhythm: regular rhythm GI Palpation (GI): Soft to palpation and nontender General: Yes no CVA tenderness Back/Spine/Pelvis Back: no CVA tenderness Skin General skin exam: no rashes or lesions noted Neuro General: patient oriented x3 Cranial nerves: Yes CN's II-XII intact bilaterally and Yes Equal, round and reactive pupils present Extrem General: Yes normal to inspection Psych Appearance: grossly normal Assessment & Plan Assessment & Plan (1) LGSIL on Pap smear of cervix: Comment: HPV E6/E7 positive Code(s): R87.612 - Low grade squamous intraepithelial lesion on cytologic smear of cervix (LGSIL) Category: Medical (2) Abnormal laboratory test result: Code(s): R89.9 - Unspecified abnormal finding in specimens from other organs, systems and tissues Category: Medical Plan Probable false positive screening HIV test. Patient no symptoms Check HIV viral load and if negative she does not have HIV,no further testing or treatment except annual HIV viral load and RPR and STD testing as appropriate. If negative remove HIV diagnosis from chart. This is unusual ,but not impossible. Orders: Orders HIV-1 RNA QN PCR Expanded 09/19/23 R87.612 - Low grade squamous intraepithelial lesion on cytologic smear of cervix (LGSIL) Coding Level of Care Code New Pt Level 3 (85571) Diagnoses LGSIL on Pap smear of cervix R87.612 Abnormal laboratory test result R89.9
[2023-09-19 13:52] VITALS: PULSE 80; TEMP 37.1; O2SAT 99; BMI 25.8
== END 2023-09-19 14:19 | disposition home or self-care (01) ==
LOC: HO.HID 13:35
PROVIDERS: PCP Internal Medicine; Visit Provider Internal Medicine
DX: R87.612 Low grade squamous intraepithelial lesion on cytologic smear of cervix (LGSIL) (principal); R89.9 Unspecified abnormal finding in specimens from other organs, systems and tissues
CPT/HCPCS: 99203

== ENCOUNTER 2023-09-22 15:27 | Outpatient (AMB) | payer OTHER, SELFPAY ==
--- NOTE | 2023-09-22 15:36 | MHC.OFFVIS ---
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 The patient is doing well with no complaints. The pathology showed the following: A. Endocervix, curettage: Inflamed cervical transformation zone mucosa with reactive changes. B. Cervix, 3 o'clock, biopsy: High-grade squamous intraepithelial lesion (CORRINA 2); background inflamed cervical transformation zone mucosa. C. Cervix, 5 o'clock, biopsy: Low-grade squamous intraepithelial lesion (CORRINA 1); background inflamed cervical transformation zone mucosa. D. Cervix, 6 o'clock, biopsy: Low-grade squamous intraepithelial lesion (CORRINA 1); background inflamed cervical transformation zone mucosa. E. Cervix, 7 o'clock, biopsy: High-grade squamous intraepithelial lesion (CORRINA 2); background inflamed cervical transformation zone mucosa. F. Cervix, 12 o'clock, biopsy: Inflamed cervical transformation zone mucosa with reactive changes [facility] Medical History Pure hypercholesterolemia Overweight (BMI 25.0-29.9) Depression Anxiety ASCUS with positive high risk HPV Surgical History History of hernia repair History of cholecystectomy History of Family History Maternal Grandmother Pacemaker CVD (cardiovascular disease) Father Diabetes HTN (hypertension) Mother Asthma Paternal Grandmother Cancer Brother No problems noted. Family/Other Substance abuse Chronic mental illness Social History Housing: Apartment Unable to assess alcohol history related to: Unknown Alcohol intake: never Patient Tobacco Use Status: Never used Tobacco e-Cigarette/Vaping Use: Never Used Second Hand Smoke Exposure: No service: No Current occupational status: unemployed Sexual orientation: Straight/Heterosexual Gender identity: Female Cognitive needs: No Hearing needs: No Vision needs: No Female Reproductive History Menstrual Age of Menarche: 12 Date of last menstrual period: 12/20/19 Total pregnancies: 2 Full term: 2 Review of Systems Card Reports as per HPI and Reports no additional complaints Resp Reports as per HPI and Reports no additional complaints GI Reports as per HPI and Reports no additional complaints Reports as per HPI Physical Exam Vital Signs: BMI result Body Mass Index 25.7 Const General: cooperative, healthy appearing and comfortable Resp Effort & Inspection: normal respiratory effort Auscultation: clear to auscultation bilaterally Percussion: percussion normal Cardio Palpation: normal PMI Rate: regular rate Rhythm: regular rhythm Heart sounds: no murmurs and no rubs Peripheral pulses: Peripheral pulses 2+ throughout GI Inspection: Yes normal to inspection Palpation (GI): Soft to palpation, nontender, no guarding, not rigid and No hepatosplenomegaly present Percussion: Yes normal to percussion Auscultation: normal bowel sounds Rectal Exam - Female: deferred Assessment & Plan Assessment & Plan (1) CORRINA II (cervical intraepithelial neoplasia II): Code(s): N87.1 - Moderate cervical dysplasia Category: Medical Plan: Discussed with the patient the pathology results of the colposcopy biopsies & endocervical curettage ( moderate dysplasia-CORRINA 2). Discussed with the patient the sensitivity specificity, positive and negative predictive value in detecting cervical cancer in addition discussed the regression, persistence and progression rates. Addition discussed with the patient the risk of progression to cancer and impact of excision procedure on her future . Per ASCCP guidelines, 2 options of management were discussed with the patient including either observation with HPV based screening and colposcopy biopsy at 6 months and 12 months versus a diagnostic excisional procedures, which is the preferred method of management. The patient is concerned more about the progression of CORRINA 2 to cancer than the excisional procedure impact on her future and she decided to proceed with a LEEP, possible cone with post cone ECC, all the pros and cons and risks and benefits of the procedure were discussed with the patient, the patient verbalized understanding and agreed with the plan Coding Level of Care Code Est Pt Level 3 (81058) Diagnoses CORRINA II (cervical intraepithelial neoplasia II) N87.1
[2023-09-22 15:37] VITALS: BMI 25.7
== END 2023-09-22 15:59 | disposition home or self-care (01) ==
LOC: HO.HWS 15:27
PROVIDERS: PCP Internal Medicine; Visit Provider Obstetrics & Gynecology
DX: N87.1 Moderate cervical dysplasia (principal)
CPT/HCPCS: 99213

== ENCOUNTER → 2023-09-22 15:27 | Outpatient (BNVA) | payer OTHER, SELFPAY | PROVIDERS: PCP Internal Medicine; Visit Provider Obstetrics & Gynecology | DX: N87.1 Moderate cervical dysplasia (principal) | CPT/HCPCS: 99212 ==

== ENCOUNTER 2023-09-28 14:42 | Outpatient (AMB) | payer OTHER, SELFPAY ==
--- NOTE | 2023-10-18 23:43 | MHC.OFFVIS ---
Intake Visit Reasons: labs results ok per Kailey Allergies oxycodone Adverse Reaction (Mild, Uncoded 10/05/23 10:08) ineffective PFSH Medical History HIV antibody positive Abnormal laboratory test result Pure hypercholesterolemia Overweight (BMI 25.0-29.9) Depression Anxiety ASCUS with positive high risk HPV Surgical History History of hernia repair History of cholecystectomy History of Family History Maternal Grandmother Pacemaker CVD (cardiovascular disease) Father Diabetes HTN (hypertension) Mother Asthma Paternal Grandmother Cancer Brother No problems noted. Family/Other Substance abuse Chronic mental illness Social History Household Members: Children Housing: Apartment Do you presently have visiting nurse or other home services: No Unable to assess alcohol history related to: Unknown Alcohol intake: never Comment: pt. uses call mullins appropriately. Patient Tobacco Use Status: Never used Tobacco e-Cigarette/Vaping Use: Never Used Second Hand Smoke Exposure: No service: No Current occupational status: unemployed Sexual orientation: Straight/Heterosexual Gender identity: Female Cognitive needs: No Hearing needs: No Vision needs: No Female Reproductive History Menstrual Age of Menarche: 12 Telehealth Telehealth Telehealth Platform: Telephone Location of patient: address on file Patient Identification confirmed using: Name, : Yes Telehealth method: voice only Patient verbally consented to billing insurance company: Yes Patient informed of any privacy concerns related to visit: Yes Minutes spent on Phone/Video with Pt.: 15 Assessment & Plan Assessment & Plan (1) Abnormal laboratory test result: Comment: I told patient her HIV viral load undetectable Code(s): R89.9 - Unspecified abnormal finding in specimens from other organs, systems and tissues Category: Medical Plan: Nothing further to do Check HIV viral load every 6-12 months. She does not have HIV. Coding Level of Care Code Tele Est Pt Level 2 (43311) Diagnoses Abnormal laboratory test result R89.9
== END 2023-09-28 14:43 | disposition home or self-care (01) ==
LOC: HO.HID 14:42
PROVIDERS: PCP Internal Medicine; Visit Provider Internal Medicine
DX: R89.9 Unspecified abnormal finding in specimens from other organs, systems and tissues (principal)
CPT/HCPCS: 99212

== ENCOUNTER → 2023-09-28 14:42 | Outpatient (BNVA) | payer OTHER, SELFPAY | PROVIDERS: PCP Internal Medicine; Visit Provider Internal Medicine ==

== ENCOUNTER 2023-09-30 08:58 | Day surgery (SDC) | payer OTHER, SELFPAY ==
[2023-09-30] VITALS (8 sets, daily range): BP systolic 113–126; BP diastolic 74–81; PULSE 70–102; RESP 14–18; TEMP 36.4–36.6; O2SAT 94–100; BMI 25.0
--- NOTE | 2023-09-30 09:45 | MHC.SHP ---
Pre-Procedural Eval Section A - 24 Hr Update-Section A only Date of Service: 09/30/23 The patient is an INPATIENT: No Changes since office visit: No Cold of Flu in the past 2 weeks, No New Medical Problems, No Changes in Medication and No Patient answered all questions The patient has been examined within 24 hours of the surgical procedure. The History & Physical has been completed within 30 days and I have reviewed it.: Yes Section B - Complete if H&P > 30 days Chief Complaint: Moderate cervical dysplasia Allergies: Allergies Allergy/AdvReac Type Severity Reaction Status Date / Time oxycodone AdvReac Mild ineffective Uncoded 09/30/23 09:42 Plan Diagnosis/Plan: Unchanged I have reviewed the history and physical and performed a pertinent physical examination on my patient. No changes have occurred unless specified. Time Spent With Patient Time: Total time managing care of this patient today ____ minutes.
[2023-09-30 09:46] LABS: UPreg QC Valid YES; Urine Pregnancy NEGATIVE (NEGATIVE)
--- NOTE | 2023-09-30 09:50 | P.CONAN_ITS ---
[facility] Active Problems Active Problems: All Active Problems Abnormal laboratory test result (Acute) CORRINA II (cervical intraepithelial neoplasia II) (Acute) HIV (human immunodeficiency virus infection) (Acute) LGSIL on Pap smear of cervix (Acute) Recreational drug use, episodic (Acute) Pre-conception counseling (Acute) Vulvovaginitis michael albicans (Acute) Pure hypercholesterolemia (Acute) Overweight (BMI 25.0-29.9) (Acute) Depression (Acute) Anxiety (Acute) Acute bronchitis (Acute) Annual physical exam (Acute) Vulvovaginitis (Acute) Screen for STD (sexually transmitted disease) (Acute) Left ovarian cyst (Acute) Encounter for IUD removal (Acute) Elevated TSH (Acute) IUD check up (Acute) ASCUS with positive high risk HPV cervical (Acute) HIV positive (Acute) Bacterial vaginosis (Acute) Dysplasia of cervix, low grade (CORRINA 1) (Acute) Endometritis (Acute) Abnormal uterine bleeding (AUB) (Acute) Low back pain (Acute) Dysuria (Acute) Microscopic hematuria (Acute) Rash (Acute) Viral illness (Acute) Amenorrhea (Acute) Complex ovarian cyst (Acute) Hematuria (Acute) COVID-19 (Acute) UTI (urinary tract infection) (Acute) Pelvic pain (Acute) Metrorrhagia (Acute) Hirsutism (Acute) Well woman exam (Acute) PCOS (polycystic ovarian syndrome) (Acute) HPV (human papilloma virus) anogenital infection (Acute) Cervical lesion (Acute) ASCUS with positive high risk HPV (Acute) Past Medical History Medical History Abnormal laboratory test result Pure hypercholesterolemia Overweight (BMI 25.0-29.9) Depression Anxiety ASCUS with positive high risk HPV Family History Family History Maternal Grandmother Pacemaker CVD (cardiovascular disease) Father Diabetes HTN (hypertension) Mother Asthma Paternal Grandmother Cancer Brother No problems noted. Family/Other Substance abuse Chronic mental illness Surgical History Surgical History History of hernia repair History of cholecystectomy History of History of Problems with Anesthesia: No Social History Social History Housing: Apartment Unable to assess alcohol history related to: Unknown Alcohol intake: never Patient Tobacco Use Status: Never used Tobacco e-Cigarette/Vaping Use: Never Used Second Hand Smoke Exposure: No Advance Directives: No Advance Directives Information Provided: Yes service: No Current occupational status: unemployed Sexual orientation: Straight/Heterosexual Gender identity: Female Cognitive needs: No Hearing needs: No Vision needs: No Meds Allergies Allergy/AdvReac Type Severity Reaction Status Date / Time oxycodone AdvReac Mild ineffective Uncoded 09/30/23 09:42 Active Medications: Current Medications Lactated Ringer's (Lr) 1,000 mls @ 100 mls/hr IVCONT .Q10H ALISIA Home Medications ?Medication ?Instructions ?Recorded ?Confirmed ?Last Taken ?Type bupropion HCl 150 mg 24 hr tablet, 150 mg PO DAILY 11/03/20 09/30/23 Unknown History extended release hydroxyzine HCl 25 mg tablet 25 mg PO TID PRN anxiety 01/25/23 09/30/23 Unknown History lorazepam 1 mg tablet 1 mg PO BID PRN anxiety 01/25/23 09/30/23 Unknown History buspirone 30 mg tablet 30 mg PO BID 03/07/23 09/30/23 Unknown History citalopram 20 mg tablet 20 mg PO DAILY 05/04/23 09/30/23 Unknown History Exam Height,Weight and Vital Signs: Height 5 ft 5 in Weight 68.039 kg Pertinent Lab Results Pertinent Lab Results: Laboratory Tests 09/30/23 09:39 Urine Test NEGATIVE Airway Mallampati Class: II TM Dist: >3cm Neck ROM: Full Loose/Missing/Broken Teeth: No Heart: RRR Lungs: CTA Assessment and Plan Assessment Anesthesia Assessment: Anesthesia Plan Discussed and Chart Reviewed Final Anesthetic Review History of Problems with Anesthesia: No NPO: Yes ASA Class: III Final Preanesthetic Review: Meds/Allgs Chart Reviewed, Consent Obtained/Reviewed and Anes Risks/Benef Reviewed Patient Risk: Intermediate Procedure Risk: Low Anesthetic Plan Anesthetic Plan: GA Disposition: Standard PACU
--- NOTE | 2023-09-30 10:47 | PM.OP ---
Brief Operative Note Date of Service: 09/30/23 Pre-op diagnosis: CORRINA 2 Post-op diagnosis: same Procedure: LEEP CONE with post CONE ECC Surgeon: Carson Wild MD Anesthesia: GLMA and other (Paracervical block) Was an Wax Coating Machine Tender used for this Procedure?: No Estimated blood loss (mL): 0 Pathology: other (Cervical cone, endocervical, Post cone ECC) Condition: stable Disposition: other (Home)
--- NOTE | 2023-09-30 10:48 | W.PM.OPN ---
Operative Note Operative Note Date of Service: 09/30/23 Narrative: Pre op diagnosis: CORRINA 2 Operation: Colposcopy, Loop electrical excision procedure cone, top hat endocervical excision, post cone ECC Postop diagnosis: the same Quantitative blood loss: 50 cc Surgeon: Carson Wild MD, FACOG Electrical Mechanical Technician: None Pathology: Cervical cone, endo cervical excision, post cone endo cervical curettage Complications: none Anesthesia: GLMA and Para cervical block Procedure: The patient was put in a dorsal lithotomy position, scrubbed and draped in the usual sterile fashion. A speculum was inserted inside the patient's vagina. The cervix is assessed using the colposcope with acetic acid , the lesions were seen, and at least 1 cm of the squamocolumnar junction was observed. 20 x 5 mm size loop was selected based upon the diameter of the lesion. Lugol solution was used to outline the lesions and area of the transformation zone order to be removed 10 cc of xylocaine with epinephrine were injected submucosally into the surface of the cervix (ectocervix) at the 3, 6, 9, and 12 o'clock positions. The electrosurgical generator is set at 40 oneill on blend 1. The loop is carefully passed simultaneously around and under the transformation zone, in order to ensure excising it making sure the lesion is at least 5 mm far from the specimen margins . The loop was allowed to glide through the cervix from one side to the other, allowing the cutting current to divide the tissue. Additional tissue was excised from this area with a smaller-diameter loop , endo cervical tissue excision was performed An endo cervical curettage is performed following completion of excision, and hemostasis is obtained with a Ball electrode or regular tip cautery. At the end, Monsel's solution was applied to the cone bed. The patient tolerated the procedure well and, all instruments were taken out of the patient vaginal cavity, and the patient was transferred to the PACU in stable condition.
[2023-09-30] MEDS: fentaNYL citrate/PF 100 MCG/2 ML VIAL 25 MCG IVPUSH ×4 (11:05→11:20)
[2023-09-30] MEDS: Acetaminophen 325 MG TABLET 650 MG PO (11:25)
== END 2023-09-30 12:35 | disposition home or self-care (01) ==
PROVIDERS: PCP Internal Medicine; Visit Provider Obstetrics & Gynecology
PROC: 0UBC7ZZ Excision of Cervix, Via Natural or Artificial Opening (ICD-10-PCS; CPT 57522; principal; 2023-09-30 11:30)
DX: N87.1 Moderate cervical dysplasia (principal); E78.00 Pure hypercholesterolemia, unspecified; F41.8 Other specified anxiety disorders; F32.A Depression, unspecified; F41.9 Anxiety disorder, unspecified; E66.3 Overweight; Z68.25 Body mass index [BMI] 25.0-25.9, adult; Z88.5 Allergy status to narcotic agent; Z56.0 Unemployment, unspecified
CPT/HCPCS: 57461; 81025; 88305; 88307; 88342; 88360; J1100; J1885; J2250; J2405; J2704; J3010

== ENCOUNTER → 2023-09-30 08:58 | Outpatient (BNV) | payer OTHER, SELFPAY | PROVIDERS: PCP Internal Medicine; Visit Provider Obstetrics & Gynecology | DX: N87.1 Moderate cervical dysplasia (principal) | CPT/HCPCS: 57461 ==

== ENCOUNTER 2023-10-05 08:45 | Outpatient (REF) | payer OTHER, SELFPAY ==
[2023-10-05 09:04] LABS: Hematocrit 40.5 % (37.0-47.0); Hemoglobin 13.4 g/dl (12.0-16.0); Mean Corpuscular HGB Conc 33.1 g/dl (31.0-35.0); Mean Corpuscular Hemoglobin 28.3 pg (27.0-33.0); Mean Corpuscular Volume 85.4 fL (80.0-98.0); Mean Platelet Volume 9.8 fL (9.4-12.3); Platelet Count 413 X10*3/uL (160-400); Red Blood Count 4.74 X10*6/uL (4.20-5.50); Red Cell Distribution Width 13.2 % (11.0-16.0); White Blood Count 13.1 X10*3/uL (4.8-10.8)
[2023-10-05 09:18] LABS: Alanine Aminotransferase 38 U/L (0-31); Albumin Level 4.3 g/dL (3.5-5.0); Alkaline Phosphatase 96 U/L (39-117); Anion Gap 13 (12-20); Aspartate Amino Transferase 36 U/L (5-31); Bilirubin Total 0.4 mg/dL (0.0-1.0); Blood Urea Nitrogen 11 mg/dL (9-16); Calcium 9.7 mg/dL (8.4-10.2); Carbon Dioxide 23 mmol/L (22-29); Chloride 104 mmol/L (96-108); Estimated Glomerular Filt Rate > 60; Glucose Random 173 mg/dL (60-115); Potassium 3.9 mmol/L (3.3-5.1); Sodium 136 mmol/L (135-145); Total Protein 7.8 g/dL (6.5-8.0)
[2023-10-05 14:27] LABS: CT PCR NOT DETECTED (Not Detect.); NG PCR NOT DETECTED (Not Detect.)
== END 2023-10-05 08:46 | disposition home or self-care (01) ==
LOC: HO.LAB 08:45
PROVIDERS: PCP Internal Medicine; Visit Provider Obstetrics & Gynecology
DX: N93.9 Abnormal uterine and vaginal bleeding, unspecified (principal); R10.2 Pelvic and perineal pain
CPT/HCPCS: 36415; 80053; 81025; 85027; 87491; 87591

== ENCOUNTER 2023-10-05 09:11 | Outpatient (AMB) | payer OTHER, SELFPAY ==
[2023-10-05 09:40] VITALS: TEMP 36.4
--- NOTE | 2023-10-05 09:40 | MHC.OFFVIS ---
Vital Signs 10/05/23 09:40 Temp 97.5 F Intake Visit Reasons: post op pain Allergies oxycodone Adverse Reaction (Mild, Uncoded 10/05/23 10:08) ineffective HPI Comments Details: Presenting postop day 5 from cervical LEEP complaining of pelvic pain associated with nausea, reporting fever of 101 at home, vaginal discharge. White count 13.1, H&H within normal. AST/ALT =36/38 PFSH Medical History Abnormal laboratory test result Pure hypercholesterolemia Overweight (BMI 25.0-29.9) Depression Anxiety ASCUS with positive high risk HPV Surgical History History of hernia repair History of cholecystectomy History of Family History Maternal Grandmother Pacemaker CVD (cardiovascular disease) Father Diabetes HTN (hypertension) Mother Asthma Paternal Grandmother Cancer Brother No problems noted. Family/Other Substance abuse Chronic mental illness Social History Housing: Apartment Unable to assess alcohol history related to: Unknown Alcohol intake: never Patient Tobacco Use Status: Never used Tobacco e-Cigarette/Vaping Use: Never Used Second Hand Smoke Exposure: No service: No Current occupational status: unemployed Sexual orientation: Straight/Heterosexual Gender identity: Female Cognitive needs: No Hearing needs: No Vision needs: No Female Reproductive History Menstrual Age of Menarche: 12 Review of Systems Const All systems reviewed & are unremarkable except as noted in HPI and below Physical Exam Vital Signs: Last Vital Signs Temp 97.5 F 10/05/23 09:40 GI Palpation (GI): Soft to palpation, Tenderness to palpation present (GI) and no guarding General: Yes no CVA tenderness External Female Exam: normal external appearance and normal appearance of the urethra Speculum Exam - Vagina: other (Greenish vaginal discharge per vagina) Speculum Exam - Cervix: normal appearance of the cervix (Bed of LEEP with discharge, tender), no lesions, no masses and Cervical tenderness present Bimanual exam- vagina & uterus: normal bimanual exam, Cervical tenderness present, cervical motion tenderness and Uterine tenderness Bimanual Exam- Adnexa, other: Other (Bilateral adnexal tenderness) Back/Spine/Pelvis Back: no CVA tenderness Results AMB Test Urine AMB Test Urine Negative Last Edit by Vane Monterroso CMA on 10/05/23 10:01 Results Reviewed Results Reviewed: Laboratory Last Values Tst Clinic Negative 10/05/23 09:58 Assessment & Plan Assessment & Plan (1) Endometritis: Comment: Cervicitis post LEEP Code(s): N71.9 - Inflammatory disease of uterus, unspecified Category: Medical Plan: UPT done in the office was negative. Will send the patient the emergency room for sepsis workup, blood culture, CT scan of abdomen and pelvis with and without contrast and start on IV antibiotic ceftriaxone 1 g Q 24, doxycycline 100 mg IV b.i.d. with Flagyl 500 mg IV b.i.d. to be admitted to the medical floor for IV antibiotics and pain management Orders: Orders CT NG by PCR Today R10.2 - Pelvic and perineal pain AMB HCG Urine Test Today Z32.02 - Encounter for test, result negative Coding Level of Care Code Est Pt Level 3 (60451) Diagnoses Endometritis N71.9
== END 2023-10-05 10:26 | disposition home or self-care (01) ==
LOC: HO.HWS 09:11
PROVIDERS: PCP Internal Medicine; Visit Provider Obstetrics & Gynecology
DX: Z32.02 Encounter for pregnancy test, result negative (principal)

== ENCOUNTER 2023-10-05 09:49 | Inpatient (IN) | payer OTHER, SELFPAY ==
[2023-10-05] VITALS (12 sets, daily range): BP systolic 99–125; BP diastolic 50–84; PULSE 66–91; RESP 14–25; TEMP 36.5–37; O2SAT 95–100; BMI 25.5
--- NOTE | ~2023-10-05 | CT_ITS ---
EXAMINATION: CT ABDOMEN AND PELVIS WITH CONTRAST CLINICAL INFORMATION: Abdominal pain. COMPARISON: 12/15/2022 TECHNIQUE: Multidetector volumetric images were obtained from the superior aspect of the liver through the pubic symphysis following administration 85 mL of Omnipaque 350 intravenous contrast. Sagittal and coronal reformatted images were obtained on the technologist's workstation. Oral contrast: No This CT examination was performed using dose optimization techniques as appropriate, variously including the following: *Automated exposure control *Adjustment of mA and/or kV according to patient size (this includes techniques or standardized protocols for targeted exams where dose is matched to indication/reason for exam; i.e. extremities or head) *Use of iterative reconstruction technique DLP: 411 mGy-cm FINDINGS: LUNG BASES: The visualized lung bases are unremarkable. LIVER, GALLBLADDER, AND BILIARY TREE: The liver is normal in size and contour. Postcholecystectomy changes of the biliary ductal system. The gallbladder is surgically absent. PANCREAS: No ductal dilatation. SPLEEN: Unremarkable. ADRENAL GLANDS: Unremarkable. KIDNEYS AND URETERS: The kidneys are normal in size, shape, and attenuation. No hydronephrosis, hydroureter, or calculi seen. No perinephric stranding. BLADDER: Underdistended. GASTROINTESTINAL TRACT: Small and large bowel loops are of normal caliber. No small bowel obstruction. ABDOMINAL WALL: No significant hernia is appreciated. LYMPH NODES: No bulky lymphadenopathy. VASCULAR: Normal caliber abdominal aorta. PELVIC VISCERA: There is nonorganized fluid and gas in the region the endocervical canal with surrounding hyperemia. Infection cannot be excluded. Left posterior myometrium appears heterogeneous. There is fullness of bilateral ovaries which are closely apposed in the posterior midline pelvis. Trace free fluid in the pelvis. OSSEOUS STRUCTURES: No destructive bone lesions. CT/CT abdomen pelvis w IV con IMPRESSION: Nonorganized fluid and gas in the region the endocervical canal with surrounding hyperemia. Infection cannot be excluded.
--- NOTE | 2023-10-05 09:52 | ED_ITS ---
HPI - General Adult General Chief complaint: Abdominal Pain Stated complaint: outpatient Time Seen by Provider: 10/05/23 09:52 Source: patient and other (Dr. Wild) Mode of arrival: wheelchair Limitations: no limitations History of Present Illness ED Provider: gregorio GILMORE narrative: Patient is a 38-year-old female with history of HIV, recent cervical LEEP procedure on 09/30/23 presenting to the emergency department from Dr. Wild's office with nausea, vomiting, fever, vaginal discharge and abdominal pain. Dr. Wild called in expect with concern for cervicitis/endometritis, wants patient evaluated for sepsis. Patient states that her symptoms began yesterday. Reports brown/bloody vaginal discharge. Temp of 101 at home. Describes pain as in my uterus. complaint: fever, nausea, vomiting Onset (ago): day(s) Location: abdomen Radiation: abdomen Severity: severe Quality: sharp Pain Consistency: constant Associated symptoms: fever/chills and nausea/vomiting Treatments prior to arrival: none Related Data Home Medications ?Medication ?Instructions ?Recorded ?Confirmed bupropion HCl 150 mg 24 hr tablet, 150 mg PO DAILY 11/03/20 09/30/23 extended release hydroxyzine HCl 25 mg tablet 25 mg PO TID PRN anxiety 01/25/23 09/30/23 lorazepam 1 mg tablet 1 mg PO BID PRN anxiety 01/25/23 09/30/23 buspirone 30 mg tablet 30 mg PO BID 03/07/23 09/30/23 citalopram 20 mg tablet 20 mg PO DAILY 05/04/23 09/30/23 Previous Rx's ?Medication ?Instructions ?Recorded albuterol sulfate 90 mcg/actuation 2 puff inhalation Q6H PRN 08/02/23 aerosol inhaler (Ventolin HFA) shortness of breath or wheezing 30 days #8.5 grams Allergies Allergy/AdvReac Type Severity Reaction Status Date / Time oxycodone AdvReac Mild ineffective Uncoded 10/05/23 10:08 Review of Systems 2 Review of Systems: As per HPI. Yes all other systems are reviewed and are negative Constitutional: Constitutional: Reports as per HPI [facility] Past Medical History Medical History Abnormal laboratory test result Pure hypercholesterolemia Overweight (BMI 25.0-29.9) Depression Anxiety ASCUS with positive high risk HPV Surgical History History of hernia repair History of cholecystectomy History of Family History Family History Maternal Grandmother Pacemaker CVD (cardiovascular disease) Father Diabetes HTN (hypertension) Mother Asthma Paternal Grandmother Cancer Brother No problems noted. Family/Other Substance abuse Chronic mental illness Social History Social History Housing: Apartment Unable to assess alcohol history related to: Unknown Alcohol intake: never Patient Tobacco Use Status: Never used Tobacco Smoked in Last 30 Days: No e-Cigarette/Vaping Use: Never Used Second Hand Smoke Exposure: No Use of substances other than those prescribed or required for medical reasons: No Advance Directives: No Advance Directives Information Provided: Yes Do you have a plan to hurt others: No Plan Patient : No service: No Current occupational status: unemployed Sexual orientation: Straight/Heterosexual Gender identity: Female Cognitive needs: No Hearing needs: No Vision needs: No Physical Exam ED Vital Signs: Vital Signs - 24 hr 10/05/23 10:01 10/05/23 10:07 10/05/23 10:10 Temperature 97.8 F 97.8 F Pulse Rate 91 91 Respiratory Rate 18 20 20 Blood Pressure 125/84 125/84 Pulse Oximetry 100 100 Oxygen Delivery Method Room Air Room Air 10/05/23 10:54 10/05/23 12:07 10/05/23 12:10 Temperature 98.6 F Pulse Rate 74 Respiratory Rate 16 20 Blood Pressure 108/65 Pulse Oximetry 100 Oxygen Delivery Method Room Air 10/05/23 12:18 Temperature Pulse Rate Respiratory Rate 20 Blood Pressure Pulse Oximetry Oxygen Delivery Method BMI result Body Mass Index 25.5 Vital signs have been reviewed and appear to be correct. Blood pressure normal. Heart rate normal. Respiratory rate normal. Temperature normal. Oxygen saturation normal. Const Other: appears very uncomfortable, unable to sit still on stretcher due to pain General: cooperative and no acute distress Orientation/consciousness: oriented to person, oriented to place, oriented to time and patient oriented x3 Limitations: no limitations HENMT Head: Yes normocephalic and Yes atraumatic Ears: external ears normal General nose exam: Normal external nose present Face and sinus: Yes face symmetric Mouth: oropharynx normal and moist mucous membranes Throat: Yes uvula midline Eyes Pupils: Equal, round and reactive pupils present Neck Neck: Yes normal visual inspection and Yes supple Resp Effort & Inspection: normal respiratory effort and able to speak in complete sentences Auscultation: clear to auscultation bilaterally Cardio Rate: regular rate Rhythm: regular rhythm Heart sounds: S1 normal heart sound present and S2 normal heart sound present GI Palpation (GI): Soft to palpation and Tenderness to palpation present (GI) in the LLQ and in the RLQ Auscultation: normoactive bowel sounds General: Yes no CVA tenderness Back/Spine/Pelvis Back: no CVA tenderness Skin General skin exam: elasticity normal and turgor normal Neuro General: oriented to person, oriented to place, oriented to time, patient oriented x3, moves all extremities, no focal motor deficits and CN's II-XI intact bilaterally Cranial nerves: Yes Equal, round and reactive pupils present Cognition (Neuro): normal cognition Extrem General: Yes full ROM, Yes no pedal edema and Yes no calf tenderness Psych Mental Status: mental status grossly normal Affect: normal affect Thought process: Normal thought process present Medications Administered Discontinued Medications Generic Name Dose Route Start Last Admin Trade Name Freq PRN Reason Stop Dose Admin Doxycycline Monohydrate 100 mg 10/05/23 09:52 10/05/23 10:39 Doxycycline Monohydrate 100 Mg Capsule PO 10/05/23 09:53 100 mg ONCE ONE Administration Hydromorphone HCl 1 mg 10/05/23 10:44 10/05/23 10:54 Hydromorphone Hcl 1 Mg/Ml Syringe IVPUSH 10/05/23 10:45 1 mg ONCE ONE Administration Protocol Hydromorphone HCl 1 mg 10/05/23 12:11 10/05/23 12:18 Hydromorphone Hcl 1 Mg/Ml Syringe IVPUSH 10/05/23 12:12 1 mg ONCE ONE Administration Protocol Ceftriaxone Sodium 1 gm/ 50 mls @ 100 mls/hr 10/05/23 09:52 10/05/23 10:59 Sodium Chloride IV 10/05/23 10:21 Infused ONCE ONE Infusion Metronidazole 500 mg in 100 mls @ 100 mls/hr 10/05/23 09:52 10/05/23 12:22 Flagyl IV 10/05/23 10:51 Infused ONCE ONE Infusion Lactated Ringer's 1,000 mls @ 999 mls/hr 10/05/23 10:00 10/05/23 12:24 Lr IV 10/05/23 11:00 Infused .Q1H1M ALISIA Infusion Ketorolac Tromethamine 15 mg 10/05/23 12:11 10/05/23 12:18 Ketorolac Tromethamine 15 Mg/Ml Vial IVPUSH 10/05/23 12:12 15 mg ONCE ONE Administration Morphine Sulfate 4 mg 10/05/23 09:52 10/05/23 10:01 Morphine Sulfate 4 Mg/Ml Cartridge IVPUSH 10/05/23 09:53 4 mg ONCE ONE Administration Protocol Ondansetron HCl 4 mg 10/05/23 09:52 10/05/23 10:01 Ondansetron Hcl 4 Mg/2 Ml Vial IVPUSH 10/05/23 09:53 4 mg ONCE ONE Administration Medical Decision Making Medical Decision Making [facility] Narrative: Patient is a 38-year-old female with history of HIV, recent cervical LEEP procedure on 09/30/23 presenting to the emergency department from Dr. Wild's office with nausea, vomiting, fever, vaginal discharge and abdominal pain. On exam patient is awake, A+Ox3, VS WNL, afebrile, normal neurological exam without focal deficits, physical exam findings as above. Given reported symptoms and physical exam findings, initial differential includes cervicitis, endometrititis, UTI/pyelonephritis. Labs notable for slight leukocytosis of 11.4, no anemia, mildly elevated CRP. CT notable for fluid and gas in endocervical canal. My interpretation is in agreement with the radiologist's interpretation. Results discussed with Dr. Wild who states this is to be expected. Patient having ongoing pain despite multiple doses of pain medication given in the ED, requiring assist of [address] bathroom[address] Dr[address] Wild evaluated patient in the ED and feels patient requires admission for pain control and to receive IV antibiotics. Case discussed with Lien Chandler NP hospitalist. Differential Diagnosis Differential Diagnoses: The differential diagnosis associated with the presentation includes as per mdm Admission/Observation Consideration of admission/observation: Escalation of care including admission/observation considered Consult Healthcare Provider Management of the patient was discussed with: Hospitalist and Land Planner (Dr. Wild) Lab Data [facility] Lab Attestation statement: I reviewed the patient's lab results. As per MDM 10/05/23 10:15 10/05/23 10:15 Labs: Lab Results 10/05/23 10/05/23 Range/Units 10:15 10:51 WBC 11.4 H (4.8-10.8) X10*3/uL RBC 4.61 (4.20-5.50) X10*6/uL Hgb 13.0 (12.0-16.0) g/dl Hct 38.4 (37.0-47.0) % MCV 83.3 (80.0-98.0) fL MCH 28.2 (27.0-33.0) pg MCHC 33.9 (31.0-35.0) g/dl RDW 13.2 (11.0-16.0) % Plt Count 377 (160-400) X10*3/uL MPV 9.9 (9.4-12.3) fL Immature Gran % (Auto) 0.4 (0.0-0.4) % Neut % (Auto) 66.8 (45-73) % Lymph % (Auto) 20.2 (20-40) % Webb % (Auto) 10.1 (2-11) % Eos % (Auto) 1.9 (0-4) % Baso % (Auto) 0.6 (0-2) % Lymph # (Auto) 2.3 (1.2-4.9) X10*3/uL Webb # (Auto) 1.2 (0.1-1.2) X10*3/uL Eos # (Auto) 0.2 (0.0-0.4) X10*3/uL Baso # (Auto) 0.1 (0.0-0.2) X10*3/uL Abs Immat Gran (auto) 0.05 H (0.00-0.03) X10*3/uL Absolute Neuts (auto) 7.6 (2.0-8.3) x10*3/uL Absolute Nucleated RBC 0.000 (0.0-0.012) X10*3/uL Nucleated RBC % (auto) 0.0 (0.0-0.2) /100WBC Sodium 137 (135-145) mmol/L Potassium 3.7 (3.3-5.1) mmol/L Chloride 106 (96-108) mmol/L Carbon Dioxide 22 (22-29) mmol/L Anion Gap 13 (12-20) BUN 11 (9-16) mg/dL Creatinine 0.73 (0.5-1.4) mg/dL Estim Creat Clear Calc 103.2 Estimated GFR > 60 Random Glucose 86 (60-115) mg/dL Lactic Acid 1.4 (0.5-2.0) mmol/L Calcium 10.3 H D (8.4-10.2) mg/dL Total Bilirubin 0.4 (0.0-1.0) mg/dL AST 36 H (5-31) U/L ALT 38 H (0-31) U/L Alkaline Phosphatase 93 (39-117) U/L C-Reactive Protein 1.17 H (< or = 0.50) mg/dL Total Protein 7.5 (6.5-8.0) g/dL Albumin 4.2 (3.5-5.0) g/dL Urine Color Yellow Urine Appearance Clear Urine pH 8.0 (5.0-9.0) Ur Specific [place] <= 1.005 (1.005-1.025) Urine Protein Negative (Neg-Trace) mg/dL Urine Glucose (UA) Negative (Negative) mg/dL Urine Ketones Negative (Negative) mg/dL Urine Blood Moderate (2+) H (Negative) Urine Nitrite Negative (Negative) Ur Leukocyte Esterase Small (1+) H (Negative) Urine RBC 0-2 (0-2) /HPF Urine WBC 0-5 (0-5) /HPF Ur Squamous Epith Cells 0-2 (0-2) /HPF Urine Bacteria None Seen (None Seen) Hyaline Casts 0-2 (0-2) /LPF Independent Interpretation I performed an independent interpretation of an: CT Scan Interpretation: CT notable for fluid and gas in endocervical canal. Radiology Impression Discussion of test interpretation with radiology: I have reviewed the radiologist's reading. Radiologist Impression: CT/CT abdomen pelvis w IV con IMPRESSION: Nonorganized fluid and gas in the region the endocervical canal with surrounding hyperemia. Infection cannot be excluded. External Record Review External record reviewed: Inpatient record, Office record and Outpatient record Prescription Management I considered prescription management with: Antibiotic Discharge Plan Discharge Patient Disposition: Admitted As Inpatient Prescriptions: No Action hydroxyzine HCl 25 mg tablet 25 mg PO TID PRN (Reason: anxiety) lorazepam 1 mg tablet 1 mg PO BID PRN (Reason: anxiety) albuterol sulfate [Ventolin HFA] 90 mcg/actuation HFA aerosol inhaler 2 puff inhalation Q6H PRN (Reason: shortness of breath or wheezing) 30 Days Qty: 8.5 3RF bupropion HCl 150 mg tablet extended release 24 hr 150 mg PO DAILY buspirone 30 mg tablet 30 mg PO BID citalopram 20 mg tablet 20 mg PO DAILY Print Language: Uzbek
[2023-10-05] MEDS: Morphine Sulfate 4 MG/ML CARTRIDGE IVPUSH (10:01)
[2023-10-05] MEDS: ondansetron HCL 4 MG/2 ML VIAL IVPUSH ×2 (10:01→19:22)
--- NOTE | 2023-10-05 10:19 | PC.NURSE ---
Pt comes to ED today with sever lower abd pain. Reports surgical procedure on 09/30/23 to her uterus. stats severe abd pain with n/v/d starting yesterday. VSS, afebile, and A&Ox3 20g LAC Pt comfort per MAR. Will start abx once 2 BC sets have been obtained.
[2023-10-05 10:21] LABS: MANUAL DIFF FLAG NO
[2023-10-05 10:23] LABS: Basophils Absolute Auto 0.1 X10*3/uL (0.0-0.2); Basophils Percent Auto 0.6 % (0-2); Eosinophils Absolute Auto 0.2 X10*3/uL (0.0-0.4); Eosinophils Percent Auto 1.9 % (0-4); Hematocrit 38.4 % (37.0-47.0); Imm Gran Abs Auto 0.05 X10*3/uL (0.00-0.03); Imm Gran Pct Auto 0.4 % (0.0-0.4); Lymphocytes Absolute Auto 2.3 X10*3/uL (1.2-4.9); Lymphocytes Percent Auto 20.2 % (20-40); Mean Corpuscular HGB Conc 33.9 g/dl (31.0-35.0); Mean Corpuscular Hemoglobin 28.2 pg (27.0-33.0); Mean Corpuscular Volume 83.3 fL (80.0-98.0); Mean Platelet Volume 9.9 fL (9.4-12.3); Monocytes Absolute Auto 1.2 X10*3/uL (0.1-1.2); Monocytes Percent Auto 10.1 % (2-11); Neutrophils Absolute Auto 7.6 x10*3/uL (2.0-8.3); Neutrophils Percent Auto 66.8 % (45-73); Platelet Count 377 X10*3/uL (160-400); Red Blood Count 4.61 X10*6/uL (4.20-5.50); Red Cell Distribution Width 13.2 % (11.0-16.0); White Blood Count 11.4 X10*3/uL (4.8-10.8)
[2023-10-05 10:32] LABS: Lactic Acid 1.4 mmol/L (0.5-2.0)
[2023-10-05 10:35] LABS: Alanine Aminotransferase 38 U/L (0-31); Albumin Level 4.2 g/dL (3.5-5.0); Alkaline Phosphatase 93 U/L (39-117); Anion Gap 13 (12-20); Aspartate Amino Transferase 36 U/L (5-31); Bilirubin Total 0.4 mg/dL (0.0-1.0); Blood Urea Nitrogen 11 mg/dL (9-16); Calcium 10.3 mg/dL (8.4-10.2); Carbon Dioxide 22 mmol/L (22-29); Chloride 106 mmol/L (96-108); Creatinine Clr Calc Pharmacy 103.2; Estimated Glomerular Filt Rate > 60; Glucose Random 86 mg/dL (60-115); Potassium 3.7 mmol/L (3.3-5.1); Sodium 137 mmol/L (135-145); Total Protein 7.5 g/dL (6.5-8.0)
[2023-10-05] MEDS: Doxycycline Monohydrate 100 MG CAPSULE PO (10:39)
[2023-10-05] MEDS: cefTRIAXone sodium 1 GM in 0.9 % Sodium Chloride 50 ML IV (10:41)
[2023-10-05] MEDS: HYDROmorphone HCl 1 MG/ML SYRINGE IVPUSH ×5 (10:54→21:40)
[2023-10-05 10:58] LABS: Appearance Urine Clear; Color Urine Yellow; Glucose Urine UA Negative (Negative); Leukocyte Esterase Urine Small (1+) (Negative); Nitrite Urine Negative (Negative); Specific Gravity - Urine <= 1.005 (1.005-1.025); UMIC TRIGGER UACC YES; Urine Blood Moderate (2+) (Negative); Urine Ketones Negative (Negative); Urine Protein Negative (Neg-Trace)
[2023-10-05] MEDS: metroNIDAZOLE/NS 500 MG/100 ML PIGGYBACK 100 MG IV (10:59)
[2023-10-05 11:06] LABS: Bacteria Urine None Seen (None Seen); Hyaline Casts Urine 0-2 /LPF (0-2); RBC Urine 0-2 /HPF (0-2); Squamous Epithelial Cell Urine 0-2 /HPF (0-2); UACC Culture Trigger YES; WBC Urine 0-5 /HPF (0-5)
[2023-10-05] MEDS: Lactated Ringers 1,000 ML 999 ML IV (11:22)
[2023-10-05] MEDS: Ketorolac Tromethamine 15 MG/ML VIAL IVPUSH (12:18)
[2023-10-05 12:29] LABS: C Reactive Protein 1.17 mg/dL (< or = 0.50)
--- NOTE | 2023-10-05 13:00 | PM.GYNCN ---
DIRECTOR OF MANUFACTURING - CN: HPI Data of Consult Consult date: 10/05/23 Primary Care Provider: Shayne Bangura MD Consult Narrative Narrative: Angelique Esparza is a 38 year old female presented to the office today complaining of pelvic pain of 2 days' duration associated with fever of 101, nausea and vaginal discharge. The patient is postop day 5 from LEEP for CORRINA 2. cc:: CC: OB PMFSH Past Medical History Medical History HIV antibody positive Abnormal laboratory test result Pure hypercholesterolemia Overweight (BMI 25.0-29.9) Depression Anxiety ASCUS with positive high risk HPV Family History Family History Maternal Grandmother Pacemaker CVD (cardiovascular disease) Father Diabetes HTN (hypertension) Mother Asthma Paternal Grandmother Cancer Brother No problems noted. Family/Other Substance abuse Chronic mental illness Surgical History Surgical History History of hernia repair History of cholecystectomy History of Social History Social History Housing: Apartment Unable to assess alcohol history related to: Unknown Alcohol intake: never Patient Tobacco Use Status: Never used Tobacco Smoked in Last 30 Days: No e-Cigarette/Vaping Use: Never Used Second Hand Smoke Exposure: No Use of substances other than those prescribed or required for medical reasons: No Advance Directives: No Advance Directives Information Provided: Yes Do you have a plan to hurt others: No Plan Patient : No service: No Current occupational status: unemployed Sexual orientation: Straight/Heterosexual Gender identity: Female Cognitive needs: No Hearing needs: No Vision needs: No Meds Allergies Allergy/AdvReac Type Severity Reaction Status Date / Time oxycodone AdvReac Mild ineffective Uncoded 10/05/23 10:08 Home Medications ?Medication ?Instructions ?Recorded ?Confirmed ?Last Taken ?Type hydroxyzine HCl 25 mg tablet 25 mg PO TID PRN anxiety 01/25/23 10/05/23 09/23/23 History lorazepam 1 mg tablet 1 mg PO BID PRN anxiety 01/25/23 10/05/23 09/23/23 History buspirone 30 mg tablet 30 mg PO BID Anxiety 03/07/23 10/05/23 09/23/23 History multivitamin 1 tab PO DAILY 10/05/23 10/05/23 09/23/23 History DIRECTOR OF MANUFACTURING Physical Exam Vitals Vital signs: Temp Pulse Resp BP Pulse Ox O2 Del Method 98.6 F 74 20 108/65 100 Room Air 10/05/23 12:10 10/05/23 12:07 10/05/23 12:18 10/05/23 12:07 10/05/23 12:07 10/05/23 12:07 BMI result Body Mass Index 25.5 Abdomen Auscultation/Inspection/Palpation: Soft, Non-distended and Other (Bilateral lower tenderness no guarding or rebound) Female Genitalia (Pelvic) Vulva: No lesions Cervix: Cervical motion tenderness Uterus: Tender Adnexa/Parametria: Adnexal Tenderness: Bilateral Additional Comments: Greenish discharge per vagina DIRECTOR OF MANUFACTURING - Results Labs 10/05/23 10:15 10/05/23 10:15 Labs: Short CBC 10/05/23 Range/Units 10:15 WBC 11.4 H (4.8-10.8) X10*3/uL Hgb 13.0 (12.0-16.0) g/dl Hct 38.4 (37.0-47.0) % Plt Count 377 (160-400) X10*3/uL BMP 10/05/23 10:15 Sodium 137 Potassium 3.7 Chloride 106 Carbon Dioxide 22 BUN 11 Creatinine 0.73 Calcium 10.3 H D Liver Function 10/05/23 Range/Units 10:15 Total Bilirubin 0.4 (0.0-1.0) mg/dL AST 36 H (5-31) U/L ALT 38 H (0-31) U/L Alkaline Phosphatase 93 (39-117) U/L Albumin 4.2 (3.5-5.0) g/dL Urine 10/05/23 Range/Units 10:51 Urine Color Yellow Urine Appearance Clear Urine pH 8.0 (5.0-9.0) Ur Specific [place] <= 1.005 (1.005-1.025) Urine Protein Negative (Neg-Trace) mg/dL Urine Glucose (UA) Negative (Negative) mg/dL Imaging CT scan - pelvis: Radiologist's impression: ITS Impressions Abdomen/Pelvis CT 10/05/23 11:10 IMPRESSION: Nonorganized fluid and gas in the region the endocervical canal with surrounding hyperemia. Infection cannot be excluded. Assessment and Plan (1) Endometritis: Status: Acute Plan Urine test done in the office was negative. GC and chlamydia taken. Since the patient is having difficulty having pain controlled , recommended admission for IV antibiotics Recommend admission for IV antibiotics with Ceftriaxone 1 g Q 24, doxycycline 100 mg p.o. or IV q.12, metronidazole 500 mg IV or p.o. q.12 till clinical improvement for 24-48 hours, then discharge home on doxycycline 100 mg p.o. b.i.d. with Flagyl 500 mg p.o. b.i.d. for a total of 14 days, to be followed up as an outpatient within 2 weeks. In the event the patient does not progress or develop any of the following: Suspected sepsis , new onset fever, persistent or worsening abdomino/pelvic tenderness after 48 hours of treatment with IV antibiotics, the patient might need ID consult. GC/chlamydia/Trichomonas need to be checked and the patient is to be treaterd accordingly if positive This note was generated with a voice recognition program. Some errors may have been overlooked during the review of this note. Sometimes these errors may affect the content or meaning of a given sentence.
--- NOTE | 2023-10-05 14:01 | PC.NURSE ---
Hospitalist Tena BARLOW at bedside for eval
--- NOTE | 2023-10-05 14:29 | PHA.MEDREC ---
Addendum entered by Jacqueline Quintana RPh 10/05/23 15:01: Med rec has been reviewed by [facility]. Original Note: Pharmacy Consult ? Medication Reconciliation Pharmacy has completed the medication reconciliation. Confirmed medications with patient. She was a little confused and out of it but she stated that she is only taking anxiety medication and nothing else but a Multivitamin tablet daily. She kept going back and forth confirming Lorazepam 1mg and Hydroxyzine 25mg for the anxiety then I inquired about Buspirone 30mg and she stated she could not remember which one she was taking now and was more confused with me asking her the questions but kept saying she uses anxiety medication. She also stated that she has not taken any of the medicine since ~09/23/23 due to her having surgery last Friday 09/29 and since then shes been feeling sick and not able to take the medicine.
--- NOTE | 2023-10-05 14:31 | P.HPHOSP_ITS ---
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 She is s/p LEEP procedure pod 5 advised to come to the ED from her OBGYN. She reports 10/10 pelvic pain that is now 7/10 following IV analgesics. She is reporting pink/brown vaginal discharge but denies any yellow/green/foul odor to the discharge. Feeling generally weak. Reports the pain radiates into the legs making it difficult to walk and around to the left low back. Since arrival, vital signs are stable, afebrile in the ED. she has leukocytosis of 11.4. Renal function and electrolyte levels are normal. AST 36, ALT 38. CRP 1.17. Urinalysis with 1+ leukocytes, 2+ blood, no bacteria. CT abdomen pelvis shows non organized fluid and gas in the region the endocervical canal with surrounding hyperemia. She was evaluated by gynecology in the ED recommending treatment with IV ceftriaxone, IV doxycycline, IV Flagyl until clinical condition improves times 24-48 hours. Gonorrhea and chlamydia PCR pending. Recommending testing for Trichomonas basis as well. She will be admitted for further management of endometritis. Review of Systems 2 Review of Systems: Yes all other systems are reviewed and are negative [facility] Medical History HIV antibody positive Abnormal laboratory test result Pure hypercholesterolemia Overweight (BMI 25.0-29.9) Depression Anxiety ASCUS with positive high risk HPV Family History Maternal Grandmother Pacemaker CVD (cardiovascular disease) Father Diabetes HTN (hypertension) Mother Asthma Paternal Grandmother Cancer Brother No problems noted. Family/Other Substance abuse Chronic mental illness Surgical History History of hernia repair History of cholecystectomy History of Social History Housing: Apartment Unable to assess alcohol history related to: Unknown Alcohol intake: never Patient Tobacco Use Status: Never used Tobacco Smoked in Last 30 Days: No e-Cigarette/Vaping Use: Never Used Second Hand Smoke Exposure: No Use of substances other than those prescribed or required for medical reasons: No Advance Directives: No Advance Directives Information Provided: Yes Do you have a plan to hurt others: No Plan Patient : No service: No Current occupational status: unemployed Sexual orientation: Straight/Heterosexual Gender identity: Female Cognitive needs: No Hearing needs: No Vision needs: No Meds Allergies Allergy/AdvReac Type Severity Reaction Status Date / Time oxycodone AdvReac Mild ineffective Uncoded 10/05/23 10:08 Active Medications: Current Medications Acetaminophen (Acetaminophen 325 Mg Tablet) 650 mg PO Q6H PRN PRN Reason: Pain, Mild (Pain Scale 1-3), fever or headache Calcium Carbonate (Calcium Carbonate 750 Mg Tab.Chew) 750 mg PO Q4H PRN PRN Reason: Heartburn Hydromorphone HCl (Hydromorphone Hcl 1 Mg/Ml Syringe) 1 mg IVPUSH Q4H PRN; Protocol PRN Reason: Pain, Severe (Pain Scale 7-10) Doxycycline Hyclate 100 mg/ (Sodium Chloride) 250 mls @ 166.67 mls/hr IV Q12H ALISIA Metronidazole (Flagyl) 500 mg in 100 mls @ 100 mls/hr IV Q8H ALISIA Ceftriaxone Sodium 1 gm/ (Sodium Chloride) 50 mls @ 100 mls/hr IV Q24H ALISIA Magnesium Hydroxide (Milk Of Magnesia 30 Ml Oral.Susp) 30 ml PO DAILY PRN PRN Reason: Constipation Melatonin (Melatonin 3 Mg Tablet) 6 mg PO BEDTIME PRN PRN Reason: Insomnia Ondansetron HCl (Ondansetron Hcl 4 Mg/2 Ml Vial) 4 mg IVPUSH Q8H PRN PRN Reason: Nausea and Vomiting Oxycodone HCl (Oxycodone Hcl Immed Release 5 Mg Tablet) 5 mg PO Q6H PRN PRN Reason: Pain, Moderate(Pain Scale 4-6) Sodium Chloride (0.9 % Sodium Chloride Flush 3 Ml Syringe) 3 ml IVFLUSH QSHIFT [facility] Home Medications ?Medication ?Instructions ?Recorded ?Confirmed ?Last Taken ?Type hydroxyzine HCl 25 mg tablet 25 mg PO TID PRN anxiety 01/25/23 10/05/23 09/23/23 History lorazepam 1 mg tablet 1 mg PO BID PRN anxiety 01/25/23 10/05/23 09/23/23 History buspirone 30 mg tablet 30 mg PO BID Anxiety 03/07/23 10/05/23 09/23/23 History multivitamin 1 tab PO DAILY 10/05/23 10/05/23 09/23/23 History Physical Exam 2 Vital Signs and Narrative: Vital Signs: Last Vital Signs Temp 98.6 F 10/05/23 12:10 Pulse 74 10/05/23 12:07 Resp 20 10/05/23 12:18 BP 108/65 10/05/23 12:07 Pulse Ox 100 10/05/23 12:07 O2 Del Method Room Air 10/05/23 12:07 BMI result Body Mass Index 25.5 Constitutional - Awake and Alert, unwell appearing, pale. No apparent distress Eyes - PERRLA, EOMI Cardiovascular - S1S2, RRR, No edema Respiratory - Normal lung expansion, Normal respiratory effort, No respiratory distress, CTA bilaterally Gastrointestinal - suprapubic ttp. ND; +BS; No rebound or guarding Extremities - no calf tenderness bilaterally, no swelling Skin - Warm/Dry Neurological - Alert & oriented x3 Psychological - Appropriate affect Results Labs 10/05/23 10:15 10/05/23 10:15 Labs: Laboratory Results - last 24 hr 10/05/23 10/05/23 10:15 10:51 MCV 83.3 MCH 28.2 MCHC 33.9 RDW 13.2 Plt Count 377 MPV 9.9 Immature Gran % (Auto) 0.4 Neut % (Auto) 66.8 Lymph % (Auto) 20.2 [place] % (Auto) 10.1 Eos % (Auto) 1.9 Baso % (Auto) 0.6 Lymph # (Auto) 2.3 [place] # (Auto) 1.2 Eos # (Auto) 0.2 Baso # (Auto) 0.1 Abs Immat Gran (auto) 0.05 H Absolute Neuts (auto) 7.6 Absolute Nucleated RBC 0.000 Nucleated RBC % (auto) 0.0 Anion Gap 13 Estim Creat Clear Calc 103.2 Estimated GFR > 60 Random Glucose 86 Lactic Acid 1.4 Calcium 10.3 H D Total Bilirubin 0.4 AST 36 H ALT 38 H Alkaline Phosphatase 93 C-Reactive Protein 1.17 H Total Protein 7.5 Albumin 4.2 Urine Color Yellow Urine Appearance Clear Urine pH 8.0 Ur Specific Combs <= 1.005 Urine Protein Negative Urine Glucose (UA) Negative Urine Ketones Negative Urine Blood Moderate (2+) H Urine Nitrite Negative Ur Leukocyte Esterase Small (1+) H Urine RBC 0-2 Urine WBC 0-5 Ur Squamous Epith Cells 0-2 Urine Bacteria None Seen Hyaline Casts 0-2 Imaging Radiologist's Impressions: Impressions Abdomen/Pelvis CT 10/05/23 11:10 IMPRESSION: Nonorganized fluid and gas in the region the endocervical canal with surrounding hyperemia. Infection cannot be excluded. 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 #Acute endometritis s/p leep for CIN2 -CT abdomen pelvis shows non organized fluid and gas in the region the endocervical canal with surrounding hyperemia -leukocytosis 11.4, no SIRS criteria. No sepsis on admission -Per CRIMINAL INVESTIGATOR CUSTOMS: 1g IV ctx, 100mg IV doxy BID, 500mg IV flagyl q8h until clinically improved x24-48 hours. DC on 100mg po doxy and 500mg po flagyl x14 days -CRIMINAL INVESTIGATOR [employer]UST[employer]S consult -should patient develop sepsis, consult ID per psychology physician -gonorrhea and chlamydia PCR pending. Check Trichomonas basis with BV panel -follow CBC, cultures # mood disorder -continue home meds # HIV screening immuno assay positive -send out antibodies and viral load negative -discussed with infectious disease. No infection. Outpatient annual viral load recommended DVT prophylaxis- SCPs due to vaginal bleeding Full code Pt requires inpt stay for iv antibiotics due to acute endometritis following leep procedure with intractable pain requiring IV analgesics Quality Stroke Does the patient have a stroke diagnosis?: No VTE Prior VTE?: No VTE Risk Level:: Medical - moderate - high VTE Device Contraindication: Treatment Not Indicated VTE Drug Contraindication: N/A - Med Ordered
[2023-10-05 17:27] LABS: Bacterial Vaginosis PCR POSITIVE (Negative); Candida Group PCR NOT DETECTED (Not Detect); Candida glab krusei PCR NOT DETECTED (Not Detect); Trichomonas vaginalis PCR NOT DETECTED (Not Detect)
[2023-10-05] MEDS: 0.9 % Sodium Chloride Flush 3 ML SYRINGE IVFLUSH (18:37)
--- NOTE | 2023-10-05 19:26 | PC.NURSE ---
this rn assumed care of pt, pt reporting nausea at this time, pt medicated per mar with prn medication.
[2023-10-05] MEDS: busPIRone HCl 10 MG TABLET 30 MG PO (21:42)
[2023-10-05] MEDS: Doxycycline Hyclate 100 MG in 0.9 % Sodium Chloride 250 ML 166.67 MG IV (21:44)
--- NOTE | 2023-10-05 21:47 | PC.NURSE ---
pt reporting 10/10 lower abdominal pain, shaking and tearful, dr.vali candelario, pt medicated per apr.
[2023-10-06] MEDS: metroNIDAZOLE/NS 500 MG/100 ML PIGGYBACK 100 MG IV ×3 (00:15→23:53)
[2023-10-06 03:40] VITALS: RESP 18
[2023-10-06] MEDS: HYDROmorphone HCl 1 MG/ML SYRINGE IVPUSH ×5 (03:40→20:47)
[2023-10-06 05:12] LABS: MANUAL DIFF FLAG NO
[2023-10-06 05:13] LABS: Basophils Percent Auto 0.5 % (0-2); Eosinophils Absolute Auto 0.2 X10*3/uL (0.0-0.4); Eosinophils Percent Auto 2.1 % (0-4); Hematocrit 35.9 % (37.0-47.0); Hemoglobin 11.8 g/dl (12.0-16.0); Imm Gran Abs Auto 0.04 X10*3/uL (0.00-0.03); Imm Gran Pct Auto 0.5 % (0.0-0.4); Lymphocytes Absolute Auto 1.8 X10*3/uL (1.2-4.9); Mean Corpuscular HGB Conc 32.9 g/dl (31.0-35.0); Mean Corpuscular Hemoglobin 28.6 pg (27.0-33.0); Mean Corpuscular Volume 86.9 fL (80.0-98.0); Monocytes Absolute Auto 0.8 X10*3/uL (0.1-1.2); Monocytes Percent Auto 9.2 % (2-11); Neutrophils Absolute Auto 5.8 x10*3/uL (2.0-8.3); Neutrophils Percent Auto 66.7 % (45-73); Platelet Count 322 X10*3/uL (160-400); Red Blood Count 4.13 X10*6/uL (4.20-5.50); Red Cell Distribution Width 13.5 % (11.0-16.0); White Blood Count 8.6 X10*3/uL (4.8-10.8)
[2023-10-06 05:39] LABS: Anion Gap 11 (12-20); Blood Urea Nitrogen 9 mg/dL (9-16); Calcium 8.8 mg/dL (8.4-10.2); Carbon Dioxide 27 mmol/L (22-29); Chloride 106 mmol/L (96-108); Estimated Glomerular Filt Rate > 60; Glucose Random 98 mg/dL (60-115); Potassium 4.3 mmol/L (3.3-5.1); Sodium 140 mmol/L (135-145)
[2023-10-06 06:18] VITALS: BP 106/65; PULSE 76; RESP 16; TEMP 36.9; O2SAT 95
[2023-10-06] MEDS: busPIRone HCl 10 MG TABLET 30 MG PO ×2 (08:28→20:50)
[2023-10-06 08:40] VITALS: BP 118/68; PULSE 68; RESP 18; TEMP 36.6; O2SAT 99
[2023-10-06 08:47] VITALS: BMI 25.9
[2023-10-06] MEDS: ondansetron HCL 4 MG/2 ML VIAL IVPUSH ×2 (09:00→20:46)
[2023-10-06] MEDS: 0.9 % Sodium Chloride Flush 3 ML SYRINGE IVFLUSH ×3 (09:16→23:59)
[2023-10-06] MEDS: cefTRIAXone sodium 1 GM in 0.9 % Sodium Chloride 50 ML IV (09:34)
[2023-10-06] MEDS: Acetaminophen 325 MG TABLET 650 MG PO (09:34)
--- NOTE | 2023-10-06 09:35 | PM.GYNPNOP ---
SYNTHETIC DEPARTMENT SUPERVISOR - Subjective Subjective Date of Service: 10/06/23 Interval history: Doing well still complaining of pelvic pain with minimal nausea no vomiting. No vaginal bleeding and no fever overnight. On ceftriaxone 1 g Q 24, Flagyl 500 mg b.i.d. and doxycycline 100 mg b.i.d. EDUCATIONAL TECHNOLOGY COORDINATOR Physical Exam Vitals Vital signs: Temp Pulse Resp BP Pulse Ox O2 Del Method 97.8 F 68 18 118/68 99 Room Air 10/06/23 08:40 10/06/23 08:40 10/06/23 08:40 10/06/23 08:40 10/06/23 08:40 10/06/23 08:40 BMI result Body Mass Index 25.9 Abdomen Auscultation/Inspection/Palpation: Soft and Tenderness SYNTHETIC DEPARTMENT SUPERVISOR - Prog Note: Results Labs 10/06/23 04:59 10/06/23 04:59 Labs: Laboratory Results - last 24 hr 10/05/23 10/05/23 10/05/23 10:15 10:51 15:53 WBC 11.4 H RBC 4.61 Hgb 13.0 Hct 38.4 MCV 83.3 MCH 28.2 MCHC 33.9 RDW 13.2 Plt Count 377 MPV 9.9 Immature Gran % (Auto) 0.4 Neut % (Auto) 66.8 Lymph % (Auto) 20.2 [place] % (Auto) 10.1 Eos % (Auto) 1.9 Baso % (Auto) 0.6 Lymph # (Auto) 2.3 [place] # (Auto) 1.2 Eos # (Auto) 0.2 Baso # (Auto) 0.1 Abs Immat Gran (auto) 0.05 H Absolute Neuts (auto) 7.6 Absolute Nucleated RBC 0.000 Nucleated RBC % (auto) 0.0 Sodium 137 Potassium 3.7 Chloride 106 Carbon Dioxide 22 Anion Gap 13 BUN 11 Creatinine 0.73 Estim Creat Clear Calc 103.2 Estimated GFR > 60 Random Glucose 86 Lactic Acid 1.4 Calcium 10.3 H D Total Bilirubin 0.4 AST 36 H ALT 38 H Alkaline Phosphatase 93 C-Reactive Protein 1.17 H Total Protein 7.5 Albumin 4.2 Urine Color Yellow Urine Appearance Clear Urine pH 8.0 Ur Specific [place] <= 1.005 Urine Protein Negative Urine Glucose (UA) Negative Urine Ketones Negative Urine Blood Moderate (2+) H Urine Nitrite Negative Ur Leukocyte Esterase Small (1+) H Urine RBC 0-2 Urine WBC 0-5 Ur Squamous Epith Cells 0-2 Urine Bacteria None Seen Hyaline Casts 0-2 T. vaginalis (PCR) NOT DETECTED Bact Vaginosis (PCR) POSITIVE A C. krusei/glabrata (PCR) NOT DETECTED Christina group (PCR) NOT DETECTED 10/06/23 04:59 WBC 8.6 RBC 4.13 L Hgb 11.8 L Hct 35.9 L MCV 86.9 MCH 28.6 MCHC 32.9 RDW 13.5 Plt Count 322 MPV 10.0 Immature Gran % (Auto) 0.5 H Neut % (Auto) 66.7 Lymph % (Auto) 21.0 [place] % (Auto) 9.2 Eos % (Auto) 2.1 Baso % (Auto) 0.5 Lymph # (Auto) 1.8 [place] # (Auto) 0.8 Eos # (Auto) 0.2 Baso # (Auto) 0.0 Abs Immat Gran (auto) 0.04 H Absolute Neuts (auto) 5.8 Absolute Nucleated RBC 0.000 Nucleated RBC % (auto) 0.0 Sodium 140 Potassium 4.3 Chloride 106 Carbon Dioxide 27 Anion Gap 11 L BUN 9 Creatinine 0.81 Estim Creat Clear Calc 93.0 Estimated GFR > 60 Random Glucose 98 Lactic Acid Calcium 8.8 D Total Bilirubin AST ALT Alkaline Phosphatase C-Reactive Protein Total Protein Albumin Urine Color Urine Appearance Urine pH Ur Specific [place] Urine Protein Urine Glucose (UA) Urine Ketones Urine Blood Urine Nitrite Ur Leukocyte Esterase Urine RBC Urine WBC Ur Squamous Epith Cells Urine Bacteria Hyaline Casts T. vaginalis (PCR) Bact Vaginosis (PCR) C. krusei/glabrata (PCR) Christina group (PCR) SYNTHETIC DEPARTMENT SUPERVISOR - A/P (1) Endometritis: Status: Acute Plan Will keep on IV antibiotics Ambulate Regular diet Pain management Time Spent With Patient Time: Total time managing care of this patient today ____ minutes. Quality Measures - EDUCATIONAL TECHNOLOGY COORDINATOR H&P VTE Prior VTE?: No VTE Risk Level:: Medical - moderate - high VTE Device Contraindication: Treatment Not Indicated VTE Drug Contraindication: N/A - Med Ordered
[2023-10-06] MEDS: Doxycycline Hyclate 100 MG in 0.9 % Sodium Chloride 250 ML 166.67 MG IV ×2 (10:22→22:13)
[2023-10-06] MEDS: LORazepam 1 MG TABLET PO (15:37)
[2023-10-06 15:43] VITALS: BP 110/76; PULSE 78; RESP 18; TEMP 36.4; O2SAT 97
--- NOTE | 2023-10-06 16:18 | MHC.CM.PN ---
PT REPORTS SHE LIVES WITH HER DAUGHTER AND IS INDEPENDENT WITH CARE SHE HAS NO SERVICES AND NO DME SHE DECLINES TO COMPLETE A HCP SAYING SHE HAS NO ONE TO NAME PCP: YIN RIVERA DCP: HOME NO SERVICES VIA PRIVATE TRANSPORT
--- NOTE | 2023-10-06 16:27 | P.PNIM_ITS ---
Subjective Subjective Date of Service: 10/06/23 Interval History: Seen and examined this morning Follow-up for endometritis Patient reporting ongoing pelvic pain, nausea. Denies fever or chills Review of Systems Review of Systems: Yes all other systems are reviewed and are negative Constitutional Constitutional: Denies chills and Denies fever(s) Cardiovascular Cardiovascular: Denies chest pain, Denies palpitations and Denies dyspnea Respiratory Respiratory: Denies cough and Denies dyspnea Gastrointestinal Gastrointestinal: Reports abdominal pain, Reports nausea and Denies vomiting Endocrine Endocrine: Denies palpitations Physical Exam 2 Vital Signs: Vital Signs: Last Vital Signs Temp 97.5 F 10/06/23 15:43 Pulse 78 10/06/23 15:43 Resp 18 10/06/23 15:43 BP 110/76 10/06/23 15:43 Pulse Ox 97 10/06/23 15:43 O2 Del Method Room Air 10/06/23 15:43 BMI result Body Mass Index 25.9 Const: General: alert and awake Nutritional Appearance: average body habitus Orientation/consciousness: patient oriented x3 Resp: Effort & Inspection: normal respiratory effort, able to speak in complete sentences, no respiratory distress and no use of accessory muscles A uscultation: clear to auscultation bilaterally Cardio: Rate: regular rate GI: Other: Mild suprapubic tenderness to palpation positive bowel sounds no guarding Inspection: No distended Palpation (GI): Soft to palpation Neuro: General: patient oriented x3, moves all extremities and CN's II-XI intact bilaterally Extrem: General: Yes no pedal edema Objective Data Active Medications Acetaminophen (Acetaminophen 325 Mg Tablet) 650 mg PO Q6H PRN PRN Reason: Pain, Mild (Pain Scale 1-3), fever or headache Last Admin: 10/06/23 09:34 Dose: 650 mg Documented By: ELISHA Buspirone HCl (Buspirone Hcl 10 Mg Tablet) 30 mg PO BID ALISIA Last Admin: 10/06/23 08:28 Dose: 30 mg Documented By: EMILY Calcium Carbonate (Calcium Carbonate 750 Mg Tab.Chew) 750 mg PO Q4H PRN PRN Reason: Heartburn Hydromorphone HCl (Hydromorphone Hcl 1 Mg/Ml Syringe) 1 mg IVPUSH Q4H PRN; Protocol PRN Reason: Pain, Severe (Pain Scale 7-10) Last Admin: 10/06/23 12:25 Dose: 1 mg Documented By: ELISHA Hydroxyzine HCl (Hydroxyzine Hcl 25 Mg Tablet) 25 mg PO TID PRN PRN Reason: anxiety Doxycycline Hyclate 100 mg/ (Sodium Chloride) 250 mls @ 166.67 mls/hr IV Q12H [facility] Last Infusion: 10/06/23 12:02 Dose: Infused Documented By: ELISHA Ceftriaxone Sodium 1 gm/ (Sodium Chloride) 50 mls @ 100 mls/hr IV Q24H [facility] Last Infusion: 10/06/23 10:22 Dose: Infused Documented By: ELISHA Metronidazole (Flagyl) 500 mg in 100 mls @ 100 mls/hr IV Q12H [facility] Last Infusion: 10/06/23 13:22 Dose: Infused Documented By: ELISHA Lorazepam (Lorazepam 1 Mg Tablet) 1 mg PO BID PRN PRN Reason: anxiety Last Admin: 10/06/23 15:37 Dose: 1 mg Documented By: ELISHA Comments: patient requested for anxiety Magnesium Hydroxide (Milk Of Magnesia 30 Ml Oral.Susp) 30 ml PO DAILY PRN PRN Reason: Constipation Melatonin (Melatonin 3 Mg Tablet) 6 mg PO BEDTIME PRN PRN Reason: Insomnia Ondansetron HCl (Ondansetron Hcl 4 Mg/2 Ml Vial) 4 mg IVPUSH Q8H PRN PRN Reason: Nausea and Vomiting Last Admin: 10/06/23 09:00 Dose: 4 mg Documented By: BYRONNM Oxycodone HCl (Oxycodone Hcl Immed Release 5 Mg Tablet) 5 mg PO Q6H PRN PRN Reason: Pain, Moderate(Pain Scale 4-6) Sodium Chloride (0.9 % Sodium Chloride Flush 3 Ml Syringe) 3 ml IVFLUSH QSHIFT [facility] Last Admin: 10/06/23 09:16 Dose: 3 ml Documented By: ELISHA Labs 10/06/23 04:59 10/06/23 04:59 Labs: Laboratory Results - last 24 hr 10/05/23 10/06/23 15:53 04:59 MCV 86.9 MCH 28.6 MCHC 32.9 RDW 13.5 Plt Count 322 MPV 10.0 Immature Gran % (Auto) 0.5 H Neut % (Auto) 66.7 Lymph % (Auto) 21.0 [place] % (Auto) 9.2 Eos % (Auto) 2.1 Baso % (Auto) 0.5 Lymph # (Auto) 1.8 [place] # (Auto) 0.8 Eos # (Auto) 0.2 Baso # (Auto) 0.0 Abs Immat Gran (auto) 0.04 H Absolute Neuts (auto) 5.8 Absolute Nucleated RBC 0.000 Nucleated RBC % (auto) 0.0 Anion Gap 11 L Estim Creat Clear Calc 93.0 Estimated GFR > 60 Random Glucose 98 Calcium 8.8 D T. vaginalis (PCR) NOT DETECTED Bact Vaginosis (PCR) POSITIVE A C. krusei/glabrata (PCR) NOT DETECTED Christina group (PCR) NOT DETECTED Microbiology Microbiology Results: Microbiology 10/05/23 Unknown Urine Culture - Preliminary Urine clean catch - Clean Catch Midstream Strep agalactiae (Grp B) Gram negative janes 10/05/23 10:24 Blood Culture - Preliminary Blood - Venous No growth after 24 hours. 10/05/23 10:15 Blood Culture - Preliminary Blood - Venous No growth after 24 hours. 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 Acute endometritis s/p leep for CIN2 CT abdomen pelvis shows non organized fluid and gas in the region the endocervical canal with surrounding hyperemia no SIRS criteria. No sepsis on admission. Leukocytosis resolved Per LEGAL BILLING CLERK: 1g IV ctx, 100mg IV doxy BID, 500mg IV flagyl q8h until clinically improved x24-48 hours. DC on 100mg po doxy and 500mg po flagyl x14 days LEGAL BILLING CLERK following should patient develop sepsis, consult ID per order puller gonorrhea and chlamydia PCR neg, BV + (already on flagyl) Blood cultures negative to date UTI UCx growing group b strep 50-100,000 cfu and GNR 10-50,000 CFU on abx as above follow final culture results mood disorder -continue home meds HIV screening immuno assay positive -send out antibodies and viral load negative -discussed with infectious disease. No infection. Outpatient annual viral load recommended transaminitis Outpatient follow-up DVT prophylaxis- SCPs due to vaginal bleeding Full code Pt requires inpt stay for iv antibiotics due to acute endometritis following leep procedure with intractable pain requiring IV analgesics Quality Stroke Does the patient have a stroke diagnosis?: No VTE Prior VTE?: No VTE Risk Level:: Medical - moderate - high VTE Device Contraindication: Treatment Not Indicated VTE Drug Contraindication: N/A - Med Ordered
[2023-10-06 19:12] VITALS: BP 103/58; PULSE 83; RESP 18; TEMP 36.3; O2SAT 97
[2023-10-06 20:45] VITALS: BP 115/68; RESP 16
[2023-10-06] MEDS: Melatonin 3 MG TABLET 6 MG PO (22:27)
[2023-10-07] VITALS (7 sets, daily range): BP systolic 106–113; BP diastolic 59–73; PULSE 64–97; RESP 15–20; TEMP 36.1–36.6; O2SAT 95–100
[2023-10-07 06:40] LABS: Hemoglobin 11.5 g/dl (12.0-16.0); Mean Corpuscular HGB Conc 32.9 g/dl (31.0-35.0); Mean Corpuscular Hemoglobin 28.6 pg (27.0-33.0); Mean Corpuscular Volume 87.1 fL (80.0-98.0); Mean Platelet Volume 10.3 fL (9.4-12.3); Platelet Count 325 X10*3/uL (160-400); Red Blood Count 4.02 X10*6/uL (4.20-5.50); Red Cell Distribution Width 13.5 % (11.0-16.0); White Blood Count 11.3 X10*3/uL (4.8-10.8)
[2023-10-07] MEDS: 0.9 % Sodium Chloride Flush 3 ML SYRINGE IVFLUSH ×3 (08:06→19:43)
[2023-10-07] MEDS: HYDROmorphone HCl 1 MG/ML SYRINGE IVPUSH ×2 (09:53→19:38)
[2023-10-07] MEDS: busPIRone HCl 10 MG TABLET 30 MG PO ×2 (09:53→21:58)
[2023-10-07] MEDS: ondansetron HCL 4 MG/2 ML VIAL IVPUSH ×2 (09:53→19:38)
[2023-10-07] MEDS: cefTRIAXone sodium 1 GM in 0.9 % Sodium Chloride 50 ML IV (11:00)
[2023-10-07] MEDS: Doxycycline Hyclate 100 MG in 0.9 % Sodium Chloride 250 ML 166.67 MG IV ×2 (11:41→21:59)
--- NOTE | 2023-10-07 12:31 | MHC.CM.PN ---
Per MD rounds Provider will reassess this afternoon. Patient c/o Nausea and pain this morning. DP Home self care. Patient will arrange for transport home.
[2023-10-07] MEDS: hydrOXYzine HCL 25 MG TABLET PO (13:06)
[2023-10-07] MEDS: metroNIDAZOLE/NS 500 MG/100 ML PIGGYBACK 100 MG IV (13:18)
--- NOTE | 2023-10-07 14:21 | P.PNOB_ITS ---
SUPERINTENDENT BOARD MILL - Subjective Subjective Date of Service: 10/07/23 Interval history: Feeling ill better this afternoon with mild nausea no vomiting Denies fever or chills On IV ceftriaxone doxycycline and Flagyl Ambulating CARBIDE DIE MAKER Physical Exam Vitals Vital signs: Temp Pulse Resp BP Pulse Ox O2 Del Method 96.9 F 68 18 112/69 100 Room Air 10/07/23 11:28 10/07/23 11:28 10/07/23 11:28 10/07/23 11:28 10/07/23 11:28 10/07/23 11:28 BMI result Body Mass Index 25.9 Abdomen Auscultation/Inspection/Palpation: Soft and Tenderness (Mild tenderness, no guarding or rebound) SUPERINTENDENT BOARD MILL - Prog Note: Results Labs 10/07/23 05:32 10/06/23 04:59 Labs: Laboratory Results - last 24 hr 10/07/23 05:32 WBC 11.3 H RBC 4.02 L Hgb 11.5 L Hct 35.0 L MCV 87.1 MCH 28.6 MCHC 32.9 RDW 13.5 Plt Count 325 MPV 10.3 Absolute Nucleated RBC 0.000 Nucleated RBC % (auto) 0.0 SUPERINTENDENT BOARD MILL - A/P (1) Acute endometritis: Status: Acute Assessment and Plan: Continue IV antibiotics if improvement in a.m. discharge on p.o. Flagyl/doxycycline for a total of 14 days. If no improvement will consider consult IUD and reimaging Time Spent With Patient Time: Total time managing care of this patient today ____ minutes. Quality Measures - CARBIDE DIE MAKER H&P VTE Prior VTE?: No VTE Risk Level:: Medical - moderate - high VTE Device Contraindication: Treatment Not Indicated VTE Drug Contraindication: N/A - Med Ordered
[2023-10-07] MEDS: LORazepam 1 MG TABLET PO (15:09)
--- NOTE | 2023-10-07 16:00 | P.PNIM_ITS ---
Subjective Subjective Date of Service: 10/07/23 Interval History: seen and examined this morning follow up for endometritis reporting feeling better with less nausea but then had one episode of vomiting no fever Review of Systems Review of Systems: Yes all other systems are reviewed and are negative Constitutional Constitutional: Denies chills and Denies fever(s) Cardiovascular Cardiovascular: Denies chest pain, Denies palpitations and Denies dyspnea Respiratory Respiratory: Denies dyspnea Gastrointestinal Gastrointestinal: Reports abdominal pain and Reports nausea Endocrine Endocrine: Denies palpitations Physical Exam 2 Vital Signs: Vital Signs: Last Vital Signs Temp 97.7 F 10/07/23 15:40 Pulse 75 10/07/23 15:40 Resp 18 10/07/23 15:40 BP 109/64 10/07/23 15:40 Pulse Ox 98 10/07/23 15:40 O2 Del Method Room Air 10/07/23 15:40 BMI result Body Mass Index 25.9 Const: General: alert and awake Nutritional Appearance: average body habitus Orientation/consciousness: patient oriented x3 Resp: Effort & Inspection: normal respiratory effort, able to speak in complete sentences, no respiratory distress and no use of accessory muscles A uscultation: clear to auscultation bilaterally Cardio: Rate: regular rate GI: Other: Mild suprapubic tenderness to palpation positive bowel sounds no guarding Inspection: No distended Palpation (GI): Soft to palpation Neuro: General: patient oriented x3, moves all extremities and CN's II-XI intact bilaterally Extrem: General: Yes no pedal edema Objective Data Active Medications Acetaminophen (Acetaminophen 325 Mg Tablet) 650 mg PO Q6H PRN PRN Reason: Pain, Mild (Pain Scale 1-3), fever or headache Last Admin: 10/06/23 09:34 Dose: 650 mg Documented By: ELISHA Buspirone HCl (Buspirone Hcl 10 Mg Tablet) 30 mg PO BID ALISIA Last Admin: 10/07/23 09:53 Dose: 30 mg Documented By: LYNETTE Calcium Carbonate (Calcium Carbonate 750 Mg Tab.Chew) 750 mg PO Q4H PRN PRN Reason: Heartburn Hydromorphone HCl (Hydromorphone Hcl 1 Mg/Ml Syringe) 1 mg IVPUSH Q4H PRN; Protocol PRN Reason: Pain, Severe (Pain Scale 7-10) Last Admin: 10/07/23 09:53 Dose: 1 mg Documented By: LYNETTE Hydroxyzine HCl (Hydroxyzine Hcl 25 Mg Tablet) 25 mg PO TID PRN PRN Reason: anxiety Last Admin: 10/07/23 13:06 Dose: 25 mg Documented By: LYNETTE Doxycycline Hyclate 100 mg/ (Sodium Chloride) 250 mls @ 166.67 mls/hr IV Q12H [facility] Last Infusion: 10/07/23 13:19 Dose: Infused Documented By: LYNETTE Ceftriaxone Sodium 1 gm/ (Sodium Chloride) 50 mls @ 100 mls/hr IV Q24H [facility] Last Infusion: 10/07/23 11:45 Dose: Infused Documented By: LYNETTE Metronidazole (Flagyl) 500 mg in 100 mls @ 100 mls/hr IV Q12H [facility] Last Infusion: 10/07/23 14:18 Dose: Infused Documented By: LYNETTE Lorazepam (Lorazepam 1 Mg Tablet) 1 mg PO BID PRN PRN Reason: anxiety Last Admin: 10/07/23 15:09 Dose: 1 mg Documented By: LYNETTE Magnesium Hydroxide (Milk Of Magnesia 30 Ml Oral.Susp) 30 ml PO DAILY PRN PRN Reason: Constipation Melatonin (Melatonin 3 Mg Tablet) 6 mg PO BEDTIME PRN PRN Reason: Insomnia Last Admin: 10/06/23 22:27 Dose: 6 mg Documented By: VIKRAM Ondansetron HCl (Ondansetron Hcl 4 Mg/2 Ml Vial) 4 mg IVPUSH Q8H PRN PRN Reason: Nausea and Vomiting Last Admin: 10/07/23 09:53 Dose: 4 mg Documented By: LYNETTE Oxycodone HCl (Oxycodone Hcl Immed Release 5 Mg Tablet) 5 mg PO Q6H PRN PRN Reason: Pain, Moderate(Pain Scale 4-6) Sodium Chloride (0.9 % Sodium Chloride Flush 3 Ml Syringe) 3 ml IVFLUSH QSHIFT [facility] Last Admin: 10/07/23 15:11 Dose: 3 ml Documented By: LYNETTE Labs 10/07/23 05:32 10/06/23 04:59 Labs: Laboratory Results - last 24 hr 10/07/23 05:32 MCV 87.1 MCH 28.6 MCHC 32.9 RDW 13.5 Plt Count 325 MPV 10.3 Absolute Nucleated RBC 0.000 Nucleated RBC % (auto) 0.0 Microbiology Microbiology Results: Microbiology 10/05/23 10:24 Blood Culture - Preliminary Blood - Venous No growth after 48 hours. 10/05/23 10:15 Blood Culture - Preliminary Blood - Venous No growth after 48 hours. 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 Acute endometritis s/p leep for CIN2 CT abdomen pelvis shows non organized fluid and gas in the region the endocervical canal with surrounding hyperemia no SIRS criteria. No sepsis on admission. Leukocytosis resolved Per EDITORIAL SPECIALIST: 1g IV ctx, 100mg IV doxy BID, 500mg IV flagyl q8h until clinically improved x24-48 hours. DC on 100mg po doxy and 500mg po flagyl x14 days should patient develop sepsis, consult ID per health claims examiner gonorrhea and chlamydia PCR neg, BV + (already on flagyl) Blood cultures negative to date EDITORIAL SPECIALIST following - if no improvement tomorrow consider repeat imaging ID consult pending UTI UCx growing group b strep 50-100,000 cfu and e.coli 10-50,000 CFU on abx as above mood disorder continue home meds HIV screening immuno assay positive send out antibodies and viral load negative discussed with infectious disease. No infection. Outpatient annual viral load recommended transaminitis Outpatient follow-up DVT prophylaxis- SCPs due to vaginal bleeding Full code Pt requires inpt stay for iv antibiotics due to acute endometritis following leep procedure with intractable pain requiring IV analgesics Quality Stroke Does the patient have a stroke diagnosis?: No VTE Prior VTE?: No VTE Risk Level:: Medical - moderate - high VTE Device Contraindication: Treatment Not Indicated VTE Drug Contraindication: N/A - Med Ordered
--- NOTE | 2023-10-07 22:25 | P.CNID_ITS ---
History of Present Illness Data of Consult Service Date: 10/07/23 Requesting physician: Thao Caba Primary Care Provider: Shayne Bangura MD HPI Reason for consult: abdominal pain She presents with nausea,vomiting abdominal pain and brownish vaginal discharge and mentioned temperature to 101 ad home. She has no fever recorded here in hospital. She is day 3 Doxycycline,Ceftriaxone day 2 and flagyl day 3 ,bacterial vaginosis. test negative. She had LEEP on 09/29 Urine only shows small quantity Group B strep and E coli Review of Systems 2 Review of Systems: Yes all other systems are reviewed and are negative Gastrointestinal: Gastrointestinal: Reports abdominal pain PMFSH Past Medical History Medical History HIV antibody positive Abnormal laboratory test result Pure hypercholesterolemia Overweight (BMI 25.0-29.9) Depression Anxiety ASCUS with positive high risk HPV Family History Family History Maternal Grandmother Pacemaker CVD (cardiovascular disease) Father Diabetes HTN (hypertension) Mother Asthma Paternal Grandmother Cancer Brother No problems noted. Family/Other Substance abuse Chronic mental illness Surgical History Surgical History History of hernia repair History of cholecystectomy History of Social History Social History Household Members: Children Housing: Apartment Do you presently have visiting nurse or other home services: No Unable to assess alcohol history related to: Unknown Alcohol intake: never Comment: pt. uses call mullins appropriately. Patient Tobacco Use Status: Never used Tobacco e-Cigarette/Vaping Use: Never Used Second Hand Smoke Exposure: No service: No Current occupational status: unemployed Sexual orientation: Straight/Heterosexual Gender identity: Female Cognitive needs: No Hearing needs: No Vision needs: No Meds Allergies Allergy/AdvReac Type Severity Reaction Status Date / Time oxycodone AdvReac Mild ineffective Uncoded 10/05/23 10:08 Active Medications: Current Medications Acetaminophen (Acetaminophen 325 Mg Tablet) 650 mg PO Q6H PRN PRN Reason: Pain, Mild (Pain Scale 1-3), fever or headache Last Admin: 10/06/23 09:34 Dose: 650 mg Buspirone HCl (Buspirone Hcl 10 Mg Tablet) 30 mg PO BID [facility] Last Admin: 10/07/23 21:58 Dose: 30 mg Calcium Carbonate (Calcium Carbonate 750 Mg Tab.Chew) 750 mg PO Q4H PRN PRN Reason: Heartburn Hydromorphone HCl (Hydromorphone Hcl 1 Mg/Ml Syringe) 1 mg IVPUSH Q4H PRN; Protocol PRN Reason: Pain, Severe (Pain Scale 7-10) Last Admin: 10/07/23 19:38 Dose: 1 mg Hydroxyzine HCl (Hydroxyzine Hcl 25 Mg Tablet) 25 mg PO TID PRN PRN Reason: anxiety Last Admin: 10/07/23 13:06 Dose: 25 mg Doxycycline Hyclate 100 mg/ (Sodium Chloride) 250 mls @ 166.67 mls/hr IV Q12H [facility] Last Admin: 10/07/23 21:59 Dose: 166.67 mls/hr Ceftriaxone Sodium 1 gm/ (Sodium Chloride) 50 mls @ 100 mls/hr IV Q24H [facility] Last Infusion: 10/07/23 11:45 Dose: Infused Metronidazole (Flagyl) 500 mg in 100 mls @ 100 mls/hr IV Q12H [facility] Last Infusion: 10/07/23 14:18 Dose: Infused Lorazepam (Lorazepam 1 Mg Tablet) 1 mg PO BID PRN PRN Reason: anxiety Last Admin: 10/07/23 15:09 Dose: 1 mg Magnesium Hydroxide (Milk Of Magnesia 30 Ml Oral.Susp) 30 ml PO DAILY PRN PRN Reason: Constipation Melatonin (Melatonin 3 Mg Tablet) 6 mg PO BEDTIME PRN PRN Reason: Insomnia Last Admin: 10/06/23 22:27 Dose: 6 mg Ondansetron HCl (Ondansetron Hcl 4 Mg/2 Ml Vial) 4 mg IVPUSH Q8H PRN PRN Reason: Nausea and Vomiting Last Admin: 10/07/23 19:38 Dose: 4 mg Oxycodone HCl (Oxycodone Hcl Immed Release 5 Mg Tablet) 5 mg PO Q6H PRN PRN Reason: Pain, Moderate(Pain Scale 4-6) Sodium Chloride (0.9 % Sodium Chloride Flush 3 Ml Syringe) 3 ml IVFLUSH QSHIFT [facility] Last Admin: 10/07/23 19:43 Dose: 3 ml Home Medications ?Medication ?Instructions ?Recorded ?Confirmed ?Last Taken ?Type hydroxyzine HCl 25 mg tablet 25 mg PO TID PRN anxiety 01/25/23 10/05/23 09/23/23 History lorazepam 1 mg tablet 1 mg PO BID PRN anxiety 01/25/23 10/05/23 09/23/23 History buspirone 30 mg tablet 30 mg PO BID Anxiety 03/07/23 10/05/23 09/23/23 History multivitamin 1 tab PO DAILY 10/05/23 10/05/23 09/23/23 History Physical Exam 2 Vital Signs: Vital Signs: Last Vital Signs Temp 97.3 F 10/07/23 19:28 Pulse 97 10/07/23 19:28 Resp 20 10/07/23 19:28 BP 110/69 10/07/23 19:28 Pulse Ox 97 10/07/23 19:28 O2 Del Method Room Air 10/07/23 19:28 BMI result Body Mass Index 25.9 Const: General: cooperative HEENT: Head: Yes normal to inspection Face and sinus: Yes normal facial exam Mouth: Normal oral and palatal mucosa present Teeth and gingiva: d entition normal Eyes: General: appearance normal, both eyes and all related structures P upils: Equal, round and reactive pupils present Resp: Effort & Inspection: normal respiratory effort Cardio: Rate: regular rate Rhythm: regular rhythm GI: Palpation (GI): Soft to palpation and nontender : General: Yes no CVA tenderness Back/Spine/Pelvis: Back: no CVA tenderness Skin: General skin exam: no rashes or lesions noted Neuro: General: moves all extremities Cranial nerves: Yes Equal, round and reactive pupils present Extrem: General: Yes normal to inspection Psych: Appearance: grossly normal Results Labs 10/07/23 05:32 10/06/23 04:59 Labs: Short CBC 10/07/23 Range/Units 05:32 WBC 11.3 H (4.8-10.8) X10*3/uL Hgb 11.5 L (12.0-16.0) g/dl Hct 35.0 L (37.0-47.0) % Plt Count 325 (160-400) X10*3/uL Microbiology Microbiology Results: Microbiology 10/05/23 10:24 Blood - Venous Blood Culture - Preliminary No growth after 48 hours. 10/05/23 10:15 Blood - Venous Blood Culture - Preliminary No growth after 48 hours. 10/05/23 Unknown Urine clean catch - Clean Catch Midstream Urine Culture - Final Strep agalactiae (Grp B) Escherichia coli Assessment and Plan (1) Acute endometritis: Status: Acute (2) CORRINA II (cervical intraepithelial neoplasia II): Status: Acute Plan Agree with Dr Espinosa plan to give 14 d total antibiotics and finish with Doxycycline and Flagyl. If still pain tomorrow can switch Ceftriaxone to Zosyn for day or two,possibly more gram negative coverage. She doesnt have HIV.
[2023-10-08] MEDS: metroNIDAZOLE/NS 500 MG/100 ML PIGGYBACK 100 MG IV (00:04)
[2023-10-08] MEDS: HYDROmorphone HCl 1 MG/ML SYRINGE IVPUSH ×2 (00:04→08:55)
[2023-10-08 04:00] VITALS: BP 112/72; PULSE 95; RESP 20; TEMP 36.2; O2SAT 96
[2023-10-08 07:43] VITALS: BP 124/69; PULSE 68; RESP 18; TEMP 36.6; O2SAT 98
--- NOTE | 2023-10-08 08:36 | P.PNIM_ITS ---
Subjective Subjective Date of Service: 10/08/23 Interval History: seen and examined this morning follow up for endometritis reporting feeling better with less nausea but then had one episode of vomiting no fever Review of Systems Review of Systems: Yes all other systems are reviewed and are negative Constitutional Constitutional: Denies chills and Denies fever(s) Cardiovascular Cardiovascular: Denies chest pain, Denies palpitations and Denies dyspnea Respiratory Respiratory: Denies dyspnea Gastrointestinal Gastrointestinal: Reports abdominal pain and Reports nausea Endocrine Endocrine: Denies palpitations Physical Exam 2 Vital Signs: Vital Signs: Last Vital Signs Temp 97.8 F 10/08/23 07:43 Pulse 68 10/08/23 07:43 Resp 18 10/08/23 07:43 BP 124/69 10/08/23 07:43 Pulse Ox 98 10/08/23 07:43 O2 Del Method Room Air 10/08/23 07:43 BMI result Body Mass Index 25.9 Appearing in no acute distress lung sounds are clear to auscultation heart regular rate rhythm, clear S1, S2 positive bowel sounds, abdomen is soft, nontender neuro patient is alert x3, no focal deficits Objective Data Active Medications Acetaminophen (Acetaminophen 325 Mg Tablet) 650 mg PO Q6H PRN PRN Reason: Pain, Mild (Pain Scale 1-3), fever or headache Last Admin: 10/06/23 09:34 Dose: 650 mg Documented By: ELISHA Buspirone HCl (Buspirone Hcl 10 Mg Tablet) 30 mg PO BID ALISIA Last Admin: 10/07/23 21:58 Dose: 30 mg Documented By: ADI Calcium Carbonate (Calcium Carbonate 750 Mg Tab.Chew) 750 mg PO Q4H PRN PRN Reason: Heartburn Hydromorphone HCl (Hydromorphone Hcl 1 Mg/Ml Syringe) 1 mg IVPUSH Q4H PRN; Protocol PRN Reason: Pain, Severe (Pain Scale 7-10) Last Admin: 10/08/23 00:04 Dose: 1 mg Documented By: ADI Hydroxyzine HCl (Hydroxyzine Hcl 25 Mg Tablet) 25 mg PO TID PRN PRN Reason: anxiety Last Admin: 10/07/23 13:06 Dose: 25 mg Documented By: LYNETTE Doxycycline Hyclate 100 mg/ (Sodium Chloride) 250 mls @ 166.67 mls/hr IV Q12H [facility] Last Infusion: 10/07/23 23:32 Dose: Infused Documented By: ADI Ceftriaxone Sodium 1 gm/ (Sodium Chloride) 50 mls @ 100 mls/hr IV Q24H [facility] Last Infusion: 10/07/23 11:45 Dose: Infused Documented By: LYNETTE Metronidazole (Flagyl) 500 mg in 100 mls @ 100 mls/hr IV Q12H [facility] Last Infusion: 10/08/23 01:10 Dose: Infused Documented By: ADI Lorazepam (Lorazepam 1 Mg Tablet) 1 mg PO BID PRN PRN Reason: anxiety Last Admin: 10/07/23 15:09 Dose: 1 mg Documented By: LYNETTE Magnesium Hydroxide (Milk Of Magnesia 30 Ml Oral.Susp) 30 ml PO DAILY PRN PRN Reason: Constipation Melatonin (Melatonin 3 Mg Tablet) 6 mg PO BEDTIME PRN PRN Reason: Insomnia Last Admin: 10/06/23 22:27 Dose: 6 mg Documented By: VIKRAM Ondansetron HCl (Ondansetron Hcl 4 Mg/2 Ml Vial) 4 mg IVPUSH Q8H PRN PRN Reason: Nausea and Vomiting Last Admin: 10/07/23 19:38 Dose: 4 mg Documented By: ADI Oxycodone HCl (Oxycodone Hcl Immed Release 5 Mg Tablet) 5 mg PO Q6H PRN PRN Reason: Pain, Moderate(Pain Scale 4-6) Sodium Chloride (0.9 % Sodium Chloride Flush 3 Ml Syringe) 3 ml IVFLUSH QSHIFT [facility] Last Admin: 10/07/23 19:43 Dose: 3 ml Documented By: ADI Labs 10/07/23 05:32 10/06/23 04:59 Microbiology Microbiology Results: Microbiology 10/05/23 10:24 Blood Culture - Preliminary Blood - Venous No growth after 48 hours. 10/05/23 10:15 Blood Culture - Preliminary Blood - Venous No growth after 48 hours. 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 Acute endometritis s/p leep for CIN2 CT abdomen pelvis shows non organized fluid and gas in the region the endocervical canal with surrounding hyperemia no SIRS criteria. No sepsis on admission. Leukocytosis resolved Per YARN DYER: 1g IV ctx, 100mg IV doxy BID, 500mg IV flagyl q8h until clinically improved x24-48 hours. DC on 100mg po doxy and 500mg po flagyl x14 days gonorrhea and chlamydia PCR neg, BV + (already on flagyl) Blood cultures negative to date YARN DYER following>if no improvement repeat imaging, abd CT ordered today ID consult>14 days abx, doxy and flagyl UTI UCx growing group b strep 50-100,000 cfu and e.coli 10-50,000 CFU on abx as above mood disorder continue home meds HIV screening immuno assay positive send out antibodies and viral load negative discussed with infectious disease. No infection. Outpatient annual viral load recommended transaminitis Outpatient follow-up DVT prophylaxis- SCPs due to vaginal bleeding attending Dr. Hernandez Full code Pt requires inpt stay for iv antibiotics due to acute endometritis following leep procedure with intractable pain requiring IV analgesics Quality Stroke Does the patient have a stroke diagnosis?: No VTE Prior VTE?: No VTE Risk Level:: Medical - moderate - high VTE Device Contraindication: Treatment Not Indicated VTE Drug Contraindication: N/A - Med Ordered
[2023-10-08] MEDS: busPIRone HCl 10 MG TABLET 30 MG PO (08:50)
[2023-10-08] MEDS: Doxycycline Hyclate 100 MG in 0.9 % Sodium Chloride 250 ML 166.67 MG IV (08:51)
[2023-10-08] MEDS: ondansetron HCL 4 MG/2 ML VIAL IVPUSH (08:55)
[2023-10-08] MEDS: cefTRIAXone sodium 1 GM in 0.9 % Sodium Chloride 50 ML IV (09:03)
[2023-10-08] MEDS: 0.9 % Sodium Chloride Flush 3 ML SYRINGE IVFLUSH (09:03)
--- NOTE | 2023-10-08 09:31 | PM.GYNPNOP ---
ADMINISTRATIVE JUDGE - Subjective Subjective Date of Service: 10/08/23 Interval history: Doing well today, much better her pain improved markedly, no vomiting Urine culture grew E coli and group B strep sensitive to ceftriaxone, the patient has been on IV ceftriaxone for the last 3 days, in addition sensitive to nitrofurantoin and Bactrim Subjective Findings: Ambulating well: Reports MEDICAL PATHOLOGIST Physical Exam Vitals Vital signs: Temp Pulse Resp BP Pulse Ox O2 Del Method 97.8 F 68 18 124/69 98 Room Air 10/08/23 07:43 10/08/23 07:43 10/08/23 07:43 10/08/23 07:43 10/08/23 07:43 10/08/23 07:43 BMI result Body Mass Index 25.9 Abdomen Auscultation/Inspection/Palpation: Soft and No tenderness ADMINISTRATIVE JUDGE - Prog Note: Results Labs 10/07/23 05:32 10/06/23 04:59 ADMINISTRATIVE JUDGE - A/P (1) Acute endometritis: Status: Acute Assessment and Plan: Since the patient has improved markedly recommend to discharge home on Flagyl 500 mg p.o. b.i.d./doxycycline 100 mg p.o. b.i.d. for addition 11 days to complete a 14 day course of antibiotics in addition to nitrofurantoin 100 mg p.o. b.i.d. for 5 days. Instructions given to patient to call or go to emergency room in case of recurrence of her pain, temperature above 100.4, nausea or vomiting and follow-up in the office in 2 weeks. All questions answered, the patient verbalized understanding Time Spent With Patient Time: Total time managing care of this patient today ____ minutes. Quality Measures - MEDICAL PATHOLOGIST H&P VTE Prior VTE?: No VTE Risk Level:: Medical - moderate - high VTE Device Contraindication: Treatment Not Indicated VTE Drug Contraindication: N/A - Med Ordered
--- NOTE | 2023-10-08 10:32 | PM.DS ---
DS: Providers Provider Date of Service: 10/08/23 Date of admission: 10/05/23 14:22 Primary care physician: Shayne Bangura MD Consults: 10/05/23 14:22 Consult to Obstetrics / Gynecology Routine Consulting Provider: Carson Wild Reason for consultation: endometritis 10/07/23 16:21 Consult to Infectious Diseases Routine Consulting Provider: [facility] Reason for consultation: endometritis Has provider been notified: No DS: Diagnosis Discharge Diagnosis (1) Acute endometritis: Status: Acute DS: Summary Hospital Course Hospital Course: History and physical as per admitting provider. 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 She is s/p LEEP procedure pod 5 advised to come to the ED from her OBGYN. She reports 10/10 pelvic pain that is now 7/10 following IV analgesics. She is reporting pink/brown vaginal discharge but denies any yellow/green/foul odor to the discharge. Feeling generally weak. Reports the pain radiates into the legs making it difficult to walk and around to the left low back. Since arrival, vital signs are stable, afebrile in the ED. she has leukocytosis of 11.4. Renal function and electrolyte levels are normal. AST 36, ALT 38. CRP 1.17. Urinalysis with 1+ leukocytes, 2+ blood, no bacteria. CT abdomen pelvis shows non organized fluid and gas in the region the endocervical canal with surrounding hyperemia. She was evaluated by gynecology in the ED recommending treatment with IV ceftriaxone, IV doxycycline, IV Flagyl until clinical condition improves times 24-48 hours. Gonorrhea and chlamydia PCR pending. Recommending testing for Trichomonas basis as well. She will be admitted for further management of endometritis. 38-year-old woman treated for acute endometriosis and is status post LEEP for CIN2. CT abdomen showed non organized fluid and gas in the region of the endocervical canal with surrounding hyperemia. She had no SIRS criteria or sepsis on admission. She was treated with doxycycline, Flagyl as per Gynecology. She was seen evaluated by Infectious Disease who recommended treating for total of 14 days with doxycycline and Flagyl. Gonorrhea and chlamydia PCR was negative as well as HIV. BV was positive and patient was already started on Flagyl. Blood cultures remained negative to date. The plan is to discharge patient with 11 more days of antibiotics to complete treatment. She should follow up with head operator as outpatient. She was also treated for E coli and group B strep UTI. Initially started on Rocephin, continue Ceftin for total of 5 days of treatment. Mental health. Continue home medications Time Attestation Discharge Coordination Time (in mins): 30 Quality: Safe Use of Opioids Does Pt have an Active Cancer Diagnosis on the Problem List?: No Quality: Stroke Does the patient have a stroke diagnosis?: No Physical Exam Vital Signs: Vital Signs: Last Vital Signs Temp 97.8 F 10/08/23 07:43 Pulse 68 10/08/23 07:43 Resp 18 10/08/23 07:43 BP 124/69 10/08/23 07:43 Pulse Ox 98 10/08/23 07:43 O2 Del Method Room Air 10/08/23 07:43 BMI result Body Mass Index 25.9 Appearing in no acute distress head is normocephalic atraumatic eyes pupils are PERRLA sclera is anicteric mouth throat mucous membranes are intact and moist neck is supple no lymphadenopathy, no JVD noted lung sounds are clear to auscultation heart regular rate rhythm, clear S1, S2 positive bowel sounds, abdomen is soft, nontender neuro patient is alert x3, no focal deficits DS: Data Data Completed and Pending Labs on day of discharge: Preliminary micro results at discharge 10/05/23 10:24 Blood Culture - Preliminary Blood - Venous No growth after 48 hours. 10/05/23 10:15 Blood Culture - Preliminary Blood - Venous No growth after 48 hours. Discharge Plan Discharge Anticipated Discharge Date/Time: 10/08/23 09:48 Patient Disposition: Home, Self-Care Discharge Diagnosis: Acute endometriosis UTI Referrals: Shayne Bangura MD [Primary Care Provider] - 1 Week Discharge Medications: New doxycycline hyclate 100 mg tablet 100 mg PO BID Qty: 22 0RF metronidazole 500 mg tablet 500 mg PO Q12H Qty: 22 0RF cefuroxime axetil 500 mg tablet 500 mg PO BID Qty: 6 0RF Continued multivitamin Tablet 1 tab PO DAILY hydroxyzine HCl 25 mg tablet 25 mg PO TID PRN (Reason: anxiety) lorazepam 1 mg tablet 1 mg PO BID PRN (Reason: anxiety) buspirone 30 mg tablet 30 mg PO BID Discharge Orders: Discharge Order (Routine); Ordered 10/08/23 Ordered By: Lien Martínez Diet: Advance to usual diet Activity on Discharge: As tolerated Stand Alone Forms: Patient Portal Discharge page Print Language: Icelandic Care Plan Goals: continue antibiotics to complete tx for acute endometriosis The treatment for UTI Health Concerns: Acute endometriosis ecoli, strep agalactiae UTI Plan of Treatment: Follow-up with primary care provider as needed Take all medications as prescribed Assessment: See discharge summary
--- NOTE | 2023-10-08 11:12 | MHC.CM.PN ---
PT WILL DC HOME TODAY WITH NO SERVICES VIA PRIVATE TRANSPORT
== END 2023-10-08 12:24 | disposition home or self-care (01) | DRG 721 ==
LOC: HO.ED 13:11 → HO.EDOVER 14:37 → HO.S3 10-06 07:52
PROVIDERS: Physician Assistant Medical; Registered Nurse Emergency; Admitting Provider Physician Assistant; Emergency Provider Emergency Medicine; PCP Internal Medicine; Visit Provider Nurse Practitioner Acute Care
DX: T81.40XA Infection following a procedure, unspecified, initial encounter (principal); B95.1 Streptococcus, group B, as the cause of diseases classified elsewhere; N71.9 Inflammatory disease of uterus, unspecified; N87.1 Moderate cervical dysplasia; N76.0 Acute vaginitis; N39.0 Urinary tract infection, site not specified; Y83.8 Other surgical procedures as the cause of abnormal reaction of the patient, or of later complication, without mention of misadventure at the time of the procedure; B96.20 Unspecified Escherichia coli [E. coli] as the cause of diseases classified elsewhere; Z79.899 Other long term (current) drug therapy
CPT/HCPCS: 0352U; 36415; 74177; 80048; 80053; 81001; 83605; 85025; 85027; 86140; 87040; 87086; 87088; 87147; 87186; 99285; J0696; J1170; J1836; J1885; J2270; J2405; J7120

== ENCOUNTER 2023-10-05 09:58 | Outpatient (REF) | payer OTHER, SELFPAY | END 2023-10-05 09:59 | disposition home or self-care (01) | LOC: HO.LNP 09:58 | PROVIDERS: Visit Provider Obstetrics & Gynecology | DX: Z13.89 Encounter for screening for other disorder (principal) ==

== ENCOUNTER → 2023-10-05 14:22 | Outpatient (BNV) | payer OTHER, SELFPAY | PROVIDERS: Admitting Provider Physician Assistant; Emergency Provider Emergency Medicine; PCP Internal Medicine; Visit Provider Internal Medicine | DX: N71.0 Acute inflammatory disease of uterus (principal); N87.1 Moderate cervical dysplasia | CPT/HCPCS: 99222 ==

== ENCOUNTER → 2023-10-05 14:22 | Outpatient (BNV) | payer OTHER, SELFPAY | PROVIDERS: Admitting Provider Physician Assistant; Emergency Provider Emergency Medicine; PCP Internal Medicine; Visit Provider Physician Assistant | DX: N71.0 Acute inflammatory disease of uterus (principal) | CPT/HCPCS: 99223; 99232; 99238 ==

== ENCOUNTER → 2023-10-05 14:22 | Outpatient (BNV) | payer OTHER, SELFPAY | PROVIDERS: Admitting Provider Physician Assistant; Emergency Provider Emergency Medicine; PCP Internal Medicine; Visit Provider Obstetrics & Gynecology | DX: N71.0 Acute inflammatory disease of uterus (principal) | CPT/HCPCS: 99222; 99232 ==

== ENCOUNTER 2023-10-19 13:39 | Outpatient (AMB) | payer OTHER, SELFPAY ==
--- NOTE | 2023-10-19 14:13 | A.OFFVIS_ITS ---
Intake Visit Reasons: cysto Intake Note: Patient is present for Cystoscopy Urology Medication:none Antibiotic Allergy:none Blood Thinner:none Lot:[id number] Exp:04/07/2026 [employer]arel Internship Required: No Allergies oxycodone Adverse Reaction (Mild, Uncoded 11/11/23 16:07) ineffective HPI Comments Details: 10/19/23--Here for cystoscopy. Reviewed 10/15/23-CTAP/w IV contrast, kidneys, urinary tract WNL. Cystoscopy findings: no suspicious bladder lesions. Microscopic hematuria. Will cont to monitor Urinalysis. FU one year. Review of chart: 09/06/23--Angelique is a very pleasant 38-year-old female patient of Dr. Fowler. 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 She presents to the office today for follow-up. Of note, patient was seen approximately 6 months ago as a new patient for microscopic hematuria at which time her urine was sent for urine cytology and patient had already completed CT urogram prior to new patient appointment. Urine cytology results reviewed with the patient today 03/16 Negative for high-grade urothelial carcinoma. During last office visit discussed further microscopic hematuria workup in the setting of history of nicotine dependence at times as well as recreational marijuana. However, patient declined at that time. In office urinalysis results reviewed with the patient today 3+ leukocytes negative nitrates 3+ microscopic hematuria. When asked she currently denies any UTI like symptoms. She denies urinary urgency, urinary frequency, incontinence, nocturia, hematuria, dysuria, foul smelling urine, changes to urinary stream, flank pain, fever, and or chills. She is happy with her current voiding parameters. She reports having followed up with accredited legal secretary and has been positive for HPV and ovarian cysts. Previous workup has included a CT urogram that noted the kidneys are normal in size shape and attenuation. No hydronephrosis, hydroureter, or calculi seen. The bladder is unremarkable. She otherwise offers no other issues or concerns at this time. [facility] Medical History CORRINA II (cervical intraepithelial neoplasia II) Endometritis HIV antibody positive Abnormal laboratory test result Pure hypercholesterolemia Overweight (BMI 25.0-29.9) Depression Anxiety ASCUS with positive high risk HPV Surgical History History of hernia repair History of cholecystectomy History of Family History Maternal Grandmother Pacemaker CVD (cardiovascular disease) Father Diabetes HTN (hypertension) Mother Asthma Paternal Grandmother Cancer Brother No problems noted. Family/Other Substance abuse Chronic mental illness Social History Household Members: Children Housing: Apartment Do you presently have visiting nurse or other home services: No Unable to assess alcohol history related to: Unknown Alcohol intake: never Comment: pt. uses call mullins appropriately. Patient Tobacco Use Status: Never used Tobacco e-Cigarette/Vaping Use: Never Used Second Hand Smoke Exposure: No service: No Current occupational status: unemployed Sexual orientation: Straight/Heterosexual Gender identity: Female Cognitive needs: No Hearing needs: No Vision needs: No Female Reproductive History Menstrual Age of Menarche: 12 Review of Systems Const All systems reviewed & are unremarkable except as noted in HPI and below Reports no additional complaints Eyes Reports no additional complaints ENT Reports no additional complaints Card Reports no additional complaints Resp Reports no additional complaints GI Reports no additional complaints Reports as per HPI Musc Reports no additional complaints Skin/Breast Reports system reviewed and no additional complaints, except as documented Neuro Reports no additional complaints Psych Reports no additional complaints Endo Reports no additional complaints Ravi/Lymph Reports no additional complaints Aller/Immun Reports no additional complaints Office Procedures Cystoscopy Consent Discussed risk and benefit or proposed procedure with the patient. Information consent for procedure given to the patient. Discussed technical aspects, risks, benefits and alternatives in full. Addressed all of the patient's questions and concerns regarding the procedure. The patient demonstrated knowledge and understanding. They wish to proceed with this procedure. Preparation The patient was prepped in the usual manner. A software applications specialist was present and in the room. Genitalia was prepped with betadine solution in a sterile manner. Lidocaine Jelly 2% was placed into the urethra and 16Fr flexible Olympus cystoscope was inserted into the meatus after adequate lubrication. Procedure Time out per protocol performed. Bladder Inspection Bladder Inspection: The bladder was inspected in its entirety with utilization retroflexion displaying: Tumor(s): no suspicious bladder lesions visualized Trabeculation: NA Mucosal Erthema: NA Orifices: normal shape and position Urethra: normal Cystoscopy findings: WNL, no suspicious bladder lesions visualized [id number] DISPOSABLE SCOPE URO-G FLEXIBLE SCOPE Procedure code (CPT) selection complete Office Meds lidocaine HCl 2 % mucosal jelly in applicator Performing Provider: Jose Garcia MD Performing Location: [facility] [place] [facility] [place] [facility] Administered by: Jamari Arroyo LPN on 10/19/23 14:53 Dose Route Admin Location Dispensed Lot Number Expiration Date ND Plater Production 10 mL intra-urethral 10 mL naproxen 500 mg tablet Performing Provider: Jose Garcia MD Performing Location: [facility] [place] [facility] Administered by: Jamari Arroyo LPN on 10/19/23 14:53 Dose Route Admin Location Dispensed Lot Number Expiration Date NDC Plater Production 500 mg PO 1 tab ciprofloxacin HCl 500 mg tablet Performing Provider: Jose Garcia MD Performing Location: [facility] [place] [facility] Administered by: Jamari Arroyo LPN on 10/19/23 14:53 Dose Route Admin Location Dispensed Lot Number Expiration Date NDC Plater Production 500 mg PO 1 tab Results AMB Urinalysis, Automated UA Leukoctes 125 Bettye/uL Last Edit by RAYMOND Polo on 10/19/23 14:44 UA Nitrite Negative Last Edit by RAYMOND Polo on 10/19/23 14:44 UA Urobilinogen 0.2 mg/dL Last Edit by RAYMOND Polo on 10/19/23 14:4 4 UA Protein 30 mg/dL Last Edit by RAYMOND Polo on 10/19/23 14:44 UA pH 6.0 Last Edit by RAYMOND Polo on 10/19/23 14:44 UA Blood 200 Yann/uL Last Edit by RAYMOND Polo on 10/19/23 14:44 UA Specific [place] 1.025 Last Edit by RAYMOND Polo on 10/19/23 14: 44 UA Ketone Positive Last Edit by RAYMOND Polo on 10/19/23 14:44 UA Bilirubin 0 mg/dL Last Edit by RAYMOND Polo on 10/19/23 14:44 UA Glucose 0 mg/dL Last Edit by RAYMOND Polo on 10/19/23 14:44 Results Reviewed Results Reviewed: Laboratory Last Values Urine pH (Auto) 6.0 10/19/23 14:44 Specific [place] (Auto) 1.025 10/19/23 14:44 Urine Protein (Auto) 30 mg/dL 10/19/23 14:44 Glucose (UA)(Auto) 0 mg/dL 10/19/23 14:44 Urine Ketones (Auto) Positive 10/19/23 14:44 Urine Blood (Auto) 200 Yann/uL 10/19/23 14:44 Urine Nitrite (Auto) Negative 10/19/23 14:44 Urine Bilirubin (Auto) 0 mg/dL 10/19/23 14:44 Urine Urobilinogen (Auto) 0.2 mg/dL 10/19/23 14:44 Leukocyte Esterase (Auto) 125 Bettye/uL 10/19/23 14:44 Date of Service: 10/05/23 CT ABDOMEN AND PELVIS WITH CONTRAST CLINICAL INFORMATION: Abdominal pain. COMPARISON: 12/15/2022 TECHNIQUE: Multidetector volumetric images were obtained from the superior aspect of the liver through the pubic symphysis following administration 85 mL of Omnipaque 350 intravenous contrast. Sagittal and coronal reformatted images were obtained on the technologist's workstation. Oral contrast: No This CT examination was performed using dose optimization techniques as appropriate, variously including the following: *Automated exposure control *Adjustment of mA and/or kV according to patient size (this includes techniques or standardized protocols for targeted exams where dose is matched to indication/reason for exam; i.e. extremities or head) *Use of iterative reconstruction technique DLP: 411 mGy-cm FINDINGS: LUNG BASES: The visualized lung bases are unremarkable. LIVER, GALLBLADDER, AND BILIARY TREE: The liver is normal in size and contour. Postcholecystectomy changes of the biliary ductal system. The gallbladder is surgically absent. PANCREAS: No ductal dilatation. SPLEEN: Unremarkable. ADRENAL GLANDS: Unremarkable. KIDNEYS AND URETERS: The kidneys are normal in size, shape, and attenuation. No hydronephrosis, hydroureter, or calculi seen. No perinephric stranding. BLADDER: Underdistended. GASTROINTESTINAL TRACT: Small and large bowel loops are of normal caliber. No small bowel obstruction. ABDOMINAL WALL: No significant hernia is appreciated. LYMPH NODES: No bulky lymphadenopathy. VASCULAR: Normal caliber abdominal aorta. PELVIC VISCERA: There is nonorganized fluid and gas in the region the endocervical canal with surrounding hyperemia. Infection cannot be excluded. Left posterior myometrium appears heterogeneous. There is fullness of bilateral ovaries which are closely apposed in the posterior midline pelvis. Trace free fluid in the pelvis. OSSEOUS STRUCTURES: No destructive bone lesions. IMPRESSION: Nonorganized fluid and gas in the region the endocervical canal with surrounding hyperemia. Infection cannot be excluded. Date of Service: 12/15/22 EXAMINATION: CT ABDOMEN AND PELVIS WITH CONTRAST FINDINGS: LUNG BASES: The visualized lung bases are unremarkable. LIVER, GALLBLADDER, AND BILIARY TREE: The liver is normal in size, shape, and attenuation. No focal hepatic lesion is evident. Mild intrahepatic and extrahepatic biliary ductal dilatation is presumably related to prior cholecystectomy. PANCREAS: Unremarkable. SPLEEN: Unremarkable. ADRENAL GLANDS: Unremarkable. KIDNEYS AND URETERS: The kidneys are normal in size, shape, and attenuation. No hydronephrosis, hydroureter, or calculi seen. No perinephric stranding. BLADDER: Unremarkable. GASTROINTESTINAL TRACT: The small and large bowel are unremarkable. The appendix is unremarkable. ABDOMINAL WALL: No significant hernia is appreciated. LYMPH NODES: Normal. VASCULAR: Unremarkable. PELVIC VISCERA: Posterolateral to the left side of the uterus, there is a 6.1 x 3.1 cm cystic lesion inseparable from the left adnexa. The right ovary images normally. Endocervical nabothian cysts are present. There is a trace amount of free fluid in the cul-de-sac. OSSEOUS STRUCTURES: Mild thoracolumbar scoliosis is present. IMPRESSION: 1. Left adnexal 6.1 cm cyst, characterized by ultrasound as a simple appearing cyst. Best practice guidelines advocate for a follow-up ultrasound in 6-12 months unless symptoms warrant more prominent evaluation. Note that the cyst is stable since ultrasound of 12/07/2022 but new since ultrasound of 08/20/2022. 2. Incidental findings include: surgically absent gallbladder with mild associated biliary ductal dilatation; endocervical nabothian cyst formation; and mild thoracolumbar scoliosis. Assessment & Plan Assessment & Plan (1) Microscopic hematuria: Code(s): R31.29 - Other microscopic hematuria Category: Medical Plan cont to monitor, fu in year Orders: Orders AMB Urinalysis Automated 10/19/23 Z13.9 - Encounter for screening, unspecified AMB Cystoscopy 10/19/23 R31.29 - Other microscopic hematuria, N39.0 - Urinary tract infection, site not specified Patient Instructions: The patient had an opportunity to ask questions regarding treatment plan. The patient expressed understanding and agreement with the above treatment plan. The patient is aware they should contact our office by phone for worsening of their current condition or the appearance of new symptoms. Compliance is encouraged with any medications and followup testing that is ordered. It is a privilege to be allowed the opportunity to participate in the urologic care of your patient. If you have any questions or concerns regarding treatment for the above conditions please do not hesitate to contact me. The office telephone contact is [phone]. This note is constructed in part using voice recognition software. While every effort has been made to ensure accuracy craps dealer errors may have been included. Yours sincerely, Jose Garcia MD Coding Level of Care Code Procedure Only Diagnoses Microscopic hematuria R31.29 CPT Codes Cystoscopy - CPT: 68882-[id number] ([id number])
== END 2023-10-19 15:32 | disposition home or self-care (01) ==
PROVIDERS: PCP Internal Medicine; Visit Provider Urology
DX: R31.29 Other microscopic hematuria (principal); N39.0 Urinary tract infection, site not specified; Z13.9 Encounter for screening, unspecified
CPT/HCPCS: 52000

== ENCOUNTER → 2023-10-19 13:39 | Outpatient (BNVA) | payer OTHER, SELFPAY | PROVIDERS: PCP Internal Medicine; Visit Provider Urology | DX: R31.29 Other microscopic hematuria (principal) | CPT/HCPCS: 52000; 81003 ==

== ENCOUNTER 2023-10-25 10:40 | Outpatient (AMB) | payer OTHER, SELFPAY ==
--- NOTE | 2023-10-25 10:44 | A.OFFVIS_ITS ---
Vital Signs 10/25/23 10:51 Height 5 ft 5 in Weight 155 lb BMI 25.8 BP 116/62 Intake Visit Reasons: Hospital follow up Allergies oxycodone Adverse Reaction (Mild, Uncoded 10/19/23 14:14) ineffective HPI Comments Details: Presenting post LEEP and admission for PID. Doing well with no complaints no pain or any other concerns. The patient completed her antibiotic course. The pathology showed the following: A. Cervix, conization: -Low grade squamous intraepithelial lesion (mild dysplasia, CORRINA I), involving endocervical glands; biopsy site changes noted. -Focal margin is positive for tumor (see comment). -Radial (deep stromal) margin: Free of dysplasia. B. Endocervix, conization: -Squamous and endocervical glandular mucosa with biopsy site changes; negative for dysplasia. C. Endocervix, post cone curettage: -Endocervical glandular mucosa with focal atypical squamous metaplasia; insufficient for dysplasia. -Benign endometrium/lower uterine segment. Comment: (A): The focal positive margin does not have definitive orientation, but may be endocervical. [facility] Medical History (Updated 10/25/23 @ 10:51 by Carson Wild MD) CORRINA II (cervical intraepithelial neoplasia II) Endometritis HIV antibody positive Abnormal laboratory test result Pure hypercholesterolemia Overweight (BMI 25.0-29.9) Depression Anxiety ASCUS with positive high risk HPV Surgical History History of hernia repair History of cholecystectomy History of Family History Maternal Grandmother Pacemaker CVD (cardiovascular disease) Father Diabetes HTN (hypertension) Mother Asthma Paternal Grandmother Cancer Brother No problems noted. Family/Other Substance abuse Chronic mental illness Social History Household Members: Children Housing: Apartment Do you presently have visiting nurse or other home services: No Unable to assess alcohol history related to: Unknown Alcohol intake: never Comment: pt. uses call mullins appropriately. Patient Tobacco Use Status: Never used Tobacco e-Cigarette/Vaping Use: Never Used Second Hand Smoke Exposure: No service: No Current occupational status: unemployed Sexual orientation: Straight/Heterosexual Gender identity: Female Cognitive needs: No Hearing needs: No Vision needs: No Female Reproductive History Menstrual Age of Menarche: 12 Review of Systems Const All systems reviewed & are unremarkable except as noted in HPI and below Reports as per HPI and Reports no additional complaints GI Reports no additional complaints Reports no additional complaints Physical Exam Vital Signs: BMI result Body Mass Index 25.8 Assessment & Plan Assessment & Plan (1) CORRINA II (cervical intraepithelial neoplasia II): Comment: Status post LEEP showing CORRINA 1 with positive margins Code(s): N87.1 - Moderate cervical dysplasia Category: Medical Plan: Discussed with the patient the procedure and the pathology showing CORRINA 1 with no CORRINA 2 and with + margins. Discussed with the patient ASCCP treatment options include not limited to: either repeat LEEP versus 6 months follow-up with HPV based screening with colpo biopsy and ECC q 6 months. All the pros and cons risks benefits of each approach were discussed the patient and the patient decided to proceed with 6 months HPV based screening with colposcopy biopsy and ECC. Instructions given to patient to a six-month colposcopy with co testing. All questions were answered, the patient verbalized understanding. Coding Level of Care Code Est Pt Level 3 (19019) Diagnoses CORRINA II (cervical intraepithelial neoplasia II) N87.1
[2023-10-25 10:51] VITALS: BP 116/62; BMI 25.8
== END 2023-10-25 11:02 | disposition home or self-care (01) ==
LOC: HO.HWS 10:40
PROVIDERS: PCP Internal Medicine; Visit Provider Obstetrics & Gynecology
DX: N87.1 Moderate cervical dysplasia (principal)
CPT/HCPCS: 99213

== ENCOUNTER → 2023-10-25 10:40 | Outpatient (BNVA) | payer OTHER, SELFPAY | PROVIDERS: PCP Internal Medicine; Visit Provider Obstetrics & Gynecology | DX: N87.1 Moderate cervical dysplasia (principal) | CPT/HCPCS: 99212 ==

== ENCOUNTER 2023-11-11 15:28 | Outpatient (REF) | payer OTHER, SELFPAY ==
[2023-11-11 16:40] LABS: MANUAL DIFF FLAG NO
[2023-11-11 17:08] LABS: Basophils Absolute Auto 0.1 X10*3/uL (0.0-0.2); Basophils Percent Auto 0.6 % (0-2); Eosinophils Absolute Auto 0.2 X10*3/uL (0.0-0.4); Eosinophils Percent Auto 1.9 % (0-4); Hematocrit 38.7 % (37.0-47.0); Hemoglobin 12.8 g/dl (12.0-16.0); Imm Gran Abs Auto 0.04 X10*3/uL (0.00-0.03); Imm Gran Pct Auto 0.4 % (0.0-0.4); Lymphocytes Absolute Auto 2.3 X10*3/uL (1.2-4.9); Lymphocytes Percent Auto 25.1 % (20-40); Mean Corpuscular HGB Conc 33.1 g/dl (31.0-35.0); Mean Corpuscular Hemoglobin 28.5 pg (27.0-33.0); Mean Corpuscular Volume 86.2 fL (80.0-98.0); Mean Platelet Volume 9.9 fL (9.4-12.3); Monocytes Absolute Auto 0.6 X10*3/uL (0.1-1.2); Monocytes Percent Auto 6.4 % (2-11); Neutrophils Absolute Auto 6.1 x10*3/uL (2.0-8.3); Neutrophils Percent Auto 65.6 % (45-73); Platelet Count 350 X10*3/uL (160-400); Red Blood Count 4.49 X10*6/uL (4.20-5.50); Red Cell Distribution Width 13.2 % (11.0-16.0); White Blood Count 9.3 X10*3/uL (4.8-10.8)
[2023-11-11 17:37] LABS: Alanine Aminotransferase 16 U/L (0-31); Albumin Level 4.3 g/dL (3.5-5.0); Alkaline Phosphatase 84 U/L (39-117); Anion Gap 12 (12-20); Aspartate Amino Transferase 22 U/L (5-31); Bilirubin Total 0.5 mg/dL (0.0-1.0); Blood Urea Nitrogen 9 mg/dL (9-16); Calcium 9.8 mg/dL (8.4-10.2); Carbon Dioxide 25 mmol/L (22-29); Chloride 104 mmol/L (96-108); Cholesterol 223 mg/dL (<200); Estimated Glomerular Filt Rate > 60; Glucose Fasting 86 mg/dL (60-99); HDL Cholesterol 56 mg/dL (>40); LDL Cholesterol Calculated 149 mg/dL (<100); Potassium 3.9 mmol/L (3.3-5.1); Sodium 137 mmol/L (135-145); Total Protein 7.7 g/dL (6.5-8.0); Triglycerides 90 mg/dL (<150)
[2023-11-11 17:43] LABS: Appearance Urine Clear; Color Urine Yellow; Glucose Urine UA Negative (Negative); Leukocyte Esterase Urine Negative (Negative); Nitrite Urine Negative (Negative); PH 5.5 (5.0-9.0); UMIC TRIGGER UACC YES; Urine Blood Small (1+) (Negative); Urine Ketones Negative (Negative); Urine Protein Negative (Neg-Trace)
[2023-11-11 17:52] LABS: TSH reflex Free T4 1.94 uIU/mL (0.32-4.0); Vitamin D 25-OH Total 37.1 ng/mL (>30)
[2023-11-11 18:10] LABS: Bacteria Urine None Seen (None Seen); Hyaline Casts Urine 0-2 /LPF (0-2); RBC Urine 0-2 /HPF (0-2); WBC Urine 0-5 /HPF (0-5)
== END 2023-11-11 15:29 | disposition home or self-care (01) ==
LOC: HO.LAB 15:28
PROVIDERS: PCP Internal Medicine; Visit Provider Internal Medicine
DX: R10.13 Epigastric pain (principal); N71.0 Acute inflammatory disease of uterus; E78.00 Pure hypercholesterolemia, unspecified; R94.6 Abnormal results of thyroid function studies; F41.9 Anxiety disorder, unspecified; F33.9 Major depressive disorder, recurrent, unspecified; R30.0 Dysuria; E55.9 Vitamin D deficiency, unspecified; D64.9 Anemia, unspecified; Z79.899 Other long term (current) drug therapy; Z91.09 Other allergy status, other than to drugs and biological substances
CPT/HCPCS: 36415; 80053; 80061; 81001; 82306; 84443; 85025; 96127; 99212

== ENCOUNTER 2023-11-11 15:28 | Outpatient (AMB) | payer OTHER, SELFPAY ==
[2023-11-11 15:46] VITALS: BP 114/76; PULSE 80; O2SAT 98; BMI 25.6
--- NOTE | 2023-11-11 15:46 | MHC.PC.OV ---
Vital Signs 11/11/23 15:46 Height 5 ft 5 in Weight 154 lb 2 oz BMI 25.6 BP 114/76 Blood Pressure Location Lt brachial Position Sitting Pulse 80 Pulse Source Pulse Oximeter Pulse Oximetry (%) 98 Oxygen Delivery Method Room Air Intake Visit Reasons: hyperlipidemia Youth Director Required: No Accompanied by: Self / Same As Patient Allergies oxycodone Adverse Reaction (Mild, Uncoded 11/11/23 16:07) ineffective Medication List - Last Reconciled 11/11/23 by Shayne Bangura MD buspirone 30 mg PO BID hydroxyzine HCl 25 mg PO TID PRN lorazepam 1 mg PO BID PRN multivitamin 1 tab PO DAILY Tobacco use date assessed: 11/11/23 Dental Screening Dental Screen Date: 11/11/23 Did you have a dental visit in the last 12 months?: Yes Did you have a dental problem in the last 6 months where you did not have access to dental care?: No Was dental information given to patient?: Patient has dentist HPI hyperlipidemia HPI Details Patient comes in today for her follow up visit States that she has been experiencing recurrent epigastric pain and abdominal bloating since the end of September 2023 (about the past 3 weeks) Notes that her abdominal symptoms often occur when she eats something; states that drinking water does not bother her as much Also relates (+) nausea and at times, vomiting when her symptoms act up Relates that she has been tested for H. pylori recently and that she tested negative She has had her gallbladder taken out a few years ago and she's had some loose stools since then - states that she has not had any change in her bowel habits lately She also just completed some Abx (Cefuroxime, Doxycycline and Metronidazole) a couple of weeks ago for acute endometritis, which apparently developed after she had her LEEP procedure done last month She currently denies any fever, headaches or dizziness Denies any chest pains, no increased SOB Adds that she has a lot of allergies and feels that her allergy symptoms have gotten worse over the past few years and she would like to get her allergies checked out further and hopefully start getting some injections to help calm down her allergy symptoms significantly She has had no follow up labs done recently [facility] Medical History CORRINA II (cervical intraepithelial neoplasia II) Endometritis HIV antibody positive Abnormal laboratory test result Pure hypercholesterolemia Overweight (BMI 25.0-29.9) Depression Anxiety ASCUS with positive high risk HPV Surgical History History of hernia repair History of cholecystectomy History of Family History Maternal Grandmother Pacemaker CVD (cardiovascular disease) Father Diabetes HTN (hypertension) Mother Asthma Paternal Grandmother Cancer Brother No problems noted. Family/Other Substance abuse Chronic mental illness Social History Household Members: Children Housing: Apartment Do you presently have visiting nurse or other home services: No Unable to assess alcohol history related to: Unknown Alcohol intake: never Comment: pt. uses call mullins appropriately. Patient Tobacco Use Status: Never used Tobacco e-Cigarette/Vaping Use: Never Used Second Hand Smoke Exposure: No service: No Current occupational status: unemployed Sexual orientation: Straight/Heterosexual Gender identity: Female Cognitive needs: No Hearing needs: No Vision needs: No Female Reproductive History Menstrual Age of Menarche: 12 Questionnaire PHQ-9 Over the last 2 weeks, how often have you been bothered by any of the following problems? 1. Little interest or pleasure in doing things: not at all 2. Feeling down, depressed, or hopeless: not at all 3. Trouble falling or staying asleep, or sleeping too much: not at all 4. Feeling tired or having little energy: not at all 5. Poor appetite or overeating: not at all 6. Feeling bad about yourself - or that you are a failure or have let yourself or your family down: not at all 7. Trouble concentrating on things, such as reading the newspaper or watching television: not at all 8. Moving or speaking so slowly that other people could have noticed. Or the opposite - being so fidgety or restless that you have been moving around a lot more than usual: not at all 9. Thoughts that you would be better off or of hurting yourself in some way: not at all Total score: 0 Depression Screening Interpretation: Negative (is on Rx) Depression Screening Done: Yes 43098 - PHQ-9 Billing: Yes Source: Developed by Drs. Marshall Keane, Francisco Russell and colleagues, with an educational rosy from [employer]. Thrive Questionnaire Date Thrive assessed: 11/11/23 I am a: Patient What is your living situation today?: I have a steady place to live Within the past 12 months, did the food you bought not last and you didn't have the money to get more?: Never true Within the past 12 months, did you worry whether your food would run out before you got money to buy more?: Never true Do you have trouble paying for medicines?: No Do you have trouble getting transportation to medical appointments?: No Do you have trouble paying your heating and electricity bill?: No Do you have trouble taking care of your child, family member or friend?: No Do you have trouble with day-to-day activities such as bathing, preparing meals, shopping, managing finances, etc.?: No Are you currently unemployed and looking for a job?: No Are you interested in more education?: No Please select the resources that you would like help with: None Currently or been in a relationship where the following occur: No concerns reported THRIVE Score: 0 AUDIT C Alcohol Use Questionnaire (AUDIT-C) 1. How often do you have a drink containing alcohol?: Never 3. How often do you have six or more drinks on one occasion?: Never Total Score: 0 Score Reviewed/Action Taken: Yes CATY-7 AMB Questionnaire CATY-7 Date CATY - 7 assessed: 11/11/23 Feeling nervous, anxious, or on edge: 0 = Not at all Not being able to stop or control worryin = Not at all Worrying too much about different things: 0 = Not at all Trouble relaxin = Not at all Being so restless that it is hard to sit still: 0 = Not at all Becoming easily annoyed or irritable: 0 = Not at all Feeling afraid as if something awful might happen: 0 = Not at all Total CATY-7 score (0-4 normal; 5-9 mild; 10-14 moderate; 15-21 severe): 0 Source: Developed by Drs. Marshall Keane, Francisco Russell and colleagues, with an educational rosy from [employer]. Review of Systems Const Denies chills, Denies fatigue, Denies fever(s) and Denies headache(s) ENT Denies dysphagia, Denies dizziness, Denies otalgia, Denies headache(s), Denies neck pain, Denies odynophagia and Denies sore throat Card Denies chest pain, Denies rapid heart rate, Denies irregular heart rhythm, Denies palpitations and Denies dyspnea Resp Denies cough, Denies dyspnea and Denies wheezing GI Reports abdominal pain (on and off, over the epigastric area, often occuring when she eats), Reports bloating, Denies constipation, Denies dysphagia, Denies heartburn, Denies diarrhea, Reports nausea (recurrent, often triggered by eating), Denies odynophagia and Reports vomiting (at times) Denies hematuria, Denies urinary frequency, Denies dysuria, Denies urinary incontinence and Denies urinary urgency Musc Denies back pain, Denies arthralgias and Denies neck pain Skin/Breast Denies rash Neuro Denies dizziness, Denies headache(s) and Denies paresthesias Psych Reports anxiety (current Rx helping) and Denies depression Endo Denies fatigue and Denies palpitations Aller/Immun Reports seasonal rhinorrhea (frequent) and Denies wheezing Physical exam (Primary Care) Vital Signs: Last Vital Signs Pulse 80 11/11/23 15:46 BP 114/76 11/11/23 15:46 Pulse Ox 98 11/11/23 15:46 Oxygen Delivery Method Room Air 11/11/23 15:46 BMI result Body Mass Index 25.6 Tobacco/Smoking Status: Tobacco use Status Tobacco use date assessed 11/11/23 11/11/23 15:52 Patient Tobacco Use Status Never used Tobacco 11/11/23 15:52 e-Cigarette/Vaping Use Never Used 11/11/23 15:52 PHQ-9: PHQ-9 Score PHQ-9: Total score 0 11/11/23 16:08 Depression Screening Interpretation: Negative (is on Rx) Thrive Assessment: Date of Thrive Assessment Date Thrive assessed 11/11/23 11/11/23 15:52 Currently or been in a relationship where the following occur: No concerns reported Const General: no acute distress and alert HENMT Ears: TM's normal bilaterally and EAC's normal Throat: Yes posterior oropharynx normal and Yes tonsils normal (no TP congestion) Neck Neck: Yes no lymphadenopathy and Yes supple Thyroid: Thyroid normal Resp Auscultation: clear to auscultation bilaterally, no rales and no wheezes Cardio Rate: regular rate Rhythm: regular rhythm Heart sounds: no murmurs GI Palpation (GI): Soft to palpation, Tenderness to palpation present (GI) (mild) in the epigastrum, no guarding, not rigid and No Rebound tenderness present Auscultation: normal bowel sounds General: Yes no CVA tenderness Back/Spine/Pelvis Back: no CVA tenderness Thoracic/Lumbar Spine: No lumbar spinal tenderness Skin Rashes: no rashes Extrem General: Yes no clubbing, cyanosis or edema Assessment and Plan Assessment & Plan (1) Postprandial epigastric pain: Code(s): R10.13 - Epigastric pain Plan: Will send patienf for some labs ANKIT for further evaluation Will also send her for an upper GI series for further evaluation and management Discussed dietary restrictions for now, similar to what one would follow in GERD Will start her in the meantime on Omeprazole 20 mg QD (2) Acute endometritis: Code(s): N71.0 - Acute inflammatory disease of uterus Plan: S/P Abx Tx with Cefuroxime, Doxycycline and Metronidazole - appears resolved at present Will send patient for some follow up labs ANKIT (3) Environmental allergies: Code(s): Z91.09 - Other allergy status, other than to drugs and biological substances Plan: Per request, will refer her for allergy testing and consideration for immunotherapy (4) Pure hypercholesterolemia: Code(s): E78.00 - Pure hypercholesterolemia, unspecified Plan: Reinforced low cholesterol diet Will have patient go and get her fasting lipids and labs rechecked ANKIT (5) Elevated TSH: Code(s): R79.89 - Other specified abnormal findings of blood chemistry Plan: Her serum TSH was elevated back in July 2022 although this has trended back to normal on subsequent labs Repeat TSH in January 2023 remained normal and patient appears clinically euthyroid Will rechech her serum TSH for follow up (6) Anxiety: Code(s): F41.9 - Anxiety disorder, unspecified Plan: Continue Buspirone 30 mg BID, Hydroxyzine 25 mg TID PRN and Lorazepam 1 mg BID PRN She is currently no longer on Bupropion and Citalopram Follow up with psychiatry as scheduled (7) Depression: Code(s): F32.9 - Major depressive disorder, single episode, unspecified Qualifiers: Depression Type: major depressive disorder Major depression recurrence: recurrent Active/Remission status: currently active Major depression episode severity: unspecified Qualified Code(s): F33.9 - Major depressive disorder, recurrent, unspecified Plan: She used to be on Citalopram 20 mg QD PRN and Bupropion 150 mg QD PRN but currently appears OFF these meds Follow up with psychiatry as scheduled Plan Follow up in 3 months Orders: Orders UA CC w/rflx Micro + Cult 11/11/23 R30.0 - Dysuria Vitamin D 25-OH Total 11/11/23 E55.9 - Vitamin D deficiency, unspecified [place] upper GI series 11/11/23 R10.13 - Epigastric pain, R14.0 - Abdominal distension (gaseous) Complete Blood Count Auto Diff 11/11/23 D64.9 - Anemia, unspecified Comprehensive [place]. Panel Fast 11/11/23 E78.00 - Pure hypercholesterolemia, unspecified Lipid Panel 11/11/23 E78.00 - Pure hypercholesterolemia, unspecified TSH reflex Free T4 11/11/23 E78.00 - Pure hypercholesterolemia, unspecified Referrals Allergy & Immunology Referral Z91.09 - Other allergy status, other than to drugs and biological substances Medications: New omeprazole 20 mg PO DAILY 90 days 90 caps 1RF Coding Level of Care Code Est Pt Level 4 (58409) Diagnoses Postprandial epigastric pain R10.13 Acute endometritis N71.0 Environmental allergies Z91.09 Pure hypercholesterolemia E78.00 Elevated TSH R79.89 Anxiety F41.9 Episode of recurrent major depressive disorder, unspecified depression episode severity F33.9 Depression Type: major depressive disorder Major depression recurrence: recurrent Active/Remission status: currently active Major depression episode severity: unspecified
== END 2023-11-11 16:17 | disposition home or self-care (01) ==
PROVIDERS: PCP Internal Medicine; Visit Provider Internal Medicine
DX: R10.13 Epigastric pain (principal); F33.9 Major depressive disorder, recurrent, unspecified; N71.0 Acute inflammatory disease of uterus; Z91.09 Other allergy status, other than to drugs and biological substances; E78.00 Pure hypercholesterolemia, unspecified; R79.89 Other specified abnormal findings of blood chemistry; F41.9 Anxiety disorder, unspecified

== ENCOUNTER 2024-02-02 14:28 | Outpatient (AMB) | payer OTHER, SELFPAY ==
--- NOTE | 2024-02-02 14:41 | MHC.OFFVIS ---
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 It's intermittent in nature lasting few seconds and occurs 3x/day. it is not associated with any constipation, no dysuria, no frequency or incontinence, no n/v, no feverishness PFSH Medical History CORRINA II (cervical intraepithelial neoplasia II) Endometritis HIV antibody positive Abnormal laboratory test result Pure hypercholesterolemia Overweight (BMI 25.0-29.9) Depression Anxiety ASCUS with positive high risk HPV Surgical History History of hernia repair History of cholecystectomy History of Family History Maternal Grandmother Pacemaker CVD (cardiovascular disease) Father Diabetes HTN (hypertension) Mother Asthma Paternal Grandmother Cancer Brother No problems noted. Family/Other Substance abuse Chronic mental illness Social History Household Members: Children Housing: Apartment Do you presently have visiting nurse or other home services: No Unable to assess alcohol history related to: Unknown Alcohol intake: never Comment: pt. uses call mullins appropriately. Patient Tobacco Use Status: Never used Tobacco e-Cigarette/Vaping Use: Never Used Second Hand Smoke Exposure: No service: No Current occupational status: unemployed Sexual orientation: Straight/Heterosexual Gender identity: Female Cognitive needs: No Hearing needs: No Vision needs: No Female Reproductive History Menstrual Age of Menarche: 12 Review of Systems Const All systems reviewed & are unremarkable except as noted in HPI and below Physical Exam Vital Signs: BMI result Body Mass Index 25.6 General: Yes no CVA tenderness External Female Exam: normal external appearance and normal appearance of the urethra Speculum Exam - Vagina: normal appearance of the vagina, normal palpation, no lesions and no masses Speculum Exam - Cervix: normal appearance of the cervix, normal palpation, no lesions, no masses and nontender Bimanual exam- vagina & uterus: normal bimanual exam, normal palpation, uterine size normal, normal palpation, uterine shape normal, No Cervical tenderness present and non-tender Bimanual Exam- Adnexa, other: normal adnexae Back/Spine/Pelvis Back: no CVA tenderness Assessment & Plan Assessment & Plan (1) Microscopic hematuria: Code(s): R31.29 - Other microscopic hematuria Category: Medical Plan: Urine dip showed microscopic hematuria, urine culture sent. Will repeat urine dip in 2 weeks. Discussed with the patient the possible causes of microscopic hematuria including but not limited to: interstitial cystitis, polyps, stones, masses, urethral inflammatory processes and others. If Urine Culture is negative and repeat urine dip in 2 weeks shows persistent microscopic hematuria, will treat accordingly Instructions given the patient to schedule a 2 week urine dip follow-up appointment. All questions answered and the patient verbalized understanding. (2) Pelvic pain: Code(s): R10.2 - Pelvic and perineal pain Category: Medical Plan: Urine test done in the office was negative. GC and chlamydia taken and pelvic ultrasound ordered. Discussed with the patient the differential diagnosis of pelvic pain including but not limited to adnexal, uterine masses, pelvic infections (PID), GI the (Irritable bowel syndrome, diverticulitis, others), musculoskeletal, myofascial pain abdominal wall , adhesions, endometriosis, psychological and others causes. Will check results and treat accordingly. All questions answered, the patient verbalized understanding. Instructed the patient to schedule an ultrasound and a follow-up appointment in 2 weeks. All questions answered, the patient verbalized understanding and agreed with the plan. Orders: Orders CT NG by PCR Today R10.2 - Pelvic and perineal pain Bacterial Vaginosis Panel Today R10.2 - Pelvic and perineal pain Urine Culture Today R10.2 - Pelvic and perineal pain US pelvic and transvaginal Today R10.2 - Pelvic and perineal pain Coding Level of Care Code Est Pt Level 3 (02218) Diagnoses Microscopic hematuria R31.29 Pelvic pain R10.2
[2024-02-02 14:44] VITALS: BMI 25.6
== END 2024-02-02 15:20 | disposition home or self-care (01) ==
LOC: HO.HWS 14:28
PROVIDERS: PCP Internal Medicine; Visit Provider Obstetrics & Gynecology
DX: R31.29 Other microscopic hematuria (principal); R10.2 Pelvic and perineal pain; Z32.02 Encounter for pregnancy test, result negative
CPT/HCPCS: 99213

== ENCOUNTER 2024-02-02 14:28 | Outpatient (REF) | payer OTHER, SELFPAY ==
[2024-02-03 16:14] LABS: Bacterial Vaginosis PCR NEGATIVE (Negative); Candida Group PCR NOT DETECTED (Not Detect); Candida glab krusei PCR NOT DETECTED (Not Detect); Trichomonas vaginalis PCR NOT DETECTED (Not Detect)
[2024-02-05 13:14] LABS: CT PCR NOT DETECTED (Not Detect.); NG PCR NOT DETECTED (Not Detect.)
== END 2024-02-02 14:29 | disposition home or self-care (01) ==
LOC: HO.LNP 14:28
PROVIDERS: PCP Internal Medicine; Visit Provider Obstetrics & Gynecology
DX: R10.2 Pelvic and perineal pain (principal); R31.29 Other microscopic hematuria
CPT/HCPCS: 0352U; 81002; 81025; 87086; 87491; 87591; 99212; 99459

== ENCOUNTER 2024-02-08 13:29 | Outpatient (REF) | payer OTHER, SELFPAY | END 2024-02-08 13:30 | disposition home or self-care (01) | LOC: HO.US 13:29 | PROVIDERS: PCP Internal Medicine; Visit Provider Obstetrics & Gynecology | DX: R10.2 Pelvic and perineal pain (principal) | CPT/HCPCS: 76830; 76856 ==

== ENCOUNTER → 2024-02-08 13:31 | Outpatient (BNV) | payer OTHER, SELFPAY | PROVIDERS: PCP Internal Medicine; Visit Provider Radiology Diagnostic Radiology | DX: R10.2 Pelvic and perineal pain (principal) | CPT/HCPCS: 76830; 76856 ==

== ENCOUNTER 2024-02-21 07:45 | Outpatient (REF) | payer OTHER, SELFPAY ==
--- NOTE | ~2024-02-21 | FL_ITS ---
EXAMINATION: XR FLUOROSCOPY UPPER GI WITH AIR CLINICAL INFORMATION: Epigastric pain COMPARISON: None TECHNIQUE: Fluoroscopic air contrast upper GI examination was performed utilizing standard techniques with thin and thick barium and effervescent granules. Numerous spot images were obtained. FINDINGS: Dual and single contrast images of the esophagus demonstrate normal caliber, contour, and mucosal pattern. No evidence of stricture, mass, or ulcerations identified. Esophageal peristalsis was normal. A small type I hiatal hernia is present. Gastroesophageal reflux is seen up to the thoracic inlet. Surgical clips are present in the right upper quadrant. Dual contrast and single contrast images of the stomach demonstrated normal contour. The areae gastrica have a prominent appearance, suggestive of gastritis. No masses or ulcerations are seen. Contrast freely passed into the gastric antrum and duodenal bulb without delay. Single and air-contrast images of the duodenal bulb demonstrate no abnormality. The duodenal sweep has a normal appearance, course, and mucosal fold appearance. The imaged proximal jejunum has a normal fold pattern and caliber. FLUOROSCOPY TIME: 3 minutes 6 seconds Number of Spot Images: 7 Number of Cine: 12 DOSE AREA PRODUCT: [id number] uGy-m2 (microgray-meter squared) FL/FL upper GI series IMPRESSION: 1. Small type I hiatal hernia. 2. Moderate gastroesophageal reflux. 3. Prominent appearance of the areae gastrica, suggestive of gastritis. This procedure was performed by Librado Tran PA-C, and supervised by Dr. Srivastava Electronically signed by: Meir Srivastava MD 02/21/2024 02:00 PM [facility]
== END 2024-02-21 07:46 | disposition home or self-care (01) ==
LOC: HO.XRAY 07:45
PROVIDERS: PCP Internal Medicine; Visit Provider Internal Medicine
DX: R10.13 Epigastric pain (principal); R14.0 Abdominal distension (gaseous)
CPT/HCPCS: 74240

== ENCOUNTER → 2024-02-21 07:46 | Outpatient (BNV) | payer OTHER, SELFPAY | PROVIDERS: PCP Internal Medicine; Visit Provider Physician Assistant Surgical | DX: R10.13 Epigastric pain (principal) | CPT/HCPCS: 74246 ==

== ENCOUNTER 2024-02-27 12:29 | Outpatient (AMB) | payer OTHER, SELFPAY ==
[2024-02-27 12:49] VITALS: BP 122/76; PULSE 80; O2SAT 98; BMI 27.4
--- NOTE | 2024-02-27 12:49 | A.OFFPC_ITS ---
Vital Signs 02/27/24 12:49 Height 5 ft 5 in Weight 164 lb 6 oz BMI 27.4 BP 122/76 Blood Pressure Location Lt brachial Position Sitting Pulse 80 Pulse Source Pulse Oximeter Pulse Oximetry (%) 98 Oxygen Delivery Method Room Air Intake Visit Reasons: 3 Months F/U Emergency Registrar Required: No Accompanied by: Self / Same As Patient Allergies oxycodone Adverse Reaction (Mild, Uncoded 02/27/24 12:57) ineffective Medication List - Last Reconciled 02/27/24 by BETH Treviño buspirone 30 mg PO BID hydroxyzine HCl 25 mg PO TID PRN lorazepam 1 mg PO BID PRN multivitamin 1 tab PO DAILY omeprazole 20 mg PO DAILY 90 days Tobacco use date assessed: 02/27/24 Dental Screening Dental Screen Date: 02/27/24 Did you have a dental visit in the last 12 months?: Yes Did you have a dental problem in the last 6 months where you did not have access to dental care?: No Was dental information given to patient?: Patient has dentist HPI 3 Months F/U HPI Details Patient comes in today for her follow up visit States that she has been experiencing recurrent epigastric pain and abdominal bloating since the end of September 2023 (about the past 3 weeks) Notes that her abdominal symptoms often occur when she eats mostly, but she is noticing symptoms without eating or drinking She denies nausea and vomiting, but she reports nausea yesterday only so far She reports taking her omeprazole when she starts having the symptoms and it has been helping some, but not all the time She reports that the epigastric pain feels like a sharp squeeze She also report early satiety The patient reports that all he stomach symptoms started after her LEEP procedure that resulted in acute endometritis for which she was treated with Cefuroxime, Doxycylline and Metronidazole Relates that she has been tested for H. pylori recently and that she tested negative She has had her gallbladder taken out a few years ago and she's had some loose stools since then - states that she has not had any change in her bowel habits lately She currently denies any fever, headaches or dizziness Denies any chest pains, no increased SOB, denies heart palpitation or dizziness She reports that she feels a small bulge close to her umbilicus and she has hernias in the past that had to be repaired She is scared that the same is happening all over again She reports that this is really taking a toll on her nerves FORMERLY [facility], [facility] Medical History CORRINA II (cervical intraepithelial neoplasia II) Endometritis HIV antibody positive Abnormal laboratory test result Pure hypercholesterolemia Overweight (BMI 25.0-29.9) Depression Anxiety ASCUS with positive high risk HPV Surgical History History of hernia repair History of cholecystectomy History of Family History Maternal Grandmother Pacemaker CVD (cardiovascular disease) Father Diabetes HTN (hypertension) Mother Asthma Paternal Grandmother Cancer Brother No problems noted. Family/Other Substance abuse Chronic mental illness Social History Household Members: Children Housing: Apartment Do you presently have visiting nurse or other home services: No Unable to assess alcohol history related to: Unknown Alcohol intake: never Comment: pt. uses call mullins appropriately. Patient Tobacco Use Status: Never used Tobacco e-Cigarette/Vaping Use: Never Used Second Hand Smoke Exposure: No service: No Current occupational status: unemployed Sexual orientation: Straight/Heterosexual Gender identity: Female Cognitive needs: No Hearing needs: No Vision needs: No Female Reproductive History Menstrual Age of Menarche: 12 Questionnaire Thrive Questionnaire Date Thrive assessed: 11/11/23 CATY-7 AMB Questionnaire CATY-7 Date CATY - 7 assessed: 11/11/23 Source: Developed by Drs. Marshall Keane, Yas Isaac, Francisco Lynch and colleagues, with an educational rosy from [employer]. Review of Systems Const Details: Const Denies chills, Denies fatigue, Denies fever(s), Denies headache(s) and Denies weakness ENT Denies dizziness and Denies headache(s) Card Denies chest pain, Denies lightheadedness, Denies dyspnea and Denies other (Palpitations) Resp Denies cough, Denies dyspnea, Denies wheezing and Denies other ( shortness of breath) GI reports recurrent abdominal pain, Denies melena, Denies hematochezia, Denies change in bowel habits, reports recurrent dyspepsia and reports one day of nausea, reports feeling bloated Denies hematuria and Denies dysuria Musc Denies abnormal gait, Denies myalgias, Denies arthralgias, Denies numbness and Denies tingling Skin/Breast Denies rash, Denies unusual bruising and Denies wounds Neuro Denies abnormal gait, Denies dizziness, Denies headache(s), Denies memory loss, Denies numbness, Denies Sensory deficit (Neuro), Denies tingling and Denies weakness Psych reports anxiety, reports depression, Denies memory loss Endo Denies cold intolerance, Denies fatigue, Denies heat intolerance, Denies polydipsia and Denies polyuria Aller/Immun Denies wheezing Physical exam (Primary Care) Vital Signs: Last Vital Signs Pulse 80 02/27/24 12:49 BP 122/76 02/27/24 12:49 Pulse Ox 98 02/27/24 12:49 Oxygen Delivery Method Room Air 02/27/24 12:49 BMI result Body Mass Index 27.4 Tobacco/Smoking Status: Tobacco use Status Tobacco use date assessed 02/27/24 02/27/24 12:54 Patient Tobacco Use Status Never used Tobacco 02/27/24 12:54 e-Cigarette/Vaping Use Never Used 02/27/24 12:54 Thrive Assessment: Date of Thrive Assessment Date Thrive assessed 11/11/23 02/27/24 12:54 Const Other: General: no acute distress and well developed Nutritional Appearance: well nourished Orientation/consciousness: patient oriented x3 HENMT Head: Yes normocephalic and Yes atraumatic Eyes General: appearance normal, both eyes and all related structures Pupils: Equal, round and reactive pupils present EOM: EOMs intact bilaterally Resp Effort & Inspection: normal respiratory effort Auscultation: clear to auscultation bilaterally Cardio Rate: regular rate Rhythm: regular rhythm Heart sounds: S1 normal heart sound present, S2 normal heart sound present, no gallops, no murmurs and no rubs GI Palpation (GI): No Abdominal aortic bruit present, Soft to palpation, +diffuse non-tender with palpation in all four quadrants, No hepatosplenomegaly present Auscultation: hyperactive bowel sounds General: Yes no CVA tenderness Back/Spine/Pelvis Back: no CVA tenderness Cervical Spine: cervical ROM normal and No Cervical spine tenderness Thoracic/Lumbar Spine: No thoracic spinal tenderness and No lumbar spinal tenderness Extrem General: Yes normal to inspection, No edema and No calf tenderness Skin General: warm and dry. Normal skin color. Normal skin turgor Lesions: no lesions Rashes: no rashes Trauma: no lacerations or abrasions Wounds: no wounds Nails: normal Neuro General: patient oriented x3, gait normal and no focal neuro deficit Cranial nerves: Yes Equal, round and reactive pupils present Cognition (Neuro): normal cognition Gait exam (Neuro): Normal gait present Sensory Exam: No Sensory deficit (Neuro) Psych Appearance: grossly normal Affect: normal affect Attitude: cooperative Thought process: Normal thought process present Coding Level of Care Code Est Pt Level 4 (15480) Diagnoses Hiatal hernia with gastroesophageal reflux K44.9; K21.9 Generalized abdominal pain R10.84 Abdominal location: generalized Episode of recurrent major depressive disorder, unspecified depression episode severity F33.9 Active/Remission status: currently active Depression Type: major depressive disorder Major depression episode severity: unspecified Major depression recurrence: recurrent Anxiety F41.9 Assessment & Plan Assessment & Plan (1) Hiatal hernia with gastroesophageal reflux: Code(s): K44.9 - Diaphragmatic hernia without obstruction or gangrene; K21.9 - Gastro- esophageal reflux disease without esophagitis Category: Medical Plan: The patient had an upper GI series done on 02/21/24 showed 1. Small type I hiatal hernia. 2. Moderate gastroesophageal reflux. 3. Prominent appearance of the areae gastrica, suggestive of gastritis. take omeprazole 20 mg in the morning 30 times before eating complete abdominal US ordered GI referral placed (2) Abdominal pain: Code(s): R10.9 - Unspecified abdominal pain Category: Medical Qualifiers: Abdominal location: generalized Qualified Code(s): R10.84 - Generalized abdominal pain Plan: Diffuse tenderness with palpation A complete US ordered Referred to GI (3) Depression: Code(s): F32.9 - Major depressive disorder, single episode, unspecified Category: Medical Qualifiers: Active/Remission status: currently active Depression Type: major depressive disorder Major depression episode severity: unspecified Major depression recurrence: recurrent Qualified Code(s): F33.9 - Major depressive disorder, recurrent, unspecified Plan: Abdominal symptoms have been taking a toll on her Reports ongoing therapy buspirone 30 mg BID and hydroxyzine 25 mg TID PRN and Lorazepam 1 mg BID prn Follow up with psychiatry as scheduled (4) Anxiety: Code(s): F41.9 - Anxiety disorder, unspecified Category: Medical Plan: as above Plan The patient to follow in 3 months or sooner for any concerns I personally spent 31 minutes reviewing the chart, caring for the patient and documenting after the visit. Orders: Orders US abdomen complete 02/27/24 R10.9 - Unspecified abdominal pain Vitamin D 25-OH Total 3 Months E78.00 - Pure hypercholesterolemia, unspecified, F33.9 - Major depressive disorder, recurrent, unspecified, F41.9 - Anxiety disorder, unspecified, K21.9 - Gastro-esophageal reflux disease without esophagitis, K44.9 - Diaphragmatic hernia without obstruction or gangrene, R10.9 - Unspecified abdominal pain, R79.89 - Other specified abnormal findings of blood chemistry Complete Blood Count Auto Diff 3 Months E78.00 - Pure hypercholesterolemia, unspecified, F33.9 - Major depressive disorder, recurrent, unspecified, F41.9 - Anxiety disorder, unspecified, K21.9 - Gastro-esophageal reflux disease without esophagitis, K44.9 - Diaphragmatic hernia without obstruction or gangrene, R10.9 - Unspecified abdominal pain, R79.89 - Other specified abnormal findings of blood chemistry Comprehensive [place]. Panel Fast 3 Months E78.00 - Pure hypercholesterolemia, unspecified, F33.9 - Major depressive disorder, recurrent, unspecified, F41.9 - Anxiety disorder, unspecified, K21.9 - Gastro-esophageal reflux disease without esophagitis, K44.9 - Diaphragmatic hernia without obstruction or gangrene, R10.9 - Unspecified abdominal pain, R79.89 - Other specified abnormal findings of blood chemistry Lipid Panel 3 Months E78.00 - Pure hypercholesterolemia, unspecified, F33.9 - Major depressive disorder, recurrent, unspecified, F41.9 - Anxiety disorder, unspecified, K21.9 - Gastro-esophageal reflux disease without esophagitis, K44.9 - Diaphragmatic hernia without obstruction or gangrene, R10.9 - Unspecified abdominal pain, R79.89 - Other specified abnormal findings of blood chemistry UA CC w/rflx Micro + Cult 3 Months E78.00 - Pure hypercholesterolemia, unspecified, F33.9 - Major depressive disorder, recurrent, unspecified, F41.9 - Anxiety disorder, unspecified, K21.9 - Gastro-esophageal reflux disease without esophagitis, K44.9 - Diaphragmatic hernia without obstruction or gangrene, R10.9 - Unspecified abdominal pain, R79.89 - Other specified abnormal findings of blood chemistry Glucose Fasting 3 Months E78.00 - Pure hypercholesterolemia, unspecified, F33.9 - Major depressive disorder, recurrent, unspecified, F41.9 - Anxiety disorder, unspecified, K21.9 - Gastro-esophageal reflux disease without esophagitis, K44.9 - Diaphragmatic hernia without obstruction or gangrene, R10.9 - Unspecified abdominal pain, R79.89 - Other specified abnormal findings of blood chemistry TSH reflex Free T4 3 Months E78.00 - Pure hypercholesterolemia, unspecified, F33.9 - Major depressive disorder, recurrent, unspecified, F41.9 - Anxiety disorder, unspecified, K21.9 - Gastro-esophageal reflux disease without esophagitis, K44.9 - Diaphragmatic hernia without obstruction or gangrene, R10.9 - Unspecified abdominal pain, R79.89 - Other specified abnormal findings of blood chemistry Amylase 3 Months E78.00 - Pure hypercholesterolemia, unspecified, F33.9 - Major depressive disorder, recurrent, unspecified, F41.9 - Anxiety disorder, unspecified, K21.9 - Gastro-esophageal reflux disease without esophagitis, K44.9 - Diaphragmatic hernia without obstruction or gangrene, R10.9 - Unspecified abdominal pain, R79.89 - Other specified abnormal findings of blood chemistry Lipase 3 Months E78.00 - Pure hypercholesterolemia, unspecified, F33.9 - Major depressive disorder, recurrent, unspecified, F41.9 - Anxiety disorder, unspecified, K21.9 - Gastro-esophageal reflux disease without esophagitis, K44.9 - Diaphragmatic hernia without obstruction or gangrene, R10.9 - Unspecified abdominal pain, R79.89 - Other specified abnormal findings of blood chemistry Referrals Gastroenterology Referral K21.9 - Gastro-esophageal reflux disease without esophagitis, K44.9 - Diaphragmatic hernia without obstruction or gangrene, R10.9 - Unspecified abdominal pain
== END 2024-02-27 13:30 | disposition home or self-care (01) ==
PROVIDERS: PCP Internal Medicine
DX: K44.9 Diaphragmatic hernia without obstruction or gangrene (principal); K21.9 Gastro-esophageal reflux disease without esophagitis; R10.84 Generalized abdominal pain; F33.9 Major depressive disorder, recurrent, unspecified; F41.9 Anxiety disorder, unspecified

== ENCOUNTER → 2024-02-27 12:29 | Outpatient (BNVA) | payer OTHER, SELFPAY | PROVIDERS: PCP Internal Medicine | DX: R10.13 Epigastric pain (principal); R14.0 Abdominal distension (gaseous); K44.9 Diaphragmatic hernia without obstruction or gangrene; K21.9 Gastro-esophageal reflux disease without esophagitis; R10.84 Generalized abdominal pain; F33.9 Major depressive disorder, recurrent, unspecified; F41.9 Anxiety disorder, unspecified; E78.00 Pure hypercholesterolemia, unspecified; R79.89 Other specified abnormal findings of blood chemistry | CPT/HCPCS: 99212 ==

== ENCOUNTER 2024-04-05 13:42 | Emergency (ER) | payer OTHER, SELFPAY ==
--- NOTE | ~2024-04-05 | CT_ITS ---
CLINICAL HISTORY: abdominal pain Exam: CT Abdomen and Pelvis With IV Contrast Comparison: 10/05/2023 Findings: The liver density is homogeneous No biliary abnormalities. Extrahepatic common bile duct post cholecystectomy measures 11 mm in diameter. The spleen is normal in size No pancreatic ductal dilatation No hydronephrosis Normal bowel caliber. No abdominal wall hernias. No signs of inflammatory bowel disease. The appendix is normal. No free fluid/free air No vascular abnormalities Bladder outline is smooth No suspicious skeletal lesions Impression : Unremarkable CT of the abdomen and pelvis This document has been electronically signed by: Lv Valenzuela MD on 04/05/2024 19:22:06
--- NOTE | ~2024-04-05 | XR_ITS ---
EXAMINATION: XR CHEST CLINICAL INFORMATION: chest pain COMPARISON: 01/28/2023. TECHNIQUE: 2 views of the chest were obtained. FINDINGS: The cardiac, hilar, and mediastinal contours are normal. The lungs are clear bilaterally. There is no pneumothorax or pleural effusion. There is no focal osseous or soft tissue abnormality. There are cholecystectomy clips. XR/XR chest 2V IMPRESSION: Normal chest. Electronically signed by: Emanuel Rice MD 04/05/2024 04:52 PM [facility]
--- NOTE | 2024-04-05 13:53 | ECG_ITS ---
Test Reason : cp Blood Pressure : */* mmHG Vent. Rate : 96 BPM Atrial Rate : 96 BPM P-R Int : 152 ms QRS Dur : 76 ms QT Int : 346 ms P-R-T Axes : 40 -1 5 degrees QTcB Int : 437 ms Normal sinus rhythm Nonspecific T wave abnormality Abnormal ECG When compared with ECG of 30-May-2021 23:24, No significant change was found Referred By: Kimmie Jaffe Electronically Signed By: GAUTAM NIX MD
[2024-04-05 14:08] VITALS: BP 123/87; PULSE 105; RESP 18; TEMP 36.4; O2SAT 100; BMI 27.0
--- NOTE | 2024-04-05 14:09 | ED_ITS ---
HPI - General Adult General Chief complaint: General Medical Stated complaint: Chest pain, dizziness, nausea Time Seen by Provider: 04/05/24 16:15 Source: patient Mode of arrival: wheelchair Limitations: no limitations History of Present Illness ED Provider: Beatriz Stevenson PA-C HPI narrative: Patient is a 39 year old assigned female at with a history of PCOS, HPV, AUB, anxiety, depression, and GERD presenting to the emergency department today with chest pain, low back pain, dizziness, weakness, nausea, and rash. Patient states that over the last few days she has had chest pain, low back pain, dizziness, weakness, and an intermittent rash. Patient states that the rash is redness all over her body and mostly when she comes out of the shower. Patient states that she has been feeling weak with central chest pain / epigastric pain and low back pain. Patient states that she has had some nausea but has not vomited. Patient denies any lightheadedness, abdominal pain, vomiting, fever, chills, blurry vision, double vision, loss of vision, difficulty breathing, shortness of breath, night sweats, pain with urination, increased urinary frequency, increased urinary urgency, blood in her urine or stool, syncope or a near syncopal episode, recent trauma or falls, bowel incontinence, bladder incontinence, or any other complaints at this time. Relieving factors: none Exacerbating factors: none Associated symptoms: chest pain, nausea/vomiting, rash and weakness Treatments prior to arrival: none Related Data Home Medications ?Medication ?Instructions ?Recorded ?Confirmed hydroxyzine HCl 25 mg tablet 25 mg PO TID PRN anxiety 01/25/23 11/11/23 lorazepam 1 mg tablet 1 mg PO BID PRN anxiety 01/25/23 11/11/23 buspirone 30 mg tablet 30 mg PO BID Anxiety 03/07/23 11/11/23 multivitamin 1 tab PO DAILY 10/05/23 11/11/23 Previous Rx's ?Medication ?Instructions ?Recorded omeprazole 20 mg capsule,delayed 20 mg PO DAILY 90 days #90 caps 11/11/23 release ondansetron HCl 4 mg tablet 4 mg PO Q8H PRN nausea and 04/05/24 vomiting #7 tabs Allergies Allergy/AdvReac Type Severity Reaction Status Date / Time oxycodone AdvReac Mild ineffective Uncoded 04/05/24 14:13 Review of Systems 2 Constitutional: Constitutional: Reports no additional constitutional complaints, Denies chills, Denies fever(s), Denies night sweats and Reports weakness Eyes: Eyes: Reports no additional eye complaints, Denies blurry vision, Denies change in vision, Denies diplopia, Denies eye discharge, Denies loss of vision and Denies eye pain ENT: Reports dizziness Cardiovascular: Cardiovascular: Reports no additional cardiovascular complaints, Reports chest pain, Denies lightheadedness, Denies Loss of Consciousness and Denies dyspnea Respiratory: Respiratory: Reports no additional respiratory complaints and Denies dyspnea Gastrointestinal: Gastrointestinal: Reports no additional gastrointestinal complaints, Denies abdominal pain, Denies melena, Denies hematochezia, Denies change in bowel habits, Denies change in stool character, Reports nausea and Denies vomiting Genitourinary: Genitourinary: Denies hematuria, Denies urinary frequency, Denies dysuria, Denies urinary incontinence, Denies urinary hesitancy and Denies urinary urgency Musculoskeletal: Musculoskeletal: Reports no additional musculoskeletal complaints, Denies numbness and Denies tingling Integumentary/Breasts: Skin/Breast: Reports rash Neurologic: Reports dizziness, Denies loss of vision, Denies numbness, Denies tingling and Reports weakness Psychiatric: Psychiatric: Reports no additional psychiatric complaints Endocrine: Endocrine: Reports no additional endocrine complaints Hematologic/Lymphatic: Hematologic/Lymphatic: Reports no additional hematologic/lymphatic complaints Allergic/Immunologic: Allergic/Immunologic: Reports no additional allergic/immunologic complaints PMFSH Past Medical History Attestation statement: The following information was validated with the patient. Source: old records reviewed and nursing notes reviewed Medical History CORRINA II (cervical intraepithelial neoplasia II) Endometritis HIV antibody positive Abnormal laboratory test result Pure hypercholesterolemia Overweight (BMI 25.0-29.9) Depression Anxiety ASCUS with positive high risk HPV Surgical History History of hernia repair History of cholecystectomy History of Family History Family History Maternal Grandmother Pacemaker CVD (cardiovascular disease) Father Diabetes HTN (hypertension) Mother Asthma Paternal Grandmother Cancer Brother No problems noted. Family/Other Substance abuse Chronic mental illness Social History Social History Household Members: Children Housing: Apartment Do you presently have visiting nurse or other home services: No Unable to assess alcohol history related to: Unknown Alcohol intake: never Comment: pt. uses call mullins appropriately. Patient Tobacco Use Status: Never used Tobacco e-Cigarette/Vaping Use: Never Used Second Hand Smoke Exposure: No Advance Directives: No Advance Directives Information Provided: Yes Do you have a plan to hurt others: No Plan Patient : No service: No Current occupational status: unemployed Sexual orientation: Straight/Heterosexual Gender identity: Female Cognitive needs: No Hearing needs: No Vision needs: No Physical Exam ED Vital Signs: Vital Signs - 24 hr 04/05/24 14:08 04/05/24 17:33 Temperature 97.6 F Pulse Rate 105 H 90 Respiratory Rate 18 18 Blood Pressure 123/87 127/84 Pulse Oximetry 100 100 Oxygen Delivery Method Room Air Room Air BMI result Body Mass Index 27.0 Const General: cooperative, no acute distress, alert and awake Nutritional Appearance: well nourished Orientation/consciousness: patient oriented x3 Limitations: no limitations HENMT Head: Yes normal to inspection and Yes atraumatic Ears: hearing grossly normal bilaterally and external ears normal General nose exam: Normal external nose present, no nasal discharge noted and no epistaxis Face and sinus: Yes normal facial exam, No abrasion and No laceration Mouth: Normal oral and palatal mucosa present, no drooling and no muffled voice Eyes General: appearance normal, both eyes and all related structures Periorbital: periorbital findings normal Eyelids: Yes eyelids normal Conjunctivae: conjunctivae normal Pupils: Equal, round and reactive pupils present EOM: EOMs intact bilaterally Neck Neck: Yes normal visual inspection, Yes full ROM and Yes no lymphadenopathy Chest Chest palpation & inspection: normal inspection of the chest Resp Effort & Inspection: normal respiratory effort and able to speak in complete sentences GI Inspection: Yes normal to inspection Palpation (GI): Soft to palpation, not firm, Tenderness to palpation present (GI) in the epigastrum, no guarding and not rigid Neuro General: patient oriented x3, moves all extremities and CN's II-XI intact bilaterally Cranial nerves: Yes Equal, round and reactive pupils present Cognition (Neuro): normal cognition Extrem General: Yes normal to inspection, Yes full ROM and Yes capillary refill normal Psych Appearance: grossly normal Mental Status: mental status grossly normal Affect: normal affect Attitude: cooperative Thought process: Normal thought process present Thought content: Normal thought content present Insight: Good insight present (Psych) Course Course Course Narrative: This is a rapid medical exam performed by Keyon Jaffe NP: Additional HPI, ROS, PE not included below will be deferred to primary provider. Patient is a 39-year-old female presenting with complaint of chest pain as well burning sensation and states her skin has been red. Taking benadryl without relief. No respiratory distress in triage, no angioedema. Low back pain, dizziness, nausea, weakness. Plan: EKG, labs, viral panel Reevaluation(s) Reevaluation #1: I Kira Osman PA-C have accepted care of the patient at signed out pending CT scan and likely discharge CT abdomen and pelvis:Findings: The liver density is homogeneous No biliary abnormalities. Extrahepatic common bile duct post cholecystectomy measures 11 mm in diameter. The spleen is normal in size No pancreatic ductal dilatation No hydronephrosis Normal bowel caliber. No abdominal wall hernias. No signs of inflammatory bowel disease. The appendix is normal. No free fluid/free air No vascular abnormalities Bladder outline is smooth No suspicious skeletal lesions Impression : Unremarkable CT of the abdomen and pelvis This document has been electronically signed by: Lv Valenzuela MD on 04/05/2024 19:22:06 Medications Administered Discontinued Medications Generic Name Dose Route Start Last Admin Trade Name Freq PRN Reason Stop Dose Admin Al Hydroxide/Mg Hydroxide 15 ml 04/05/24 16:20 04/05/24 16:50 Magnesium Hydrox/Alum Hydrox 30 Ml Oral.Susp PO 04/05/24 16:21 15 ml ONCE ONE Administration Hydromorphone HCl 1 mg 04/05/24 17:31 04/05/24 17:38 Hydromorphone Hcl 1 Mg/Ml Syringe IVPUSH 04/05/24 17:32 1 mg ONCE ONE Administration Protocol Sodium Chloride 1,000 mls @ 999 mls/hr 04/05/24 16:30 04/05/24 17:32 Ns IV 04/05/24 17:30 Infused .Q1H1M ALISIA Infusion Iohexol 100 ml 04/05/24 18:38 04/05/24 18:38 Iohexol 350 Mg/Ml 100 Ml Infus..Btl IV 04/05/24 18:39 85 ml ONCE ONE Administration Ketorolac Tromethamine 15 mg 04/05/24 16:20 04/05/24 16:49 Ketorolac Tromethamine 15 Mg/Ml Vial IVPUSH 04/05/24 16:21 15 mg ONCE ONE Administration Methylprednisolone Sodium Succinate 60 mg 04/05/24 18:30 04/05/24 18:47 Methylprednisolone Sod Succ 125 Mg/2 Ml Vial IVPUSH 04/05/24 18:31 60 mg ONCE ONE Administration Ondansetron HCl 4 mg 04/05/24 16:20 04/05/24 16:49 Ondansetron Hcl 4 Mg/2 Ml Vial IVPUSH 04/05/24 16:21 4 mg ONCE ONE Administration Pantoprazole Sodium 40 mg 04/05/24 16:20 04/05/24 16:50 Pantoprazole Sodium 40 Mg/10 Ml Vial IVPUSH 04/05/24 16:21 40 mg ONCE ONE Administration Medical Decision Making Medical Decision Making [facility] Narrative: Patient is a 39 year old assigned female at with a history of PCOS, HPV, AUB, anxiety, depression, and GERD presenting to the emergency department today with chest pain, low back pain, dizziness, weakness, nausea, and rash. Patient's physical exam was as noted in the physical exam portion of this note. Patient's blood work was unremarkable. Patient's urine showed no acute process. Patient's EKG was unremarkable. Patient's chest x-ray showed no acute process. Patient's CT abdomen/pelvis is pending. I explained my physical exam findings as well as all test results to the patient. I answered all questions asked by the patient. Patient was given multiple medications including Zofran, protonix, maalox, toradol, dilaudid, and solu-medrol however- she stated all of her symptoms continue to be present and none of the medication helped. Patient signed out to YEN Hernandez pending CT read. Differential Diagnosis Differential Diagnoses: The differential diagnosis associated with the presentation includes Abdominal pain Epigastric pain Back pain Viral illness Admission/Observation Consideration of admission/observation: Escalation of care including admission/observation considered Patient's disposition will be determined after imaging read. Lab Data [facility] Lab Attestation statement: I reviewed the patient's lab results. My interpretation of these results are in the MDM Rationale portion of this note. 04/05/24 14:23 04/05/24 14:23 Labs: Lab Results 04/05/24 Range/Units 14:23 WBC 8.9 (4.8-10.8) X10*3/uL RBC 4.81 (4.20-5.50) X10*6/uL Hgb 13.6 (12.0-16.0) g/dl Hct 41.1 (37.0-47.0) % MCV 85.4 (80.0-98.0) fL MCH 28.3 (27.0-33.0) pg MCHC 33.1 (31.0-35.0) g/dl RDW 12.7 (11.0-16.0) % Plt Count 403 H (160-400) X10*3/uL MPV 9.7 (9.4-12.3) fL Immature Gran % (Auto) 0.4 (0.0-0.4) % Neut % (Auto) 63.3 (45-73) % Lymph % (Auto) 26.0 (20-40) % [place] % (Auto) 7.1 (2-11) % Eos % (Auto) 2.2 (0-4) % Baso % (Auto) 1.0 (0-2) % Lymph # (Auto) 2.3 (1.2-4.9) X10*3/uL [place] # (Auto) 0.6 (0.1-1.2) X10*3/uL Eos # (Auto) 0.2 (0.0-0.4) X10*3/uL Baso # (Auto) 0.1 (0.0-0.2) X10*3/uL Abs Immat Gran (auto) 0.04 H (0.00-0.03) X10*3/uL Absolute Neuts (auto) 5.6 (2.0-8.3) x10*3/uL Absolute Nucleated RBC 0.000 (0.0-0.012) X10*3/uL Nucleated RBC % (auto) 0.0 (0.0-0.2) /100WBC PT 11.3 (10.9-12.4) SEC INR 1.0 (0.9-1.1) Sodium 135 (135-145) mmol/L Potassium 4.1 (3.3-5.1) mmol/L Chloride 105 (96-108) mmol/L Carbon Dioxide 23 (22-29) mmol/L Anion Gap 11 L (12-20) BUN 10 (9-16) mg/dL Creatinine 0.77 (0.5-1.4) mg/dL Estim Creat Clear Calc 99.4 Estimated GFR > 60 Random Glucose 137 H (60-115) mg/dL Calcium 9.9 (8.4-10.2) mg/dL Magnesium 1.9 (1.6-2.6) mg/dL Total Bilirubin 0.2 (0.0-1.0) mg/dL AST 25 (5-31) U/L ALT 18 (0-31) U/L Alkaline Phosphatase 113 (39-117) U/L Troponin I High Sens < 2.7 (<3.5-17.0) ng/L Total Protein 8.0 (6.5-8.0) g/dL Albumin 4.3 (3.5-5.0) g/dL Lipase 18 (8-78) U/L TSH 1.95 (0.32-4.0) uIU/mL Beta HCG, Quant < 2 mIU/mL Influenza Type A (PCR) NEGATIVE (Negative) Influenza Type B (PCR) NEGATIVE (Negative) RSV RNA Qual (PCR) NEGATIVE (Negative) SARS-CoV-2 RNA (RT-PCR) NEGATIVE (Negative) Independent Interpretation I performed an independent interpretation of an: EKG and Plain X-Ray Interpretation: My interpretation is in agreement with the radiologist's impression of this imaging study. L EXAMINATION: XR CHEST CLINICAL INFORMATION: chest pain COMPARISON: 01/28/2023. TECHNIQUE: 2 views of the chest were obtained. FINDINGS: The cardiac, hilar, and mediastinal contours are normal. The lungs are clear bilaterally. There is no pneumothorax or pleural effusion. There is no focal osseous or soft tissue abnormality. There are cholecystectomy clips. XR/XR chest 2V IMPRESSION: Normal chest. Electronically signed by: Emanuel Rice MD 04/05/2024 04:52 PM [facility] Dictated By: Emanuel Rice MD Signed By: Electronically signed by Emanuel Rice MD 04/05/24 1652 I independently interpreted this EKG and am in agreement with the below findings: Vent. Rate: 96 BPM Atrial Rate: 96 BPM P-R Int: 152 ms QRS Dur: 76 ms QT Int: 346 ms P-R-T Axes: 40 -1 5 degrees QTcB Int: 437 ms Normal sinus rhythm Nonspecific T wave abnormality When compared with ECG of 30-May-2021 23:24, No significant change was found Referred By: Kimmie Jaffe Electronically Signed By: EMEKA NIX MD Dictated By: Emeka Nix MD Signed By: Electronically signed by Emeka Nix MD 04/05/24 0624 Radiology Impression Discussion of test interpretation with radiology: I have reviewed the radiologist's reading. Critical Care Time Critical Care Time Critical Care Time: Yes Total Critical Care Time: 33 Attestation: I spent 33 minutes of Critical Care Time with this patient. This does not include time spent on separately reported billable procedures. Discharge Plan Discharge Clinical Impression: Abdominal pain, Nausea Patient Disposition: Home, Self-Care Instructions: Acute Nausea and Vomiting (ED), Abdominal Pain (ED) Additional Instructions: We do not have a concise explanation for all of your complaints today. All of your screening labs including a cardiac enzymes were normal. The viral panel was negative, you were screened for influenza a and B, COVID and RSV. There were no concerning changes on your EKG. The chest x-ray is clear. The CT scan of your abdomen is negative as well, there was no acute process. You can follow up with your primary care provider for further assessment. Uses Zofran as needed for nausea. Prescriptions: New ondansetron HCl 4 mg tablet 4 mg PO Q8H PRN (Reason: nausea and vomiting) Qty: 7 0RF No Action multivitamin Tablet 1 tab PO DAILY hydroxyzine HCl 25 mg tablet 25 mg PO TID PRN (Reason: anxiety) lorazepam 1 mg tablet 1 mg PO BID PRN (Reason: anxiety) buspirone 30 mg tablet 30 mg PO BID omeprazole 20 mg capsule,delayed release(DR/EC) 20 mg PO DAILY 90 Days Qty: 90 1RF Print Language: Luxembourgish
[2024-04-05 14:28] LABS: MANUAL DIFF FLAG NO
[2024-04-05 14:31] LABS: Basophils Absolute Auto 0.1 X10*3/uL (0.0-0.2); Eosinophils Absolute Auto 0.2 X10*3/uL (0.0-0.4); Eosinophils Percent Auto 2.2 % (0-4); Hematocrit 41.1 % (37.0-47.0); Hemoglobin 13.6 g/dl (12.0-16.0); Imm Gran Abs Auto 0.04 X10*3/uL (0.00-0.03); Imm Gran Pct Auto 0.4 % (0.0-0.4); Lymphocytes Absolute Auto 2.3 X10*3/uL (1.2-4.9); Mean Corpuscular HGB Conc 33.1 g/dl (31.0-35.0); Mean Corpuscular Hemoglobin 28.3 pg (27.0-33.0); Mean Corpuscular Volume 85.4 fL (80.0-98.0); Mean Platelet Volume 9.7 fL (9.4-12.3); Monocytes Absolute Auto 0.6 X10*3/uL (0.1-1.2); Monocytes Percent Auto 7.1 % (2-11); Neutrophils Absolute Auto 5.6 x10*3/uL (2.0-8.3); Neutrophils Percent Auto 63.3 % (45-73); Platelet Count 403 X10*3/uL (160-400); Red Blood Count 4.81 X10*6/uL (4.20-5.50); Red Cell Distribution Width 12.7 % (11.0-16.0); White Blood Count 8.9 X10*3/uL (4.8-10.8)
[2024-04-05 14:34] LABS: Prothrombin Time 11.3 SEC (10.9-12.4)
[2024-04-05 14:53] LABS: Alanine Aminotransferase 18 U/L (0-31); Albumin Level 4.3 g/dL (3.5-5.0); Alkaline Phosphatase 113 U/L (39-117); Anion Gap 11 (12-20); Aspartate Amino Transferase 25 U/L (5-31); Bilirubin Total 0.2 mg/dL (0.0-1.0); Blood Urea Nitrogen 10 mg/dL (9-16); Calcium 9.9 mg/dL (8.4-10.2); Carbon Dioxide 23 mmol/L (22-29); Chloride 105 mmol/L (96-108); Creatinine Clr Calc Pharmacy 99.4; Estimated Glomerular Filt Rate > 60; Glucose Random 137 mg/dL (60-115); Potassium 4.1 mmol/L (3.3-5.1); Sodium 135 mmol/L (135-145)
[2024-04-05 15:02] LABS: HCG Quantitative < 2 mIU/mL; Troponin-I High Sensitivity < 2.7 ng/L (<3.5-17.0)
[2024-04-05 15:08] LABS: Influenza A PCR NEGATIVE (Negative); Influenza B PCR NEGATIVE (Negative); Resp Syncy Virus RNA Qual PCR NEGATIVE (Negative); SARS COV2 PCR INHOUSE NEGATIVE (Negative)
[2024-04-05] MEDS: 0.9 % Sodium Chloride 1,000 ML 999 ML IV (16:31)
[2024-04-05] MEDS: Ketorolac Tromethamine 15 MG/ML VIAL IVPUSH (16:49)
[2024-04-05] MEDS: ondansetron HCL 4 MG/2 ML VIAL IVPUSH (16:49)
[2024-04-05] MEDS: Magnesium Hydrox/Alum Hydrox 30 ML ORAL.SUSP 15 ML PO (16:50)
[2024-04-05] MEDS: Pantoprazole Sodium 40 MG/10 ML VIAL IVPUSH (16:50)
[2024-04-05 16:57] LABS: Lipase 18 U/L (8-78); Magnesium 1.9 mg/dL (1.6-2.6)
[2024-04-05 17:12] LABS: TSH reflex Free T4 1.95 uIU/mL (0.32-4.0)
[2024-04-05 17:33] VITALS: BP 127/84; PULSE 90; RESP 18; O2SAT 100
[2024-04-05] MEDS: HYDROmorphone HCl 1 MG/ML SYRINGE IVPUSH (17:38)
--- NOTE | 2024-04-05 18:24 | PC.NURSE ---
pt reports 10/10 abd pain and i feel like i'm burning imaging pending.
[2024-04-05] MEDS: iohexoL 350 MG/ML 100 ML INFUS..BTL IV (18:38)
[2024-04-05] MEDS: methylPREDNISolone Sod Succ 125 MG/2 ML VIAL 60 MG IVPUSH (18:47)
[2024-04-05 19:53] VITALS: BP 121/72; PULSE 88; RESP 16; TEMP 37.1; O2SAT 99
== END 2024-04-05 19:54 | disposition home or self-care (01) ==
PROVIDERS: Physician Assistant Medical; Registered Nurse Emergency; Emergency Provider Emergency Medicine Emergency Medical Services; PCP Internal Medicine
DX: R10.2 Pelvic and perineal pain (principal); R07.89 Other chest pain; R42 Dizziness and giddiness; R11.2 Nausea with vomiting, unspecified; M54.50 Low back pain, unspecified; Z79.899 Other long term (current) drug therapy; Z03.818 Encounter for observation for suspected exposure to other biological agents ruled out
CPT/HCPCS: 0241U; 36415; 71046; 74177; 80053; 83690; 83735; 84443; 84484; 84702; 85025; 85610; 93005; 96361; 96374; 96375; 99284; 99285; J1171; J1885; J2405; J2470; J2919; Q9967

== ENCOUNTER → 2024-04-05 13:53 | Outpatient (BNV) | payer OTHER, SELFPAY | PROVIDERS: Emergency Provider Emergency Medicine Emergency Medical Services; PCP Internal Medicine; Visit Provider Internal Medicine Cardiovascular Disease | DX: R94.31 Abnormal electrocardiogram [ECG] [EKG] (principal); R07.9 Chest pain, unspecified | CPT/HCPCS: 93010 ==

== ENCOUNTER → 2024-04-05 16:20 | Outpatient (BNV) | payer OTHER, SELFPAY | PROVIDERS: Emergency Provider Emergency Medicine Emergency Medical Services; PCP Internal Medicine; Visit Provider Radiology Diagnostic Radiology | DX: R10.9 Unspecified abdominal pain (principal); R07.9 Chest pain, unspecified | CPT/HCPCS: 71046; 74177 ==

== ENCOUNTER 2024-04-06 09:31 | Outpatient (REF) | payer OTHER, SELFPAY ==
--- NOTE | ~2024-04-06 | US_ITS ---
CLINICAL HISTORY: R10.9 - Unspecified abdominal pain US abdomen complete Comparison: None Findings: The visualized pancreas is normal. The aorta and inferior vena cava are normal caliber. The appearance of the liver suggests fatty infiltration without focal lesion. There is no intrahepatic bile duct dilatation. The common duct is 5.0 mm in diameter. The gallbladder is normal. There is no sonographic Patten sign. The main portal vein is antegrade. The right kidney is 9.4 cm in length. The left kidney is 9.9 cm in length. The spleen is normal. No ascites. IMPRESSION: 1. Hepatic steatosis. This document has been electronically signed by: Gabriel Calderon MD on 04/07/2024 08:37:44
[2024-04-06 09:53] LABS: MANUAL DIFF FLAG NO
[2024-04-06 10:08] LABS: Basophils Percent Auto 0.2 % (0-2); Hematocrit 41.5 % (37.0-47.0); Hemoglobin 13.6 g/dl (12.0-16.0); Imm Gran Abs Auto 0.08 X10*3/uL (0.00-0.03); Imm Gran Pct Auto 0.5 % (0.0-0.4); Lymphocytes Absolute Auto 1.5 X10*3/uL (1.2-4.9); Lymphocytes Percent Auto 8.8 % (20-40); Mean Corpuscular HGB Conc 32.8 g/dl (31.0-35.0); Mean Corpuscular Hemoglobin 28.4 pg (27.0-33.0); Mean Corpuscular Volume 86.6 fL (80.0-98.0); Mean Platelet Volume 9.8 fL (9.4-12.3); Monocytes Absolute Auto 0.9 X10*3/uL (0.1-1.2); Monocytes Percent Auto 5.5 % (2-11); Neutrophils Absolute Auto 14.2 x10*3/uL (2.0-8.3); Platelet Count 457 X10*3/uL (160-400); Red Blood Count 4.79 X10*6/uL (4.20-5.50); Red Cell Distribution Width 12.7 % (11.0-16.0); White Blood Count 16.7 X10*3/uL (4.8-10.8)
[2024-04-06 10:09] LABS: Appearance Urine Clear; Color Urine Yellow; Glucose Urine UA Negative (Negative); Leukocyte Esterase Urine Negative (Negative); Nitrite Urine Negative (Negative); PH 6.5 (5.0-9.0); Specific Gravity - Urine >= 1.030 (1.005-1.025); UMIC TRIGGER UACC YES; Urine Blood Small (1+) (Negative); Urine Ketones Trace mg/dL (Negative); Urine Protein Trace mg/dL (Neg-Trace)
[2024-04-06 10:15] LABS: Bacteria Urine Trace (None Seen); Hyaline Casts Urine 0-2 /LPF (0-2); WBC Urine 0-5 /HPF (0-5)
[2024-04-06 11:25] LABS: Alanine Aminotransferase 20 U/L (0-31); Albumin Level 4.4 g/dL (3.5-5.0); Alkaline Phosphatase 88 U/L (39-117); Amylase 85 U/L (28-100); Anion Gap 13 (12-20); Aspartate Amino Transferase 24 U/L (5-31); Bilirubin Total 0.3 mg/dL (0.0-1.0); Blood Urea Nitrogen 10 mg/dL (9-16); Calcium 9.9 mg/dL (8.4-10.2); Carbon Dioxide 23 mmol/L (22-29); Chloride 104 mmol/L (96-108); Cholesterol 260 mg/dL (<200); Estimated Glomerular Filt Rate > 60; Glucose Fasting 117 mg/dL (60-99); HDL Cholesterol 69 mg/dL (>40); LDL Cholesterol Calculated 174 mg/dL (<100); Lipase 14 U/L (8-78); Potassium 4.7 mmol/L (3.3-5.1); Sodium 135 mmol/L (135-145); Total Protein 8.4 g/dL (6.5-8.0); Triglycerides 86 mg/dL (<150)
[2024-04-06 11:30] LABS: TSH reflex Free T4 1.02 uIU/mL (0.32-4.0); Vitamin D 25-OH Total 41.9 ng/mL (>30)
== END 2024-04-06 09:32 | disposition home or self-care (01) ==
LOC: HO.US 09:31
PROVIDERS: PCP Internal Medicine; Referring Provider Internal Medicine
DX: R10.9 Unspecified abdominal pain (principal); K44.9 Diaphragmatic hernia without obstruction or gangrene; K21.9 Gastro-esophageal reflux disease without esophagitis; F33.9 Major depressive disorder, recurrent, unspecified; F41.9 Anxiety disorder, unspecified; R79.89 Other specified abnormal findings of blood chemistry; E78.00 Pure hypercholesterolemia, unspecified
CPT/HCPCS: 36415; 76700; 80053; 80061; 81001; 81003; 82150; 82306; 83690; 84443; 85025

== ENCOUNTER → 2024-04-06 09:57 | Outpatient (BNV) | payer OTHER, SELFPAY | PROVIDERS: PCP Internal Medicine; Referring Provider Internal Medicine; Visit Provider Specialist | DX: K76.0 Fatty (change of) liver, not elsewhere classified (principal) | CPT/HCPCS: 76700 ==

== ENCOUNTER 2024-04-16 13:30 | Outpatient (REF) | payer OTHER, SELFPAY | END 2024-04-16 13:31 | disposition home or self-care (01) | LOC: HO.LNP 13:30 | PROVIDERS: Visit Provider Obstetrics & Gynecology | DX: Z13.89 Encounter for screening for other disorder (principal) ==

== ENCOUNTER 2024-04-16 13:30 | Outpatient (REF) | payer OTHER, SELFPAY ==
[2024-04-24 10:26] LABS: HPV Genotype 16 Negative (Negative); HPV Genotype 18 Negative (Negative); HPV High Risk Positive (Negative)
== END 2024-04-16 13:31 | disposition home or self-care (01) ==
LOC: HO.LNP 13:30
PROVIDERS: PCP Internal Medicine; Visit Provider Obstetrics & Gynecology
DX: R87.610 Atypical squamous cells of undetermined significance on cytologic smear of cervix (ASC-US) (principal); R87.810 Cervical high risk human papillomavirus (HPV) DNA test positive; Z87.42 Personal history of other diseases of the female genital tract
CPT/HCPCS: 57454; 81002; 87626; 88175; 88305; 88341; 88342; 99212

== ENCOUNTER 2024-04-16 13:30 | Outpatient (AMB) | payer OTHER, SELFPAY ==
--- NOTE | 2024-04-16 14:52 | MHC.OFFVIS ---
Intake Visit Reasons: Colpo/ cotest/urine dip Allergies oxycodone Adverse Reaction (Mild, Uncoded 04/05/24 14:13) ineffective HPI Comments Details: The patient is presenting for six-month co testing with colpo/biopsy/ECC and for repeat urine dip last visit urine dip showed microscopic hematuria, urine culture was negative [facility] Medical History CORRINA II (cervical intraepithelial neoplasia II) Endometritis HIV antibody positive Abnormal laboratory test result Pure hypercholesterolemia Overweight (BMI 25.0-29.9) Depression Anxiety ASCUS with positive high risk HPV Surgical History History of hernia repair History of cholecystectomy History of Family History Maternal Grandmother Pacemaker CVD (cardiovascular disease) Father Diabetes HTN (hypertension) Mother Asthma Paternal Grandmother Cancer Brother No problems noted. Family/Other Substance abuse Chronic mental illness Social History Household Members: Children Housing: Apartment Do you presently have visiting nurse or other home services: No Unable to assess alcohol history related to: Unknown Alcohol intake: never Comment: pt. uses call mullins appropriately. Patient Tobacco Use Status: Never used Tobacco e-Cigarette/Vaping Use: Never Used Second Hand Smoke Exposure: No service: No Current occupational status: unemployed Sexual orientation: Straight/Heterosexual Gender identity: Female Cognitive needs: No Hearing needs: No Vision needs: No Female Reproductive History Menstrual Age of Menarche: 12 Review of Systems Const All systems reviewed & are unremarkable except as noted in HPI and below Reports as per HPI and Reports no additional complaints GI Reports no additional complaints Reports no additional complaints Office Procedures Colposcopy Colposcopy: Pre-Procedure Counseling: Before beginning the procedure, I conducted comprehensive counseling with the patient. We thoroughly discussed the procedure itself, including its details, alternatives, and all associated risks. This included but not limited to the following complications such as bleeding, infection, and injury to the vagina, bladder, and vessels, as well as the potential need for transfusion with all its associated risks. Subsequently, the patient sign the consent. Pap smear result: LSIL. Urine test in office = Negative Procedure: During the procedure, the following steps were performed: A speculum was inserted, and acetic acid was applied. Colposcopy was conducted, allowing visualization of the transformation zone. Acetowhite lesions were identified at the 6+9+3 o'clock position. Cervical biopsies were obtained from the 6+9+3 o'clock position, followed by an endocervical curettage (ECC). Vaginoscopy of the upper vagina revealed no evidence of aceto-white lesions. Hemostasis was achieved using Monsel solution, and the patient tolerated the procedure well. Post-Procedure Instructions: The patient was advised to promptly contact the office or the after hours answering service or go to the emergency room if experiencing a temperature exceeding 100.4?F, abdominal pain, nausea/vomiting, or bleeding. Additionally, the patient was instructed to abstain from vaginal intercourse and bathtub use. The patient confirmed understanding of these instructions. Discharge Instructions: The patient was instructed to schedule a follow-up appointment in 2 weeks for further evaluation and management. Please note that this note was generated using a voice recognition program, and errors may have occurred during central supply technician supervisor. [address]27-[place] of cervix including upper vagina with biopsy and ECC Procedure code (CPT) selection complete Results AMB Urinalysis Dipstick UR Leukocytes Negative Last Edit by Vane Monterroso, DOCTOR OF DENTAL SURGERY on 04/16/24 14:53 UR Nitrite Negative Last Edit by Vane Monterroso, DOCTOR OF DENTAL SURGERY on 04/16/24 14:53 UR Urobilinogen Last Edit by Vane Monterroso, DOCTOR OF DENTAL SURGERY on 04/16/24 14:53 UR Protein Trace Last Edit by Vane Monterroso, DOCTOR OF DENTAL SURGERY on 04/16/24 14:53 UR Ph 6.0 Last Edit by Vane Monterroso, DOCTOR OF DENTAL SURGERY on 04/16/24 14:53 UR Blood Moderate Last Edit by Vane Monterroso, DOCTOR OF DENTAL SURGERY on 04/16/24 14:53 UR Specific [place] 1.020 Last Edit by Vane Monterroso, DOCTOR OF DENTAL SURGERY on 04/16/24 14:53 UR Ketone Trace Last Edit by Vane Monterroso, DOCTOR OF DENTAL SURGERY on 04/16/24 14:53 UR Bilirubin Negative Last Edit by Vane Monterroso, DOCTOR OF DENTAL SURGERY on 04/16/24 14:53 UR Glucose Negative Last Edit by Vane Monterroso, DOCTOR OF DENTAL SURGERY on 04/16/24 14:53 Assessment & Plan Assessment & Plan (1) Microscopic hematuria: Comment: Results Code(s): R31.29 - Other microscopic hematuria Category: Medical Plan: Repeat urine dip showed no evidence of microscopic hematuria. The patient was reassured (2) CORRINA II (cervical intraepithelial neoplasia II): Comment: Status post LEEP showing CORRINA 1 with positive margins in 11/14 Code(s): N87.1 - Moderate cervical dysplasia Category: Medical Plan: Co testing done, colpo/biopsy/ECC done, see procedure note Orders: Orders AMB Urinalysis Dipstick Today R31.29 - Other microscopic hematuria AMB Colposcopy Today N87.1 - Moderate cervical dysplasia Coding Level of Care Code Est Pt Level 3 (54914) Procedure Only Diagnoses Microscopic hematuria R31.29 CORRINA II (cervical intraepithelial neoplasia II) N87.1 CPT Codes Colposcopy - CPT: 53642-Guoaaqnmx of cervix including upper vagina with biopsy and ECC ([id number])
== END 2024-04-16 15:16 | disposition home or self-care (01) ==
LOC: HO.HWS 13:30
PROVIDERS: PCP Internal Medicine; Visit Provider Obstetrics & Gynecology
DX: R31.29 Other microscopic hematuria (principal); N87.1 Moderate cervical dysplasia
CPT/HCPCS: 57454; 99213

== ENCOUNTER 2024-04-27 12:29 | Outpatient (AMB) | payer OTHER, SELFPAY ==
--- NOTE | 2024-04-27 12:31 | MHC.OFFVIS ---
Vital Signs 04/27/24 12:32 Height 5 ft 5 in Weight 162 lb BMI 27.0 Intake Visit Reasons: Colpo results Allergies oxycodone Adverse Reaction (Mild, Uncoded 04/05/24 14:13) ineffective HPI Comments Details: Presenting post colpo for follow-up. The patient is doing well with no complaints. The pathology showed the following: A. Endocervix, curettage: Endocervical glandular and squamous epithelium with focal atypia, and fragments of lower uterine segment. B. Cervix, 3:00, biopsy: Squamous epithelium; negative for dysplasia; no endocervical glandular component present. C. Cervix, 6:00, biopsy: Squamous mucosa with reactive changes; negative for dysplasia; no endocervical glandular component present. D. Cervix, 9:00, biopsy: Squamous and scant endocervical glandular mucosa with reactive changes; negative for dysplasia. Comment: (A): The atypical cells are insufficient for an unequivocal diagnosis of low grade dysplasia. There is no evidence of high grade dysplasia. The atypical cells in the patient's previous Pap test ([id number]) are similar to the atypical cells in the current biopsy In addition, the patient LMP was in 03/12 had a positive test on 04/12 but developed heavy vaginal bleeding with passage of blood clots on 04/19 that resolved completely and since then the patient has been doing well with no complaints no pelvic cramping or bleeding [facility] Medical History CORRINA II (cervical intraepithelial neoplasia II) Endometritis HIV antibody positive Abnormal laboratory test result Pure hypercholesterolemia Overweight (BMI 25.0-29.9) Depression Anxiety ASCUS with positive high risk HPV Surgical History History of hernia repair History of cholecystectomy History of Family History Maternal Grandmother Pacemaker CVD (cardiovascular disease) Father Diabetes HTN (hypertension) Mother Asthma Paternal Grandmother Cancer Brother No problems noted. Family/Other Substance abuse Chronic mental illness Social History Household Members: Children Housing: Apartment Do you presently have visiting nurse or other home services: No Unable to assess alcohol history related to: Unknown Alcohol intake: never Comment: pt. uses call mullins appropriately. Patient Tobacco Use Status: Never used Tobacco e-Cigarette/Vaping Use: Never Used Second Hand Smoke Exposure: No service: No Current occupational status: unemployed Sexual orientation: Straight/Heterosexual Gender identity: Female Cognitive needs: No Hearing needs: No Vision needs: No Female Reproductive History Menstrual Age of Menarche: 12 Review of Systems Const All systems reviewed & are unremarkable except as noted in HPI and below Reports as per HPI and Reports no additional complaints GI Reports no additional complaints Reports no additional complaints Physical Exam Vital Signs: BMI result Body Mass Index 27.0 Assessment & Plan Assessment & Plan (1) ASCUS with positive high risk HPV: Comment: 10/2018 ASCUS HPV positive, colpo biopsy negative 01/2020 negative Pap smear/HPV positive, colpo biopsy negative 05/12 Pap negative/HPV positive, colpo biopsy CORRINA 1 08/12 ascus/HPV positive colpo biopsy CORRINA 1 05/12 Pap negative/HPV positive, colpo biopsy CORRINA I 06/13 ascus/HPV positive, colpo/biopsy CORRINA 1 08/14 LSIL HPV E6 E7 positive Category: Medical Plan: Discussed with the patient the pathology results of the colposcopy biopsies & endocervical curettage ( focal atypia). Discussed with the patient the sensitivity specificity, positive and negative predictive value in detecting cervical cancer in addition discussed the regression, persistence and progression rates. Recommended co-testing in 12 months, if cytology and or HPV are abnormal will proceed was colposcopy biopsy and endocervical curettage. Instructions given to the patient to schedule a co test appointment in 1 year. All questions answered the patient verbalized understanding. (2) SAB (spontaneous ): Code(s): O03.9 - Complete or unspecified spontaneous without complication Category: Medical Plan: Urine test done in the office was negative today. Signs and symptoms of incomplete were discussed with the patient, she is to call or go to emergency room in case of pelvic pain and or bleeding. All questions answered, the patient verbalized understanding Coding Level of Care Code Est Pt Level 3 (83802) Diagnoses ASCUS with positive high risk HPV SAB (spontaneous ) O03.9
[2024-04-27 12:32] VITALS: BMI 27.0
== END 2024-04-27 12:51 | disposition home or self-care (01) ==
LOC: HO.HWS 12:29
PROVIDERS: PCP Internal Medicine; Visit Provider Obstetrics & Gynecology
DX: Z32.02 Encounter for pregnancy test, result negative (principal); O03.9 Complete or unspecified spontaneous abortion without complication
CPT/HCPCS: 99213

== ENCOUNTER → 2024-04-27 12:29 | Outpatient (BNVA) | payer OTHER, SELFPAY | PROVIDERS: PCP Internal Medicine; Visit Provider Obstetrics & Gynecology | DX: O03.9 Complete or unspecified spontaneous abortion without complication (principal); R87.610 Atypical squamous cells of undetermined significance on cytologic smear of cervix (ASC-US); R87.810 Cervical high risk human papillomavirus (HPV) DNA test positive | CPT/HCPCS: 81025; 99212 ==

== ENCOUNTER 2024-05-22 10:55 | Outpatient (AMB) | payer OTHER, SELFPAY ==
--- NOTE | 2024-05-22 11:04 | MHC.OFFVIS ---
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 Co testing showed ascus/HPV positive, was followed by colpo/biopsy/ECC. The pathology showed the following: A. Endocervix, curettage: Endocervical glandular and squamous epithelium with focal atypia, and fragments of lower uterine segment. B. Cervix, 3:00, biopsy: Squamous epithelium; negative for dysplasia; no endocervical glandular component present. C. Cervix, 6:00, biopsy: Squamous mucosa with reactive changes; negative for dysplasia; no endocervical glandular component present. D. Cervix, 9:00, biopsy: Squamous and scant endocervical glandular mucosa with reactive changes; negative for dysplasia. Comment: (A): The atypical cells are insufficient for an unequivocal diagnosis of low grade dysplasia. There is no evidence of high grade dysplasia. The atypical cells in the patient's previous Pap test ([id number]) are similar to the atypical cells in the current biopsy [facility] Medical History CORRINA II (cervical intraepithelial neoplasia II) Endometritis HIV antibody positive Abnormal laboratory test result Pure hypercholesterolemia Overweight (BMI 25.0-29.9) Depression Anxiety ASCUS with positive high risk HPV Surgical History History of hernia repair History of cholecystectomy History of Family History Maternal Grandmother Pacemaker CVD (cardiovascular disease) Father Diabetes HTN (hypertension) Mother Asthma Paternal Grandmother Cancer Brother No problems noted. Family/Other Substance abuse Chronic mental illness Social History Household Members: Children Housing: Apartment Do you presently have visiting nurse or other home services: No Unable to assess alcohol history related to: Unknown Alcohol intake: never Comment: pt. uses call mullins appropriately. Patient Tobacco Use Status: Never used Tobacco e-Cigarette/Vaping Use: Never Used Second Hand Smoke Exposure: No service: No Current occupational status: unemployed Sexual orientation: Straight/Heterosexual Gender identity: Female Cognitive needs: No Hearing needs: No Vision needs: No Female Reproductive History Menstrual Age of Menarche: 12 Review of Systems Const All systems reviewed & are unremarkable except as noted in HPI and below Reports as per HPI and Reports no additional complaints GI Reports no additional complaints Reports no additional complaints Assessment & Plan Assessment & Plan (1) Dysplasia of cervix, low grade (CORRINA 1): Code(s): N87.0 - Mild cervical dysplasia Category: Medical Plan: Discussed with the patient the pathology results of the colposcopy biopsies & endocervical curettage ( ? mild dysplasia-CORRINA 1 on ECC). Discussed with the patient the sensitivity specificity, positive and negative predictive value in detecting cervical cancer in addition discussed the regression, persistence and progression rates. Recommended co-testing in 12 months, if cytology and or HPV are abnormal will proceed was colposcopy biopsy and endocervical curettage, if lesions gets worse or stays persistent for 2 years will proceed with loop electric excision procedure. Instructions given to the patient to schedule a co test appointment in 1 year. All questions answered the patient verbalized understanding. Coding Level of Care Code Est Pt Level 3 (82213) Diagnoses Dysplasia of cervix, low grade (CORRINA 1) N87.0
[2024-05-22 11:08] VITALS: BMI 27.0
== END 2024-05-22 11:18 | disposition home or self-care (01) ==
LOC: HO.HWS 10:55
PROVIDERS: PCP Internal Medicine; Visit Provider Obstetrics & Gynecology
DX: N87.0 Mild cervical dysplasia (principal)
CPT/HCPCS: 99213

== ENCOUNTER → 2024-05-22 10:55 | Outpatient (BNVA) | payer OTHER, SELFPAY | PROVIDERS: PCP Internal Medicine; Visit Provider Obstetrics & Gynecology | DX: N87.0 Mild cervical dysplasia (principal) | CPT/HCPCS: 99212 ==

== ENCOUNTER 2024-05-28 12:45 | Outpatient (AMB) | payer OTHER, SELFPAY ==
--- NOTE | 2024-05-28 13:05 | MHC.PC.OV ---
Vital Signs 05/28/24 13:13 Height 5 ft 5 in Weight 170 lb 8 oz BMI 28.4 BP 118/72 Blood Pressure Location Lt brachial Position Sitting Pulse 85 Pulse Source Pulse Oximeter Temp 97.5 F Temp Source Temporal Artery Scan Pulse Oximetry (%) 97 Oxygen Delivery Method Room Air Intake Visit Reasons: GI pain/bloatiness Intake Note: Patient is here to follow up on GI pain, Bloatiness. Superintendent Recreation Required: No Supervisor Marble: Not Required per policy Accompanied by: Self / Same As Patient Allergies oxycodone Adverse Reaction (Mild, Uncoded 05/28/24 13:46) ineffective Medication List - Last Reconciled 05/28/24 by BETH Treviño buspirone 30 mg PO BID hydroxyzine HCl 25 mg PO TID PRN lorazepam 1 mg PO BID PRN multivitamin 1 tab PO DAILY omeprazole 20 mg PO DAILY 90 days ondansetron HCl 4 mg PO Q8H PRN Tobacco use date assessed: 05/28/24 Dental Screening Dental Screen Date: 02/27/24 HPI GI pain/bloatiness HPI Details The patient is a 39-year-old female with significant medical history of hernia with gastroesophageal reflux, postprandial epigastric pain, Patient is following up for GI pain and bloatedness. Patient reports that she is supposed to have an EGD but she missed the appointment. Reports that she has been calling GI without any answer to rescheduled. Recent labs obtain -to discuss Patient reports that she can not eat large amount of food due to her hernia Patient reports still getting heartburn with certain meals Reports that she takes the omeprazole when she gets the heartburn Denies chest pain, shortness of breath, heart palpitation or dizziness [facility] Medical History CORRINA II (cervical intraepithelial neoplasia II) Endometritis HIV antibody positive Abnormal laboratory test result Pure hypercholesterolemia Overweight (BMI 25.0-29.9) Depression Anxiety ASCUS with positive high risk HPV Surgical History History of hernia repair History of cholecystectomy History of Family History Maternal Grandmother Pacemaker CVD (cardiovascular disease) Father Diabetes HTN (hypertension) Mother Asthma Paternal Grandmother Cancer Brother No problems noted. Family/Other Substance abuse Chronic mental illness Social History Household Members: Children Housing: Apartment Do you presently have visiting nurse or other home services: No Unable to assess alcohol history related to: Unknown Alcohol intake: never Comment: pt. uses call mullins appropriately. Patient Tobacco Use Status: Never used Tobacco e-Cigarette/Vaping Use: Never Used Second Hand Smoke Exposure: No service: No Current occupational status: unemployed Sexual orientation: Straight/Heterosexual Gender identity: Female Cognitive needs: No Hearing needs: No Vision needs: No Female Reproductive History Menstrual Age of Menarche: 12 Questionnaire PHQ-9 Over the last 2 weeks, how often have you been bothered by any of the following problems? 1. Little interest or pleasure in doing things: not at all 2. Feeling down, depressed, or hopeless: not at all 3. Trouble falling or staying asleep, or sleeping too much: not at all 4. Feeling tired or having little energy: not at all 5. Poor appetite or overeating: not at all 6. Feeling bad about yourself - or that you are a failure or have let yourself or your family down: not at all 7. Trouble concentrating on things, such as reading the newspaper or watching television: not at all 8. Moving or speaking so slowly that other people could have noticed. Or the opposite - being so fidgety or restless that you have been moving around a lot more than usual: not at all 9. Thoughts that you would be better off or of hurting yourself in some way: not at all Total score: 0 Depression Screening Interpretation: Negative Depression Screening Done: Yes Source: Developed by Drs. Marshall Keane, Yas Isaac, Francisco Lynch and colleagues, with an educational rosy from [employer]. Thrive Questionnaire Date Thrive assessed: 05/28/24 I am a: Patient What is your living situation today?: I have a steady place to live Within the past 12 months, did the food you bought not last and you didn't have the money to get more?: Never true Within the past 12 months, did you worry whether your food would run out before you got money to buy more?: Never true Do you have trouble paying for medicines?: No Do you have trouble getting transportation to medical appointments?: No Do you have trouble paying your heating and electricity bill?: No Do you have trouble taking care of your child, family member or friend?: No Do you have trouble with day-to-day activities such as bathing, preparing meals, shopping, managing finances, etc.?: No Are you currently unemployed and looking for a job?: No Are you interested in more education?: No Please select the resources that you would like help with: None Currently or been in a relationship where the following occur: No concerns reported THRIVE Score: 0 AUDIT C Alcohol Use Questionnaire (AUDIT-C) 1. How often do you have a drink containing alcohol?: Never Total Score: 0 CATY-7 AMB Questionnaire CATY-7 Date CATY - 7 assessed: 05/28/24 Feeling nervous, anxious, or on edge: 0 = Not at all Not being able to stop or control worryin = Not at all Worrying too much about different things: 0 = Not at all Trouble relaxin = Not at all Being so restless that it is hard to sit still: 0 = Not at all Becoming easily annoyed or irritable: 0 = Not at all Feeling afraid as if something awful might happen: 0 = Not at all Total CATY-7 score (0-4 normal; 5-9 mild; 10-14 moderate; 15-21 severe): 0 Source: Developed by Drs. Marshall Keane, Yas Isaac, Francisco Lynch and colleagues, with an educational rosy from [employer]. Review of Systems ENT Denies sore throat Card Denies chest pain, Denies leg edema and Denies lightheadedness Resp Denies cough and Denies hemoptysis GI Reports abdominal pain, Denies melena, Denies constipation, Reports dyspepsia, Reports heartburn, Denies diarrhea, Reports nausea, Denies vomiting and Reports other (Bloatedness) Denies urinary frequency, Denies dysuria and Denies urinary urgency Physical exam (Primary Care) Vital Signs: Last Vital Signs Temp 97.5 F 05/28/24 13:13 Pulse 85 05/28/24 13:13 BP 118/72 05/28/24 13:13 Pulse Ox 97 05/28/24 13:13 Oxygen Delivery Method Room Air 05/28/24 13:13 BMI result Body Mass Index 28.4 Tobacco/Smoking Status: Tobacco use Status Tobacco use date assessed 05/28/24 05/28/24 13:18 Patient Tobacco Use Status Never used Tobacco 05/28/24 13:07 e-Cigarette/Vaping Use Never Used 05/28/24 13:07 PHQ-9: PHQ-9 Score PHQ-9: Total score 0 05/28/24 14:16 Depression Screening Interpretation: Negative Thrive Assessment: Date of Thrive Assessment Date Thrive assessed 05/28/24 05/28/24 13:18 Currently or been in a relationship where the following occur: No concerns reported Const General: healthy appearing, no acute distress, alert and awake Nutritional Appearance: well nourished HENMT Ears: external ears normal General nose exam: Normal external nose present Eyes Conjunctivae: conjunctivae normal Sclerae: sclerae normal Neck Neck: Yes no lymphadenopathy and Yes no JVD Thyroid: Thyroid normal Carotids: no bruits Resp Effort & Inspection: normal respiratory effort and not tachypneic Auscultation: no crackles, no rales, no rhonchi and no wheezes Cardio Rate: regular rate Rhythm: regular rhythm Heart sounds: no murmurs and normal S1 and S2 GI Palpation (GI): Soft to palpation, nontender, no hepatomegaly and no splenomegaly Auscultation: normal bowel sounds Results Reviewed Results Reviewed: Laboratory Tests 04/06/24 04/06/24 04/16/24 09:50 09:51 14:51 WBC 16.7 H RBC 4.79 Hgb 13.6 Hct 41.5 MCV 86.6 MCH 28.4 RDW 12.7 Plt Count 457 H Sodium 135 Potassium 4.7 Chloride 104 Carbon Dioxide 23 Anion Gap 13 BUN 10 Creatinine 0.79 Estimated GFR > 60 Fasting Glucose 117 H Calcium 9.9 AST 24 ALT 20 Alkaline Phosphatase 88 Triglycerides 86 Cholesterol 260 H LDL Cholesterol, Calc 174 H HDL Cholesterol 69 Urine Color Yellow Urine Appearance Clear Urine pH 6.5 Urine pH (Clinic) 6.[address] [place] >= 1.[address] [place] (Clinic) 1.020 Ur Protein (Clinic) Trace Ur Ketones (Clinic) Trace Urine Blood (Clinic) Moderate Urine Nitrite Negative Urine Bilirubin (Clinic) Negative Leukocyte Esterase (Clinic) Negative Urine Glucose (Clinic) Negative Tst Clinic 04/27/24 12:43 WBC RBC Hgb Hct MCV MCH RDW Plt Count Sodium Potassium Chloride Carbon Dioxide Anion Gap BUN Creatinine Estimated GFR Fasting Glucose Calcium AST ALT Alkaline Phosphatase Triglycerides Cholesterol LDL Cholesterol, Calc HDL Cholesterol Urine Color Urine Appearance Urine pH Urine pH (Clinic) Ur Specific [place] Specific [place] (Clinic) Ur Protein (Clinic) Ur Ketones (Clinic) Urine Blood (Clinic) Urine Nitrite Urine Bilirubin (Clinic) Leukocyte Esterase (Clinic) Urine Glucose (Clinic) Tst Clinic Negative Coding Level of Care Code Est Pt Level 3 (76644) Diagnoses Pure hypercholesterolemia with target low density lipoprotein (LDL) cholesterol less than 130 mg/dL E78.00 Hiatal hernia with gastroesophageal reflux K44.9; K21.9 Time Spent (min) 31 Assessment & Plan Assessment & Plan (1) Pure hypercholesterolemia with target low density lipoprotein (LDL) cholesterol less than 130 mg/dL: Code(s): E78.00 - Pure hypercholesterolemia, unspecified Category: Medical Plan: Total cholesterol 260, LDL 174, HDL 69. Discussed with the patient that her cholesterol steadily increasing, and that this put her at a risk for stroke or heart attack. Encouraged a diet low in cholesterol and activity as tolerated Atorvastatin 10 mg at bedtime ordered We will recheck labs in 3 months (2) Hiatal hernia with gastroesophageal reflux: Code(s): K44.9 - Diaphragmatic hernia without obstruction or gangrene; K21.9 - Gastro-esophageal reflux disease without esophagitis Category: Medical Plan: Patient is still getting heartburn after eating. Discussed with patient to take his medication on an empty stomach before eating for it to be more effective Orders: Orders Lipid Panel 3 Months E66.3 - Overweight, E78.00 - Pure hypercholesterolemia, unspecified, F33.9 - Major depressive disorder, recurrent, unspecified, F41.9 - Anxiety disorder, unspecified, J20.9 - Acute bronchitis, unspecified, K21.9 - Gastro-esophageal reflux disease without esophagitis, K44.9 - Diaphragmatic hernia without obstruction or gangrene, M54.50 - Low back pain, unspecified, O03.9 - Complete or unspecified spontaneous without complication, R10.13 - Epigastric pain, R10.84 - Generalized abdominal pain, R79.89 - Other specified abnormal findings of blood chemistry Complete Blood Count Auto Diff 3 Months E66.3 - Overweight, E78.00 - Pure hypercholesterolemia, unspecified, F33.9 - Major depressive disorder, recurrent, unspecified, F41.9 - Anxiety disorder, unspecified, J20.9 - Acute bronchitis, unspecified, K21.9 - Gastro-esophageal reflux disease without esophagitis, K44.9 - Diaphragmatic hernia without obstruction or gangrene, M54.50 - Low back pain, unspecified, O03.9 - Complete or unspecified spontaneous without complication, R10.13 - Epigastric pain, R10.84 - Generalized abdominal pain, R79.89 - Other specified abnormal findings of blood chemistry Comprehensive [place]. Panel Fast 3 Months E66.3 - Overweight, E78.00 - Pure hypercholesterolemia, unspecified, F33.9 - Major depressive disorder, recurrent, unspecified, F41.9 - Anxiety disorder, unspecified, J20.9 - Acute bronchitis, unspecified, K21.9 - Gastro-esophageal reflux disease without esophagitis, K44.9 - Diaphragmatic hernia without obstruction or gangrene, M54.50 - Low back pain, unspecified, O03.9 - Complete or unspecified spontaneous without complication, R10.13 - Epigastric pain, R10.84 - Generalized abdominal pain, R79.89 - Other specified abnormal findings of blood chemistry TSH reflex Free T4 3 Months E66.3 - Overweight, E78.00 - Pure hypercholesterolemia, unspecified, F33.9 - Major depressive disorder, recurrent, unspecified, F41.9 - Anxiety disorder, unspecified, J20.9 - Acute bronchitis, unspecified, K21.9 - Gastro-esophageal reflux disease without esophagitis, K44.9 - Diaphragmatic hernia without obstruction or gangrene, M54.50 - Low back pain, unspecified, O03.9 - Complete or unspecified spontaneous without complication, R10.13 - Epigastric pain, R10.84 - Generalized abdominal pain, R79.89 - Other specified abnormal findings of blood chemistry UA CC w/rflx Micro + Cult 3 Months E66.3 - Overweight, E78.00 - Pure hypercholesterolemia, unspecified, F33.9 - Major depressive disorder, recurrent, unspecified, F41.9 - Anxiety disorder, unspecified, J20.9 - Acute bronchitis, unspecified, K21.9 - Gastro-esophageal reflux disease without esophagitis, K44.9 - Diaphragmatic hernia without obstruction or gangrene, M54.50 - Low back pain, unspecified, O03.9 - Complete or unspecified spontaneous without complication, R10.13 - Epigastric pain, R10.84 - Generalized abdominal pain, R79.89 - Other specified abnormal findings of blood chemistry Vitamin D 25-OH Total 3 Months E66.3 - Overweight, E78.00 - Pure hypercholesterolemia, unspecified, F33.9 - Major depressive disorder, recurrent, unspecified, F41.9 - Anxiety disorder, unspecified, J20.9 - Acute bronchitis, unspecified, K21.9 - Gastro-esophageal reflux disease without esophagitis, K44.9 - Diaphragmatic hernia without obstruction or gangrene, M54.50 - Low back pain, unspecified, O03.9 - Complete or unspecified spontaneous without complication, R10.13 - Epigastric pain, R10.84 - Generalized abdominal pain, R79.89 - Other specified abnormal findings of blood chemistry Medications: New atorvastatin 10 mg PO BEDTIME 30 tabs 3RF E78.00 - Pure hypercholesterolemia, unspecified omeprazole 40 mg PO DAILY 30 caps 3RF K21.9 - Gastro-esophageal reflux disease without esophagitis, K44.9 - Diaphragmatic hernia without obstruction or gangrene
[2024-05-28 13:13] VITALS: BP 118/72; PULSE 85; TEMP 36.4; O2SAT 97; BMI 28.4
== END 2024-05-28 14:19 | disposition home or self-care (01) ==
LOC: HO.HMCH 12:45
PROVIDERS: PCP Internal Medicine
DX: E78.00 Pure hypercholesterolemia, unspecified (principal); K44.9 Diaphragmatic hernia without obstruction or gangrene; K21.9 Gastro-esophageal reflux disease without esophagitis

== ENCOUNTER → 2024-05-28 12:45 | Outpatient (BNVA) | payer OTHER, SELFPAY | PROVIDERS: PCP Internal Medicine | DX: K21.9 Gastro-esophageal reflux disease without esophagitis (principal); R10.13 Epigastric pain; E78.00 Pure hypercholesterolemia, unspecified; K44.9 Diaphragmatic hernia without obstruction or gangrene; E66.3 Overweight; F33.9 Major depressive disorder, recurrent, unspecified; F41.9 Anxiety disorder, unspecified; J20.9 Acute bronchitis, unspecified; M54.50 Low back pain, unspecified; R79.89 Other specified abnormal findings of blood chemistry | CPT/HCPCS: 99212 ==

== ENCOUNTER 2024-09-05 12:36 | Outpatient (AMB) | payer OTHER, SELFPAY ==
--- NOTE | 2024-09-05 12:50 | MHC.PC.OV ---
Vital Signs 09/05/24 12:51 Height 5 ft 5 in Weight 172 lb BMI 28.6 BP 120/66 Blood Pressure Location Lt brachial Position Sitting Pulse 78 Pulse Oximetry (%) 99 Oxygen Delivery Method Room Air Intake Visit Reasons: GERD/HLD Pediatric Audiologist Required: No Accompanied by: Self / Same As Patient Allergies oxycodone Adverse Reaction (Mild, Uncoded 05/28/24 13:46) ineffective Medication List - Last Reconciled 09/05/24 by BETH Treviño atorvastatin 10 mg PO BEDTIME buspirone 30 mg PO BID hydroxyzine HCl 25 mg PO TID PRN lorazepam 1 mg PO BID PRN multivitamin 1 tab PO DAILY omeprazole 40 mg PO DAILY ondansetron HCl 4 mg PO Q8H PRN Tobacco use date assessed: 09/05/24 Dental Screening Dental Screen Date: 09/05/24 Did you have a dental visit in the last 12 months?: Yes Did you have a dental problem in the last 6 months where you did not have access to dental care?: No Was dental information given to patient?: Patient has dentist HPI GERD/HLD HPI Details The patient is a 39-year-old female presenting for follow up appointment Reports that she just came from [place] and while she was in [place] both her legs swelled up Reports that the right leg was significantly larger than the left and was more discolored This swollen has gone down for the most part. Right lower extremity slightly for trace edema, however, posterior calf feel semi firm compared to left calf. The patient is complaining of pain in the right calf. Denies shortness or breath or chest pain. The patient already had pre-loaded labs that she did not complete as yet. Encouraged the patient to get these labs done. And for also add a Doppler ultrasound of the right lower leg. [facility] Medical History CORRINA II (cervical intraepithelial neoplasia II) Endometritis HIV antibody positive Abnormal laboratory test result Pure hypercholesterolemia Overweight (BMI 25.0-29.9) Depression Anxiety ASCUS with positive high risk HPV Surgical History History of hernia repair History of cholecystectomy History of Family History Maternal Grandmother Pacemaker CVD (cardiovascular disease) Father Diabetes HTN (hypertension) Mother Asthma Paternal Grandmother Cancer Brother No problems noted. Family/Other Substance abuse Chronic mental illness Social History Household Members: Children Housing: Apartment Do you presently have visiting nurse or other home services: No Unable to assess alcohol history related to: Unknown Alcohol intake: never Comment: pt. uses call mullins appropriately. Patient Tobacco Use Status: Never used Tobacco e-Cigarette/Vaping Use: Never Used Second Hand Smoke Exposure: No service: No Current occupational status: unemployed Sexual orientation: Straight/Heterosexual Gender identity: Female Cognitive needs: No Hearing needs: No Vision needs: No Female Reproductive History Menstrual Age of Menarche: 12 Questionnaire Thrive Questionnaire Date Thrive assessed: 05/28/24 CATY-7 AMB Questionnaire CATY-7 Date CATY - 7 assessed: 05/28/24 Source: Developed by Drs. Marshall Keane, Yas Isaac, Francisco Lynch and colleagues, with an educational rosy from [employer]. Review of Systems Const Denies body aches, Denies chills, Denies fever(s), Denies headache(s) and Denies poor appetite Eyes Reports no additional complaints ENT Denies dysphagia, Denies dizziness, Denies headache(s) and Denies odynophagia Card Denies chest pain, Denies syncope, Reports pedal edema (Bilateral right worse than left), Denies edema, Denies irregular heart rhythm, Reports claudication (Right ), Reports leg edema (Bilateral leg edema. Right worse than left), Denies lightheadedness and Denies dyspnea Resp Denies cough and Denies dyspnea GI Denies abdominal pain, Denies constipation, Denies dysphagia, Reports heartburn (On and off), Reports diarrhea (While she was in [place]. Resolved), Denies nausea, Denies odynophagia and Denies vomiting Reports no additional complaints Musc Reports no additional complaints and Denies abnormal gait Skin/Breast Reports system reviewed and no additional complaints, except as documented Neuro Denies abnormal gait, Denies dizziness, Denies syncope and Denies headache(s) Psych Reports no additional complaints Physical exam (Primary Care) Vital Signs: Last Vital Signs Pulse 78 09/05/24 12:51 BP 120/66 09/05/24 12:51 Pulse Ox 99 09/05/24 12:51 Oxygen Delivery Method Room Air 09/05/24 12:51 BMI result Body Mass Index 28.6 Tobacco/Smoking Status: Tobacco use Status Tobacco use date assessed 09/05/24 09/05/24 12:53 Patient Tobacco Use Status Never used Tobacco 09/05/24 12:53 e-Cigarette/Vaping Use Never Used 09/05/24 12:53 Thrive Assessment: Date of Thrive Assessment Date Thrive assessed 05/28/24 09/05/24 12:53 Const General: cooperative, healthy appearing, comfortable and no acute distress Orientation/consciousness: patient oriented x3 HENMT Head: Yes normocephalic Ears: hearing grossly normal bilaterally General nose exam: Normal external nose present Eyes General: appearance normal, both eyes and all related structures Conjunctivae: conjunctivae normal Neck Neck: Yes full ROM and Yes no lymphadenopathy Resp Effort & Inspection: normal respiratory effort Auscultation: clear to auscultation bilaterally, no crackles, no rales, no rhonchi and no wheezes Cardio Rate: regular rate Rhythm: regular rhythm Skin General skin exam: no rashes or lesions noted Neuro General: patient oriented x3 Gait exam (Neuro): Normal gait present Extrem General: Yes normal to inspection and Yes full ROM Right lower extremity: lower leg (calf pain, +1 edema in right lower.) Details: tenderness Left lower extremity: lower leg Details: pitting edema Details: 1+; no tenderness Psych Affect: normal affect Attitude: cooperative Insight: Good insight present (Psych) Judgement: Good judgement present (Psych) Coding Level of Care Code Est Pt Level 3 (02665) Diagnoses Pure hypercholesterolemia E78.00 Gastroesophageal reflux disease, unspecified whether esophagitis present K21.9 Esophagitis presence: esophagitis presence not specified Right calf pain M79.661 Diarrhea, unspecified type R19.7 Diarrhea type: unspecified type Time Spent (min) 36 Assessment & Plan Assessment & Plan (1) Pure hypercholesterolemia: Code(s): E78.00 - Pure hypercholesterolemia, unspecified Category: Medical Plan: Patient did not complete preordered labs as yet. Previous LDL was 174. Patient was started on atorvastatin 10 mg at bedtime. Encouraged low-cholesterol diet and activity as tolerated. Advised the patient to complete labs as soon as possible to re-evaluate. (2) GERD (gastroesophageal reflux disease): Code(s): K21.9 - Gastro-esophageal reflux disease without esophagitis Category: Medical Qualifiers: Esophagitis presence: esophagitis presence not specified Qualified Code(s): K21.9 - Gastro-esophageal reflux disease without esophagitis Plan: Reports on and off heartburn with certain foods. Significantly improved since started omeprazole 40 mg daily. Reinforced dietary restrictions. (3) Right calf pain: Code(s): M79.661 - Pain in right lower leg Category: Medical Plan: Patient reports that she just came back from [place]. Both her legs were swollen. The right was more swollen than the left. She complained of pain in the right calf, that noted to be semi for on exam. The patient was sent for a venous Doppler ultrasound to rule out DVT. Lungs are clear and she denies shortness of breath or chest pain (4) Diarrhea: Code(s): R19.7 - Diarrhea, unspecified Category: Medical Qualifiers: Diarrhea type: unspecified type Qualified Code(s): R19.7 - Diarrhea, unspecified Plan: Reports diarrhea for a couple of these while she was in [place]. Since that cleared up patient is not sure if she eats something that caused this. We will continue to monitor. Orders: Orders US venous duplex LE RT Today M79.661 - Pain in right lower leg B Type Natriuretic Peptide Today M79.661 - Pain in right lower leg
[2024-09-05 12:51] VITALS: BP 120/66; PULSE 78; O2SAT 99; BMI 28.6
== END 2024-09-05 13:38 | disposition home or self-care (01) ==
LOC: HO.HMCH 12:37
PROVIDERS: PCP Internal Medicine
DX: E78.00 Pure hypercholesterolemia, unspecified (principal); K21.9 Gastro-esophageal reflux disease without esophagitis; M79.661 Pain in right lower leg; R19.7 Diarrhea, unspecified

== ENCOUNTER → 2024-09-05 12:36 | Outpatient (BNVA) | payer OTHER, SELFPAY | PROVIDERS: PCP Internal Medicine | DX: K21.9 Gastro-esophageal reflux disease without esophagitis (principal); E78.5 Hyperlipidemia, unspecified; E78.00 Pure hypercholesterolemia, unspecified; M79.661 Pain in right lower leg; R19.7 Diarrhea, unspecified | CPT/HCPCS: 99212 ==

== ENCOUNTER 2024-09-05 13:52 | Outpatient (REF) | payer OTHER, SELFPAY ==
--- NOTE | ~2024-09-05 | US_ITS ---
EXAMINATION: US LOWER EXTREMITY VEINS LIMITED FOLLOW UP RIGHT HISTORY: M79.661 - Pain in right lower leg COMPARISON: There are no prior studies available for comparison. TECHNIQUE: Duplex and color Doppler sonographic examination of the deep venous system of the right lower extremity was performed. FINDINGS: The common femoral, superficial femoral, and popliteal veins are patent demonstrating normal compressibility, spontaneous flow, and augmentation. There is a normal color and spectral Doppler waveform appearance of the visualized deep venous system above the knee. The posterior tibial and peroneal veins are patent. US/US venous duplex LE RT IMPRESSION: No evidence of acute DVT in the right lower extremity. Electronically signed by: Marshall Rico MD 09/05/2024 02:50 PM EDT
[2024-09-05 14:07] LABS: MANUAL DIFF FLAG NO
[2024-09-05 14:45] LABS: Hematocrit 39.6 % (37.0-47.0); Hemoglobin 12.8 g/dl (12.0-16.0); Imm Gran Abs Auto 0.04 X10*3/uL (0.00-0.03); Imm Gran Pct Auto 0.4 % (0.0-0.4); Lymphocytes Absolute Auto 2.4 X10*3/uL (1.2-4.9); Mean Corpuscular HGB Conc 32.3 g/dl (31.0-35.0); Mean Corpuscular Hemoglobin 27.4 pg (27.0-33.0); Mean Corpuscular Volume 84.8 fL (80.0-98.0); NRBC Abs Auto 0.000 X10*3/uL (0.0-0.012); NRBC Pct Auto 0.0 /100WBC (0.0-0.2); Platelet Count 388 X10*3/uL (160-400); Red Blood Count 4.67 X10*6/uL (4.20-5.50); White Blood Count 9.3 X10*3/uL (4.8-10.8)
[2024-09-05 15:12] LABS: B Type Natriuretic Peptide 18 pg/mL (<100)
[2024-09-05 15:15] LABS: Appearance Urine Clear; Glucose Urine UA Negative (Negative); PH 6.0 (5.0-9.0); Specific Gravity - Urine 1.020 (1.005-1.025); UMIC TRIGGER UACC YES
[2024-09-05 15:34] LABS: Alanine Aminotransferase 25 U/L (0-31); Albumin Level 4.5 g/dL (3.5-5.0); Alkaline Phosphatase 105 U/L (39-117); Anion Gap 11 (12-20); Aspartate Amino Transferase 33 U/L (5-31); Blood Urea Nitrogen 9 mg/dL (9-16); Calcium 9.4 mg/dL (8.4-10.2); Carbon Dioxide 26 mmol/L (22-29); Chloride 105 mmol/L (96-108); Cholesterol 217 mg/dL (<200); Estimated Glomerular Filt Rate > 60; HDL Cholesterol 49 mg/dL (>40); Potassium 4.2 mmol/L (3.3-5.1); Sodium 138 mmol/L (135-145); Total Protein 7.7 g/dL (6.5-8.0); Triglycerides 111 mg/dL (<150)
== END 2024-09-05 13:53 | disposition home or self-care (01) ==
LOC: HO.US 13:52
DX: O03.9 Complete or unspecified spontaneous abortion without complication (principal); M79.661 Pain in right lower leg; E78.00 Pure hypercholesterolemia, unspecified; K44.9 Diaphragmatic hernia without obstruction or gangrene; K21.9 Gastro-esophageal reflux disease without esophagitis; R10.84 Generalized abdominal pain; R10.13 Epigastric pain; E66.3 Overweight; F33.9 Major depressive disorder, recurrent, unspecified; F41.9 Anxiety disorder, unspecified; J20.9 Acute bronchitis, unspecified; R79.89 Other specified abnormal findings of blood chemistry; M54.50 Low back pain, unspecified
CPT/HCPCS: 36415; 80053; 80061; 81001; 81003; 82306; 83880; 84443; 85025; 93971

== ENCOUNTER → 2024-09-05 14:15 | Outpatient (BNV) | payer OTHER, SELFPAY | PROVIDERS: Visit Provider Radiology Diagnostic Radiology | DX: M79.661 Pain in right lower leg (principal) | CPT/HCPCS: 93971 ==

== ENCOUNTER 2024-10-18 12:49 | Outpatient (AMB) | payer OTHER, SELFPAY ==
--- NOTE | 2024-10-18 12:53 | A.OFFVIS_ITS ---
Intake Visit Reasons: 1y follow up Intake Note: Patient is present for: 1yr follow up Urology Medication:none Blood Thinner:none Orthopedic Brace Maker Required: No Accompanied by: Self / Same As Patient Allergies oxycodone Adverse Reaction (Mild, Uncoded 10/18/24 12:54) ineffective Medication List - Last Reconciled 10/18/24 by Jose Garcia MD atorvastatin 10 mg PO BEDTIME buspirone 30 mg PO BID hydroxyzine HCl 25 mg PO TID PRN lorazepam 1 mg PO BID PRN omeprazole 40 mg PO DAILY ondansetron HCl 4 mg PO Q8H PRN HPI Comments Details: 10/18/24--Angelique has been evaluated for microscopic hematuria. Here for 1 year follow-up. The patient states that she had ?scraping? of cervix for dysplasia and was hospitalized due to sepsis after the procedure. She was placed on IV antibiotics. Currently she denies any urinary incontinence or voiding symptoms. Will send urine for cytology and surveillance urine culture. Follow-up in 6 months for renal bladder ultrasound and to monitor urine. 10/19/23--Here for cystoscopy. Reviewed 10/15/23-CTAP/w IV contrast, kidneys, urinary tract WNL. Cystoscopy findings: no suspicious bladder lesions. Microscopic hematuria. Will cont to monitor Urinalysis. FU one year. 09/06/23--Angelique is a very pleasant 38-year-old female patient of Dr. Fowler. 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 She presents to the office today for follow-up. Of note, patient was seen approximately 6 months ago as a new patient for microscopic hematuria at which time her urine was sent for urine cytology and patient had already completed CT urogram prior to new patient appointment. Urine cytology results reviewed with the patient today 03/16 Negative for high-grade urothelial carcinoma. During last office visit discussed further microscopic hematuria workup in the setting of history of nicotine dependence at times as well as recreational marijuana. However, patient declined at that time. In office urinalysis results reviewed with the patient today 3+ leukocytes negative nitrates 3+ microscopic hematuria. When asked she currently denies any UTI like symptoms. She denies urinary urgency, urinary frequency, incontinence, nocturia, hematuria, dysuria, foul smelling urine, changes to urinary stream, flank pain, fever, and or chills. She is happy with her current voiding parameters. She reports having followed up with classification inspector and has been positive for HPV and ovarian cysts. Previous workup has included a CT urogram that noted the kidneys are normal in size shape and attenuation. No hydronephrosis, hydroureter, or calculi seen. The bladder is unremarkable. She otherwise offers no other issues or concerns at this time. [facility] Medical History CORRINA II (cervical intraepithelial neoplasia II) Endometritis HIV antibody positive Abnormal laboratory test result Pure hypercholesterolemia Overweight (BMI 25.0-29.9) Depression Anxiety ASCUS with positive high risk HPV Surgical History History of hernia repair History of cholecystectomy History of Family History Maternal Grandmother Pacemaker CVD (cardiovascular disease) Father Diabetes HTN (hypertension) Mother Asthma Paternal Grandmother Cancer Brother No problems noted. Family/Other Substance abuse Chronic mental illness Social History Household Members: Children Housing: Apartment Do you presently have visiting nurse or other home services: No Unable to assess alcohol history related to: Unknown Alcohol intake: never Comment: pt. uses call mullins appropriately. Patient Tobacco Use Status: Never used Tobacco e-Cigarette/Vaping Use: Never Used Second Hand Smoke Exposure: No service: No Current occupational status: unemployed Sexual orientation: Straight/Heterosexual Gender identity: Female Cognitive needs: No Hearing needs: No Vision needs: No Female Reproductive History Menstrual Age of Menarche: 12 Review of Systems Const All systems reviewed & are unremarkable except as noted in HPI and below Reports no additional complaints Eyes Reports no additional complaints ENT Reports no additional complaints Card Reports no additional complaints Resp Reports no additional complaints GI Reports no additional complaints Reports as per HPI Musc Reports no additional complaints Skin/Breast Reports system reviewed and no additional complaints, except as documented Neuro Reports no additional complaints Psych Reports no additional complaints Endo Reports no additional complaints Ravi/Lymph Reports no additional complaints Aller/Immun Reports no additional complaints Results Reviewed Results Reviewed: Date of Service: 10/05/23 CT ABDOMEN AND PELVIS WITH CONTRAST CLINICAL INFORMATION: Abdominal pain. COMPARISON: 12/15/2022 TECHNIQUE: Multidetector volumetric images were obtained from the superior aspect of the liver through the pubic symphysis following administration 85 mL of Omnipaque 350 intravenous contrast. Sagittal and coronal reformatted images were obtained on the technologist's workstation. Oral contrast: No This CT examination was performed using dose optimization techniques as appropriate, variously including the following: *Automated exposure control *Adjustment of mA and/or kV according to patient size (this includes techniques or standardized protocols for targeted exams where dose is matched to indication/reason for exam; i.e. extremities or head) *Use of iterative reconstruction technique DLP: 411 mGy-cm FINDINGS: LUNG BASES: The visualized lung bases are unremarkable. LIVER, GALLBLADDER, AND BILIARY TREE: The liver is normal in size and contour. Postcholecystectomy changes of the biliary ductal system. The gallbladder is surgically absent. PANCREAS: No ductal dilatation. SPLEEN: Unremarkable. ADRENAL GLANDS: Unremarkable. KIDNEYS AND URETERS: The kidneys are normal in size, shape, and attenuation. No hydronephrosis, hydroureter, or calculi seen. No perinephric stranding. BLADDER: Underdistended. GASTROINTESTINAL TRACT: Small and large bowel loops are of normal caliber. No small bowel obstruction. ABDOMINAL WALL: No significant hernia is appreciated. LYMPH NODES: No bulky lymphadenopathy. VASCULAR: Normal caliber abdominal aorta. PELVIC VISCERA: There is nonorganized fluid and gas in the region the endocervical canal with surrounding hyperemia. Infection cannot be excluded. Left posterior myometrium appears heterogeneous. There is fullness of bilateral ovaries which are closely apposed in the posterior midline pelvis. Trace free fluid in the pelvis. OSSEOUS STRUCTURES: No destructive bone lesions. IMPRESSION: Nonorganized fluid and gas in the region the endocervical canal with surrounding hyperemia. Infection cannot be excluded. Date of Service: 12/15/22 EXAMINATION: CT ABDOMEN AND PELVIS WITH CONTRAST FINDINGS: LUNG BASES: The visualized lung bases are unremarkable. LIVER, GALLBLADDER, AND BILIARY TREE: The liver is normal in size, shape, and attenuation. No focal hepatic lesion is evident. Mild intrahepatic and extrahepatic biliary ductal dilatation is presumably related to prior cholecystectomy. PANCREAS: Unremarkable. SPLEEN: Unremarkable. ADRENAL GLANDS: Unremarkable. KIDNEYS AND URETERS: The kidneys are normal in size, shape, and attenuation. No hydronephrosis, hydroureter, or calculi seen. No perinephric stranding. BLADDER: Unremarkable. GASTROINTESTINAL TRACT: The small and large bowel are unremarkable. The appendix is unremarkable. ABDOMINAL WALL: No significant hernia is appreciated. LYMPH NODES: Normal. VASCULAR: Unremarkable. PELVIC VISCERA: Posterolateral to the left side of the uterus, there is a 6.1 x 3.1 cm cystic lesion inseparable from the left adnexa. The right ovary images normally. Endocervical nabothian cysts are present. There is a trace amount of free fluid in the cul-de-sac. OSSEOUS STRUCTURES: Mild thoracolumbar scoliosis is present. IMPRESSION: 1. Left adnexal 6.1 cm cyst, characterized by ultrasound as a simple appearing cyst. Best practice guidelines advocate for a follow-up ultrasound in 6-12 months unless symptoms warrant more prominent evaluation. Note that the cyst is stable since ultrasound of 12/07/2022 but new since ultrasound of 08/20/2022. 2. Incidental findings include: surgically absent gallbladder with mild associated biliary ductal dilatation; endocervical nabothian cyst formation; and mild thoracolumbar scoliosis. Assessment & Plan Assessment & Plan (1) Hematuria: Code(s): R31.9 - Hematuria, unspecified Category: Medical Qualifiers: Hematuria type: other microscopic Qualified Code(s): R31.29 - Other microscopic hematuria (2) Dysplasia of cervix, low grade (CORRINA 1): Code(s): N87.0 - Mild cervical dysplasia Category: Medical Plan: Followed by Psychologist Plan Follow-up in 7 months renal and bladder ultrasound prior Orders: Orders US retroperitoneal comp 5 Months R31.29 - Other microscopic hematuria Patient Instructions: The patient had an opportunity to ask questions regarding treatment plan. The patient expressed understanding and agreement with the above treatment plan. The patient is aware they should contact our office by phone for worsening of their current condition or the appearance of new symptoms. Compliance is encouraged with any medications and followup testing that is ordered. It is a privilege to be allowed the opportunity to participate in the urologic care of your patient. If you have any questions or concerns regarding treatment for the above conditions please do not hesitate to contact me. The office telephone contact is [phone]. This note is constructed in part using voice recognition software. While every effort has been made to ensure accuracy anesthesia assistant errors may have been included. Yours sincerely, Jose Garcia MD Coding Level of Care Code Est Pt Level 3 (11213) Complex EM visit Add On G2211 Diagnoses Other microscopic hematuria R31.29 Hematuria type: other microscopic Dysplasia of cervix, low grade (CORRINA 1) N87.0
== END 2024-10-18 13:32 | disposition home or self-care (01) ==
LOC: HO.HUSH 12:50
PROVIDERS: PCP Internal Medicine; Visit Provider Urology
DX: R31.29 Other microscopic hematuria (principal); N87.0 Mild cervical dysplasia; Z13.9 Encounter for screening, unspecified
CPT/HCPCS: 99213

== ENCOUNTER 2024-10-18 12:49 | Outpatient (REF) | payer OTHER, SELFPAY | END 2024-10-18 12:50 | disposition home or self-care (01) | LOC: HO.LAB 12:49 | PROVIDERS: PCP Internal Medicine; Visit Provider Urology | DX: R31.29 Other microscopic hematuria (principal); N87.0 Mild cervical dysplasia; N39.0 Urinary tract infection, site not specified; A49.9 Bacterial infection, unspecified | CPT/HCPCS: 81003; 87086; 88112; 99212 ==

== ENCOUNTER 2024-10-26 11:42 | Outpatient (REF) | payer OTHER, SELFPAY ==
[2024-10-27 12:39] LABS: Rubeola IgG (Measles) 68.90 AU/mL
== END 2024-10-26 11:43 | disposition home or self-care (01) ==
LOC: HO.LAB 11:42
PROVIDERS: PCP Internal Medicine; Visit Provider Internal Medicine
DX: Z01.84 Encounter for antibody response examination (principal); Z28.39 Other underimmunization status
CPT/HCPCS: 36415; 86735; 86762; 86765; 86787

== ENCOUNTER 2024-11-26 14:07 | Outpatient (AMB) | payer OTHER, SELFPAY ==
[2024-11-26 14:42] VITALS: BP 122/78; PULSE 97; O2SAT 98; BMI 28.8
--- NOTE | 2024-11-26 14:42 | A.OFFPC_ITS ---
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: No Accompanied by: Self / Same As Patient Allergies oxycodone Adverse Reaction (Mild, Uncoded 11/26/24 16:00) ineffective Medication List - Last Reconciled 11/26/24 by Shayne Bangura MD atorvastatin 10 mg PO BEDTIME buspirone 30 mg PO BID hydroxyzine HCl 25 mg PO TID PRN lorazepam 1 mg PO BID PRN omeprazole 40 mg PO DAILY ondansetron HCl 4 mg PO Q8H PRN Tobacco use date assessed: 11/26/24 Dental Screening Dental Screen Date: 11/26/24 HPI swollen feet HPI Details Patient comes in today complaining of swelling of her feet lately States that she spent some time down in [place] a few months ago and recalls that her legs and feet started swelling up while she was still down in [place] and persisted even upon her return here [place] She was seen here by another provider for this same reason(s) back in August 2024 and work ups done at the time, including her serum creatinine/GFR, BNP and venous doppler of the right lower extremity, all came back normal/negative (for DVT) States that it took some time but her lower extremity swelling eventually subsided and currently is no longer recurring She has been experiencing on and off abdominal pain lately, especially over her epigastric area States that she is currently on Omeprazole for gastritis but the medication does not seem to be helping with her abdominal pain Recalls being advised in the past that she has a hiatal hernia and is wondering if this is a possible cause of her recent abdominal pain Her upper GI series done back in January 2024 revealed a type 1 hiatal hernia as well as findings suggestive of gastritis She was referred to GI way back in February 2024 for further evaluation of her symptoms at the time but patient states that she was never contacted by GI for an appointment She denies any fever, headaches or dizziness Denies any chest pains, no increased SOB but adds that she's had some lingering cough and congestion from a cold that she contracted a couple of weeks ago States that her cough feels worse at night and is mostly non-productive No nausea/vomiting and no change in bowel habits noted [facility] Medical History CORRINA II (cervical intraepithelial neoplasia II) Endometritis HIV antibody positive Abnormal laboratory test result Pure hypercholesterolemia Overweight (BMI 25.0-29.9) Depression Anxiety ASCUS with positive high risk HPV Surgical History History of hernia repair History of cholecystectomy History of Family History Maternal Grandmother Pacemaker CVD (cardiovascular disease) Father Diabetes HTN (hypertension) Mother Asthma Paternal Grandmother Cancer Brother No problems noted. Family/Other Substance abuse Chronic mental illness Social History Household Members: Children Housing: Apartment Do you presently have visiting nurse or other home services: No Alcohol intake: never Comment: pt. uses call mullins appropriately. Patient Tobacco Use Status: Never used Tobacco e-Cigarette/Vaping Use: Never Used Second Hand Smoke Exposure: No service: No Current occupational status: unemployed Sexual orientation: Straight/Heterosexual Gender identity: Female Cognitive needs: No Hearing needs: No Vision needs: No Female Reproductive History Menstrual Age of Menarche: 12 Questionnaire PHQ-9 Over the last 2 weeks, how often have you been bothered by any of the following problems? 1. Little interest or pleasure in doing things: not at all 2. Feeling down, depressed, or hopeless: not at all 3. Trouble falling or staying asleep, or sleeping too much: not at all 4. Feeling tired or having little energy: not at all 5. Poor appetite or overeating: not at all 6. Feeling bad about yourself - or that you are a failure or have let yourself or your family down: not at all 7. Trouble concentrating on things, such as reading the newspaper or watching television: not at all 8. Moving or speaking so slowly that other people could have noticed. Or the opposite - being so fidgety or restless that you have been moving around a lot more than usual: not at all 9. Thoughts that you would be better off or of hurting yourself in some way: not at all Total score: 0 Depression Screening Interpretation: Negative Depression Screening Done: Yes 99763 - PHQ-9 Billing: Yes Source: Developed by Drs. Marshall Keane, Yas Isaac, Francisco Lynch and colleagues, with an educational rosy from [employer]. Thrive Questionnaire Date Thrive assessed: 05/28/24 I am a: Patient What is your living situation today?: I have a steady place to live Within the past 12 months, did the food you bought not last and you didn't have the money to get more?: Sometimes True Within the past 12 months, did you worry whether your food would run out before you got money to buy more?: Sometimes True Do you have trouble paying for medicines?: No Do you have trouble getting transportation to medical appointments?: Yes Do you have trouble paying your heating and electricity bill?: No Do you have trouble taking care of your child, family member or friend?: No Do you have trouble with day-to-day activities such as bathing, preparing meals, shopping, managing finances, etc.?: No Are you currently unemployed and looking for a job?: No Are you interested in more education?: Yes Please select the resources that you would like help with: Food and Transportat ion Currently or been in a relationship where the following occur: I choose not to answer THRIVE Score: 3 AUDIT C Alcohol Use Questionnaire (AUDIT-C) 1. How often do you have a drink containing alcohol?: Never 3. How often do you have six or more drinks on one occasion?: Never Total Score: 0 Score Reviewed/Action Taken: Yes CATY-7 AMB Questionnaire CATY-7 Date CATY - 7 assessed: 05/28/24 Feeling nervous, anxious, or on edge: 1 = Several days Not being able to stop or control worryin = Several days Worrying too much about different things: 0 = Not at all Trouble relaxin = Not at all Being so restless that it is hard to sit still: 0 = Not at all Becoming easily annoyed or irritable: 0 = Not at all Feeling afraid as if something awful might happen: 0 = Not at all Total CATY-7 score (0-4 normal; 5-9 mild; 10-14 moderate; 15-21 severe): 2 Source: Developed by Drs. Marshall Keane, Yas Isaac, Francisco Lynch and colleagues, with an educational rosy from [employer]. Review of Systems Const Denies chills, Denies fatigue, Denies fever(s) and Denies headache(s) ENT Denies dysphagia, Denies dizziness, Denies otalgia, Denies headache(s), Denies neck pain, Denies odynophagia and Denies sore throat Card Denies chest pain, Denies irregular heart rhythm, Denies palpitations and Denies dyspnea Resp Reports chest congestion (mild), Reports cough (recurrent, non-productive, worse at night), Denies dyspnea and Denies wheezing GI Reports abdominal pain (on and off, over the epigastric area), Denies constipation, Denies dysphagia, Denies heartburn, Denies diarrhea, Denies nausea, Denies odynophagia and Denies vomiting Denies difficulty voiding, Denies nocturia, Denies dysuria and Denies urinary urgency Musc Denies back pain, Denies arthralgias and Denies neck pain Skin/Breast Denies rash Neuro Denies dizziness, Denies headache(s) and Denies paresthesias Psych Reports anxiety (current Rx helping) and Denies depression Endo Denies fatigue and Denies palpitations Aller/Immun Denies wheezing Physical exam (Primary Care) Vital Signs: Last Vital Signs Pulse 97 11/26/24 14:42 BP 122/78 11/26/24 14:42 Pulse Ox 98 11/26/24 14:42 Oxygen Delivery Method Room Air 11/26/24 14:42 BMI result Body Mass Index 28.8 Tobacco/Smoking Status: Tobacco use Status Tobacco use date assessed 11/26/24 11/26/24 14:44 Patient Tobacco Use Status Never used Tobacco 11/26/24 14:44 e-Cigarette/Vaping Use Never Used 11/26/24 14:44 PHQ-9: PHQ-9 Score PHQ-9: Total score 0 12/21/24 01:31 Depression Screening Interpretation: Negative Thrive Assessment: Date of Thrive Assessment Date Thrive assessed 05/28/24 11/26/24 14:44 Currently or been in a relationship where the following occur: I choose not to answer Const General: no acute distress and alert HENMT Ears: TM's normal bilaterally and EAC's normal Throat: Yes posterior oropharynx normal and Yes tonsils normal (no TP congestion) Neck Neck: Yes supple and No lymphadenopathy Thyroid: Thyroid normal Resp Auscultation: no crackles, no rales, rhonchi (scattered ) throughout and no wheezes Cardio Rate: regular rate Rhythm: regular rhythm Heart sounds: no murmurs GI Palpation (GI): Soft to palpation, Tenderness to palpation present (GI) (mild) in the epigastrum, no guarding, not rigid and No Rebound tenderness present Auscultation: normal bowel sounds General: Yes no CVA tenderness Back/Spine/Pelvis Back: no CVA tenderness Thoracic/Lumbar Spine: No lumbar spinal tenderness Skin Rashes: no rashes Extrem General: Yes no clubbing, cyanosis or edema Coding Level of Care Code Est Pt Level 4 (09058) Diagnoses Gastritis without bleeding, unspecified chronicity, unspecified gastritis type K29.70 Gastritis type: unspecified gastritis Chronicity: unspecified Gastritis bleeding: without bleeding Pure hypercholesterolemia E78.00 Environmental allergies Z91.09 Respiratory tract infection J98.8 Anxiety F41.9 Episode of recurrent major depressive disorder, unspecified depression episode severity F33.9 Depression Type: major depressive disorder Major depression recurrence: recurrent Active/Remission status: currently active Major depression episode severity: unspecified Overweight (BMI 25.0-29.9) E66.3 Additional Codes PHQ-9 - 65170 - PHQ-9 Billing: Yes ([id number]) Assessment & Plan Assessment & Plan (1) Gastritis: Code(s): K29.70 - Gastritis, unspecified, without bleeding Category: Medical Qualifiers: Gastritis type: unspecified gastritis Chronicity: unspecified Gastritis bleeding: without bleeding Qualified Code(s): K29.70 - Gastritis, unspecified, without bleeding Plan: Dietary restrictions reinforced Her upper GI series done back in January 2024 revealed (+) small type I hiatal hernia, moderate gastroesophageal reflux and prominent appearance of the areae gastrica suggestive of gastritis Abdominal US in March 2024 revealed only findings of hepatic steatosis She was started on Omeprazole 20 mg QD last year to help with her symptoms but patient feels that it is not helping much recently States that she was never contacted nor seen by GI when she was referred for further evaluation and management earlier this year As she will likely require EGD for further evaluation of her persistent abdominal pain despite PPI Tx, will refer her again to GI for further evaluation and management (2) Pure hypercholesterolemia: Code(s): E78.00 - Pure hypercholesterolemia, unspecified Category: Medical Plan: Reinforced low cholesterol diet Her cholesterol levels were still elevated when they were last checked in August 2024, with her total cholesterol at 217 mg/dl and LDL cholesterol at 146 mg/dl - these were improved slightly from her numbers earlier this year Continue Atorvastatin 10 mg QD Will have patient recheck her labs and fasting lipids just before she returns for her annual physical examination in April 2025 (3) Environmental allergies: Code(s): Z91.09 - Other allergy status, other than to drugs and biological substances Category: Medical Plan: Per request, she was referred for allergy testing and consideration for immunotherapy last year but we have not received any reports or OV notes back from allergy and immunology so far (4) Respiratory tract infection: Code(s): J98.8 - Other specified respiratory disorders Category: Medical Plan: She currently appears to have some residual/lingering or persistent symptoms (cough, chest congestion) from the respiratory tract infection that she contracted a couple of weeks ago Will go ahead and start her empirically on Doxycycline 100 mg BID x 7 days (5) Anxiety: Code(s): F41.9 - Anxiety disorder, unspecified Category: Medical Plan: Continue Buspirone 30 mg BID, Hydroxyzine 25 mg TID PRN and Lorazepam 1 mg BID PRN She used to take Bupropion and Citalopram but these appear to have been discontinued sometime last year Follow up with psychiatry as scheduled (6) Depression: Code(s): F32.9 - Major depressive disorder, single episode, unspecified Category: Medical Qualifiers: Depression Type: major depressive disorder Major depression recurrence: recurrent Active/Remission status: currently active Major depression episode severity: unspecified Qualified Code(s): F33.9 - Major depressive disorder, recurrent, unspecified Plan: She used to be on Citalopram 20 mg QD PRN and Bupropion 150 mg QD PRN but these seem to have been discontinued by psychiatry last year Follow up with psychiatry as scheduled (7) Overweight (BMI 25.0-29.9): Code(s): E66.3 - Overweight Category: Medical Plan: Reinforced diet/exercise as tolerated/lose weight Plan To return in April 2025 for her annual physical examination Orders: Orders TSH reflex Free T4 04/21/25 E78.00 - Pure hypercholesterolemia, unspecified, Z00.00 - Encounter for general adult medical examination without abnormal findings Vitamin D 25-OH Total 04/21/25 E55.9 - Vitamin D deficiency, unspecified, Z00.00 - Encounter for general adult medical examination without abnormal findings Complete Blood Count Auto Diff 04/21/25 D64.9 - Anemia, unspecified, Z00.00 - Encounter for general adult medical examination without abnormal findings Comprehensive [place]. Panel Fast 04/21/25 E78.00 - Pure hypercholesterolemia, unspecified, Z00.00 - Encounter for general adult medical examination without abnormal findings Lipid Panel 04/21/25 E78.00 - Pure hypercholesterolemia, unspecified, Z00.00 - Encounter for general adult medical examination without abnormal findings UA CC w/rflx Micro + Cult 04/21/25 R30.0 - Dysuria, Z00.00 - Encounter for general adult medical examination without abnormal findings Referrals Gastroenterology Referral K29.70 - Gastritis, unspecified, without bleeding, K44.9 - Diaphragmatic hernia without obstruction or gangrene Medications: New doxycycline hyclate 100 mg PO BID 14 caps 0RF 7 days
== END 2024-11-26 16:24 | disposition home or self-care (01) ==
LOC: HO.HMCH 14:08
PROVIDERS: PCP Internal Medicine; Visit Provider Internal Medicine
DX: K29.70 Gastritis, unspecified, without bleeding (principal); E78.00 Pure hypercholesterolemia, unspecified; Z91.09 Other allergy status, other than to drugs and biological substances; J98.8 Other specified respiratory disorders; F41.9 Anxiety disorder, unspecified; F33.9 Major depressive disorder, recurrent, unspecified; E66.3 Overweight

== ENCOUNTER → 2024-11-26 14:07 | Outpatient (BNVA) | payer OTHER, SELFPAY | PROVIDERS: PCP Internal Medicine; Visit Provider Internal Medicine | DX: E66.3 Overweight (principal); R10.9 Unspecified abdominal pain; K31.84 Gastroparesis; K29.70 Gastritis, unspecified, without bleeding; E78.00 Pure hypercholesterolemia, unspecified; J98.8 Other specified respiratory disorders; F41.9 Anxiety disorder, unspecified; F33.9 Major depressive disorder, recurrent, unspecified; R30.0 Dysuria; K44.9 Diaphragmatic hernia without obstruction or gangrene; Z91.09 Other allergy status, other than to drugs and biological substances; Z79.899 Other long term (current) drug therapy; Z68.28 Body mass index [BMI] 28.0-28.9, adult | CPT/HCPCS: 96127; 99212 ==

== ENCOUNTER 2025-02-13 08:19 | Outpatient (AMB) | payer OTHER, SELFPAY ==
--- NOTE | 2025-02-13 08:20 | A.OFFPC_ITS ---
Intake Visit Reasons: Eye Issues Intake Note: 40-year-old female wishes to discuss her medical health via tele health. Patient was informed that I am covering for her regular provider. Today she wishes to discuss 2 issues. Patient is requesting an ophthalmology appointment for her failing vision. She reports blurred vision with difficulty reading. She has contacted a few welding pantograph machine operator but unable to get an appointment to see them. In addition, patient is complaining of fever, headaches and a sore throat. Symptoms started a few days ago. Cough is productive. No family members sick. No nausea or vomiting. 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 Required: No Blood Tester Fowl: Not Required per policy Accompanied by: Self / Same As Patient Allergies oxycodone Adverse Reaction (Mild, Uncoded 02/13/25 09:23) ineffective Medication List - Last Reconciled 02/13/25 by Jey Vivar MD atorvastatin 10 mg PO BEDTIME azithromycin take 500 mg today (day 1), then 250 mg for 4 days (days 2-5) PO buspirone 30 mg PO BID hydroxyzine HCl 25 mg PO TID PRN lorazepam 1 mg PO BID PRN omeprazole 40 mg PO DAILY ondansetron HCl 4 mg PO Q8H PRN prednisone 60 mg (3 x 20 mg) PO DAILY Tobacco use date assessed: 02/13/25 Dental Screening Dental Screen Date: 11/26/24 [facility] Medical History CORRINA II (cervical intraepithelial neoplasia II) Endometritis HIV antibody positive Abnormal laboratory test result Pure hypercholesterolemia Overweight (BMI 25.0-29.9) Depression Anxiety ASCUS with positive high risk HPV Surgical History History of hernia repair History of cholecystectomy History of Family History Maternal Grandmother Pacemaker CVD (cardiovascular disease) Father Diabetes HTN (hypertension) Mother Asthma Paternal Grandmother Cancer Brother No problems noted. Family/Other Substance abuse Chronic mental illness Social History Household Members: Children Housing: Apartment Do you presently have visiting nurse or other home services: No Alcohol intake: never Comment: pt. uses call mullins appropriately. Patient Tobacco Use Status: Never used Tobacco e-Cigarette/Vaping Use: Never Used Second Hand Smoke Exposure: No service: No Current occupational status: unemployed Sexual orientation: Straight/Heterosexual Gender identity: Female Cognitive needs: No Hearing needs: No Vision needs: No Female Reproductive History Menstrual Age of Menarche: 12 Questionnaire Thrive Questionnaire Date Thrive assessed: 05/28/24 CATY-7 AMB Questionnaire CATY-7 Date CATY - 7 assessed: 05/28/24 Source: Developed by Drs. Marshall Keane, Yas Isaac, Francisco Lynch and colleagues, with an educational rosy from [employer]. Physical exam (Primary Care) Tobacco/Smoking Status: Tobacco use Status Tobacco use date assessed 02/13/25 02/13/25 08:22 Patient Tobacco Use Status Never used Tobacco 02/13/25 08:22 e-Cigarette/Vaping Use Never Used 02/13/25 08:22 Thrive Assessment: Date of Thrive Assessment Date Thrive assessed 05/28/24 02/13/25 08:22 Const General: cooperative and healthy appearing Nutritional Appearance: well nourished Orientation/consciousness: patient oriented x3 Limitations: no limitations HENMT Head: Yes normal to inspection Eyes General: appearance normal, both eyes and all related structures Neck Neck: Yes normal visual inspection Chest Chest palpation & inspection: normal palpation of entire chest wall Resp Effort & Inspection: normal respiratory effort Neuro General: patient oriented x3 Telehealth Telehealth Telehealth Platform: Telephone Location of provider rendering services: practice address Location of patient: address on file Patient Identification confirmed using: Name, : Yes Telehealth method: voice only Patient verbally consented to treatment: Yes Patient verbally consented to billing insurance company: Yes Patient informed of any privacy concerns related to visit: Yes Minutes spent on Phone/Video with Pt.: 15 Coding Level of Care Code Tele Est Pt Level 4 (68474) Add On Problem Visit Only Diagnoses Blurred vision H53.8 Upper respiratory infection J06.9 Assessment & Plan Assessment & Plan (1) Blurred vision: Code(s): H53.8 - Other visual disturbances Plan: I suggested patient making an appointment with an welding pantograph machine operator [place] They do not need an referral. Patient was a little reluctant and I made an appointment with an knife setter assembler. I advised her to seek the opinion of the welding pantograph machine operator, as she can walk-in to their offices. Should see still encounter difficulty getting an appointment, an knife setter assembler referral has been made. (2) Upper respiratory infection: Code(s): J06.9 - Acute upper respiratory infection, unspecified Plan: Antibiotics, prednisone has been added to the regimen. If symptoms do not improve, to follow-up here. Orders: Referrals Ophthalmology Referral H54.7 - Unspecified visual loss Medications: New azithromycin take 500 mg today (day 1), then 250 mg for 4 days (days 2-5) PO 6 tabs 0RF prednisone 60 mg (3 x 20 mg) PO DAILY 9 tabs 0RF
== END 2025-02-13 10:28 | disposition home or self-care (01) ==
LOC: HO.HMCH 08:19
PROVIDERS: PCP Internal Medicine; Visit Provider Internal Medicine
DX: H53.8 Other visual disturbances (principal); J06.9 Acute upper respiratory infection, unspecified